=== PATIENT | female | born 1965 | race Caucasian/White ===

== ENCOUNTER → 2017-08-15 | Outpatient (CLI) | payer BC ==
[2017-08-15] MEDS: BARIUM SULFATE 60% 355 ML SUSP PO ×2 (08:41)
== END | disposition home or self-care (01) ==
LOC: RAD 07:55
DX: K51.80 Other ulcerative colitis without complications (principal); Z90.49 Acquired absence of other specified parts of digestive tract
CPT/HCPCS: 74250

== ENCOUNTER → 2017-09-02 | Day surgery (SDC) | payer BC ==
[~2017-09-02] MED LIST: PROPOFOL 20 ML IV
[2017-09-02 13:11] LABS: NEG OBC UR NEG; POS OBC UR POS; U PREG PATIENT NEGATIVE (NEG)
[2017-09-02 13:22] LABS: POC GLUCOSE 109 mg/dL (70-99)
[2017-09-02] MEDS: IV RINGERS,LACTATED 1000ML 1,000 ML IV ×2 (13:23)
== END | disposition home or self-care (01) ==
LOC: SURG 12:46
DX: K91.850 Pouchitis (principal); K63.89 Other specified diseases of intestine; E11.9 Type 2 diabetes mellitus without complications; F32.9 Major depressive disorder, single episode, unspecified; Z72.89 Other problems related to lifestyle; Z79.899 Other long term (current) drug therapy; Z86.69 Personal history of other diseases of the nervous system and sense organs; Z88.6 Allergy status to analgesic agent; Z88.2 Allergy status to sulfonamides; Z88.8 Allergy status to other drugs, medicaments and biological substances
CPT/HCPCS: 44376; 81025; 82962; J2704

== ENCOUNTER → 2018-11-21 | Outpatient (CLI) | payer BC ==
[2017-09-02 14:50] VITALS: BP 142/63
[~2018-11-21] MED LIST changes: +CONTRAST GIVEN. MC PRN; +ESCITALOPRAM OX10 MG PO; +IOHEXOL 300 MG/ML 100ML VIAL. IV ONE; +LORA10TA3 PO; +METF10007 PO; -PROPOFOL 20 ML IV; +TOPI25TA52 PO; +[UNRECOGNIZED DRUG - OTHER]
[2018-11-21 12:27] LABS: CREATININE 0.8 mg/dL (0.6-1.0); GFR 75.3
--- NOTE | 2018-11-21 17:03 | RAD ---
CT of the chest with contrast, 11/21/2018: HISTORY: Cough, fatigue, tobacco use Multidetector CT imaging was performed following an IV bolus injection of iodinated contrast material. Multiplanar reconstructions were produced. There is mild calcific plaquing of the thoracic aorta without evidence of aneurysm. Moderate scattered coronary artery calcifications are present. No mediastinal or hilar adenopathy is seen. There is a calcified granuloma in the lingula. No pulmonary mass or dense consolidation is seen. There is no evidence of pleural fluid. IMPRESSION: 1. Moderate coronary artery disease. 2. No acute chest abnormality is detected. PQRS Compliance Statement: One or more of the following individualized dose reduction techniques were utilized for this examination: 1. Automated exposure control 2. Adjustment of the mA and/or kV according to patient size 3. Use of iterative reconstruction technique Electronically signed by: Faraz Londono MD (11/21/2018 5:00 PM) [facility]
== END | disposition home or self-care (01) ==
LOC: CT 11:19
PROVIDERS: ATTEND Internal Medicine Hematology & Oncology
DX: I25.10 Atherosclerotic heart disease of native coronary artery without angina pectoris (principal); I70.0 Atherosclerosis of aorta; J98.4 Other disorders of lung; Z72.0 Tobacco use
CPT/HCPCS: 36415; 71260; 82565; Q9967

== ENCOUNTER 2019-12-24 11:43 | Observation (INO) | payer BC ==
[2019-12-24] VITALS (10 sets, daily range): BP systolic 107–171; BP diastolic 55–87
[~2019-12-24] VITALS: Ht 157.5 cm; Wt 103.4 kg
[~2019-12-24 11:43] MED LIST changes: -CONTRAST GIVEN. MC PRN; -IOHEXOL 300 MG/ML 100ML VIAL. IV ONE
[2019-12-24] MEDS ORDERED: IV NORMAL SALINE 1000ML BAG 1,000 ML IV ONE ×2 (12:00→16:15)
[2019-12-24 12:13] LABS: BASO # 0.1 x10^3/uL (0.0-0.2); BASO % 1 % (0-3); EOS # 0.2 x10^3/uL (0.0-0.7); EOS % 2 % (0-3); HEMATOCRIT 46.9 % (36.0-47.0); HEMOGLOBIN 16.4 g/dL (12.0-15.5); LYMPH # 1.7 x10^3/uL (1.0-4.8); LYMPH % 17 % (24-48); MEAN CORPUSCULAR HEMOGLOBIN 31 pg (25-35); MEAN CORPUSCULAR HGB CONC 35 g/dL (31-37); MEAN CORPUSCULAR VOLUME 90 fL (79-100); MONO # 1.1 x10^3/uL (0.0-1.1); MONO % 11 % (0-9); NEUT # 6.9 x10^3/uL (1.8-7.7); NEUT % 69 % (31-73); PLATELET COUNT 252 x10^3/uL (140-400); RED BLOOD COUNT 5.23 x10^6/uL (3.50-5.40); RED CELL DISTRIBUTION WIDTH 12.8 % (11.5-14.5)
[2019-12-24 12:20] LABS: PROTHROMBIN TIME PATIENT 13.4 SEC (11.7-14.0)
--- NOTE | 2019-12-24 12:23 | EKG ---
[facility] [address] [place] [address] Test Date: 2019-12-24 Test Time: 11:49:42 Pat Name: TIM HAYES Department: Room: Gender: F Clinic Supervisor: : 1965 Requested By: JESSICA GATICA Order Number: [id number] Reading MD: Rey Peck Measurements Intervals [place] Rate: 86 P: 48 CA: 146 QRS: -35 QRSD: 84 T: 31 QT: 338 QTc: 407 Interpretive Statements SINUS RHYTHM QRS(T) CONTOUR ABNORMALITY CONSIDER ANTEROSEPTAL MYOCARDIAL DAMAGE Electronically Signed On 12-25-2019 16:41:11 CDT by Rey Peck
[2019-12-24 12:24] LABS: CALCIUM 9.2 mg/dL (8.5-10.1); POTASSIUM 3.7 mmol/L (3.5-5.1)
[2019-12-24 12:26] LABS: D-DIMER 0.71 ug/mlFEU (0.00-0.50)
[2019-12-24 12:30] LABS: ALBUMIN 3.2 g/dL (3.4-5.0); MAGNESIUM 1.5 mg/dL (1.8-2.4); TOTAL BILIRUBIN 0.3 mg/dL (0.2-1.0); TOTAL PROTEIN 6.4 g/dL (6.4-8.2)
[2019-12-24] MEDS ORDERED: ASPIRIN 325 MG TABLET PO ONE (12:30)
[2019-12-24 12:38] LABS: CREATINE KINASE 55 U/L (26-192)
--- NOTE | 2019-12-24 12:38 | PHYS DOC ---
Past Medical History Past Medical History: Anxiety, Depression, Diabetes-Type II, Migraines, Pancreatitis, Other Additional Past Medical Histor: ulcerative colitis Past Surgical History: Tonsillectomy, Other Additional Past Surgical Histo: colectomy with internal ostomy pouch Smoking Status: Current Every Day Smoker Alcohol Use: Rarely Drug Use: None General Adult EDM: Chief Complaint: CHEST PAIN HPI: HPI: Patient is a 54 year old female presents with report of "severe headache", left chest pain, left jaw pain, and left arm "heaviness "which started approximately 45 minutes to an hour prior to arrival. Patient reports she was at work when symptoms occurred. Denies any trauma. Denies fever or chills. Denies cough. Denies nausea or diaphoresis. Patient does report cardiac risk factors of family history of CAD in her father, smoking, and diabetes. Patient denies leg swelling or calf tenderness. Denies pleuritic pain. Denies fever or chills. Patient does report history of prior abnormal stress test with report of blockage greater than 90% but at that time no stent was placed. Review of Systems: Review of Systems: Constitutional: Denies fever or chills; reports generalized malaise Eyes: Denies redness or eye pain HENT: Denies nasal congestion or sore throat Respiratory: Denies cough; reports shortness of breath Cardiovascular: Denies palpitations; reports chest pain GI: Denies abdominal pain, nausea, or vomiting : Denies dysuria or hematuria Musculoskeletal: Denies back pain; reports left arm pain Integument: Denies rash or skin lesions Neurologic: Reports headache; denies focal weakness or sensory changes Complete systems were reviewed and found to be within normal limits, except as documented in this note. Heart Score: HEART Score for Chest Pain: HEART Score for Chest Pain Response (Comments) Value History Moderately Suspicious 1 ECG Normal 0 Age >45 - < 65 1 Risk Factors >3 Risk Factors or Hx CAD 2 Troponin < Normal Limit 0 Total 4 Risk Factors: Risk Factors: DM, Current or recent (<one month) smoker, HTN, HLP, family history of CAD, obesity. Risk Scores: Score 0 - 3: 2.5% MACE over next 6 weeks - Discharge Home Score 4 - 6: 20.3% MACE over next 6 weeks - Admit for Clinical Observation Score 7 - 10: 72.7% MACE over next 6 weeks - Early Invasive Strategies Current Medications: Current Medications Medications (Trade) Dose Ordered Sig/Rowdy Start Time Stop Time Status Last Admin Dose Admin Aspirin (Berry Aspirin) 325 mg 1X ONCE 12/24/19 12:30 12/24/19 12:31 DC 12/24/19 12:18 325 MG Sodium Chloride 1,000 ml @ 1,000 mls/hr 1X ONCE 12/24/19 12:00 12/24/19 12:59 12/24/19 12:18 1,000 MLS/HR Allergies: Allergies: Allergies Coded Allergies Type Severity Reaction Last Updated Verified Sulfa (Sulfonamide Antibiotics) Allergy Unknown 08/07/17 Yes sumatriptan Allergy Unknown 08/07/17 Yes morphine Adverse Reaction Mild Anxiety 08/07/17 Yes Physical Exam: PE: Constitutional: Well developed, obese, uncomfortable HENT: Normocephalic, atraumatic Eyes: PERRL, EOMI, conjunctiva normal, no discharge Neck: Normal range of motion, no tenderness, supple, no meningeal signs Cardiovascular: Heart rate normal, regular rhythm Lungs & Thorax: Bilateral breath sounds clear to auscultation, no wheezing Abdomen: Soft, no tenderness Skin: Warm, dry, no erythema, no rash Extremities: No tenderness, ROM intact, no edema, no calf tenderness Neurologic: Alert and oriented X 3, normal motor function, normal sensory function, no focal deficits note, cerebellar function intact Psychologic: Affect anxious, judgment normal Current Patient Data: Labs: Laboratory Tests Test 12/24/19 12:02 White Blood Count 10.0 x10^3/uL (4.0-11.0) Red Blood Count 5.23 x10^6/uL (3.50-5.40) Hemoglobin 16.4 g/dL (12.0-15.5) H Hematocrit 46.9 % (36.0-47.0) Mean Corpuscular Volume 90 fL (79-100) Mean Corpuscular Hemoglobin 31 pg (25-35) Mean Corpuscular Hemoglobin Concent 35 g/dL (31-37) Red Cell Distribution Width 12.8 % (11.5-14.5) Platelet Count 252 x10^3/uL (140-400) Neutrophils (%) (Auto) 69 % (31-73) Lymphocytes (%) (Auto) 17 % (24-48) L Monocytes (%) (Auto) 11 % (0-9) H Eosinophils (%) (Auto) 2 % (0-3) Basophils (%) (Auto) 1 % (0-3) Neutrophils # (Auto) 6.9 x10^3/uL (1.8-7.7) Lymphocytes # (Auto) 1.7 x10^3/uL (1.0-4.8) Monocytes # (Auto) 1.1 x10^3/uL (0.0-1.1) Eosinophils # (Auto) 0.2 x10^3/uL (0.0-0.7) Basophils # (Auto) 0.1 x10^3/uL (0.0-0.2) Prothrombin Time 13.4 SEC (11.7-14.0) Prothrombin Time INR 1.1 (0.8-1.1) Activated Partial Thromboplast Time 30 SEC (24-38) D-Dimer (Tiarra) 0.71 ug/mlFEU (0.00-0.50) H Sodium Level 133 mmol/L (136-145) L Potassium Level 3.7 mmol/L (3.5-5.1) Chloride Level 101 mmol/L (98-107) Carbon Dioxide Level 23 mmol/L (21-32) Anion Gap 9 (6-14) Blood Urea Nitrogen 12 mg/dL (7-20) Creatinine 1.0 mg/dL (0.6-1.0) Estimated GFR (Cockcroft-Gault) 58.0 BUN/Creatinine Ratio 12 (6-20) Glucose Level 237 mg/dL (70-99) H Calcium Level 9.2 mg/dL (8.5-10.1) Magnesium Level 1.5 mg/dL (1.8-2.4) L Total Bilirubin 0.3 mg/dL (0.2-1.0) Aspartate Amino Transferase (AST) 34 U/L (15-37) Alanine Aminotransferase (ALT) 96 U/L (14-59) H Alkaline Phosphatase 116 U/L (46-116) Total Protein 6.4 g/dL (6.4-8.2) Albumin 3.2 g/dL (3.4-5.0) L Albumin/Globulin Ratio 1.0 (1.0-1.7) Lipase 109 U/L (73-393) Laboratory Tests 12/24/19 12:02 Laboratory Tests 12/24/19 12:02 Vital Signs: Vital Signs Date Time Temp Pulse Resp B/P (MAP) Pulse Ox O2 Delivery O2 Flow Rate FiO2 12/24/19 11:45 98.1 83 17 200/91 (127) 98 Room Air 98.1 EKG: EKG: @1149 NSR at 86bpm, NO ST elevation, QRS 84ms, QT/QTc 338/407ms Radiology/Procedures: Radiology/Procedures: [] Course & Med Decision Making: Course & Med Decision Making Pertinent Labs reviewed. (See chart for details) Patient with significant cardiac risk factors presents with report of chest discomfort with associated left jaw pain, left arm heaviness, and headache. EKG stable. Labs obtained and posted to chart. Initial troponin within normal limits. D-dimer elevated. HEART score 4. CTA chest ordered and pending. Discussed case with Gary DEDICATED DRIVER with Dr. Chang (cardiology) who evaluated patient and decided to take patient directly to civil laboratory technician for diagnostic cath. CT therefore was held. Patient requiring admission for further evaluation and treatment. Discussed with Dr. Love (hospitalist) who is in agreement with admission. Discussed findings and plan with patient and family, who acknowledge understanding and agreement. Dr. Chang (cardiology) called after cath with report of significant CAD which is more likely cause of chest discomfort. Decision therefore to hold CTA chest. Dr. Chang to notify Dr. Love regarding. Dragon Disclaimer: Blanca Disclaimer: This electronic medical record was generated, in whole or in part, using a voice recognition dictation system. Departure Departure Impression: Primary Impression: Chest pain Qualified Codes: R07.9 - Chest pain, unspecified Additional Impressions: Elevated d-dimer Hypomagnesemia Headache Qualified Codes: R51 - Headache Disposition: ADMITTED INPATIENT Admitting Physician: LISA Enamorado) Condition: STABLE Referrals: IDRIS HERNANDEZ MD (PCP) Justicifation of Admission Dx: Justifications for Admission: Justification of Admission Dx: Yes Comments: Chest pain r/o ACS JESSICA GATICA DO Dec 24, 2019 12:38
[2019-12-24] MEDS ORDERED: fentaNYL PF VIAL 100 MCG/2 ML VIAL IV ONE ×2 (12:45→14:00)
[2019-12-24] MEDS ORDERED: MAGNESIUM SULFATE 2GM 50 ML IV ONE ×2 (12:45→13:00)
[2019-12-24] MEDS ORDERED: LIDOCAINE 1% PF 2 ML VIAL. ONE (12:53)
[2019-12-24] MEDS ORDERED: IOHEXOL 300 MG/ML 100ML VIAL. ONE (12:54)
--- NOTE | 2019-12-24 12:55 | PDOC2 ---
PIPO GHOTRA PILOT BOAT CAPTAIN 12/24/19 1255: CARDIAC CONSULT DATE OF CONSULT Date of Consult DATE: 12/24/19 TIME: 12:52 REASON FOR CONSULT Reason for Consult: Chest pain REFERRING PHYSICIAN Referring Physician: Constantin SOURCE Source: Chart review, Patient HISTORY OF PRESENT ILLNESS HISTORY OF PRESENT ILLNESS This is a pleasant 54 yo female admitted for complains of chest pain. Reports that she was resting late this morning when she started having midchest pressure. Also associated with throbbing MERCADO, jaw discomfort and left arm discomfort. No focal neuro symptoms. Positive for some SOA and nausea. In the last sweveral weeks she has been feeling fatigue. Trying to clean her house and she could not do consecutive chores as she feels week and lack stamina. No exertional chest pressure per se in the last few weeks but positive for frequent indigestion. She has known CAD with LHC done about 10 yrs ago but no inte rvention was done. She has DM to which she has not taken her metformin for about a yr. She was not told of HTN but her BP was high when she came in. No hx of anemia, PUD or GERD. She has gained about 10 pounds in the last 3 months and no form of routine exercise. She smokes tobacco and has ROSALES which she tried a CPAP for about 6 months 10 yrs ago and quit completely. She has family hx of CAD. No ASA, she does not take any routine medications. No recent falls or injury. No hx of VTE or recent long distance travel. Denies any coughing, ,fever or chills. She also has some anxiety but also has stopped taking lexapro. She does take some medication for insomnia unclear name. PAST MEDICAL HISTORY Cardiovascular: CAD Pulmonary: Other (ROSALES) CENTRAL NERVOUS SYSTEM: Migraine GI: Inflam bowel disease (ulcerative colitis) Heme/Onc: No pertinent hx Hepatobiliary: No pertinent hx Psych: No pertinent hx Musculoskeletal: Osteoarthritis Rheumatologic: No pertinent hx Infectious disease: No pertinent hx ENT: No pertinent hx Renal/: No pertinent hx Endocrine: Diabetes (2) PAST SURGICAL HISTORY Past Surgical History: Colon Resection, Other (Casarez continent intestinal reservoir (BCIR)) FAMILY HISTORY Family History: Coronary Artery Disease (father) SOCIAL HISTORY Smoke: 1 pack per day ( >35 yrs) ALCOHOL: rare Drugs: None Lives: with Family CURRENT MEDICATIONS CURRENT MEDICATIONS Current Medications Medications (Trade) Dose Ordered Sig/Rowdy Route PRN Reason Start Time Stop Time Status Last Admin Dose Admin Aspirin (Berry Aspirin) 325 mg 1X ONCE PO 12/24/19 12:30 12/24/19 12:31 DC 12/24/19 12:18 Sodium Chloride 1,000 ml @ 1,000 mls/hr 1X ONCE IV 12/24/19 12:00 12/24/19 12:59 12/24/19 12:18 ALLERGIES ALLERGIES: Coded Allergies: Sulfa (Sulfonamide Antibiotics) (Verified Allergy, Unknown, 08/07/17) sumatriptan (Verified Allergy, Unknown, 08/07/17) morphine (Verified Adverse Reaction, Mild, Anxiety, 08/07/17) pt reports morphine "keeps me up all night" ROS Review of System 14 point ROS evaluated with pertinent positives noted per HPI PHYSICAL EXAM General: Alert, Oriented X3, Cooperative, No acute distress HEENT: Atraumatic, Mucous membr. moist/pink Lungs: Clear to auscultation, Normal air movement Heart: Regular rate (SR), Normal S1, Normal S2 Abdomen: Soft, No tenderness, Other (obese; ileostomy site right qudrant(BCIR)) Extremities: No cyanosis, Other (trace edema) Skin: No breakdown, No significant lesion Neuro: Normal speech, Sensation intact Psych/Mental Status: Mental status NL, Mood NL MUSCULOSKELETAL: Osteoarthritic changes both hands VITALS/I&O VITALS/I&O: Vital Signs Date Time Temp Pulse Resp B/P (MAP) Pulse Ox O2 Delivery O2 Flow Rate FiO2 12/24/19 11:45 98.1 83 17 200/91 (127) 98 Room Air 98.1 LABS Lab: Laboratory Tests Test 12/24/19 12:02 White Blood Count 10.0 x10^3/uL (4.0-11.0) Red Blood Count 5.23 x10^6/uL (3.50-5.40) Hemoglobin 16.4 g/dL (12.0-15.5) H Hematocrit 46.9 % (36.0-47.0) Mean Corpuscular Volume 90 fL (79-100) Mean Corpuscular Hemoglobin 31 pg (25-35) Mean Corpuscular Hemoglobin Concent 35 g/dL (31-37) Red Cell Distribution Width 12.8 % (11.5-14.5) Platelet Count 252 x10^3/uL (140-400) Neutrophils (%) (Auto) 69 % (31-73) Lymphocytes (%) (Auto) 17 % (24-48) L Monocytes (%) (Auto) 11 % (0-9) H Eosinophils (%) (Auto) 2 % (0-3) Basophils (%) (Auto) 1 % (0-3) Neutrophils # (Auto) 6.9 x10^3/uL (1.8-7.7) Lymphocytes # (Auto) 1.7 x10^3/uL (1.0-4.8) Monocytes # (Auto) 1.1 x10^3/uL (0.0-1.1) Eosinophils # (Auto) 0.2 x10^3/uL (0.0-0.7) Basophils # (Auto) 0.1 x10^3/uL (0.0-0.2) Prothrombin Time 13.4 SEC (11.7-14.0) Prothrombin Time INR 1.1 (0.8-1.1) Activated Partial Thromboplast Time 30 SEC (24-38) D-Dimer (Tiarra) 0.71 ug/mlFEU (0.00-0.50) H Sodium Level 133 mmol/L (136-145) L Potassium Level 3.7 mmol/L (3.5-5.1) Chloride Level 101 mmol/L (98-107) Carbon Dioxide Level 23 mmol/L (21-32) Anion Gap 9 (6-14) Blood Urea Nitrogen 12 mg/dL (7-20) Creatinine 1.0 mg/dL (0.6-1.0) Estimated GFR (Cockcroft-Gault) 58.0 BUN/Creatinine Ratio 12 (6-20) Glucose Level 237 mg/dL (70-99) H Calcium Level 9.2 mg/dL (8.5-10.1) Magnesium Level 1.5 mg/dL (1.8-2.4) L Total Bilirubin 0.3 mg/dL (0.2-1.0) Aspartate Amino Transferase (AST) 34 U/L (15-37) Alanine Aminotransferase (ALT) 96 U/L (14-59) H Alkaline Phosphatase 116 U/L (46-116) Creatine Kinase 55 U/L (26-192) Creatine Kinase MB (Mass) 0.8 ng/mL (0.0-3.6) Creatine Kinase MB Relative Index % (0-4) Troponin I Quantitative < 0.017 ng/mL (0.000-0.055) BX-Lhu-S-Type Natriuretic Peptide 66 pg/mL (0-124) Total Protein 6.4 g/dL (6.4-8.2) Albumin 3.2 g/dL (3.4-5.0) L Albumin/Globulin Ratio 1.0 (1.0-1.7) Lipase 109 U/L (73-393) Laboratory Tests 12/24/19 12:02 Laboratory Tests 12/24/19 12:02 ASSESSMENT/PLAN ASSESSMENT/PLAN 1. Chest pain: UA features with high risk factors 2. CAD: known coronary calcifications 3. Uncontrolled ROSALES: quit CPAP 10 yrs ago 4. Tobaccoism: 1ppd 5. Obesity: gained 10# in the last 3 months and sedentary 6. IBD/ulcerative colitis: S/P colon resection BCIR 7. Uncontrolled DM2: no meds. Defer to PCP 8. Family hx of CAD 9. HTN urgency 10. Noncompliance Recommendations 1. LHC today, risks and benefits discussed and agreeable to proceed 2. Discussed lifestyle modifications. Smoking cessation. Dietitian consult 3. A1C, TSH, lipids, TTE 4. ASA. Labetolol x1. Replace Mg 5. Secondary prevention measures pending LHC/labs result QUINTIN MILLIGAN MD 12/24/19 1342: CARDIAC CONSULT ASSESSMENT/PLAN ASSESSMENT/PLAN Pt. seen and examined. Agree with above HEALTH CARE MARKETING SPECIALIST note. 54 y.o woman with ongoing intermittent chest pain - Multiple significant risk factors. Need to rule out occult CAD. Will consider P.E and other issues after LHC completed. Discussed with family and pt/family agree to proceed. PIPO GHOTRA APRN Dec 24, 2019 12:55 QUINTIN MILLIGAN MD Dec 24, 2019 13:42
[2019-12-24] MEDS ORDERED: IOHEXOL 350 MG/ML 100 ML VIAL. IV ONE (13:00)
[2019-12-24] MEDS ORDERED: CONTRAST GIVEN. MC PRN ×2 (13:00→14:15)
[2019-12-24] MEDS ORDERED: LABETALOL 20 MG/4 ML DISP.SYRIN. IVP ONE (13:15)
[2019-12-24] MEDS ORDERED: ONDANSETRON PF 4 MG/2 ML VIAL. IV PRN (13:15)
[2019-12-24] MEDS ORDERED: fentaNYL PF VIAL 100 MCG/2 ML VIAL IV PRN (13:15)
[2019-12-24] MEDS ORDERED: HEPARIN for IV BOLUS 10,000 UNIT/10 ML VIAL. ONE (13:17)
[2019-12-24] MEDS ORDERED: VERAPAMIL 5 MG/2 ML VIAL. ONE (13:17)
[2019-12-24] MEDS ORDERED: MIDAZOLAM HCL/PF 2 MG/2 ML VIAL. ONE (13:17)
[2019-12-24] MEDS ORDERED: NITROGLYCERIN 200 MCG/2 ML SYRINGE FOR CATH/VASC LAB. ONE (13:18)
[2019-12-24] MEDS ORDERED: diphenhydrAMINE 50 MG/ML VIAL ONE (13:39)
[2019-12-24] MEDS ORDERED: VERAPAMIL 5 MG/2 ML VIAL. IART ONE (14:00)
[2019-12-24] MEDS ORDERED: LIDOCAINE 1% PF 2 ML VIAL. INJ ONE (14:00)
[2019-12-24] MEDS ORDERED: diphenhydrAMINE 50 MG/ML VIAL IVP ONE (14:00)
[2019-12-24] MEDS ORDERED: NITROGLYCERIN 200 MCG/2 ML SYRINGE FOR CATH/VASC LAB. IART ONE (14:00)
[2019-12-24] MEDS ORDERED: HEPARIN for IV BOLUS 10,000 UNIT/10 ML VIAL. IART ONE (14:00)
[2019-12-24] MEDS ORDERED: MIDAZOLAM HCL/PF 2 MG/2 ML VIAL. IV ONE (14:00)
[2019-12-24] MEDS ORDERED: IOHEXOL 300 MG/ML 100ML VIAL. IART ONE (14:00)
[2019-12-24] MEDS ORDERED: HEPARIN for IV BOLUS 10,000 UNIT/10 ML VIAL. IV ONE (14:15)
--- NOTE | 2019-12-24 14:15 | HP ---
ADMIT DATE: 12/24/2019 CHIEF COMPLAINT: Chest pain. HISTORY OF PRESENT ILLNESS: The patient is a pleasant 54-year-old female who has diabetes, hypertension and family history of coronary artery disease. She presents with chest pain, rated 6/10, it has been relieved with some nitro. I discussed the case with ER physician. She also has slight elevation of her D-dimer. We are going to admit this patient and consult Cardiology. PAST MEDICAL HISTORY: Depression, anxiety, diabetes, hypertension, pancreatitis, migraines, ulcerative colitis, tonsillectomy, colectomy with ostomy pouch, tobacco abuse every day. ALLERGIES: SULFA, MORPHINE AND SUMATRIPTAN. FAMILY HISTORY: Coronary artery disease. SOCIAL HISTORY: She smokes. No drink or drugs. MEDICATIONS: Reviewed, please refer to the MRAD. REVIEW OF SYSTEMS: GENERAL: No history of weight change, weakness or fevers. SKIN: No bruising, hair changes or rashes. EYES: No blurred, double or loss of vision. NOSE AND THROAT: No history of nosebleeds, hoarseness or sore throat. HEART: She complains of chest pain. LUNGS: Denies cough, hemoptysis, wheezing or shortness of breath. GASTROINTESTINAL: Denies changes in appetite, nausea, vomiting, diarrhea or constipation. GENITOURINARY: No history of frequency, urgency, hesitancy or nocturia. NEUROLOGIC: Denies history of numbness, tingling, tremor or weakness. PSYCHIATRIC: No history of panic, anxiety or depression. ENDOCRINE: No history of heat or cold intolerance, polyuria or polydipsia. EXTREMITIES: Denies muscle weakness, joint pain, pain on walking or stiffness. PHYSICAL EXAMINATION: VITAL SIGNS: Temperature 98.1, pulse 80, respirations 18, blood pressure 165/79, O2 sat 96% on room air. GENERAL: She is alert, cooperative, lying on the laboratory machinist table. HEENT: Normal cephalic atraumatic, external auditory canals are patent. EYES: Extraocular muscles are intact, pupils are equally round and reactive to light and accommodation. MUSCULOSKELETAL: Well developed, well nourished, good range of motion. ENDOCRINE: No thyromegaly was palpated. LYMPHATICS: No cervical chain or axillary nodes were noted. HEMATOPOIETIC: No bruising. NECK: Supple, no JVD, no thyromegaly was noted. LUNGS: Clear to auscultation in all lung rome without rhonchi or wheezing. HEART: RRR, S1, S2 present. Peripheral pulses intact, no obvious murmurs were noted. ABDOMEN: Soft, nontender. Positive bowel sounds no organomegaly, normal bowel sounds. EXTREMITIES: Without any cyanosis, clubbing, or edema. Pedal pulses intact, Homans sign is negative. NEUROLOGIC: Normal speech, normal tone. A & O x3, moves all extremities, no obvious focal deficits. PSYCHIATRIC: Normal affect, normal mood. Stable. SKIN: No ulcerations or rashes, good skin turgor, no jaundice. VASCULAR: Good capillary refill, neurovascular bundle appears to be intact. LABORATORY DATA: Troponin is 0. Hematology is normal. Electrolytes are normal except for sodium of 133 and glucose of 137. BNP 66. ASSESSMENT AND PLAN: Chest pain, rule out coronary artery disease. The patient has been admitted. We are consulting Cardiology. She has been taken to the laboratory machinist. We are going to await our cardiac catheterization report. We appreciate cardiology's rapid intervention. For now, continue serial enzymes, serial EKGs, cardiac monitoring, home meds, deep venous thrombosis prophylaxis. Full code. TILA SQUIRES DO DR: PARKER/danny JOB#: [id number] / [id number]
[2019-12-24] MEDS ORDERED: IBUP-1027 PO (14:56)
[2019-12-24] MEDS ORDERED: DIPH25CA58 PO (14:56)
[2019-12-24] MEDS ORDERED: ACET325T9 PO (14:56)
[2019-12-24] MEDS ORDERED: DEXTROSE 50% 25 GM / 50ML DISP.SYRIN. IV PRN (16:15)
[2019-12-24] MEDS ORDERED: IBUPROFEN 400 MG TABLET. PO PRN (16:15)
[2019-12-24] MEDS: INSULIN LISPRO 300 UNITS/3 ML VIAL. SQ SCH (17:23)
[2019-12-24] MEDS ORDERED: diphenhydrAMINE HCL 25 MG CAPSULE PO SCH (21:00)
[2019-12-24] MEDS: ACETAMINOPHEN 325 MG TABLET. PO PRN (21:15)
[2019-12-24] MEDS: fentaNYL PF VIAL 100 MCG/2 ML VIAL IV PRN (21:16)
[2019-12-25 00:08] LABS: HEMOGLOBIN A1C 10.4 % (4.8-5.6)
[2019-12-25 03:00] VITALS: BP 128/55
[2019-12-25] MEDS: ACETAMINOPHEN 325 MG TABLET. PO PRN (05:10)
[2019-12-25] MEDS: fentaNYL PF VIAL 100 MCG/2 ML VIAL IV PRN (05:11)
[2019-12-25 05:54] LABS: CHOLESTEROL 258 mg/dL (0-200); HDLC 20 mg/dL (40-60); TRIGLYCERIDES 807 mg/dL (0-150); VLDLC 161 mg/dL (0-40)
[2019-12-25 05:55] LABS: CHOLESTEROL/HDL RATIO 12.9
[2019-12-25 07:00] VITALS: BP 137/62
[2019-12-25] MEDS ORDERED: IOHEXOL 350 MG/ML 100 ML VIAL. IV ONE (07:45)
--- NOTE | 2019-12-25 07:54 | RAD ---
CT HEAD WO CONTRAST Date: 12/25/2019 12:00 AM Clinical Indication: headache, dizziness Comparison: None. Technique: 5 mm axial tomographic images were obtained of the head without contrast. These were viewed on brain and bone windows. One or more of the following dose reduction techniques were utilized: Automated exposure control (AEC), Adjustment of mA and/or kV according to patient size, Use of iterative reconstruction technique such as ASiR, CT scan done according to ALARA and image gently/image wisely Findings: The brain parenchyma is normal in attenuation. No intra- or extra-axial mass or fluid collection. No acute hemorrhage. The ventricles are normal in size, shape, and morphology. The herzog-white matter junction is normal. The subarachnoid cisterns are patent. The visualized paranasal sinuses are normal. The visualized portions of the orbits and globes are normal. The mastoid air cells are clear. The aligner barrel and receiver topogram shows no lytic lesion or fracture. Impression: No acute intracranial process. Electronically signed by: Ken Cardona MD (12/25/2019 7:52 AM) [id number]
[2019-12-25] MEDS ORDERED: CONTRAST GIVEN. MC PRN (08:15)
--- NOTE | 2019-12-25 08:24 | RAD ---
CT ANGIOGRAPHY CHEST INDICATION: Reason: chest pain, elevated d-dimer / Spl. Instructions: OMNI 350 90 MLS REDUCE DOSE PER PROTOCAL / History: . Comparison: 11/21/2018. TECHNIQUE: Following the uneventful administration of intravenous contrast, 90 cc Omnipaque 350, axial CT sections were obtained through the lungs and upper abdomen. Multiplanar reconstructions and MIP images were obtained. PQRS compliance statement: One or more of the following individualized dose reduction techniques were utilized for this examination: 1. Automated exposure control 2. Adjustment of the mA and/or kV according to patient size 3. Use of iterative reconstruction technique FINDINGS: Pulmonary arteries: No evidence of pulmonary thromboembolic disease. Lungs and Airways: Right upper lobe solid pulmonary nodule measuring 5 mm, not seen on the prior exam (series 3 image 42). Calcified pulmonary granulomas. No abnormality of the central airways. Pleura: The pleural spaces are normal. Heart and Mediastinum: The visualized thyroid is normal in size and attenuation. No axillary or supraclavicular lymphadenopathy. No mediastinal, hilar or retrocrural lymphadenopathy. Normal cardiac size. No pericardial effusion. Coronary artery atherosclerotic disease. The great vessels of the thorax are normal. Abdomen: Limited images through the upper abdomen show no abnormality of the visualized organs. Bones and Soft Tissues: The visualized bones and chest wall soft tissues are within normal limits. IMPRESSION: 1. No evidence of pulmonary thromboembolic disease. 2. Coronary artery atherosclerotic disease. 3. Right upper lobe 5 mm nodule, not seen on the prior exam. Consider 6-12 month follow-up unenhanced chest CT to assess stability. Electronically signed by: Ken Cardona MD (12/25/2019 8:21 AM) [id number]
[2019-12-25] MEDS: INSULIN LISPRO 300 UNITS/3 ML VIAL. SQ SCH ×2 (08:44→12:31)
--- NOTE | 2019-12-25 10:56 | PDOC ---
PROGRESS NOTES Chief Complaint Chief Complaint A/P: Chest pain - unstable angina, significant risk factors CAD - known coronary calcifications Uncontrolled ROSALES - quit CPAP 10 yrs ago Tobaccoism - counseled on cessation Obesity - gained 10# in the last 3 months and sedentary IBD/ulcerative colitis: S/P colon resection BCIR Uncontrolled DM2 - needs triple therapy with A1c 10.4 Hypomagnesemia - replaced HTN urgency - resolved History of Present Illness History of Present Illness Ms Mueller is a 54 yo F w/ PMHx ROSALES on CPAP, migraine, Ulcerative colitis, DM2 who p/w chest pain. She has known CAD with LHC done about 10 yrs ago but no intervention was done. She has DM to which she has not taken her metformin for about a yr due to loss of insurance, but now is insured. She has gained about 10 pounds in the last 3 months and no form of routine exercise. She smokes tobacco and has ROSALES which she tried a CPAP for about 6 months 10 yrs ago and quit completely. She has family hx of CAD. No ASA, she does not take any routine medications. No recent falls or injury. No hx of VTE or recent long distance travel. Denies any coughing, ,fever or chills. She also has some anxiety but also has stopped taking lexapro. 12/23: CORONARY ANGIOGRAPHY: LM is a large caliber vessel with normal angiographic appearance. LAD is a large caliber vessel with a proximal to mid 60% stenosis. Ramus is a moderate caliber vessel with proximal 50% stenosis. LCx is a moderate caliber dominant vessel with mid 40-50% stenosis, distal diffuse 40% stenosis. OM1 is a small caliber vessel with normal angiographic appearance. RCA is a non-dominant vessel with a proximal to mid 90% stenosis. Conclusion 1. Acute on chronic diastolic HF 2. Moderate 3 vessel coronary disease Recommendations Aggressive medical therapy. Given lack of troponin elevation, plan for medical therapy for stable CAD and if refractory to medical therapy with b-pj, nitrates, then consider PCI of the LAD. CTPA negative She is feeling improved. A1c>10, triglycerides > 800. Chest pain resolved. She wishes to go home. Vitals Vitals Vital Signs Date Time Temp Pulse Resp B/P (MAP) Pulse Ox O2 Delivery O2 Flow Rate FiO2 12/25/19 07:53 Room Air 12/25/19 07:00 97.8 62 20 137/62 (87) 94 97.8 12/25/19 05:41 2.0 Physical Exam General: Alert, Oriented X3, Cooperative, No acute distress Heart: Regular rate (SR), Normal S1, Normal S2 Abdomen: Soft, No tenderness, Other (obese; ileostomy site right qudrant(BCIR)) Extremities: No cyanosis, Other (trace edema) Skin: No breakdown, No significant lesion Labs LABS Laboratory Tests Test 12/24/19 12:02 12/24/19 17:02 12/24/19 20:31 12/25/19 05:04 White Blood Count 10.0 x10^3/uL (4.0-11.0) Red Blood Count 5.23 x10^6/uL (3.50-5.40) Hemoglobin 16.4 g/dL (12.0-15.5) Hematocrit 46.9 % (36.0-47.0) Mean Corpuscular Volume 90 fL (79-100) Mean Corpuscular Hemoglobin 31 pg (25-35) Mean Corpuscular Hemoglobin Concent 35 g/dL (31-37) Red Cell Distribution Width 12.8 % (11.5-14.5) Platelet Count 252 x10^3/uL (140-400) Neutrophils (%) (Auto) 69 % (31-73) Lymphocytes (%) (Auto) 17 % (24-48) Monocytes (%) (Auto) 11 % (0-9) Eosinophils (%) (Auto) 2 % (0-3) Basophils (%) (Auto) 1 % (0-3) Neutrophils # (Auto) 6.9 x10^3/uL (1.8-7.7) Lymphocytes # (Auto) 1.7 x10^3/uL (1.0-4.8) Monocytes # (Auto) 1.1 x10^3/uL (0.0-1.1) Eosinophils # (Auto) 0.2 x10^3/uL (0.0-0.7) Basophils # (Auto) 0.1 x10^3/uL (0.0-0.2) Prothrombin Time 13.4 SEC (11.7-14.0) Prothromb Time International Ratio 1.1 (0.8-1.1) Activated Partial Thromboplast Time 30 SEC (24-38) D-Dimer (Tiarra) 0.71 ug/mlFEU (0.00-0.50) Sodium Level 133 mmol/L (136-145) Potassium Level 3.7 mmol/L (3.5-5.1) Chloride Level 101 mmol/L (98-107) Carbon Dioxide Level 23 mmol/L (21-32) Anion Gap 9 (6-14) Blood Urea Nitrogen 12 mg/dL (7-20) Creatinine 1.0 mg/dL (0.6-1.0) Estimated GFR (Cockcroft-Gault) 58.0 BUN/Creatinine Ratio 12 (6-20) Glucose Level 237 mg/dL (70-99) Hemoglobin A1c 10.4 % (4.8-5.6) Calcium Level 9.2 mg/dL (8.5-10.1) Magnesium Level 1.5 mg/dL (1.8-2.4) Total Bilirubin 0.3 mg/dL (0.2-1.0) Aspartate Amino Transf (AST/SGOT) 34 U/L (15-37) Alanine Aminotransferase (ALT/SGPT) 96 U/L (14-59) Alkaline Phosphatase 116 U/L (46-116) Creatine Kinase 55 U/L (26-192) Creatine Kinase MB (Mass) 0.8 ng/mL (0.0-3.6) Creatine Kinase MB Relative Index % (0-4) Troponin I Quantitative < 0.017 ng/mL (0.000-0.055) OY-Lls-F-Type Natriuretic Peptide 66 pg/mL (0-124) Total Protein 6.4 g/dL (6.4-8.2) Albumin 3.2 g/dL (3.4-5.0) Albumin/Globulin Ratio 1.0 (1.0-1.7) Lipase 109 U/L (73-393) Thyroid Stimulating Hormone (TSH) 1.283 uIU/mL (0.358-3.74) Glucose (Fingerstick) 155 mg/dL (70-99) 292 mg/dL (70-99) Triglycerides Level 807 mg/dL (0-150) Cholesterol Level 258 mg/dL (0-200) LDL Cholesterol, Calculated mg/dL (0-100) VLDL Cholesterol, Calculated 161 mg/dL (0-40) Non-HDL Cholesterol Calculated 238 mg/dL (0-129) HDL Cholesterol 20 mg/dL (40-60) Cholesterol/HDL Ratio 12.9 Test 12/25/19 08:09 Glucose (Fingerstick) 230 mg/dL (70-99) Assessment and Plan Assessmemt and Plan Problems Medical Problems: (1) Chest pain Status: Acute (2) Elevated d-dimer Status: Acute (3) Headache Status: Acute (4) Hypomagnesemia Status: Acute Comment Review of Relevant I have reviewed the following items mae (where applicable) has been applied. Labs Laboratory Tests Test 12/24/19 12:02 12/24/19 17:02 12/24/19 20:31 12/25/19 05:04 White Blood Count 10.0 x10^3/uL (4.0-11.0) Red Blood Count 5.23 x10^6/uL (3.50-5.40) Hemoglobin 16.4 g/dL (12.0-15.5) Hematocrit 46.9 % (36.0-47.0) Mean Corpuscular Volume 90 fL (79-100) Mean Corpuscular Hemoglobin 31 pg (25-35) Mean Corpuscular Hemoglobin Concent 35 g/dL (31-37) Red Cell Distribution Width 12.8 % (11.5-14.5) Platelet Count 252 x10^3/uL (140-400) Neutrophils (%) (Auto) 69 % (31-73) Lymphocytes (%) (Auto) 17 % (24-48) Monocytes (%) (Auto) 11 % (0-9) Eosinophils (%) (Auto) 2 % (0-3) Basophils (%) (Auto) 1 % (0-3) Neutrophils # (Auto) 6.9 x10^3/uL (1.8-7.7) Lymphocytes # (Auto) 1.7 x10^3/uL (1.0-4.8) Monocytes # (Auto) 1.1 x10^3/uL (0.0-1.1) Eosinophils # (Auto) 0.2 x10^3/uL (0.0-0.7) Basophils # (Auto) 0.1 x10^3/uL (0.0-0.2) Prothrombin Time 13.4 SEC (11.7-14.0) Prothromb Time International Ratio 1.1 (0.8-1.1) Activated Partial Thromboplast Time 30 SEC (24-38) D-Dimer (Tiarra) 0.71 ug/mlFEU (0.00-0.50) Sodium Level 133 mmol/L (136-145) Potassium Level 3.7 mmol/L (3.5-5.1) Chloride Level 101 mmol/L (98-107) Carbon Dioxide Level 23 mmol/L (21-32) Anion Gap 9 (6-14) Blood Urea Nitrogen 12 mg/dL (7-20) Creatinine 1.0 mg/dL (0.6-1.0) Estimated GFR (Cockcroft-Gault) 58.0 BUN/Creatinine Ratio 12 (6-20) Glucose Level 237 mg/dL (70-99) Hemoglobin A1c 10.4 % (4.8-5.6) Calcium Level 9.2 mg/dL (8.5-10.1) Magnesium Level 1.5 mg/dL (1.8-2.4) Total Bilirubin 0.3 mg/dL (0.2-1.0) Aspartate Amino Transf (AST/SGOT) 34 U/L (15-37) Alanine Aminotransferase (ALT/SGPT) 96 U/L (14-59) Alkaline Phosphatase 116 U/L (46-116) Creatine Kinase 55 U/L (26-192) Creatine Kinase MB (Mass) 0.8 ng/mL (0.0-3.6) Creatine Kinase MB Relative Index % (0-4) Troponin I Quantitative < 0.017 ng/mL (0.000-0.055) OZ-Wzk-M-Type Natriuretic Peptide 66 pg/mL (0-124) Total Protein 6.4 g/dL (6.4-8.2) Albumin 3.2 g/dL (3.4-5.0) Albumin/Globulin Ratio 1.0 (1.0-1.7) Lipase 109 U/L (73-393) Thyroid Stimulating Hormone (TSH) 1.283 uIU/mL (0.358-3.74) Glucose (Fingerstick) 155 mg/dL (70-99) 292 mg/dL (70-99) Triglycerides Level 807 mg/dL (0-150) Cholesterol Level 258 mg/dL (0-200) LDL Cholesterol, Calculated mg/dL (0-100) VLDL Cholesterol, Calculated 161 mg/dL (0-40) Non-HDL Cholesterol Calculated 238 mg/dL (0-129) HDL Cholesterol 20 mg/dL (40-60) Cholesterol/HDL Ratio 12.9 Test 12/25/19 08:09 Glucose (Fingerstick) 230 mg/dL (70-99) Laboratory Tests Test 12/24/19 12:02 12/24/19 17:02 12/24/19 20:31 12/25/19 05:04 White Blood Count 10.0 x10^3/uL (4.0-11.0) Red Blood Count 5.23 x10^6/uL (3.50-5.40) Hemoglobin 16.4 g/dL (12.0-15.5) Hematocrit 46.9 % (36.0-47.0) Mean Corpuscular Volume 90 fL (79-100) Mean Corpuscular Hemoglobin 31 pg (25-35) Mean Corpuscular Hemoglobin Concent 35 g/dL (31-37) Red Cell Distribution Width 12.8 % (11.5-14.5) Platelet Count 252 x10^3/uL (140-400) Neutrophils (%) (Auto) 69 % (31-73) Lymphocytes (%) (Auto) 17 % (24-48) Monocytes (%) (Auto) 11 % (0-9) Eosinophils (%) (Auto) 2 % (0-3) Basophils (%) (Auto) 1 % (0-3) Neutrophils # (Auto) 6.9 x10^3/uL (1.8-7.7) Lymphocytes # (Auto) 1.7 x10^3/uL (1.0-4.8) Monocytes # (Auto) 1.1 x10^3/uL (0.0-1.1) Eosinophils # (Auto) 0.2 x10^3/uL (0.0-0.7) Basophils # (Auto) 0.1 x10^3/uL (0.0-0.2) Prothrombin Time 13.4 SEC (11.7-14.0) Prothromb Time International Ratio 1.1 (0.8-1.1) Activated Partial Thromboplast Time 30 SEC (24-38) D-Dimer (Tiarra) 0.71 ug/mlFEU (0.00-0.50) Sodium Level 133 mmol/L (136-145) Potassium Level 3.7 mmol/L (3.5-5.1) Chloride Level 101 mmol/L (98-107) Carbon Dioxide Level 23 mmol/L (21-32) Anion Gap 9 (6-14) Blood Urea Nitrogen 12 mg/dL (7-20) Creatinine 1.0 mg/dL (0.6-1.0) Estimated GFR (Cockcroft-Gault) 58.0 BUN/Creatinine Ratio 12 (6-20) Glucose Level 237 mg/dL (70-99) Hemoglobin A1c 10.4 % (4.8-5.6) Calcium Level 9.2 mg/dL (8.5-10.1) Magnesium Level 1.5 mg/dL (1.8-2.4) Total Bilirubin 0.3 mg/dL (0.2-1.0) Aspartate Amino Transf (AST/SGOT) 34 U/L (15-37) Alanine Aminotransferase (ALT/SGPT) 96 U/L (14-59) Alkaline Phosphatase 116 U/L (46-116) Creatine Kinase 55 U/L (26-192) Creatine Kinase MB (Mass) 0.8 ng/mL (0.0-3.6) Creatine Kinase MB Relative Index % (0-4) Troponin I Quantitative < 0.017 ng/mL (0.000-0.055) FC-Loj-P-Type Natriuretic Peptide 66 pg/mL (0-124) Total Protein 6.4 g/dL (6.4-8.2) Albumin 3.2 g/dL (3.4-5.0) Albumin/Globulin Ratio 1.0 (1.0-1.7) Lipase 109 U/L (73-393) Thyroid Stimulating Hormone (TSH) 1.283 uIU/mL (0.358-3.74) Glucose (Fingerstick) 155 mg/dL (70-99) 292 mg/dL (70-99) Triglycerides Level 807 mg/dL (0-150) Cholesterol Level 258 mg/dL (0-200) LDL Cholesterol, Calculated mg/dL (0-100) VLDL Cholesterol, Calculated 161 mg/dL (0-40) Non-HDL Cholesterol Calculated 238 mg/dL (0-129) HDL Cholesterol 20 mg/dL (40-60) Cholesterol/HDL Ratio 12.9 Test 12/25/19 08:09 Glucose (Fingerstick) 230 mg/dL (70-99) Medications Current Medications Aspirin (Berry Aspirin) 325 mg 1X ONCE PO Last administered on 12/24/19at 12:18; Start 12/24/19 at 12:30; Stop 12/24/19 at 12:31; Status DC Sodium Chloride 1,000 ml @ 1,000 mls/hr 1X ONCE IV Last administered on 12/24/19at 12:18; Start 12/24/19 at 12:00; Stop 12/24/19 at 12:59; Status DC Magnesium Sulfate 50 ml @ 25 mls/hr 1X ONCE IV Last administered on 12/24/19at 17:15; Start 12/24/19 at 12:45; Stop 12/24/19 at 14:44; Status DC Fentanyl Citrate (Fentanyl 2ml Vial) 50 mcg 1X ONCE IV ; Start 12/24/19 at 12:45; Stop 12/24/19 at 12:46; Status DC Iohexol (Omnipaque 350 Mg/ml) 90 ml 1X ONCE IV Last administered on 12/24/19at 07:30; Start 12/24/19 at 13:00; Stop 12/24/19 at 13:01; Status DC Labetalol HCl (Normodyne Iv Push) 20 mg 1X ONCE IVP ; Start 12/24/19 at 13:15; Stop 12/24/19 at 15:35; Status DC Info (CONTRAST GIVEN -- Rx MONITORING) 1 each PRN DAILY PRN MC SEE COMMENTS; Start 12/24/19 at 13:00; Stop 12/24/19 at 16:18; Status DC Lidocaine HCl (Xylocaine-Mpf 1% 2ml Vial) 2 ml STK-MED ONCE .ROUTE ; Start 12/24/19 at 12:53; Stop 12/24/19 at 12:54; Status DC Heparin Sodium/ Sodium Chloride 1,000 ml @ As Directed STK-MED ONCE .ROUTE ; Start 12/24/19 at 12:54; Stop 12/24/19 at 12:54; Status DC Iohexol (Omnipaque 300 Mg/ml) 100 ml STK-MED ONCE .ROUTE ; Start 12/24/19 at 12:54; Stop 12/24/19 at 12:55; Status DC Magnesium Sulfate 50 ml @ 25 mls/hr 1X ONCE IV ; Start 12/24/19 at 13:00; Stop 12/24/19 at 14:59; Status Cancel Ondansetron HCl (Zofran) 4 mg PRN Q8HRS PRN IV NAUSEA/VOMITING; Start 12/24/19 at 13:15; Stop 12/25/19 at 13:14 Fentanyl Citrate (Fentanyl 2ml Vial) 50 mcg Q2HR PRN IV PAIN; Start 12/24/19 at 13:15; Stop 12/24/19 at 13:23; Status DC Midazolam HCl (Versed) 2 mg STK-MED ONCE .ROUTE ; Start 12/24/19 at 13:17; Stop 12/24/19 at 13:18; Status DC Heparin Sodium (Porcine) (Heparin Sodium) 10,000 unit STK-MED ONCE .ROUTE ; Start 12/24/19 at 13:17; Stop 12/24/19 at 13:18; Status DC Verapamil HCl (Verapamil) 5 mg STK-MED ONCE .ROUTE ; Start 12/24/19 at 13:17; Stop 12/24/19 at 13:18; Status DC Nitroglycerin (Nitroglycerin) 200 mcg STK-MED ONCE .ROUTE ; Start 12/24/19 at 13:18; Stop 12/24/19 at 13:18; Status DC Fentanyl Citrate (Fentanyl 2ml Vial) 50 mcg PRN Q2HR PRN IV PAIN Last administered on 12/25/19at 05:11; Start 12/24/19 at 13:30 Diphenhydramine HCl (Benadryl) 50 mg STK-MED ONCE .ROUTE ; Start 12/24/19 at 13:39; Stop 12/24/19 at 13:40; Status DC Nitroglycerin (Nitroglycerin) 200 mcg 1X ONCE IART Last administered on 12/13 08/03at 14:12; Start 12/24/19 at 14:00; Stop 12/24/19 at 14:04; Status DC Verapamil HCl (Verapamil) 2.5 mg 1X ONCE IART Last administered on 12/24/19at 14:13; Start 12/24/19 at 14:00; Stop 12/24/19 at 14:04; Status DC Heparin Sodium (Porcine) (Heparin Sodium) 2,500 unit 1X ONCE IART Last administered on 12/24/19at 14:15; Start 12/24/19 at 14:00; Stop 12/24/19 at 14:04; Status DC Heparin Sodium/ Sodium Chloride (HEPARIN for ARTERIAL LINE FLUSH) 1,000 unit 1X ONCE IART Last administered on 12/24/19at 14:12; Start 12/24/19 at 14:00; Stop 12/24/19 at 14:04; Status DC Midazolam HCl (Versed) 2 mg 1X ONCE IV Last administered on 12/24/19at 14:14; Start 12/24/19 at 14:00; Stop 12/24/19 at 14:04; Status DC Fentanyl Citrate (Fentanyl 2ml Vial) 100 mcg 1X ONCE IV Last administered on 12/24/19at 14:13; Start 12/24/19 at 14:00; Stop 12/24/19 at 14:04; Status DC Iohexol (Omnipaque 300 Mg/ml) 100 ml 1X ONCE IART Last administered on 12/24/19at 14:12; Start 12/24/19 at 14:00; Stop 12/24/19 at 14:04; Status DC Lidocaine HCl (Xylocaine-Mpf 1% 2ml Vial) 2 ml 1X ONCE INJ Last administered on 12/24/19at 14:15; Start 12/24/19 at 14:00; Stop 12/24/19 at 14:04; Status DC Diphenhydramine HCl (Benadryl) 25 mg 1X ONCE IVP Last administered on 12/24/19at 14:15; Start 12/24/19 at 14:00; Stop 12/24/19 at 14:04; Status DC Info (CONTRAST GIVEN -- Rx MONITORING) 1 each PRN DAILY PRN MC SEE COMMENTS; Start 12/24/19 at 14:15; Stop 12/26/19 at 14:14 Heparin Sodium (Porcine) (Heparin Sodium) 4,000 unit 1X ONCE IV Last administered on 12/24/19at 14:16; Start 12/24/19 at 14:15; Stop 12/24/19 at 14:16; Status DC Insulin Human Lispro (HumaLOG) 0-7 UNITS TIDWMEALS SQ Last administered on 12/25/19at 08:44; Start 12/24/19 at 17:00 Dextrose (Dextrose 50%-Water Syringe) 12.5 gm PRN Q15MIN PRN IV SEE COMMENTS; Start 12/24/19 at 16:15 Sodium Chloride 1,000 ml @ 75 mls/hr 1X ONCE IV Last administered on 12/24/19at 17:15; Start 12/24/19 at 16:15; Stop 12/25/19 at 05:35; Status DC Acetaminophen (Tylenol) 650 mg PRN Q6HRS PRN PO MILD PAIN 1-3 Last administered on 12/25/19at 05:10; Start 12/24/19 at 16:15 Diphenhydramine HCl (Benadryl) 50 mg QHS PO Last administered on 12/24/19at 21:15; Start 12/24/19 at 21:00 Ibuprofen (Motrin) 400 mg PRN Q6HRS PRN PO INFLAMMATION Last administered on 12/25/19at 08:37; Start 12/24/19 at 16:15 Iohexol (Omnipaque 350 Mg/ml) 90 ml 1X ONCE IV ; Start 12/25/19 at 07:45; Stop 12/25/19 at 08:01; Status DC Info (CONTRAST GIVEN -- Rx MONITORING) 1 each PRN DAILY PRN MC SEE COMMENTS; Start 12/25/19 at 08:15; Stop 12/27/19 at 08:14 Active Scripts Active Reported Benadryl (Diphenhydramine Hcl) 25 Mg Capsule 2 Cap PO QHS 30 Days Tylenol (Acetaminophen) 325 Mg Tablet 650 Mg PO PRN Q6HRS PRN Ibuprofen 400 Mg Tablet 400 Mg PO PRN Q6HRS PRN Vitals/I & O Vital Sign - Last 24 Hours 12/24/19 12/24/19 12/24/19 12/24/19 11:45 11:45 12:00 12:30 Temp 98.1 98.1 Pulse 84 83 78 79 Resp 17 B/P (MAP) 200/91 (127) 200/91 (127) 173/79 (110) 165/78 (107) Pulse Ox 96 98 96 97 O2 Delivery Room Air Room Air Room Air Room Air 12/24/19 12/24/19 12/24/19 12/24/19 13:00 14:13 14:13 14:15 Pulse 78 71 71 Resp 16 B/P (MAP) 165/79 (107) Pulse Ox 96 97 O2 Delivery Room Air Nasal Cannula O2 Flow Rate 2.0 12/24/19 12/24/19 12/24/19 12/24/19 14:24 14:30 14:45 15:00 Temp 97.6 97.6 Pulse 71 69 72 70 Resp 14 20 16 16 B/P (MAP) 108/59 (75) Pulse Ox 97 93 96 96 O2 Delivery Nasal Cannula Room Air Room Air Room Air O2 Flow Rate 2.0 12/24/19 12/24/19 12/24/19 12/24/19 15:15 15:45 16:15 17:15 Pulse 68 70 76 80 Resp 16 18 18 18 Pulse Ox 97 96 97 95 O2 Delivery Room Air Room Air Room Air Room Air 12/24/19 12/24/19 12/24/19 12/24/19 17:52 19:12 20:00 21:16 Temp 98.1 98.1 Pulse 80 Resp 18 18 B/P (MAP) 107/64 (78) Pulse Ox 96 93 O2 Delivery Room Air Room Air Room Air Room Air 12/24/19 12/24/19 12/25/19 12/25/19 21:46 22:57 03:00 05:11 Temp 97.9 97.8 97.9 97.8 Pulse 74 72 Resp 18 20 20 18 B/P (MAP) 118/55 (76) 128/55 (79) Pulse Ox 93 97 96 96 O2 Delivery Room Air Room Air Room Air Room Air O2 Flow Rate 2.0 12/25/19 12/25/19 12/25/19 05:41 07:00 07:53 Temp 97.8 97.8 Pulse 62 Resp 18 20 B/P (MAP) 137/62 (87) Pulse Ox 96 94 O2 Delivery Room Air Room Air Room Air O2 Flow Rate 2.0 Intake and Output 12/24/19 12/24/19 12/25/19 15:00 23:00 07:00 Intake Total 250 ml Output Total 1 ml Balance 250 ml -1 ml ANNA SEGURA MD Dec 25, 2019 10:56
[2019-12-25 11:00] VITALS: BP 129/56
[2019-12-25] MEDS ORDERED: TOPIRAMATE 25 MG TABLET. PO SCH (11:00)
--- NOTE | 2019-12-25 13:20 | CARD ---
MR#: [id number] Date of Study: 12/24/2019 Ordering Physician: QUINTIN CHANG, Referring Physician: QUINTIN CHANG, Tech: Paris Merrill APPROVED REPORT Technologist: Paris Merrill Nurse: Jazz Rock R.N. Procedure(s) performed: fl time: 3.8 mins dose: 53 gycm2 contrast: 64 ml moderate sedation: 35 MINS LHC, coronary angiography HISTORY The patient is a 54 year-old female with a history of : tobacco history() , hypertension, dyslipidemi a. INDICATION The indication(s) include : unstable angina . CSHA Clinical Frailty Scale CS Clinical Frailty Scale: Managing Well Heart Failure Heart Failure: Yes If Yes, Newly Diagnosed: No If Yes, HF Type: Diastolic If Yes, NYHA Class: Class II PROCEDURE NARRATIVE INFORMED CONSENT: After explaining the risks and benefits of the procedure and alternatives, informed consent was obtained. The patient was brought electively to the cardiac catheterization lab. A timeout was performed confi rming the patient's name, date of , procedure, and site of procedure. All necessary personnel w ere wearing the appropriate protective equipment and radiation monitor devices. (See nursing notes for medications administered). ACCESS: The right wrist was sterilely prepped and draped in the usual fashion. The right wrist was infiltrat ed with 1 mL of 2% lidocaine for subcutaneous anesthesia. A 6 Tajik Terumo glide sheath was inserte d into the right radial artery without difficulty. CORONARY ANGIOGRAPHY: Right and left coronary angiography was performed using a 6Fr TIG 4.0 catheter. Left ventricular en d diastolic pressure was obtained with a pigtail catheter and pullback was performed after left ventr iculography. All catheter exchanges and advancements were performed over a guidewire. CLOSURE: At case completion the right radial sheath was removed and a Terumo radial band was applied with 13 m l of air. COMPLICATIONS: The patient tolerated the procedure well and there were no immediate complications. FINDINGS: HEMODYNAMICS: LVEDP 22 mm Hg No gradient on LV to aortic pullback. AO: 140/80 LEFT VENTRICULOGRAM: Deferred CORONARY ANGIOGRAPHY: LM is a large caliber vessel with normal angiographic appearance. LAD is a large caliber vessel with a proximal to mid 60% stenosis. Ramus is a moderate caliber vessel with proximal 50% stenosis. LCx is a moderate caliber dominant vessel with mid 40-50% stenosis, distal diffuse 40% stenosis. OM1 is a small caliber vessel with normal angiographic appearance. RCA is a non-dominant vessel with a proximal to mid 90% stenosis. Conclusion 1. Acute on chronic diastolic HF 2. Moderate 3 vessel coronary disease Recommendations Aggressive medical therapy. Given lack of troponin elevation, plan for medical therapy for stable CAD and if refractory to medical therapy with b-pj, nitrates, then consider PCI of the LAD. Signed by : Quintin Chang, Electronically Approved : 12/25/2019 13:20:16
--- NOTE | 2019-12-25 14:55 | NUR ---
SS following for discharge planning. SS reviewed pt chart and discussed with pt RN. Pt is from home and is currently on room air. Possible discharge to home today. SS will continue to follow for discharge planning.
[2019-12-25 15:00] VITALS: BP 143/67
[2019-12-25] MEDS ORDERED: TOPI25TA52 PO (15:26)
[2019-12-25] MEDS ORDERED: EMPA25TA PO (15:26)
[2019-12-25] MEDS ORDERED: OMEG1CAP2 PO (15:26)
[2019-12-25] MEDS ORDERED: SITA50TA PO (15:26)
[2019-12-25] MEDS ORDERED: METF500T PO (15:26)
[2019-12-25] MEDS ORDERED: METO25TA4 PO (15:31)
[2019-12-25] MEDS ORDERED: NITR0.4T22 SL (15:31)
--- NOTE | 2019-12-25 15:43 | PDOC3 ---
Discharge Summary Visit Information Date of Admission: Dec 24, 2019 Date of Discharge: Dec 25, 2019 Admitting Diagnosis: Chest pain Final Diagnosis Problems Medical Problems: (1) Chest pain Status: Acute (2) Elevated d-dimer Status: Acute (3) Headache Status: Acute (4) Hypomagnesemia Status: Acute Brief Hospital Course Allergies Allergies Coded Allergies Type Severity Reaction Last Updated Verified Sulfa (Sulfonamide Antibiotics) Allergy Unknown 08/07/17 Yes sumatriptan Allergy Unknown 08/07/17 Yes morphine Adverse Reaction Mild Anxiety 08/07/17 Yes Vital Signs Vital Signs Date Time Temp Pulse Resp B/P (MAP) Pulse Ox O2 Delivery O2 Flow Rate FiO2 12/25/19 11:00 98.1 75 20 129/56 (80) 95 Room Air 98.1 12/25/19 05:41 2.0 Lab Results Laboratory Tests Test 12/24/19 12:02 12/24/19 17:02 12/24/19 20:31 12/25/19 05:04 White Blood Count 10.0 x10^3/uL (4.0-11.0) Red Blood Count 5.23 x10^6/uL (3.50-5.40) Hemoglobin 16.4 g/dL (12.0-15.5) Hematocrit 46.9 % (36.0-47.0) Mean Corpuscular Volume 90 fL (79-100) Mean Corpuscular Hemoglobin 31 pg (25-35) Mean Corpuscular Hemoglobin Concent 35 g/dL (31-37) Red Cell Distribution Width 12.8 % (11.5-14.5) Platelet Count 252 x10^3/uL (140-400) Neutrophils (%) (Auto) 69 % (31-73) Lymphocytes (%) (Auto) 17 % (24-48) Monocytes (%) (Auto) 11 % (0-9) Eosinophils (%) (Auto) 2 % (0-3) Basophils (%) (Auto) 1 % (0-3) Neutrophils # (Auto) 6.9 x10^3/uL (1.8-7.7) Lymphocytes # (Auto) 1.7 x10^3/uL (1.0-4.8) Monocytes # (Auto) 1.1 x10^3/uL (0.0-1.1) Eosinophils # (Auto) 0.2 x10^3/uL (0.0-0.7) Basophils # (Auto) 0.1 x10^3/uL (0.0-0.2) Prothrombin Time 13.4 SEC (11.7-14.0) Prothromb Time International Ratio 1.1 (0.8-1.1) Activated Partial Thromboplast Time 30 SEC (24-38) D-Dimer (Tiarra) 0.71 ug/mlFEU (0.00-0.50) Sodium Level 133 mmol/L (136-145) Potassium Level 3.7 mmol/L (3.5-5.1) Chloride Level 101 mmol/L (98-107) Carbon Dioxide Level 23 mmol/L (21-32) Anion Gap 9 (6-14) Blood Urea Nitrogen 12 mg/dL (7-20) Creatinine 1.0 mg/dL (0.6-1.0) Estimated GFR (Cockcroft-Gault) 58.0 BUN/Creatinine Ratio 12 (6-20) Glucose Level 237 mg/dL (70-99) Hemoglobin A1c 10.4 % (4.8-5.6) Calcium Level 9.2 mg/dL (8.5-10.1) Magnesium Level 1.5 mg/dL (1.8-2.4) Total Bilirubin 0.3 mg/dL (0.2-1.0) Aspartate Amino Transf (AST/SGOT) 34 U/L (15-37) Alanine Aminotransferase (ALT/SGPT) 96 U/L (14-59) Alkaline Phosphatase 116 U/L (46-116) Creatine Kinase 55 U/L (26-192) Creatine Kinase MB (Mass) 0.8 ng/mL (0.0-3.6) Creatine Kinase MB Relative Index % (0-4) Troponin I Quantitative < 0.017 ng/mL (0.000-0.055) AD-Tml-S-Type Natriuretic Peptide 66 pg/mL (0-124) Total Protein 6.4 g/dL (6.4-8.2) Albumin 3.2 g/dL (3.4-5.0) Albumin/Globulin Ratio 1.0 (1.0-1.7) Lipase 109 U/L (73-393) Thyroid Stimulating Hormone (TSH) 1.283 uIU/mL (0.358-3.74) Glucose (Fingerstick) 155 mg/dL (70-99) 292 mg/dL (70-99) Triglycerides Level 807 mg/dL (0-150) Cholesterol Level 258 mg/dL (0-200) LDL Cholesterol, Calculated mg/dL (0-100) VLDL Cholesterol, Calculated 161 mg/dL (0-40) Non-HDL Cholesterol Calculated 238 mg/dL (0-129) HDL Cholesterol 20 mg/dL (40-60) Cholesterol/HDL Ratio 12.9 Test 12/25/19 08:09 12/25/19 11:28 Glucose (Fingerstick) 230 mg/dL (70-99) 274 mg/dL (70-99) Laboratory Tests Test 12/24/19 17:02 12/24/19 20:31 12/25/19 05:04 12/25/19 08:09 Glucose (Fingerstick) 155 mg/dL (70-99) 292 mg/dL (70-99) 230 mg/dL (70-99) Triglycerides Level 807 mg/dL (0-150) Cholesterol Level 258 mg/dL (0-200) LDL Cholesterol, Calculated mg/dL (0-100) VLDL Cholesterol, Calculated 161 mg/dL (0-40) Non-HDL Cholesterol Calculated 238 mg/dL (0-129) HDL Cholesterol 20 mg/dL (40-60) Cholesterol/HDL Ratio 12.9 Test 12/25/19 11:28 Glucose (Fingerstick) 274 mg/dL (70-99) Brief Hospital Course Ms Mueller is a 54 yo F w/ PMHx ROSALES on CPAP, migraine, Ulcerative colitis, DM2 who p/w chest pain. She has known CAD with LHC done about 10 yrs ago but no intervention was done. She has DM to which she has not taken her metformin for about a yr due to loss of insurance, but now is insured. She has gained about 10 pounds in the last 3 months and no form of routine exercise. She smokes tobacco and has ROSALES which she tried a CPAP for about 6 months 10 yrs ago and quit completely. She has family hx of CAD. No ASA, she does not take any routine medications. No recent falls or injury. No hx of VTE or recent long distance travel. Denies any coughing, ,fever or chills. She also has some anxiety but also has stopped taking lexapro. 12/23: CORONARY ANGIOGRAPHY: LM is a large caliber vessel with normal angiographic appearance. LAD is a large caliber vessel with a proximal to mid 60% stenosis. Ramus is a moderate caliber vessel with proximal 50% stenosis. LCx is a moderate caliber dominant vessel with mid 40-50% stenosis, distal diffuse 40% stenosis. OM1 is a small caliber vessel with normal angiographic appearance. RCA is a non-dominant vessel with a proximal to mid 90% stenosis. Conclusion 1. Acute on chronic diastolic HF 2. Moderate 3 vessel coronary disease Recommendations Aggressive medical therapy. Given lack of troponin elevation, plan for medical therapy for stable CAD and if refractory to medical therapy with b-pj, nitrates, then consider PCI of the LAD. CTPA negative She is feeling improved. A1c>10, triglycerides > 800. Chest pain resolved. She wishes to go home. Problem list: Chest pain - unstable angina, significant risk factors CAD - known coronary calcifications Uncontrolled ROSALES - quit CPAP 10 yrs ago Tobaccoism - counseled on cessation Obesity - gained 10# in the last 3 months and sedentary IBD/ulcerative colitis: S/P colon resection [facility] Uncontrolled DM2 - needs triple therapy with A1c 10.4 Hypomagnesemia - replaced HTN urgency - resolved Greater than 30 minutes spent on d/c home Discharge Information Condition at Discharge: Improved Follow Up: Weeks (1) Disposition/Orders: D/C to Home Scheduled Diphenhydramine Hcl (Benadryl) 25 Mg Capsule, 2 CAP PO QHS for sleep aid for 30 Days, #60 Ref 0 (Reported) Entered as Reported by: AMNA ANDRE on 12/24/19 1456 Last Taken: Unknown Dose on 12/23/19 Last Action: Continued on 12/24/19 1613 by AMNA ANDRE Empagliflozin (Jardiance) 25 Mg Tablet, 25 MG PO DAILY for DM2 for 30 Days, #30 Ref 2 Prescribed by: ANNA SEGURA MD on 12/25/19 1526 Metformin Hcl (Glucophage) 500 Mg Tablet, 500 MG PO BIDWMEALS for DM2 for 30 Days, #60 Ref 2 Prescribed by: ANNA SEGURA MD on 12/25/19 1526 Metoprolol Tartrate (Metoprolol Tartrate) 25 Mg Tablet, 0.5 TAB PO BID for CAD f or 30 Days, #15 Ref 2 Prescribed by: ANNA SEGURA MD on 12/25/19 1531 [place]-3 Acid Ethyl Esters (Lovaza) 1 Gm Capsule, 2 CAP PO BID for Hypertriglyceridemia for 30 Days, #120 Ref 11 Prescribed by: ANNA SEGURA MD on 12/25/19 1526 Sitagliptin Phosphate (Januvia) 50 Mg Tablet, 1 TAB PO DAILY for DM2 for 30 Days, #30 Ref 2 Prescribed by: ANNA SEGURA MD on 12/25/19 1526 Topiramate (Topamax) 25 Mg Tablet, 25 MG PO BID for Migraines for 30 Days, #60 Ref 2 Prescribed by: ANNA SEGURA MD on 12/25/19 1526 Scheduled PRN Acetaminophen (Tylenol) 325 Mg Tablet, 650 MG PO PRN Q6HRS PRN for MILD PAIN 1- 3, (Reported) Entered as Reported by: AMNA ANDRE on 12/24/191455 Last Taken: Unknown Dose on 12/14/19 Last Action: Continued on 12/24/191612 by AMNA ANDRE Ibuprofen (Ibuprofen) 400 Mg Tablet, 400 MG PO PRN Q6HRS PRN for INFLAMMATION, (Reported) Entered as Reported by: AMNA ANDRE on 12/24/191455 Last Taken: Unknown Dose on 12/14/19 Last Action: Continued on 12/24/191612 by AMNA ANDRE Nitroglycerin (NITROGLYCERIN SubLingual) 0.4 Mg Tab.subl, 0.4 MG SL PRN Q5MIN PRN for CHEST PAIN for 30 Days, #9 Ref 2 Prescribed by: ANNA SEGURA MD on 12/25/19 1531 Discontinued Medications Escitalopram Oxalate (Escitalopram Oxalate) 10 Mg Tablet, 1 TAB PO HS, #30 Ref 3 (Reported) Entered as Reported by: ISAAC MONTANA on 08/08/17 0716 Last Action: Discontinued on 12/24/191455 by AMNA ANDRE Loratadine (Loratadine) 10 Mg Tablet, 1 TAB PO DAILY, #30 Ref 5 (Reported) Entered as Reported by: CLAUDETTE HICKMAN on 09/02/17 1314 Last Action: Discontinued on 12/24/191455 by AMNA ANDRE Metformin Hcl (Metformin Hcl) 1,000 Mg Tablet, 1,000 MG PO BIDWMEALS, (Reported) Entered as Reported by: ISAAC MONTANA on 08/08/17 0716 Last Action: Discontinued on 12/24/191455 by AMNA ANDRE [caarb pj] , (Reported) Entered as Reported by: CLAUDETTE HICKMAN on 09/02/17 1314 Last Action: Discontinued on 12/24/191455 by AMNA ANDRE Justicifation of Admission Dx: Justifications for Admission: Justification of Admission Dx: Yes ANNA SEGURA MD Dec 25, 2019 15:43
--- NOTE | 2019-12-25 19:27 | NUR ---
Discharge Note: TIM HAYES Discharge instructions and discharge home medications reviewed with Patient and a copy given. All questions have been answered and understanding verbalized. The following instructions and handouts were given: CP, S/P Left heart cath discharge teaching, and elevated triglycerides. Discontinued iv lines and catheter intact. Patient discharged to home with self-care via private vehicle.
--- NOTE | 2019-12-25 23:25 | PDOC ---
CARDIOLOGY PROGRESS NOTE SUBJECTIVE: No new events. Denies any new chest pain Discussed about DM2 and weight loss issues. No syncope. No palpitations. Has been ambulating and wants to go home at bedside OBJECTIVE: Vital Signs/I&O: Vital Signs Date Time Temp Pulse Resp B/P (MAP) Pulse Ox O2 Delivery O2 Flow Rate FiO2 12/25/19 15:00 98.0 92 20 143/67 (92) 93 Room Air 98.0 12/25/19 05:41 2.0 I & O 12/24/19 12/24/19 12/25/19 15:00 23:00 07:00 Intake Total 250 ml Output Total 1 ml Balance 250 ml -1 ml Objective: GEN.: No apparent distress. Alert and oriented. HEENT: Head is normocephalic, atraumatic NECK: Supple. LUNGS: Clear to auscultation. HEART: RRR, S1, S2 present. Peripheral pulses intact ABDOMEN: Soft, nontender. Positive bowel sounds. EXTREMITIES: Without any cyanosis. NEUROLOGIC: Normal speech, normal tone PSYCHIATRIC: Normal affect, normal mood. SKIN: No ulcerations CURRENT MEDICATIONS: Current Medications Medications (Trade) Dose Ordered Sig/Rowdy Route PRN Reason Start Time Stop Time Status Last Admin Dose Admin Topiramate (Topamax) 25 mg BID PO 12/25/19 11:00 12/25/19 18:38 DC 12/25/19 12:28 DIAGNOSTIC TESTING: Labs: Laboratory Tests Test 12/25/19 05:04 12/25/19 08:09 12/25/19 11:28 Cholesterol Level 258 mg/dL (0-200) H LDL Cholesterol, Calculated mg/dL (0-100) VLDL Cholesterol, Calculated 161 mg/dL (0-40) H Non-HDL Cholesterol Calculated 238 mg/dL (0-129) H Cholesterol/HDL Ratio 12.9 Glucose (Fingerstick) 230 mg/dL (70-99) H 274 mg/dL (70-99) H ASSESSMENT: 1. Angina - moderate 3V CAD 2. Diastolic HF 3. HTN 4. DM2 5. Metabolic syndrome PLAN: 1. Home on statin, asa, b-pj 2. Continue aggressive risk factor modification 3. Discussed tobacco cessation with family extensively Ok to DC. Thanks Justicifation of Admission Dx: Justifications for Admission: Justification of Admission Dx: Yes QUINTIN MILLIGAN MD Dec 25, 2019 23:24
[2019-12-27] MEDS ORDERED: metFORMIN 500 MG TABLET PO SCH (17:00)
--- NOTE | 2019-12-29 13:29 | PDOC ---
Provider Note Provider Note 12/29/2019 1320 Notified pt for appointment and medications verification. ECASA 81 mg daily with additional lipitor 40 mg called in to [facility]. 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
== END 2019-12-25 18:38 | disposition home or self-care (01) ==
LOC: ER 11:43 → 2 NORTH 13:09
PROVIDERS: ADMIT Internal Medicine; ATTEND Internal Medicine
DX: R07.89 Other chest pain (principal); I11.0 Hypertensive heart disease with heart failure; I50.9 Heart failure, unspecified; I25.10 Atherosclerotic heart disease of native coronary artery without angina pectoris; E88.81 Metabolic syndrome and other insulin resistance; G43.909 Migraine, unspecified, not intractable, without status migrainosus; E11.9 Type 2 diabetes mellitus without complications; F41.9 Anxiety disorder, unspecified; G47.30 Sleep apnea, unspecified; F32.9 Major depressive disorder, single episode, unspecified; E83.42 Hypomagnesemia; K85.90 Acute pancreatitis without necrosis or infection, unspecified; F17.200 Nicotine dependence, unspecified, uncomplicated; Z90.49 Acquired absence of other specified parts of digestive tract
CPT/HCPCS: 36415; 70450; 71275; 80053; 80061; 82553; 82962; 83036; 83690; 83735; 83880; 84443; 84484; 85025; 85379; 85610; 85730; 93005; 93458; 96361; 96365; 96366; 96372; 96375; 96376; 99285; C1769; C1892; G0378; J1200; J1644; J1815; J2250; J3010; J3475; J3490; J7030; Q9967; 99152; 99153; G0379; Q0163

== ENCOUNTER 2020-01-29 15:14 | Inpatient (IN) | payer BC ==
[~2020-01-29] VITALS: Ht 156.2 cm; Wt 94.8 kg
[~2020-01-29 15:14] MED LIST changes: +ACET325T9 PO; +DIPH25CA58 PO; +EMPA25TA PO; +IBUP-1027 PO; +METF500T PO; +METO25TA4 PO; +NITR0.4T22 SL; +OMEG1CAP2 PO; +SITA50TA PO
--- NOTE | 2020-01-29 16:28 | RAD ---
PORTABLE CHEST 1V History: Reason: chest pain 21 / Spl. Instructions: / History: Comparison: CT chest December 25, 2019 Findings: No consolidation or pleural effusion. Normal heart size. No pneumothorax. Impression: 1. No acute cardiopulmonary process. Electronically signed by: Zack Castelan DO (01/29/2020 4:25 PM) [id number]
[2020-01-29] MEDS ORDERED: fentaNYL PF VIAL 100 MCG/2 ML VIAL IVP ONE (16:30)
[2020-01-29] MEDS ORDERED: PROCHLORPERAZINE 10 MG/2 ML VIAL. IV ONE (16:30)
[2020-01-29] MEDS ORDERED: diphenhydrAMINE 50 MG/ML VIAL IVP ONE (16:30)
[2020-01-29] MEDS ORDERED: methylPREDNISolone SOD SUCC PF 125 MG/2 ML VIAL. IV ONE (16:30)
--- NOTE | 2020-01-29 16:33 | PHYS DOC ---
Past Medical History Past Medical History: Anxiety, Depression, Diabetes-Type II, High Cholesterol, Migraines, Pancreatitis, Other Additional Past Medical Histor: ulcerative colitis Past Surgical History: Tonsillectomy, Other Additional Past Surgical Histo: colectomy with internal ostomy pouch Smoking Status: Current Every Day Smoker Additional Information: 07/16 ppd Alcohol Use: Rarely Drug Use: None General Adult EDM: Chief Complaint: HEADACHE HPI: HPI: Patient is a 55 year old female who presents with states today began having nausea after she ate some watermelon and vomited. She states then she began having chest pressure and pain in her lower back that was sharp, aching and also felt like she was being "stabbed with a hot poker". She states she then began having tingling in her left and right arm and in her bilateral legs. She states she began having chest pressure and was hard for her to catch her breath. She states that the pain that she feels in the lower back is radiating up into the top of her head. She states when she rolled over her side and has some pills that is helped the pain a little. She states that the chest pressure after taking 1 nitro did get better but she still has some chest pressure that she rates at 4 out of 10. She rates her back to head pain a 10 out of 10. Patient denies fever, cough, syncope, dizziness, vision changes, focal weakness, abdominal pain, nausea, diarrhea, constipation, dysuria. She has a history of ulcerative colitis, anxiety, smoker, chest pain with a 90% blockage of a small vessel, small bowel obstruction, diabetes, hypertension, high cholesterol, pancreatitis, migraine. She states this is the worst headache she is ever had. States that she does take aspirin daily. Review of Systems: Review of Systems: Constitutional: Denies fever or chills. [] Eyes: Denies change in visual acuity. [] HENT: Denies nasal congestion or sore throat. [] Respiratory: Denies cough. +shortness of breath. [] Cardiovascular: Mid chest pressure pain or denies edema. [] GI: Denies abdominal pain. + nausea, +vomiting, denies bloody stools or diarrhea. [] : Denies dysuria. [] Musculoskeletal: Low right to mid back pain being up to top of head. Or joint pain. [] Integument: Denies rash. [] Neurologic: Back and top of head headache, denies focal weakness. Numbness and tingling to bilateral arms and legs sensory changes. [] Endocrine: Denies polyuria or polydipsia. [] Lymphatic: Denies swollen glands. [] Psychiatric: Denies depression or anxiety. [] Heart Score: HEART Score for Chest Pain: HEART Score for Chest Pain Response (Comments) Value History Moderately Suspicious 1 ECG Nonspecific Repolarizatio 1 Age >45 - < 65 1 Risk Factors >3 Risk Factors or Hx CAD 2 Troponin < Normal Limit 0 Total 5 Risk Factors: Risk Factors: DM, Current or recent (<one month) smoker, HTN, HLP, family history of CAD, obesity. Risk Scores: Score 0 - 3: 2.5% MACE over next 6 weeks - Discharge Home Score 4 - 6: 20.3% MACE over next 6 weeks - Admit for Clinical Observation Score 7 - 10: 72.7% MACE over next 6 weeks - Early Invasive Strategies Allergies: Allergies: Allergies Coded Allergies Type Severity Reaction Last Updated Verified Sulfa (Sulfonamide Antibiotics) Allergy Intermediate hives 01/29/20 Yes sumatriptan Allergy Intermediate hives 01/29/20 Yes morphine Adverse Reaction Mild Anxiety 01/29/20 Yes Physical Exam: PE: Constitutional: Well developed, well nourished, no acute distress, non-toxic appearance. [] HENT: Normocephalic, atraumatic, bilateral external ears normal, oropharynx moist, no oral exudates, nose normal. [] Eyes: PERRLA, EOMI, conjunctiva normal, no discharge. [] Neck: Normal range of motion, no tenderness, supple, no stridor. [] Cardiovascular:Heart rate regular rhythm, no murmur [] Lungs & Thorax: Bilateral breath sounds clear to auscultation [] Abdomen: Bowel sounds normal, soft, no tenderness, no masses, no pulsatile masses. [] Skin: Warm, dry, no erythema, no rash. [] Back: No tenderness, no CVA tenderness. [] Extremities: No tenderness, no cyanosis, no clubbing, ROM intact, no edema. [] Neurologic: Alert and oriented X 3, normal motor function, normal sensory function, no focal deficits noted. [] Psychologic: Affect normal, judgement normal, mood normal. Normal physical exam [] Current Patient Data: Vital Signs: Vital Signs Date Time Temp Pulse Resp B/P (MAP) Pulse Ox O2 Delivery O2 Flow Rate FiO2 01/29/20 15:14 97.9 78 24 129/70 (89) 99 Room Air 97.9 EKG: EK and read by Dr Craig. Sinus rhythm and no STEMI. [] Radiology/Procedures: Radiology/Procedures: [] Impression: [place] [address] IMAGING REPORT Signed PATIENT: TIM HAYES: [id number] : 1965 LOCATION: ER AGE: 55 SEX: F EXAM STATUS: PRE ER ORD. PHYSICIAN: PHYLICIA ALVA APRN REASON: chest pain 21 PROCEDURE: PORTABLE CHEST 1V PORTABLE CHEST 1V History: Reason: chest pain 21 / Spl. Instructions: / History: Comparison: CT chest December 25, 2019 Findings: No consolidation or pleural effusion. Normal heart size. No pneumothorax. Impression: 1. No acute cardiopulmonary process. Electronically signed by: Zack Castelan DO (01/29/2020 4:25 PM) [id number] DICTATED and SIGNED BY: ZACK CASTELAN DO DATE: 01/29/[address] [address] IMAGING REPORT Signed PATIENT: TIM HAYES: [id number] : 1965 LOCATION: ER AGE: 55 SEX: F EXAM STATUS: REG ER ORD. PHYSICIAN: PHYLICIA ALVA APRN REASON: pain-STATES WORST MERCADO EVER PROCEDURE: CT HEAD WO CONTRAST INDICATION: Reason: pain-STATES WORST MERCADO EVER / Spl. Instructions: / History: COMPARISON: December 25, 2019 TECHNIQUE: Axial CT images obtained through the head without intravenous contrast. One or more of the following individualized dose reduction techniques were utilized for this examination: 1. Automated exposure control; 2. Adjustment of the mA and/or kV according to patient size; 3. Use of iterative reconstruction technique. FINDINGS: No intracranial hemorrhage. No midline shift. Basal cisterns patent. Ventricles and sulci are unremarkable. No acute osseous abnormality. Orbits and paranasal sinuses unremarkable. IMPRESSION: * No acute intracranial hemorrhage. * Mild scattered foci of low-density within the white matter. Nonspecific but can be seen with chronic small vessel ischemic disease or sequela of migraine. Electronically signed by: Cherelle Ordonez MD (01/29/2020 6:12 PM) [id number] DICTATED and SIGNED BY: CHERELLE ORDONEZ MD DATE: 01/29/201811 [facility] [address] [place] [address] IMAGING REPORT Signed PATIENT: TIM HAYES LACCOUNT: [id number] : 1965 LOCATION: ER AGE: 55 SEX: F EXAM STATUS: REG ER ORD. PHYSICIAN: PHYLICIA ALVA APRN REASON: pain-LBP N/V CP AFTER EATING WATERMELON H/O COLECTOMY PROCEDURE: CT LUMBAR SPINE WO CONTRAST INDICATION: Reason: pain-LBP N/V CP AFTER EATING WATERMELON H/O COLECTOMY / Spl. Instructions: / History: COMPARISON: July 2017 TECHNIQUE: Axial CT images obtained through the lumbar spine. One or more of the following individualized dose reduction techniques were utilized for this examination: 1. Automated exposure control; 2. Adjustment of the mA and/or kV according to patient size; 3. Use of iterative reconstruction technique. FINDINGS: No evidence of acute fracture or dislocation. Mild retrolisthesis of L1 on L2. Intrauterine device at the uterus. There is also some surgical clips in the partially visualized pelvis. Small amount of sclerosis at right iliac bone. Calcific atherosclerosis. Lobulated appearance of the partially visualized kidneys. Multilevel degenerative changes of the lumbar spine with some disc protrusions and osteophyte formation at the vertebral body endplates as well as facet hypertrophy. This includes a L3-4, L4-5 and L5-S1 with mild trefoil narrowing of the central canal at L3-4 and L4-5. There is some mild neural foraminal stenosis at multiple levels as well. IMPRESSION: * No acute fracture or dislocation. * Degenerative changes of the lumbar spine. * Lobulated appearance of the kidneys. Electronically signed by: Cherelle Ordonez MD (01/29/2020 6:19 PM) [id number] DICTATED and SIGNED BY: CHERELLE ORDONEZ MD DATE: 01/29/201818 Course & Med Decision Making: Course & Med Decision Making Pertinent Labs and Imaging studies reviewed. (See chart for details) Patient moves all extremities equally without any focal deficits. Speaks in full clear sentences. Skin pink warm and dry. Vital signs within normal limits. Alert and oriented. PERRLA. No tenderness to her back or spine with palpation. No stiffness in her neck and she has full range of motion of her neck. No nystagmus. Patient states that her chest pain and her numbness and tingling has resolved. She states that her breathing has gotten better. She states that she still has a headache at a 5 out of 10. I have spoken to Dr Walker for admission and I will consult Cardiology. [] Blanca Disclaimer: Blanca Disclaimer: This electronic medical record was generated, in whole or in part, using a voice recognition dictation system. 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
[2020-01-29 17:23] LABS: BASO # 0.1 x10^3/uL (0.0-0.2); BASO % 1 % (0-3); EOS # 0.1 x10^3/uL (0.0-0.7); EOS % 2 % (0-3); HEMATOCRIT 49.5 % (36.0-47.0); HEMOGLOBIN 17.7 g/dL (12.0-15.5); LYMPH # 2.3 x10^3/uL (1.0-4.8); LYMPH % 26 % (24-48); MEAN CORPUSCULAR HEMOGLOBIN 31 pg (25-35); MEAN CORPUSCULAR HGB CONC 36 g/dL (31-37); MEAN CORPUSCULAR VOLUME 87 fL (79-100); MONO % 11 % (0-9); NEUT # 5.5 x10^3/uL (1.8-7.7); NEUT % 60 % (31-73); PLATELET COUNT 272 x10^3/uL (140-400); RED BLOOD COUNT 5.69 x10^6/uL (3.50-5.40); RED CELL DISTRIBUTION WIDTH 12.5 % (11.5-14.5); WHITE BLOOD COUNT 9.1 x10^3/uL (4.0-11.0)
[2020-01-29 17:40] LABS: CALCIUM 10.4 mg/dL (8.5-10.1); CREATININE 1.5 mg/dL (0.6-1.0); GFR 36.2; POTASSIUM 3.2 mmol/L (3.5-5.1)
[2020-01-29 17:43] LABS: PROTHROMBIN TIME PATIENT 13.4 SEC (11.7-14.0)
[2020-01-29 17:44] LABS: ALBUMIN 3.9 g/dL (3.4-5.0); ALBUMIN/GLOBULIN RATIO 1.2 (1.0-1.7); TOTAL BILIRUBIN 0.6 mg/dL (0.2-1.0); TOTAL PROTEIN 7.2 g/dL (6.4-8.2)
[2020-01-29 17:50] LABS: BILIRUBIN,URINE SMALL (NEG); CLARITY,URINE CLEAR; COLOR,URINE YELLOW; NITRITE,URINE NEGATIVE (NEG); PH,URINE 5.5 (<5.0-8.0); PROTEIN,URINE 30 mg/dL (NEG-TRACE); UROBILINOGEN,URINE 0.2 mg/dL (0.2 mg/dL)
[2020-01-29 17:57] LABS: BARBITURATES NEG (NEG); BENZODIAZEPINES NEG (NEG); CANNABINOIDS NEG (NEG); COCAINE NEG (NEG); METHADONE NEG (NEG); OPIATES NEG (NEG); PHENCYCLIDINE NEG (NEG)
[2020-01-29 18:03] LABS: BACTERIA,URINE MODERATE /HPF (0-FEW); RBC,URINE 0 /HPF (0-2)
[2020-01-29 18:04] LABS: SQUAMOUS EPITHELIAL CELL,UR MANY /LPF
[2020-01-29 18:06] LABS: AMPHETAMINE/METHAMPHETAMINE NEG (NEG)
--- NOTE | 2020-01-29 18:15 | RAD ---
INDICATION: Reason: pain-STATES WORST MERCADO EVER / Spl. Instructions: / History: COMPARISON: December 25, 2019 TECHNIQUE: Axial CT images obtained through the head without intravenous contrast. One or more of the following individualized dose reduction techniques were utilized for this examination: 1. Automated exposure control; 2. Adjustment of the mA and/or kV according to patient size; 3. Use of iterative reconstruction technique. FINDINGS: No intracranial hemorrhage. No midline shift. Basal cisterns patent. Ventricles and sulci are unremarkable. No acute osseous abnormality. Orbits and paranasal sinuses unremarkable. IMPRESSION: * No acute intracranial hemorrhage. * Mild scattered foci of low-density within the white matter. Nonspecific but can be seen with chronic small vessel ischemic disease or sequela of migraine. Electronically signed by: Jayce Gross MD (01/29/2020 6:12 PM) [id number]
--- NOTE | 2020-01-29 18:22 | RAD ---
INDICATION: Reason: pain-LBP N/V CP AFTER EATING WATERMELON H/O COLECTOMY / Spl. Instructions: / History: COMPARISON: July 2017 TECHNIQUE: Axial CT images obtained through the lumbar spine. One or more of the following individualized dose reduction techniques were utilized for this examination: 1. Automated exposure control; 2. Adjustment of the mA and/or kV according to patient size; 3. Use of iterative reconstruction technique. FINDINGS: No evidence of acute fracture or dislocation. Mild retrolisthesis of L1 on L2. Intrauterine device at the uterus. There is also some surgical clips in the partially visualized pelvis. Small amount of sclerosis at right iliac bone. Calcific atherosclerosis. Lobulated appearance of the partially visualized kidneys. Multilevel degenerative changes of the lumbar spine with some disc protrusions and osteophyte formation at the vertebral body endplates as well as facet hypertrophy. This includes a L3-4, L4-5 and L5-S1 with mild trefoil narrowing of the central canal at L3-4 and L4-5. There is some mild neural foraminal stenosis at multiple levels as well. IMPRESSION: * No acute fracture or dislocation. * Degenerative changes of the lumbar spine. * Lobulated appearance of the kidneys. Electronically signed by: Jayce Gross MD (01/29/2020 6:19 PM) [id number]
[2020-01-29] MEDS ORDERED: ONDANSETRON PF 4 MG/2 ML VIAL. IV PRN (20:30)
[2020-01-29] MEDS: fentaNYL PF VIAL 100 MCG/2 ML VIAL IV PRN (22:36)
[2020-01-29 23:01] VITALS: BP 112/66
[2020-01-29] MEDS ORDERED: ESCITALOPRAM OX10 MG PO (23:05)
[2020-01-29] MEDS: diphenhydrAMINE HCL 25 MG CAPSULE PO SCH (23:33)
[2020-01-30] MEDS ORDERED: METO25TA4 PO (02:11)
[2020-01-30] MEDS ORDERED: METF10007 PO (02:14)
[2020-01-30] MEDS ORDERED: TOPI25TA52 PO (02:16)
[2020-01-30 04:15] VITALS: BP 132/74
[2020-01-30 07:00] VITALS: BP 115/56
--- NOTE | 2020-01-30 10:19 | PDOC1 ---
History and Physical Date of Admission Date of Admission DATE: 01/30/20 TIME: 10:19 Identification/Chief Complaint Chief Complaint seen in er , 55 year old female who presents with chest pain, 01/28 began having nausea after she ate some watermelon and vomited. //she began having chest pressure and pain in her lower back that was sharp, aching and also felt like she was being "stabbed with a hot poker". She states she then began having tingling in her left and right arm and in her bilateral legs. She states she began having chest pressure // SOA She states that the pain that she feels in the lower back is radiating up into the top of her head. CVONTINUED chest pressure after taking 1 nitro did get better but she still has some chest pressure that she rates at 4 out of 10. She rateed her back to head pain a 10 out of 10. Patient denies fever, cough, syncope, dizziness, vision changes, focal weakness, abdominal pain, nausea, diarrhea, constipation, dysuria. She has a history of ulcerative colitis, anxiety, smoker, chest pain with a 90% blockage of a small vessel, small bowel obstruction, diabetes, hypertension, high cholesterol, pancreatitis, migraine. She states this is the worst headache she is ever had. last PM, NOW HAS RESOLVED// States that she does take aspirin daily. Past Medical History Past Medical History Past Medical History Past Medical History Past Medical History: Anxiety, Depression, Diabetes-Type II, High Cholesterol, Migraines, Pancreatitis, Other Additional Past Medical Histor: ulcerative colitis Past Surgical History: Tonsillectomy, Other Additional Past Surgical Histo: colectomy with internal ostomy pouch Smoking Status: Current Every Day Smoker Additional Information: 07/16 ppd Alcohol Use: Rarely Drug Use: None FHX OBESITY Cardiovascular: CAD Pulmonary: Other CENTRAL NERVOUS SYSTEM: Migraine GI: Inflam bowel disease Heme/Onc: No pertinent hx Hepatobiliary: No pertinent hx Psych: No pertinent hx Musculoskeletal: Osteoarthritis Rheumatologic: No pertinent hx Infectious disease: No pertinent hx Renal/: No pertinent hx Endocrine: Diabetes Past Surgical History Past Surgical History: Colon Resection, Other Family History Family History: Coronary Artery Disease, Hypertension Social History Smoke: <1 pack per day ALCOHOL: rare Drugs: None Current Problem List Problem List Problems Medical Problems: (1) Chest pain Status: Acute Current Medications Current Medications Current Medications Prochlorperazine Edisylate (Compazine) 10 mg 1X ONCE IV Last administered on 01/29/20at 17:25; Start 01/29/20 at 16:30; Stop 01/29/20 at 16:31; Status DC Diphenhydramine HCl (Benadryl) 25 mg 1X ONCE IVP Last administered on 01/29/20at 17:25; Start 01/29/20 at 16:30; Stop 01/29/20 at 16:31; Status DC Methylprednisolone Sodium Succinate (SOLU-Medrol 125MG VIAL) 125 mg 1X ONCE IV Last administered on 01/29/20at 17:25; Start 01/29/20 at 16:30; Stop 01/29/20 at 16:31; Status DC Fentanyl Citrate (Fentanyl 2ml Vial) 50 mcg 1X ONCE IVP Last administered on 01/29/20at 17:26; Start 01/29/20 at 16:30; Stop 01/29/20 at 16:31; Status DC Ondansetron HCl (Zofran) 4 mg PRN Q8HRS PRN IV NAUSEA/VOMITING; Start 01/29/20 at 20:30; Stop 01/30/20 at 20:29 Fentanyl Citrate (Fentanyl 2ml Vial) 50 mcg PRN Q1HR PRN IV PAIN Last administered on 01/29/20at 22:36; Start 01/29/20 at 20:30; Stop 01/30/20 at 20:29 Diphenhydramine HCl (Benadryl) 50 mg QHS PO Last administered on 01/29/20at 23:33; Start 01/29/20 at 23:45 Active Scripts Active NITROGLYCERIN SubLingual (Nitroglycerin) 0.4 Mg Tab.subl 0.4 Mg SL PRN Q5MIN PRN 30 Days Lovaza ([employer]-3 Acid Ethyl Esters) 1 Gm Capsule 2 Cap PO BID 30 Days Reported Topamax (Topiramate) 25 Mg Tablet 1 Tab PO DAILY 30 Days Metformin Hcl 1,000 Mg Tablet 1,000 Mg PO BIDWMEALS Metoprolol Tartrate 25 Mg Tablet 1 Tab PO BID Escitalopram Oxalate 10 Mg Tablet 1 Tab PO DAILY Benadryl (Diphenhydramine Hcl) 25 Mg Capsule 2 Cap PO QHS 30 Days Tylenol (Acetaminophen) 325 Mg Tablet 650 Mg PO PRN Q6HRS PRN Ibuprofen 400 Mg Tablet 400 Mg PO PRN Q6HRS PRN Allergies Allergies: Coded Allergies: Sulfa (Sulfonamide Antibiotics) (Verified Allergy, Intermediate, hives, 01/29/20) sumatriptan (Verified Allergy, Intermediate, hives, 01/29/20) morphine (Verified Adverse Reaction, Mild, Anxiety, 01/29/20) pt reports morphine "keeps me up all night" ROS Review of System Constitutional: Denies fever or chills. [] Eyes: Denies change in visual acuity. [] HENT: Denies nasal congestion or sore throat. [] Respiratory: Denies cough. +shortness of breath. [] Cardiovascular: Mid chest pressure pain or denies edema. [] GI: Denies abdominal pain. + nausea, +vomiting, denies bloody stools or diarrhea. [] : Denies dysuria. [] Musculoskeletal: Low right to mid back pain being up to top of head. Or joint pain. [] Integument: Denies rash. [] Neurologic: Back and top of head headache, denies focal weakness. Numbness and tingling to bilateral arms and legs sensory changes. [] Endocrine: Denies polyuria or polydipsia. [] Lymphatic: Denies swollen glands. [] Psychiatric: Denies depression or anxiety. [] 14 PT ROS OTHERWISE NEG Physical Exam Physical Exam Constitutional: Well developed, well nourished, no acute distress, non-toxic appearance. [] HENT: Normocephalic, atraumatic, bilateral external ears normal, oropharynx moist, no oral exudates, nose normal. [] Eyes: PERRLA, EOMI, conjunctiva normal, no discharge. [] Neck: Normal range of motion, no tenderness, supple, no stridor. [] Cardiovascular:Heart rate regular rhythm, no murmur [] Lungs & Thorax: Bilateral breath sounds clear to auscultation [] Abdomen: Bowel sounds normal, soft, no tenderness, no masses, no pulsatile m asses. [] Skin: Warm, dry, no erythema, no rash. [] Back: No tenderness, no CVA tenderness. [] Extremities: No tenderness, no cyanosis, no clubbing, ROM intact, no edema. [] Neurologic: Alert and oriented X 3, normal motor function, normal sensory function, no focal deficits noted. [] Psychologic: Affect normal, judgment normal, mood normal. General: Alert, Oriented X3, Cooperative, No acute distress HEENT: EOMI, Mucous membr. moist/pink Lungs: Normal air movement Heart: RRR Breasts: Not examined Abdomen: Normal bowel sounds, Soft Rectal Exam: not examined PELVIC: Examination not indicated Extremities: No cyanosis Neuro: Normal speech, Cranial nerves 3-12 NL Psych/Mental Status: Mental status NL, Mood NL Vitals Vitals Vital Signs Date Time Temp Pulse Resp B/P (MAP) Pulse Ox O2 Delivery O2 Flow Rate FiO2 01/30/20 08:45 Room Air 01/30/20 07:00 97.8 69 20 115/56 (75) 96 97.8 Labs Labs Laboratory Tests Test 01/29/20 17:10 01/29/20 17:33 01/30/20 01:40 White Blood Count 9.1 x10^3/uL (4.0-11.0) Red Blood Count 5.69 x10^6/uL (3.50-5.40) Hemoglobin 17.7 g/dL (12.0-15.5) Hematocrit 49.5 % (36.0-47.0) Mean Corpuscular Volume 87 fL (79-100) Mean Corpuscular Hemoglobin 31 pg (25-35) Mean Corpuscular Hemoglobin Concent 36 g/dL (31-37) Red Cell Distribution Width 12.5 % (11.5-14.5) Platelet Count 272 x10^3/uL (140-400) Neutrophils (%) (Auto) 60 % (31-73) Lymphocytes (%) (Auto) 26 % (24-48) Monocytes (%) (Auto) 11 % (0-9) Eosinophils (%) (Auto) 2 % (0-3) Basophils (%) (Auto) 1 % (0-3) Neutrophils # (Auto) 5.5 x10^3/uL (1.8-7.7) Lymphocytes # (Auto) 2.3 x10^3/uL (1.0-4.8) Monocytes # (Auto) 1.0 x10^3/uL (0.0-1.1) Eosinophils # (Auto) 0.1 x10^3/uL (0.0-0.7) Basophils # (Auto) 0.1 x10^3/uL (0.0-0.2) Prothrombin Time 13.4 SEC (11.7-14.0) Prothromb Time International Ratio 1.1 (0.8-1.1) Sodium Level 134 mmol/L (136-145) Potassium Level 3.2 mmol/L (3.5-5.1) Chloride Level 98 mmol/L (98-107) Carbon Dioxide Level 23 mmol/L (21-32) Anion Gap 13 (6-14) Blood Urea Nitrogen 23 mg/dL (7-20) Creatinine 1.5 mg/dL (0.6-1.0) Estimated GFR (Cockcroft-Gault) 36.2 BUN/Creatinine Ratio 15 (6-20) Glucose Level 122 mg/dL (70-99) Calcium Level 10.4 mg/dL (8.5-10.1) Total Bilirubin 0.6 mg/dL (0.2-1.0) Aspartate Amino Transf (AST/SGOT) 32 U/L (15-37) Alanine Aminotransferase (ALT/SGPT) 64 U/L (14-59) Alkaline Phosphatase 96 U/L (46-116) Troponin I Quantitative < 0.017 ng/mL (0.000-0.055) < 0.017 ng/mL (0.000-0.055) ZG-Yby-Q-Type Natriuretic Peptide 66 pg/mL (0-124) Total Protein 7.2 g/dL (6.4-8.2) Albumin 3.9 g/dL (3.4-5.0) Albumin/Globulin Ratio 1.2 (1.0-1.7) Lipase 222 U/L (73-393) Urine Collection Type Unknown Urine Color Yellow Urine Clarity Clear Urine pH 5.5 (<5.0-8.0) Urine Specific Ivel 1.020 (1.000-1.030) Urine Protein 30 mg/dL (NEG-TRACE) Urine Glucose (UA) Negative mg/dL (NEG) Urine Ketones (Stick) 15 mg/dL (NEG) Urine Blood Negative (NEG) Urine Nitrite Negative (NEG) Urine Bilirubin Small (NEG) Urine Urobilinogen Dipstick 0.2 mg/dL (0.2 mg/dL) Urine Leukocyte Esterase Negative (NEG) Urine RBC 0 /HPF (0-2) Urine WBC 1-4 /HPF (0-4) Urine Squamous Epithelial Cells Many /LPF Urine Bacteria Moderate /HPF (0-FEW) Urine Mucus Slight /LPF Urine Opiates Screen Neg (NEG) Urine Methadone Screen Neg (NEG) Urine Barbiturates Neg (NEG) Urine Phencyclidine Screen Neg (NEG) Urine Amphetamine/Methamphetamine Neg (NEG) Urine Benzodiazepines Screen Neg (NEG) Urine Cocaine Screen Neg (NEG) Urine Cannabinoids Screen Neg (NEG) Urine Ethyl Alcohol Neg (NEG) Laboratory Tests Test 01/29/20 17:10 01/29/20 17:33 01/30/20 01:40 White Blood Count 9.1 x10^3/uL (4.0-11.0) Red Blood Count 5.69 x10^6/uL (3.50-5.40) Hemoglobin 17.7 g/dL (12.0-15.5) Hematocrit 49.5 % (36.0-47.0) Mean Corpuscular Volume 87 fL (79-100) Mean Corpuscular Hemoglobin 31 pg (25-35) Mean Corpuscular Hemoglobin Concent 36 g/dL (31-37) Red Cell Distribution Width 12.5 % (11.5-14.5) Platelet Count 272 x10^3/uL (140-400) Neutrophils (%) (Auto) 60 % (31-73) Lymphocytes (%) (Auto) 26 % (24-48) Monocytes (%) (Auto) 11 % (0-9) Eosinophils (%) (Auto) 2 % (0-3) Basophils (%) (Auto) 1 % (0-3) Neutrophils # (Auto) 5.5 x10^3/uL (1.8-7.7) Lymphocytes # (Auto) 2.3 x10^3/uL (1.0-4.8) Monocytes # (Auto) 1.0 x10^3/uL (0.0-1.1) Eosinophils # (Auto) 0.1 x10^3/uL (0.0-0.7) Basophils # (Auto) 0.1 x10^3/uL (0.0-0.2) Prothrombin Time 13.4 SEC (11.7-14.0) Prothromb Time International Ratio 1.1 (0.8-1.1) Sodium Level 134 mmol/L (136-145) Potassium Level 3.2 mmol/L (3.5-5.1) Chloride Level 98 mmol/L (98-107) Carbon Dioxide Level 23 mmol/L (21-32) Anion Gap 13 (6-14) Blood Urea Nitrogen 23 mg/dL (7-20) Creatinine 1.5 mg/dL (0.6-1.0) Estimated GFR (Cockcroft-Gault) 36.2 BUN/Creatinine Ratio 15 (6-20) Glucose Level 122 mg/dL (70-99) Calcium Level 10.4 mg/dL (8.5-10.1) Total Bilirubin 0.6 mg/dL (0.2-1.0) Aspartate Amino Transf (AST/SGOT) 32 U/L (15-37) Alanine Aminotransferase (ALT/SGPT) 64 U/L (14-59) Alkaline Phosphatase 96 U/L (46-116) Troponin I Quantitative < 0.017 ng/mL (0.000-0.055) < 0.017 ng/mL (0.000-0.055) AY-Phf-X-Type Natriuretic Peptide 66 pg/mL (0-124) Total Protein 7.2 g/dL (6.4-8.2) Albumin 3.9 g/dL (3.4-5.0) Albumin/Globulin Ratio 1.2 (1.0-1.7) Lipase 222 U/L (73-393) Urine Collection Type Unknown Urine Color Yellow Urine Clarity Clear Urine pH 5.5 (<5.0-8.0) Urine Specific Ivel 1.020 (1.000-1.030) Urine Protein 30 mg/dL (NEG-TRACE) Urine Glucose (UA) Negative mg/dL (NEG) Urine Ketones (Stick) 15 mg/dL (NEG) Urine Blood Negative (NEG) Urine Nitrite Negative (NEG) Urine Bilirubin Small (NEG) Urine Urobilinogen Dipstick 0.2 mg/dL (0.2 mg/dL) Urine Leukocyte Esterase Negative (NEG) Urine RBC 0 /HPF (0-2) Urine WBC 1-4 /HPF (0-4) Urine Squamous Epithelial Cells Many /LPF Urine Bacteria Moderate /HPF (0-FEW) Urine Mucus Slight /LPF Urine Opiates Screen Neg (NEG) Urine Methadone Screen Neg (NEG) Urine Barbiturates Neg (NEG) Urine Phencyclidine Screen Neg (NEG) Urine Amphetamine/Methamphetamine Neg (NEG) Urine Benzodiazepines Screen Neg (NEG) Urine Cocaine Screen Neg (NEG) Urine Cannabinoids Screen Neg (NEG) Urine Ethyl Alcohol Neg (NEG) Images Images 12/23: CORONARY ANGIOGRAPHY: LM is a large caliber vessel with normal angiographic appearance. LAD is a large caliber vessel with a proximal to mid 60% stenosis. Ramus is a moderate caliber vessel with proximal 50% stenosis. LCx is a moderate caliber dominant vessel with mid 40-50% stenosis, distal diffuse 40% stenosis. OM1 is a small caliber vessel with normal angiographic appearance. RCA is a non-dominant vessel with a proximal to mid 90% stenosis. Conclusion 1. Acute on chronic diastolic HF 2. Moderate 3 vessel coronary disease PORTABLE CHEST 1V History: Reason: chest pain 21 / Spl. Instructions: / History: Comparison: CT chest December 25, 2019 Findings: No consolidation or pleural effusion. Normal heart size. No pneumothorax. Impression: 1. No acute cardiopulmonary process. Electronically signed by: Zack Castelan DO (01/29/2020 4:25 PM) [id number] DICTATED and SIGNED BY: ZACK CASTELAN DO DATE: 01/29/20 1625 INDICATION: Reason: pain-LBP N/V CP AFTER EATING WATERMELON H/O COLECTOMY / Spl. Instructions: / History: COMPARISON: July 2017 TECHNIQUE: Axial CT images obtained through the lumbar spine. One or more of the following individualized dose reduction techniques were utilized for this examination: 1. Automated exposure control; 2. Adjustment of the mA and/or kV according to patient size; 3. Use of iterative reconstruction technique. FINDINGS: No evidence of acute fracture or dislocation. Mild retrolisthesis of L1 on L2. Intrauterine device at the uterus. There is also some surgical clips in the partially visualized pelvis. Small amount of sclerosis at right iliac bone. Calcific atherosclerosis. Lobulated appearance of the partially visualized kidneys. Multilevel degenerative changes of the lumbar spine with some disc protrusions and osteophyte formation at the vertebral body endplates as well as facet hypertrophy. This includes a L3-4, L4-5 and L5-S1 with mild trefoil narrowing of the central canal at L3-4 and L4-5. There is some mild neural foraminal stenosis at multiple levels as well. IMPRESSION: * No acute fracture or dislocation. * Degenerative changes of the lumbar spine. * Lobulated appearance of the kidneys. Electronically signed by: Cherelle Ordonez MD (01/29/2020 6:19 PM) [id number] DICTATED and SIGNED BY: CHERELLE ORDONEZ MD DATE: 01/29/201818 NDICATION: Reason: pain-STATES WOR[employer] [facility] [facility]ER / Spl. Instructions: / History: COMPARISON: December 25, 2019 TECHNIQUE: Axial CT images obtained through the head without intravenous contrast. One or more of the following individualized dose reduction techniques were utilized for this examination: 1. Automated exposure control; 2. Adjustment of the mA and/or kV according to patient size; 3. Use of iterative reconstruction technique. FINDINGS: No intracranial hemorrhage. No midline shift. Basal cisterns patent. Ventricles and sulci are unremarkable. No acute osseous abnormality. Orbits and paranasal sinuses unremarkable. IMPRESSION: * No acute intracranial hemorrhage. * Mild scattered foci of low-density within the white matter. Nonspecific but can be seen with chronic small vessel ischemic disease or sequela of migraine. Electronically signed by: Cherelle Ordonez MD (01/29/2020 6:12 PM) [id number] VTE Prophylaxis Ordered VTE Prophylaxis Devices: No VTE Pharmacological Prophylaxi: Yes Assessment/Plan Assessment/Plan IMPRESSION: Chest pain, unstable angina 12/23:=======CORONARY ANGIOGRAPHY: LM is a large caliber vessel with normal angiographic appearance. LAD is a large caliber vessel with a proximal to mid 60% stenosis. Ramus is a moderate caliber vessel with proximal 50% stenosis. LCx is a moderate caliber dominant vessel with mid 40-50% stenosis, distal diffuse 40% stenosis. OM1 is a small caliber vessel with normal angiographic appearance. RCA is a non-dominant vessel with a proximal to mid 90% stenosis. No acute intracranial hemorrhage. ON CT HEAD Mild scattered foci of low- density within the white matter. Nonspecific but can be seen with chronic small vessel ischemic disease or sequela of migraine. Lobulated appearance of the kidneys. FRANCINE DIABETES POLYCYTHEMIA possible SLEEP APNEA MORBID OBESITY TOBACCO ABUSE DISORDER Uncontrolled ROSALES: quit CPAP 10 yrs ago Obesity: gained 10# in the last 3 months and sedentary IBD/ulcerative colitis: S/P colon resection [facility] Uncontrolled DM2: Family hx of CAD HTN urgency Noncompliance hypokalemia, on replacement headache resolved 01/29 plan ADMIT consult cardiology consult nephrology serial troponin i HOLD METFORMIN DUE TO FRANCINE Consult hematology HS OXIMETRY, NOCTURNAL STUDY with report Need for smoking cessation provided cont home meds DVT PROPHYLAXIS TSH ABENA-2 mutation 78 min pt exam, chart review, > 50% of time spent with exam, chart review, pt care coordination Justicifation of Admission Dx: Justifications for Admission: Justification of Admission Dx: Yes NESTOR PAK MD Jan 30, 2020 10:19
[2020-01-30] MEDS ORDERED: POTASSIUM CHLORIDE 20 MEQ TABLET.ER. PO ONE (10:30)
[2020-01-30] MEDS ORDERED: IBUPROFEN 400 MG TABLET. PO PRN (10:30)
[2020-01-30] MEDS ORDERED: NITROGLYCERIN SUBLINGUAL 0.4 MG BOTTLE OF 25. SL PRN (10:30)
[2020-01-30] MEDS ORDERED: ACETAMINOPHEN 325 MG TABLET. PO PRN ×2 (10:30→10:45)
[2020-01-30 10:45] LABS: BASO % 0 % (0-3); EOS % 0 % (0-3); HEMATOCRIT 49.9 % (36.0-47.0); HEMOGLOBIN 17.6 g/dL (12.0-15.5); LYMPH # 0.5 x10^3/uL (1.0-4.8); LYMPH % 7 % (24-48); MEAN CORPUSCULAR HEMOGLOBIN 32 pg (25-35); MEAN CORPUSCULAR HGB CONC 35 g/dL (31-37); MEAN CORPUSCULAR VOLUME 90 fL (79-100); MONO # 0.1 x10^3/uL (0.0-1.1); MONO % 1 % (0-9); NEUT # 6.8 x10^3/uL (1.8-7.7); NEUT % 91 % (31-73); PLATELET COUNT 253 x10^3/uL (140-400); RED BLOOD COUNT 5.56 x10^6/uL (3.50-5.40); RED CELL DISTRIBUTION WIDTH 12.8 % (11.5-14.5); WHITE BLOOD COUNT 7.5 x10^3/uL (4.0-11.0)
[2020-01-30] MEDS ORDERED: guaiFENesin ORAL 200 MG/10 ML LIQUID. PO PRN (10:45)
[2020-01-30] MEDS ORDERED: cloNIDine HCL 0.1 MG TABLET PO PRN (10:45)
[2020-01-30] MEDS ORDERED: 0.9 % SODIUM CHLORIDE 10 ML DISP.SYRIN. IV PRN (10:45)
[2020-01-30] MEDS ORDERED: ONDANSETRON PF 4 MG/2 ML VIAL. IV PRN (10:45)
[2020-01-30] MEDS ORDERED: MAG HYDROX/ALUMINUM HYD/SIMETH 30 ML ORAL.SUSP PO PRN (10:45)
[2020-01-30] MEDS ORDERED: DOCUSATE SODIUM 100 MG CAPSULE. PO PRN (10:45)
[2020-01-30 11:00] VITALS: BP 111/57
[2020-01-30] MEDS: TOPIRAMATE 25 MG TABLET. PO SCH ×2 (11:00→12:09)
[2020-01-30] MEDS ORDERED: CITALOPRAM 20 MG TABLET. PO SCH (11:00)
[2020-01-30] MEDS ORDERED: DEXTROSE 50% 25 GM / 50ML DISP.SYRIN. IV PRN (11:00)
[2020-01-30 11:13] LABS: ALBUMIN 3.8 g/dL (3.4-5.0); CALCIUM 10.2 mg/dL (8.5-10.1); CREATININE 1.5 mg/dL (0.6-1.0); GFR 36.2; PHOSPHORUS 2.2 mg/dL (2.6-4.7); POTASSIUM 3.7 mmol/L (3.5-5.1)
--- NOTE | 2020-01-30 11:54 | PDOC2 ---
CONSULT Date of Consult Date of Consult DATE: 01/30/20 TIME: 11:50 Reason for Consult Reason for Consult: Chest pain Referring Physician Referring Physician: Dr. Amezcua Identification/Chief Complaint Chief Complaint Headache Source Source: Chart review, Patient History of Present Illness Reason for Visit: The patient is a 55-year-old female who was admitted through the emergency room last night for severe headache and some chest discomfort. She has a history on a cardiac catheterization last month of moderate three-vessel coronary artery disease. Work-up included a head CT scan that showed no acute intracranial hemorrhage. Chest x-ray showed no acute processes. Troponin has been normal x2. This morning the patient is feeling much better. Her chest pain has resolved. Her headache has improved. Past Medical History Cardiovascular: CAD, HTN Pulmonary: Other CENTRAL NERVOUS SYSTEM: Migraine GI: Inflam bowel disease Heme/Onc: No pertinent hx Hepatobiliary: No pertinent hx Psych: No pertinent hx Musculoskeletal: Osteoarthritis Rheumatologic: No pertinent hx Infectious disease: No pertinent hx Renal/: No pertinent hx Endocrine: Diabetes Past Surgical History Past Surgical History: Colon Resection, Other (Heart catheterization as above) Family History Family History: Coronary Artery Disease, Hypertension Social History <1 pack per day ALCOHOL: rare Drugs: None Lives: with Family Current Problem List Problem List Problems Medical Problems: (1) Chest pain Status: Acute Current Medications Current Medications Current Medications Prochlorperazine Edisylate (Compazine) 10 mg 1X ONCE IV Last administered on 01/29/20at 17:25; Start 01/29/20 at 16:30; Stop 01/29/20 at 16:31; Status DC Diphenhydramine HCl (Benadryl) 25 mg 1X ONCE IVP Last administered on 01/29/20at 17:25; Start 01/29/20 at 16:30; Stop 01/29/20 at 16:31; Status DC Methylprednisolone Sodium Succinate (SOLU-Medrol 125MG VIAL) 125 mg 1X ONCE IV Last administered on 01/29/20at 17:25; Start 01/29/20 at 16:30; Stop 01/29/20 at 16:31; Status DC Fentanyl Citrate (Fentanyl 2ml Vial) 50 mcg 1X ONCE IVP Last administered on 01/29/20at 17:26; Start 01/29/20 at 16:30; Stop 01/29/20 at 16:31; Status DC Ondansetron HCl (Zofran) 4 mg PRN Q8HRS PRN IV NAUSEA/VOMITING; Start 01/29/20 at 20:30; Stop 01/30/20 at 20:29 Fentanyl Citrate (Fentanyl 2ml Vial) 50 mcg PRN Q1HR PRN IV PAIN Last administered on 01/29/20at 22:36; Start 01/29/20 at 20:30; Stop 01/30/20 at 20:29 Diphenhydramine HCl (Benadryl) 50 mg QHS PO Last administered on 01/29/20at 23:33; Start 01/29/20 at 23:45 Potassium Chloride (Klor-Con) 40 meq 1X ONCE PO ; Start 01/30/20 at 10:30; Stop 01/30/20 at 10:31; Status DC Potassium Chloride (Klor-Con) 20 meq DAILYWBKFT PO ; Start 01/31/20 at 08:00 Acetaminophen (Tylenol) 650 mg PRN Q6HRS PRN PO MILD PAIN 1-3; Start 01/30/20 at 10:30; Stop 01/30/20 at 10:54; Status DC Ibuprofen (Motrin) 400 mg PRN Q6HRS PRN PO INFLAMMATION; Start 01/30/20 at 10:30 Metoprolol Tartrate (Lopressor) 25 mg BID PO ; Start 01/30/20 at 11:00 Nitroglycerin (Nitrostat) 0.4 mg PRN Q5MIN PRN SL CHEST PAIN; Start 01/30/20 at 10:30 Topiramate (Topamax) 25 mg DAILY PO ; Start 01/30/20 at 11:00 Citalopram Hydrobromide (CeleXA) 20 mg DAILY PO ; Start 01/30/20 at 11:00 Fish Oil (Fish Oil) 4,000 mg DAILY PO ; Start 01/30/20 at 11:00 Sodium Chloride (Normal Saline Flush) 3 ml QSHIFT PRN IV AFTER MEDS AND BLOOD DRAWS; Start 01/30/20 at 10:45 Ondansetron HCl (Zofran) 4 mg PRN Q4HRS PRN IV NAUSEA/VOMITING; Start 01/30/20 at 10:45 Acetaminophen (Tylenol) 650 mg PRN Q4HRS PRN PO TEMP OVER 100.4F OR MILD PAIN; Start 01/30/20 at 10:45 Al Hydroxide/Mg Hydroxide (Mylanta Plus Xs) 30 ml PRN DAILY PRN PO HEARTBURN / GAS; Start 01/30/20 at 10:45 Clonidine HCl (Catapres) 0.1 mg PRN Q6HRS PRN PO SBP>160 OR DBP>90; Start 01/30/20 at 10:45 Docusate Sodium (Colace) 100 mg PRN BID PRN PO HARD STOOLS; Start 01/30/20 at 10:45 Albuterol/ Ipratropium (Duoneb) 3 ml Q4HRS NEB ; Start 01/30/20 at 12:00 Guaifenesin (Robitussin) 200 mg PRN Q4HRS PRN PO COUGH; Start 01/30/20 at 10:45 Enoxaparin Sodium (Lovenox 40mg Syringe) 40 mg Q24H SQ ; Start 01/30/20 at 11:00 Insulin Human Lispro (HumaLOG) 0-5 UNITS TIDWMEALS SQ ; Start 01/30/20 at 12:00 Dextrose (Dextrose 50%-Water Syringe) 12.5 gm PRN Q15MIN PRN IV SEE COMMENTS; Start 01/30/20 at 11:00 Active Scripts Active NITROGLYCERIN SubLingual (Nitroglycerin) 0.4 Mg Tab.subl 0.4 Mg SL PRN Q5MIN PRN 30 Days Lovaza (Jackson-3 Acid Ethyl Esters) 1 Gm Capsule 2 Cap PO BID 30 Days Reported Topamax (Topiramate) 25 Mg Tablet 1 Tab PO DAILY 30 Days Metformin Hcl 1,000 Mg Tablet 1,000 Mg PO BIDWMEALS Metoprolol Tartrate 25 Mg Tablet 1 Tab PO BID Escitalopram Oxalate 10 Mg Tablet 1 Tab PO DAILY Benadryl (Diphenhydramine Hcl) 25 Mg Capsule 2 Cap PO QHS 30 Days Tylenol (Acetaminophen) 325 Mg Tablet 650 Mg PO PRN Q6HRS PRN Ibuprofen 400 Mg Tablet 400 Mg PO PRN Q6HRS PRN Allergies Allergies: Coded Allergies: Sulfa (Sulfonamide Antibiotics) (Verified Allergy, Intermediate, hives, 01/29/20) sumatriptan (Verified Allergy, Intermediate, hives, 01/29/20) morphine (Verified Adverse Reaction, Mild, Anxiety, 01/29/20) pt reports morphine "keeps me up all night" ROS General: YES: Fatigue HEENT: YES: Heacaches Cardiovascular: yes Chest Pain Physical Exam General: mild distress HEENT: Atraumatic Lungs: Clear to auscultation Heart: Regular rate Abdomen: Normal bowel sounds Vitals VITALS Vital Signs Date Time Temp Pulse Resp B/P (MAP) Pulse Ox O2 Delivery O2 Flow Rate FiO2 01/30/20 08:45 Room Air 01/30/20 07:00 97.8 69 20 115/56 (75) 96 97.8 Labs Labs Laboratory Tests Test 01/29/20 17:10 01/29/20 17:33 01/30/20 01:40 White Blood Count 9.1 x10^3/uL (4.0-11.0) 7.5 x10^3/uL (4.0-11.0) Red Blood Count 5.69 x10^6/uL (3.50-5.40) 5.56 x10^6/uL (3.50-5.40) Hemoglobin 17.7 g/dL (12.0-15.5) 17.6 g/dL (12.0-15.5) Hematocrit 49.5 % (36.0-47.0) 49.9 % (36.0-47.0) Mean Corpuscular Volume 87 fL (79-100) 90 fL (79-100) Mean Corpuscular Hemoglobin 31 pg (25-35) 32 pg (25-35) Mean Corpuscular Hemoglobin Concent 36 g/dL (31-37) 35 g/dL (31-37) Red Cell Distribution Width 12.5 % (11.5-14.5) 12.8 % (11.5-14.5) Platelet Count 272 x10^3/uL (140-400) 253 x10^3/uL (140-400) Neutrophils (%) (Auto) 60 % (31-73) 91 % (31-73) Lymphocytes (%) (Auto) 26 % (24-48) 7 % (24-48) Monocytes (%) (Auto) 11 % (0-9) 1 % (0-9) Eosinophils (%) (Auto) 2 % (0-3) 0 % (0-3) Basophils (%) (Auto) 1 % (0-3) 0 % (0-3) Neutrophils # (Auto) 5.5 x10^3/uL (1.8-7.7) 6.8 x10^3/uL (1.8-7.7) Lymphocytes # (Auto) 2.3 x10^3/uL (1.0-4.8) 0.5 x10^3/uL (1.0-4.8) Monocytes # (Auto) 1.0 x10^3/uL (0.0-1.1) 0.1 x10^3/uL (0.0-1.1) Eosinophils # (Auto) 0.1 x10^3/uL (0.0-0.7) 0.0 x10^3/uL (0.0-0.7) Basophils # (Auto) 0.1 x10^3/uL (0.0-0.2) 0.0 x10^3/uL (0.0-0.2) Prothrombin Time 13.4 SEC (11.7-14.0) Prothromb Time International Ratio 1.1 (0.8-1.1) Sodium Level 134 mmol/L (136-145) 132 mmol/L (136-145) Potassium Level 3.2 mmol/L (3.5-5.1) 3.7 mmol/L (3.5-5.1) Chloride Level 98 mmol/L (98-107) 98 mmol/L (98-107) Carbon Dioxide Level 23 mmol/L (21-32) 23 mmol/L (21-32) Anion Gap 13 (6-14) 11 (6-14) Blood Urea Nitrogen 23 mg/dL (7-20) 26 mg/dL (7-20) Creatinine 1.5 mg/dL (0.6-1.0) 1.5 mg/dL (0.6-1.0) Estimated GFR (Cockcroft-Gault) 36.2 36.2 BUN/Creatinine Ratio 15 (6-20) Glucose Level 122 mg/dL (70-99) 333 mg/dL (70-99) Calcium Level 10.4 mg/dL (8.5-10.1) 10.2 mg/dL (8.5-10.1) Total Bilirubin 0.6 mg/dL (0.2-1.0) Aspartate Amino Transf (AST/SGOT) 32 U/L (15-37) Alanine Aminotransferase (ALT/SGPT) 64 U/L (14-59) Alkaline Phosphatase 96 U/L (46-116) Troponin I Quantitative < 0.017 ng/mL (0.000-0.055) < 0.017 ng/mL (0.000-0.055) KR-[id number]-[id number]-Type Natriuretic Peptide 66 pg/mL (0-124) Total Protein 7.2 g/dL (6.4-8.2) Albumin 3.9 g/dL (3.4-5.0) 3.8 g/dL (3.4-5.0) Albumin/Globulin Ratio 1.2 (1.0-1.7) Lipase 222 U/L (73-393) Urine Collection Type Unknown Urine Color Yellow Urine Clarity Clear Urine pH 5.5 (<5.0-8.0) Urine Specific [place] 1.020 (1.000-1.030) Urine Protein 30 mg/dL (NEG-TRACE) Urine Glucose (UA) Negative mg/dL (NEG) Urine Ketones (Stick) 15 mg/dL (NEG) Urine Blood Negative (NEG) Urine Nitrite Negative (NEG) Urine Bilirubin Small (NEG) Urine Urobilinogen Dipstick 0.2 mg/dL (0.2 mg/dL) Urine Leukocyte Esterase Negative (NEG) Urine RBC 0 /HPF (0-2) Urine WBC 1-4 /HPF (0-4) Urine Squamous Epithelial Cells Many /LPF Urine Bacteria Moderate /HPF (0-FEW) Urine Mucus Slight /LPF Urine Opiates Screen Neg (NEG) Urine Methadone Screen Neg (NEG) Urine Barbiturates Neg (NEG) Urine Phencyclidine Screen Neg (NEG) Urine Amphetamine/Methamphetamine Neg (NEG) Urine Benzodiazepines Screen Neg (NEG) Urine Cocaine Screen Neg (NEG) Urine Cannabinoids Screen Neg (NEG) Urine Ethyl Alcohol Neg (NEG) Phosphorus Level 2.2 mg/dL (2.6-4.7) Thyroid Stimulating Hormone (TSH) 0.524 uIU/mL (0.358-3.74) Laboratory Tests Test 01/29/20 17:10 01/29/20 17:33 01/30/20 01:40 White Blood Count 9.1 x10^3/uL (4.0-11.0) 7.5 x10^3/uL (4.0-11.0) Red Blood Count 5.69 x10^6/uL (3.50-5.40) 5.56 x10^6/uL (3.50-5.40) Hemoglobin 17.7 g/dL (12.0-15.5) 17.6 g/dL (12.0-15.5) Hematocrit 49.5 % (36.0-47.0) 49.9 % (36.0-47.0) Mean Corpuscular Volume 87 fL (79-100) 90 fL (79-100) Mean Corpuscular Hemoglobin 31 pg (25-35) 32 pg (25-35) Mean Corpuscular Hemoglobin Concent 36 g/dL (31-37) 35 g/dL (31-37) Red Cell Distribution Width 12.5 % (11.5-14.5) 12.8 % (11.5-14.5) Platelet Count 272 x10^3/uL (140-400) 253 x10^3/uL (140-400) Neutrophils (%) (Auto) 60 % (31-73) 91 % (31-73) Lymphocytes (%) (Auto) 26 % (24-48) 7 % (24-48) Monocytes (%) (Auto) 11 % (0-9) 1 % (0-9) Eosinophils (%) (Auto) 2 % (0-3) 0 % (0-3) Basophils (%) (Auto) 1 % (0-3) 0 % (0-3) Neutrophils # (Auto) 5.5 x10^3/uL (1.8-7.7) 6.8 x10^3/uL (1.8-7.7) Lymphocytes # (Auto) 2.3 x10^3/uL (1.0-4.8) 0.5 x10^3/uL (1.0-4.8) Monocytes # (Auto) 1.0 x10^3/uL (0.0-1.1) 0.1 x10^3/uL (0.0-1.1) Eosinophils # (Auto) 0.1 x10^3/uL (0.0-0.7) 0.0 x10^3/uL (0.0-0.7) Basophils # (Auto) 0.1 x10^3/uL (0.0-0.2) 0.0 x10^3/uL (0.0-0.2) Prothrombin Time 13.4 SEC (11.7-14.0) Prothromb Time International Ratio 1.1 (0.8-1.1) Sodium Level 134 mmol/L (136-145) 132 mmol/L (136-145) Potassium Level 3.2 mmol/L (3.5-5.1) 3.7 mmol/L (3.5-5.1) Chloride Level 98 mmol/L (98-107) 98 mmol/L (98-107) Carbon Dioxide Level 23 mmol/L (21-32) 23 mmol/L (21-32) Anion Gap 13 (6-14) 11 (6-14) Blood Urea Nitrogen 23 mg/dL (7-20) 26 mg/dL (7-20) Creatinine 1.5 mg/dL (0.6-1.0) 1.5 mg/dL (0.6-1.0) Estimated GFR (Cockcroft-Gault) 36.2 36.2 BUN/Creatinine Ratio 15 (6-20) Glucose Level 122 mg/dL (70-99) 333 mg/dL (70-99) Calcium Level 10.4 mg/dL (8.5-10.1) 10.2 mg/dL (8.5-10.1) Total Bilirubin 0.6 mg/dL (0.2-1.0) Aspartate Amino Transf (AST/SGOT) 32 U/L (15-37) Alanine Aminotransferase (ALT/SGPT) 64 U/L (14-59) Alkaline Phosphatase 96 U/L (46-116) Troponin I Quantitative < 0.017 ng/mL (0.000-0.055) < 0.017 ng/mL (0.000-0.055) EM-Bux-D-Type Natriuretic Peptide 66 pg/mL (0-124) Total Protein 7.2 g/dL (6.4-8.2) Albumin 3.9 g/dL (3.4-5.0) 3.8 g/dL (3.4-5.0) Albumin/Globulin Ratio 1.2 (1.0-1.7) Lipase 222 U/L (73-393) Urine Collection Type Unknown Urine Color Yellow Urine Clarity Clear Urine pH 5.5 (<5.0-8.0) Urine Specific [place] 1.020 (1.000-1.030) Urine Protein 30 mg/dL (NEG-TRACE) Urine Glucose (UA) Negative mg/dL (NEG) Urine Ketones (Stick) 15 mg/dL (NEG) Urine Blood Negative (NEG) Urine Nitrite Negative (NEG) Urine Bilirubin Small (NEG) Urine Urobilinogen Dipstick 0.2 mg/dL (0.2 mg/dL) Urine Leukocyte Esterase Negative (NEG) Urine RBC 0 /HPF (0-2) Urine WBC 1-4 /HPF (0-4) Urine Squamous Epithelial Cells Many /LPF Urine Bacteria Moderate /HPF (0-FEW) Urine Mucus Slight /LPF Urine Opiates Screen Neg (NEG) Urine Methadone Screen Neg (NEG) Urine Barbiturates Neg (NEG) Urine Phencyclidine Screen Neg (NEG) Urine Amphetamine/Methamphetamine Neg (NEG) Urine Benzodiazepines Screen Neg (NEG) Urine Cocaine Screen Neg (NEG) Urine Cannabinoids Screen Neg (NEG) Urine Ethyl Alcohol Neg (NEG) Phosphorus Level 2.2 mg/dL (2.6-4.7) Thyroid Stimulating Hormone (TSH) 0.524 uIU/mL (0.358-3.74) Images Images Chest x-ray. No acute changes. CT scan of the head with no acute intracranial hemorrhage Assessment/Plan Assessment/Plan 1. Chest pain. Patient's pain has resolved. Troponin is negative x2. She has no acute EKG changes. Cardiac catheterization on 12/24/2019 showed moderate three-vessel coronary disease. We will continue medical treatment from a cardiac viewpoint. 2. Severe headache. Improved. CT head scan showed no acute changes. We will continue as above. 3. Elevated creatinine at 1.5. Evaluation is in progress. 4. Hypertension. Controlled. Thank you for allowing us to participate in the care of your patient. KEEGAN MUNIZ MD Jan 30, 2020 11:54
[2020-01-30] MEDS: IPRATRPIUM/ALBUTEROL 0.5/2.5MG 3 ML NEBU. NEB SCH ×3 (12:00→21:07)
[2020-01-30] MEDS: METOPROLOL TART IMMED RELEASE 25 MG TABLET. PO SCH ×2 (12:10→20:46)
[2020-01-30] MEDS: OMEGA-3 FATTY ACIDS/FISH OIL 1,000 MG CAPSULE. PO SCH (12:10)
[2020-01-30] MEDS: ENOXAPARIN 40 MG/0.4 ML SYRINGE. SQ SCH (12:12)
[2020-01-30] MEDS: INSULIN LISPRO 300 UNITS/3 ML VIAL. SQ SCH ×2 (13:30→18:12)
[2020-01-30 14:09] LABS: % BANDS 7 % (0-9); % LYMPHS 8 % (24-48); % MONOS 3 % (0-10); % SEGS 82 % (35-66); PLT ESTIMATE ADEQUATE (ADEQUATE)
[2020-01-30 15:00] VITALS: BP 122/63
[2020-01-30] MEDS: fentaNYL PF VIAL 100 MCG/2 ML VIAL IV PRN ×2 (16:02→19:33)
--- NOTE | 2020-01-30 16:25 | CONS ---
DATE OF CONSULTATION: REQUESTING PHYSICIAN: Dr. Amezcua. REASON FOR CONSULTATION: Renal failure. HISTORY OF PRESENT ILLNESS: A 55-year-old female who presents to the hospital with chest pain. She was admitted apparently in 12/2019 with similar findings. The patient has by her report onset of diabetes mellitus that approximately 26 years prior to this evaluation with initial presentation as "gestational diabetes mellitus." She also has history of hypertension, but has been more recently over the last 2 years by her report. She denies diabetic retinopathy. She has had no nausea, vomiting or diarrhea. No use of NSAIDs. No history of malignancies. No family history of renal disease. PAST MEDICAL HISTORY: Diabetes mellitus, hypertension, pancreatitis, anxiety, depression, ulcerative colitis, colectomy with ostomy, tonsillectomy. ALLERGIES: SULFA, MORPHINE, SUMATRIPTAN. MEDICATIONS: Reviewed per medication list. FAMILY HISTORY: Noncontributory for renal disease. SOCIAL HISTORY: The patient resides independently 1/2 pack per day smoking, rarely alcohol use. REVIEW OF SYSTEMS: No headache, sinus problem, nasal drainage, epistaxis, change in vision or hearing. No difficulty swallowing. No fever, chills, cough, sputum production or hemoptysis. No further chest pain. No shortness of breath, dyspnea on exertion, orthopnea. No abdominal pain. No nausea, vomiting, diarrhea. No seizures or malignancies. PHYSICAL EXAMINATION: GENERAL APPEARANCE: The patient is awake, conversant, appropriate. HEENT: Clear. NECK: No increased JVD. No thyromegaly, mass or adenopathy. LUNGS: Clear. CARDIAC: Without S3 or rub. ABDOMEN: Soft, nontender, no bruits. Obese. EXTREMITIES: Without edema. NEUROLOGIC: Nonfocal, nonlocalized. PSYCHIATRIC: Good attention to detail, appropriate affect. LABORATORY DATA: Urine specific gravity 1.020 with 30 mg percent protein. Hemoglobin 17.6, hematocrit 49.9. Sodium 132, potassium 3.7, chloride 98, CO2 of 23, BUN 26, creatinine 1.5, GFR is 36. IMPRESSION: 1. Chronic kidney disease stage 3, likely secondary to diabetic chronic kidney disease as well as potential contribution of hypertension. 2. Diabetes mellitus with minimal proteinuria. She states was a period of time, she had very poor control due to inability to obtain her diabetic medications due to lack of insurance. 3. Chest pain per Cardiology. RECOMMENDATIONS: 1. 24-hour urine total protein. 2. Renal ultrasound. 3. Maintain fluid balance. 4. Cardiology. JESSICA GE MD DR: VIN/danny JOB#: [id number] / [id number]
--- NOTE | 2020-01-30 16:26 | RAD ---
Examination: RENAL COMPLETE BILATERAL History: Reason: CKD / Spl. Instructions: / History: Comparison/Correlation: None Findings: Renal ultrasound exam was performed. Right kidney measures 12.7 cm x 4.1 centimeter x 5.1 centimeter. Left kidney measures 13 cm x 5.6 cm x 5.1 cm. No hydronephrosis or nephrolithiasis. Renal cortical echotexture is within normal limits. Mild renal cortical thinning may be present. Renal contours are unremarkable. Urinary bladder is mostly decompressed. Fatty infiltration of the liver is present. Impression: No hydronephrosis. Electronically signed by: Randall Cuello MD (01/30/2020 4:23 PM) [id number]
--- NOTE | 2020-01-30 17:30 | NUR ---
patients blood glucose 202
[2020-01-30 18:53] VITALS: BP 136/80
[2020-01-30] MEDS: diphenhydrAMINE HCL 25 MG CAPSULE PO SCH (20:45)
[2020-01-30] MEDS: CITALOPRAM 20 MG TABLET. PO SCH (20:46)
[2020-01-30] MEDS ORDERED: TOPIRAMATE 25 MG TABLET. PO SCH (21:00)
[2020-01-30 22:51] VITALS: BP 123/58
[2020-01-30] MEDS: fentaNYL PF VIAL 100 MCG/2 ML VIAL IVP PRN (23:59)
[2020-01-31] MEDS: IPRATRPIUM/ALBUTEROL 0.5/2.5MG 3 ML NEBU. NEB SCH ×6 (01:35→20:33)
[2020-01-31 02:49] VITALS: BP 129/67
[2020-01-31] MEDS: fentaNYL PF VIAL 100 MCG/2 ML VIAL IVP PRN ×4 (03:37→22:32)
[2020-01-31 07:00] VITALS: BP_SYST 65
[2020-01-31 07:36] LABS: BASO # 0.1 x10^3/uL (0.0-0.2); BASO % 1 % (0-3); EOS # 0.1 x10^3/uL (0.0-0.7); EOS % 2 % (0-3); HEMATOCRIT 48.8 % (36.0-47.0); LYMPH # 2.1 x10^3/uL (1.0-4.8); LYMPH % 25 % (24-48); MEAN CORPUSCULAR HEMOGLOBIN 31 pg (25-35); MEAN CORPUSCULAR HGB CONC 35 g/dL (31-37); MEAN CORPUSCULAR VOLUME 89 fL (79-100); MONO # 0.7 x10^3/uL (0.0-1.1); MONO % 9 % (0-9); NEUT # 5.1 x10^3/uL (1.8-7.7); NEUT % 63 % (31-73); PLATELET COUNT 278 x10^3/uL (140-400); RED BLOOD COUNT 5.45 x10^6/uL (3.50-5.40); RED CELL DISTRIBUTION WIDTH 12.8 % (11.5-14.5); WHITE BLOOD COUNT 8.2 x10^3/uL (4.0-11.0)
[2020-01-31 08:17] LABS: ALBUMIN 3.6 g/dL (3.4-5.0); ALBUMIN/GLOBULIN RATIO 1.2 (1.0-1.7); CALCIUM 9.3 mg/dL (8.5-10.1); CREATININE 1.1 mg/dL (0.6-1.0); GFR 51.8; POTASSIUM 3.1 mmol/L (3.5-5.1); TOTAL BILIRUBIN 0.4 mg/dL (0.2-1.0); TOTAL PROTEIN 6.7 g/dL (6.4-8.2)
[2020-01-31] MEDS: OMEGA-3 FATTY ACIDS/FISH OIL 1,000 MG CAPSULE. PO SCH (08:39)
[2020-01-31] MEDS: METOPROLOL TART IMMED RELEASE 25 MG TABLET. PO SCH ×2 (08:39→20:55)
[2020-01-31] MEDS: POTASSIUM CHLORIDE 20 MEQ TABLET.ER. PO SCH (08:40)
[2020-01-31] MEDS: INSULIN LISPRO 300 UNITS/3 ML VIAL. SQ SCH ×3 (08:49→17:41)
[2020-01-31] MEDS ORDERED: METHOCARBAMOL 500 MG TABLET PO ONE (09:15)
[2020-01-31] MEDS: LIDOCAINE (700MG/PATCH) PATCH. TD SCH (09:50)
--- NOTE | 2020-01-31 10:16 | PDOC ---
PROGRESS NOTES History of Present Illness History of Present Illness VTE Prophylaxis Ordered VTE Prophylaxis Devices: No VTE Pharmacological Prophylaxi: Yes Assessment/Plan Assessment/Plan IMPRESSION: Chest pain, unstable angina 12/23:=======CORONARY ANGIOGRAPHY: LM is a large caliber vessel with normal angiographic appearance. LAD is a large caliber vessel with a proximal to mid 60% stenosis. Ramus is a moderate caliber vessel with proximal 50% stenosis. LCx is a moderate caliber dominant vessel with mid 40-50% stenosis, distal diffuse 40% stenosis. OM1 is a small caliber vessel with normal angiographic appearance. RCA is a non-dominant vessel with a proximal to mid 90% stenosis. No acute intracranial hemorrhage. ON CT HEAD Mild scattered foci of low- density within the white matter. Nonspecific but can be seen with chronic small vessel ischemic disease or sequela of migraine. Lobulated appearance of the kidneys. FRANCINE DIABETES POLYCYTHEMIA possible SLEEP APNEA MORBID OBESITY TOBACCO ABUSE DISORDER Uncontrolled ROSALES: quit CPAP 10 yrs ago Obesity: gained 10# in the last 3 months and sedentary IBD/ulcerative colitis: S/P colon resection [facility] Uncontrolled DM2: Family hx of CAD HTN urgency Noncompliance hypokalemia, on replacement headache resolved 01/29, now worse this AM 01/30c/w intractable migrane plan ADMIT consult cardiology consult nephrology serial troponin i HOLD METFORMIN DUE TO FRANCINE Consult hematology HS OXIMETRY, NOCTURNAL STUDY with report Need for smoking cessation provided cont home meds DVT PROPHYLAXIS TSH ABENA-2 mutation PENDING CONSULT NEUROLOGY, ADD ELAVIL 25 MG PO Q HS 38 min pt exam, chart review, > 50% of time spent with exam, chart review, pt care coordination Justicifation of Admission Dx: Justifications for Admission: Justification of Admission Dx: Yes NESTOR PAK MD Jan 30, 2020 10:19 Addendum: NESTOR PAK MD on 01/30/20 @ 16:42 Examination: RENAL COMPLETE BILATERAL History: Reason: CKD / Spl. Instructions: / History: Comparison/Correlation: None Findings: Renal ultrasound exam was performed. Right kidney measures 12.7 cm x 4.1 centimeter x 5.1 centimeter. Left kidney measures 13 cm x 5.6 cm x 5.1 cm. No hydronephrosis or nephrolithiasis. Renal cortical echotexture is within normal limits. Mild renal cortical thinning may be present. Renal contours are unremarkable. Urinary bladder is mostly decompressed. Fatty infiltration of the liver is present. Impression: No hydronephrosis. Electronically signed by: Randall Valenzuela MD (01/30/2020 4:23 PM) [id number] DICTATED and SIGNED BY: RANDALL VALENZUELA MD DATE: 01/30/20 1623 Vitals Vitals Vital Signs Date Time Temp Pulse Resp B/P (MAP) Pulse Ox O2 Delivery O2 Flow Rate FiO2 01/31/20 08:39 66 129/67 01/31/20 07:50 Room Air 01/31/20 07:35 96 01/31/20 07:00 97.7 18 97.7 Physical Exam General: Alert, Oriented X3, Cooperative, mild distress, moderate distress Heart: Regular rate, Normal S1, Normal S2, No murmurs Lungs: Clear Abdomen: Normal bowel sounds, No tenderness Extremities: No clubbing, No cyanosis, No edema Labs LABS Laboratory Tests Test 01/31/20 06:00 01/31/20 07:58 White Blood Count 8.2 x10^3/uL (4.0-11.0) Red Blood Count 5.45 x10^6/uL (3.50-5.40) Hemoglobin 17.0 g/dL (12.0-15.5) Hematocrit 48.8 % (36.0-47.0) Mean Corpuscular Volume 89 fL (79-100) Mean Corpuscular Hemoglobin 31 pg (25-35) Mean Corpuscular Hemoglobin Concent 35 g/dL (31-37) Red Cell Distribution Width 12.8 % (11.5-14.5) Platelet Count 278 x10^3/uL (140-400) Neutrophils (%) (Auto) 63 % (31-73) Lymphocytes (%) (Auto) 25 % (24-48) Monocytes (%) (Auto) 9 % (0-9) Eosinophils (%) (Auto) 2 % (0-3) Basophils (%) (Auto) 1 % (0-3) Neutrophils # (Auto) 5.1 x10^3/uL (1.8-7.7) Lymphocytes # (Auto) 2.1 x10^3/uL (1.0-4.8) Monocytes # (Auto) 0.7 x10^3/uL (0.0-1.1) Eosinophils # (Auto) 0.1 x10^3/uL (0.0-0.7) Basophils # (Auto) 0.1 x10^3/uL (0.0-0.2) Sodium Level 136 mmol/L (136-145) Potassium Level 3.1 mmol/L (3.5-5.1) Chloride Level 101 mmol/L (98-107) Carbon Dioxide Level 24 mmol/L (21-32) Anion Gap 11 (6-14) Blood Urea Nitrogen 21 mg/dL (7-20) Creatinine 1.1 mg/dL (0.6-1.0) Estimated GFR (Cockcroft-Gault) 51.8 BUN/Creatinine Ratio 19 (6-20) Glucose Level 221 mg/dL (70-99) Calcium Level 9.3 mg/dL (8.5-10.1) Total Bilirubin 0.4 mg/dL (0.2-1.0) Aspartate Amino Transf (AST/SGOT) 25 U/L (15-37) Alanine Aminotransferase (ALT/SGPT) 57 U/L (14-59) Alkaline Phosphatase 84 U/L (46-116) Total Protein 6.7 g/dL (6.4-8.2) Albumin 3.6 g/dL (3.4-5.0) Albumin/Globulin Ratio 1.2 (1.0-1.7) Glucose (Fingerstick) 200 mg/dL (70-99) Assessment and Plan Assessmemt and Plan Problems Medical Problems: (1) Chest pain Status: Acute Comment Review of Relevant I have reviewed the following items mae (where applicable) has been applied. Labs Laboratory Tests Test 01/29/20 17:10 01/29/20 17:33 01/30/20 01:40 01/31/20 06:00 White Blood Count 9.1 x10^3/uL (4.0-11.0) 7.5 x10^3/uL (4.0-11.0) 8.2 x10^3/uL (4.0-11.0) Red Blood Count 5.69 x10^6/uL (3.50-5.40) 5.56 x10^6/uL (3.50-5.40) 5.45 x10^6/uL (3.50-5.40) Hemoglobin 17.7 g/dL (12.0-15.5) 17.6 g/dL (12.0-15.5) 17.0 g/dL (12.0-15.5) Hematocrit 49.5 % (36.0-47.0) 49.9 % (36.0-47.0) 48.8 % (36.0-47.0) Mean Corpuscular Volume 87 fL (79-100) 90 fL (79-100) 89 fL (79-100) Mean Corpuscular Hemoglobin 31 pg (25-35) 32 pg (25-35) 31 pg (25-35) Mean Corpuscular Hemoglobin Concent 36 g/dL (31-37) 35 g/dL (31-37) 35 g/dL (31-37) Red Cell Distribution Width 12.5 % (11.5-14.5) 12.8 % (11.5-14.5) 12.8 % (11.5-14.5) Platelet Count 272 x10^3/uL (140-400) 253 x10^3/uL (140-400) 278 x10^3/uL (140-400) Neutrophils (%) (Auto) 60 % (31-73) 91 % (31-73) 63 % (31-73) Lymphocytes (%) (Auto) 26 % (24-48) 7 % (24-48) 25 % (24-48) Monocytes (%) (Auto) 11 % (0-9) 1 % (0-9) 9 % (0-9) Eosinophils (%) (Auto) 2 % (0-3) 0 % (0-3) 2 % (0-3) Basophils (%) (Auto) 1 % (0-3) 0 % (0-3) 1 % (0-3) Neutrophils # (Auto) 5.5 x10^3/uL (1.8-7.7) 6.8 x10^3/uL (1.8-7.7) 5.1 x10^3/uL (1.8-7.7) Lymphocytes # (Auto) 2.3 x10^3/uL (1.0-4.8) 0.5 x10^3/uL (1.0-4.8) 2.1 x10^3/uL (1.0-4.8) Monocytes # (Auto) 1.0 x10^3/uL (0.0-1.1) 0.1 x10^3/uL (0.0-1.1) 0.7 x10^3/uL (0.0-1.1) Eosinophils # (Auto) 0.1 x10^3/uL (0.0-0.7) 0.0 x10^3/uL (0.0-0.7) 0.1 x10^3/uL (0.0-0.7) Basophils # (Auto) 0.1 x10^3/uL (0.0-0.2) 0.0 x10^3/uL (0.0-0.2) 0.1 x10^3/uL (0.0-0.2) Prothrombin Time 13.4 SEC (11.7-14.0) Prothromb Time International Ratio 1.1 (0.8-1.1) Sodium Level 134 mmol/L (136-145) 132 mmol/L (136-145) 136 mmol/L (136-145) Potassium Level 3.2 mmol/L (3.5-5.1) 3.7 mmol/L (3.5-5.1) 3.1 mmol/L (3.5-5.1) Chloride Level 98 mmol/L (98-107) 98 mmol/L (98-107) 101 mmol/L (98-107) Carbon Dioxide Level 23 mmol/L (21-32) 23 mmol/L (21-32) 24 mmol/L (21-32) Anion Gap 13 (6-14) 11 (6-14) 11 (6-14) Blood Urea Nitrogen 23 mg/dL (7-20) 26 mg/dL (7-20) 21 mg/dL (7-20) Creatinine 1.5 mg/dL (0.6-1.0) 1.5 mg/dL (0.6-1.0) 1.1 mg/dL (0.6-1.0) Estimated GFR (Cockcroft-Gault) 36.2 36.2 51.8 BUN/Creatinine Ratio 15 (6-20) 19 (6-20) Glucose Level 122 mg/dL (70-99) 333 mg/dL (70-99) 221 mg/dL (70-99) Calcium Level 10.4 mg/dL (8.5-10.1) 10.2 mg/dL (8.5-10.1) 9.3 mg/dL (8.5-10.1) Total Bilirubin 0.6 mg/dL (0.2-1.0) 0.4 mg/dL (0.2-1.0) Aspartate Amino Transf (AST/SGOT) 32 U/L (15-37) 25 U/L (15-37) Alanine Aminotransferase (ALT/SGPT) 64 U/L (14-59) 57 U/L (14-59) Alkaline Phosphatase 96 U/L (46-116) 84 U/L (46-116) Troponin I Quantitative < 0.017 ng/mL (0.000-0.055) < 0.017 ng/mL (0.000-0.055) [id number]-[id number]-Type Natriuretic Peptide 66 pg/mL (0-124) Total Protein 7.2 g/dL (6.4-8.2) 6.7 g/dL (6.4-8.2) Albumin 3.9 g/dL (3.4-5.0) 3.8 g/dL (3.4-5.0) 3.6 g/dL (3.4-5.0) Albumin/Globulin Ratio 1.2 (1.0-1.7) 1.2 (1.0-1.7) Lipase 222 U/L (73-393) Urine Collection Type Unknown Urine Color Yellow Urine Clarity Clear Urine pH 5.5 (<5.0-8.0) Urine Specific [place] 1.020 (1.000-1.030) Urine Protein 30 mg/dL (NEG-TRACE) Urine Glucose (UA) Negative mg/dL (NEG) Urine Ketones (Stick) 15 mg/dL (NEG) Urine Blood Negative (NEG) Urine Nitrite Negative (NEG) Urine Bilirubin Small (NEG) Urine Urobilinogen Dipstick 0.2 mg/dL (0.2 mg/dL) Urine Leukocyte Esterase Negative (NEG) Urine RBC 0 /HPF (0-2) Urine WBC 1-4 /HPF (0-4) Urine Squamous Epithelial Cells Many /LPF Urine Bacteria Moderate /HPF (0-FEW) Urine Mucus Slight /LPF Urine Opiates Screen Neg (NEG) Urine Methadone Screen Neg (NEG) Urine Barbiturates Neg (NEG) Urine Phencyclidine Screen Neg (NEG) Urine Amphetamine/Methamphetamine Neg (NEG) Urine Benzodiazepines Screen Neg (NEG) Urine Cocaine Screen Neg (NEG) Urine Cannabinoids Screen Neg (NEG) Urine Ethyl Alcohol Neg (NEG) Segmented Neutrophils % 82 % (35-66) Band Neutrophils % 7 % (0-9) Lymphocytes % 8 % (24-48) Monocytes % 3 % (0-10) Platelet Estimate Adequate (ADEQUATE) Phosphorus Level 2.2 mg/dL (2.6-4.7) Thyroid Stimulating Hormone (TSH) 0.524 uIU/mL (0.358-3.74) Test 01/31/20 07:58 Glucose (Fingerstick) 200 mg/dL (70-99) Laboratory Tests Test 01/31/20 06:00 01/31/20 07:58 White Blood Count 8.2 x10^3/uL (4.0-11.0) Red Blood Count 5.45 x10^6/uL (3.50-5.40) Hemoglobin 17.0 g/dL (12.0-15.5) Hematocrit 48.8 % (36.0-47.0) Mean Corpuscular Volume 89 fL (79-100) Mean Corpuscular Hemoglobin 31 pg (25-35) Mean Corpuscular Hemoglobin Concent 35 g/dL (31-37) Red Cell Distribution Width 12.8 % (11.5-14.5) Platelet Count 278 x10^3/uL (140-400) Neutrophils (%) (Auto) 63 % (31-73) Lymphocytes (%) (Auto) 25 % (24-48) Monocytes (%) (Auto) 9 % (0-9) Eosinophils (%) (Auto) 2 % (0-3) Basophils (%) (Auto) 1 % (0-3) Neutrophils # (Auto) 5.1 x10^3/uL (1.8-7.7) Lymphocytes # (Auto) 2.1 x10^3/uL (1.0-4.8) Monocytes # (Auto) 0.7 x10^3/uL (0.0-1.1) Eosinophils # (Auto) 0.1 x10^3/uL (0.0-0.7) Basophils # (Auto) 0.1 x10^3/uL (0.0-0.2) Sodium Level 136 mmol/L (136-145) Potassium Level 3.1 mmol/L (3.5-5.1) Chloride Level 101 mmol/L (98-107) Carbon Dioxide Level 24 mmol/L (21-32) Anion Gap 11 (6-14) Blood Urea Nitrogen 21 mg/dL (7-20) Creatinine 1.1 mg/dL (0.6-1.0) Estimated GFR (Cockcroft-Gault) 51.8 BUN/Creatinine Ratio 19 (6-20) Glucose Level 221 mg/dL (70-99) Calcium Level 9.3 mg/dL (8.5-10.1) Total Bilirubin 0.4 mg/dL (0.2-1.0) Aspartate Amino Transf (AST/SGOT) 25 U/L (15-37) Alanine Aminotransferase (ALT/SGPT) 57 U/L (14-59) Alkaline Phosphatase 84 U/L (46-116) Total Protein 6.7 g/dL (6.4-8.2) Albumin 3.6 g/dL (3.4-5.0) Albumin/Globulin Ratio 1.2 (1.0-1.7) Glucose (Fingerstick) 200 mg/dL (70-99) Microbiology 01/29/20 Urine Culture - Final, Complete Medications Current Medications Prochlorperazine Edisylate (Compazine) 10 mg 1X ONCE IV Last administered on 01/29/20at 17:25; Start 01/29/20 at 16:30; Stop 01/29/20 at 16:31; Status DC Diphenhydramine HCl (Benadryl) 25 mg 1X ONCE IVP Last administered on 01/29/20at 17:25; Start 01/29/20 at 16:30; Stop 01/29/20 at 16:31; Status DC Methylprednisolone Sodium Succinate (SOLU-Medrol 125MG VIAL) 125 mg 1X ONCE IV Last administered on 01/29/20at 17:25; Start 01/29/20 at 16:30; Stop 01/29/20 at 16:31; Status DC Fentanyl Citrate (Fentanyl 2ml Vial) 50 mcg 1X ONCE IVP Last administered on 01/29/20at 17:26; Start 01/29/20 at 16:30; Stop 01/29/20 at 16:31; Status DC Ondansetron HCl (Zofran) 4 mg PRN Q8HRS PRN IV NAUSEA/VOMITING; Start 01/29/20 at 20:30; Stop 01/30/20 at 20:29; Status DC Fentanyl Citrate (Fentanyl 2ml Vial) 50 mcg PRN Q1HR PRN IV PAIN Last administered on 01/30/20at 19:33; Start 01/29/20 at 20:30; Stop 01/30/20 at 20:29; Status DC Diphenhydramine HCl (Benadryl) 50 mg QHS PO Last administered on 01/30/20at 20:45; Start 01/29/20 at 23:45 Potassium Chloride (Klor-Con) 40 meq 1X ONCE PO Last administered on 01/30/20at 12:10; Start 01/30/20 at 10:30; Stop 01/30/20 at 10:31; Status DC Potassium Chloride (Klor-Con) 20 meq DAILYWBKFT PO Last administered on 01/31/20at 08:40; Start 01/31/20 at 08:00 Acetaminophen (Tylenol) 650 mg PRN Q6HRS PRN PO MILD PAIN 1-3; Start 01/30/20 at 10:30; Stop 01/30/20 at 10:54; Status DC Ibuprofen (Motrin) 400 mg PRN Q6HRS PRN PO INFLAMMATION; Start 01/30/20 at 10:30 Metoprolol Tartrate (Lopressor) 25 mg BID PO Last administered on 01/31/20at 08:39; Start 01/30/20 at 11:00 Nitroglycerin (Nitrostat) 0.4 mg PRN Q5MIN PRN SL CHEST PAIN; Start 01/30/20 at 10:30 Topiramate (Topamax) 25 mg DAILY PO ; Start 01/30/20 at 11:00; Stop 01/30/20 at 12:19; Status DC Citalopram Hydrobromide (CeleXA) 20 mg DAILY PO Last administered on 01/30/20 12:10; Start 01/30/20 at 11:00; Stop 01/30/20 at 12:19; Status DC Fish Oil (Fish Oil) 4,000 mg DAILY PO Last administered on 01/31/20at 08:39; Start 01/30/20 at 11:00 Sodium Chloride (Normal Saline Flush) 3 ml QSHIFT PRN IV AFTER MEDS AND BLOOD DRAWS; Start 01/30/20 at 10:45 Ondansetron HCl (Zofran) 4 mg PRN Q4HRS PRN IV NAUSEA/VOMITING Last administered on 01/30/20 21:09; Start 01/30/20 at 10:45 Acetaminophen (Tylenol) 650 mg PRN Q4HRS PRN PO TEMP OVER 100.4F OR MILD PAIN Last administered on 01/30/20 21:09; Start 01/30/20 at 10:45 Al Hydroxide/Mg Hydroxide (Mylanta Plus Xs) 30 ml PRN DAILY PRN PO HEARTBURN / GAS; Start 01/30/20 at 10:45 Clonidine HCl (Catapres) 0.1 mg PRN Q6HRS PRN PO SBP>160 OR DBP>90; Start 01/30/20 at 10:45 Docusate Sodium (Colace) 100 mg PRN BID PRN PO HARD STOOLS Last administered on 01/31/20at 08:40; Start 01/30/20 at 10:45 Albuterol/ Ipratropium (Duoneb) 3 ml Q4HRS NEB Last administered on 01/30/20at 21:07; Start 01/30/20 at 12:00 Guaifenesin (Robitussin) 200 mg PRN Q4HRS PRN PO COUGH; Start 01/30/20 at 10:45 Enoxaparin Sodium (Lovenox 40mg Syringe) 40 mg Q24H SQ Last administered on 01/30/20at 12:12; Start 01/30/20 at 11:00 Insulin Human Lispro (HumaLOG) 0-5 UNITS TIDWMEALS SQ Last administered on 01/31/20at 08:49; Start 01/30/20 at 12:00 Dextrose (Dextrose 50%-Water Syringe) 12.5 gm PRN Q15MIN PRN IV SEE COMMENTS; Start 01/30/20 at 11:00 Citalopram Hydrobromide (CeleXA) 20 mg HS PO Last administered on 01/30/20at 20:46; Start 01/30/20 at 21:00 Topiramate (Topamax) 25 mg HS PO Last administered on 01/30/20at 20:04; Start 01/30/20 at 21:00 Fentanyl Citrate (Fentanyl 2ml Vial) 50 mcg PRN Q2HR PRN IVP SEVERE PAIN 7-10 Last administered on 01/31/20at 07:06; Start 01/31/20 at 00:00 Methocarbamol (Robaxin) 500 mg 1X ONCE PO Last administered on 01/31/20at 09:50; Start 01/31/20 at 09:15; Stop 01/31/20 at 09:30; Status DC Lidocaine (Lidoderm) 1 patch DAILY TD Last administered on 01/31/20at 09:50; Start 01/31/20 at 10:00 Miscellaneous (Lidoderm Patch Removal) 1 ea QHS MC ; Start 01/31/20 at 21:00 Active Scripts Active NITROGLYCERIN SubLingual (Nitroglycerin) 0.4 Mg Tab.subl 0.4 Mg SL PRN Q5MIN PRN 30 Days Lovaza ([place]-3 Acid Ethyl Esters) 1 Gm Capsule 2 Cap PO BID 30 Days Reported Topamax (Topiramate) 25 Mg Tablet 1 Tab PO DAILY 30 Days Metformin Hcl 1,000 Mg Tablet 1,000 Mg PO BIDWMEALS Metoprolol Tartrate 25 Mg Tablet 0.5 Tab PO BID Escitalopram Oxalate 10 Mg Tablet 1 Tab PO DAILY Benadryl (Diphenhydramine Hcl) 25 Mg Capsule 2 Cap PO QHS 30 Days Tylenol (Acetaminophen) 325 Mg Tablet 650 Mg PO PRN Q6HRS PRN Ibuprofen 400 Mg Tablet 400 Mg PO PRN Q6HRS PRN Vitals/I & O Vital Sign - Last 24 Hours 01/30/20 01/30/20 01/30/20 01/30/20 11:00 12:10 15:00 15:05 Temp 98.1 98.0 98.1 98.0 Pulse 73 69 85 Resp 20 20 B/P (MAP) 111/57 (75) 115/56 122/63 (82) Pulse Ox 92 96 95 O2 Delivery Room Air Room Air Room Air 01/30/20 01/30/20 01/30/20 01/30/20 16:02 16:30 18:53 19:33 Temp 97.8 97.8 Pulse 82 Resp 16 16 B/P (MAP) 136/80 (98) Pulse Ox 95 95 97 O2 Delivery Room Air Room Air Room Air Room Air 01/30/20 01/30/20 01/30/20 01/30/20 19:39 20:09 20:46 21:10 Pulse 74 Resp 16 B/P (MAP) 136/80 O2 Delivery Room Air Room Air Room Air 01/30/20 01/30/20 01/31/20 01/31/20 22:51 23:59 00:35 02:49 Temp 97.5 97.6 97.5 97.6 Pulse 64 66 Resp 16 16 16 B/P (MAP) 123/58 (79) 129/67 (87) Pulse Ox 97 97 97 94 O2 Delivery Room Air Room Air Room Air Room Air 01/31/20 01/31/20 01/31/20 01/31/20 03:37 04:10 07:00 07:06 Temp 97.7 97.7 Pulse 59 Resp 16 16 18 B/P (MAP) 65/ Pulse Ox 95 96 94 96 O2 Delivery Room Air Room Air Room Air 01/31/20 01/31/20 01/31/20 07:35 07:50 08:39 Pulse 66 B/P (MAP) 129/67 Pulse Ox 96 O2 Delivery Room Air Room Air Intake and Output 01/30/20 01/30/20 01/31/20 15:00 23:00 07:00 Intake Total 600 ml 360 ml Output Total 1050 ml 300 ml Balance 600 ml -690 ml -300 ml Justicifation of Admission Dx: Justifications for Admission: Justification of Admission Dx: Yes NESTOR PAK MD Jan 31, 2020 10:16
[2020-01-31] MEDS: ENOXAPARIN 40 MG/0.4 ML SYRINGE. SQ SCH (11:00)
--- NOTE | 2020-01-31 11:30 | PDOC ---
FOLLOW UP Brief Hem-Onc Note: Reviewed chart including the patient's presenting history, pertinent lab studies and radiology. She is a 55 year old female with multiple comorbidities including tobacco use, obesity, ROSALES, DM2 who has been admitted for evaluation of chest pain. Hematology has been consulted for polycythemia. Labs reviewed: Elevated Hct, normal WBC count and platelets Assessment/Plan: Polycythemia: Possibly secondary to ROSALES and tobacco use but would evaluate further with JAK2 [id number] mutation testing. Currently in process. Would continue follow-up in Heme clinic after discharge. Full consult to follow. Lorenzo Sierra MD Hematology-Medical Oncology ERNESTINE SIERRA MD Jan 31, 2020 11:30
--- NOTE | 2020-01-31 11:38 | PDOC ---
PROGRESS NOTES Subjective Subjective Patient seen and examined Objective Objective Vital Signs Date Time Temp Pulse Resp B/P (MAP) Pulse Ox O2 Delivery O2 Flow Rate FiO2 01/31/20 11:10 96 Room Air 01/31/20 08:39 66 129/67 01/31/20 07:00 97.7 18 97.7 Intake and Output 01/31/20 07:00 Intake Total 960 ml Output Total 1350 ml Balance -390 ml Intake Oral 960 ml Output Urine Total 1350 ml # Voids 1 Physical Exam Abdomen: Normal bowel sounds Heart: Regular rate General: mild distress Lungs: Clear to auscultation Assessment Assessment Primary service.Problems Medical Problems: (1) Chest pain Status: Acute 1. Chest pain. Patient's pain has resolved. Troponin is negative x2. She has no acute EKG changes. Cardiac catheterization on 12/24/2019 showed moderate thr ee-vessel coronary disease. We will continue medical treatment from a cardiac viewpoint. 2. Severe headache. Patient's headache had resolved yesterday but has now returned. CT head scan showed no acute changes. Work-up in progress. 3. Elevated creatinine at 1.5. Continuing present treatment. 4. Hypertension. Controlled. Comment Review of Relevant I have reviewed the following items mae (where applicable) has been applied. Labs Laboratory Tests Test 01/29/20 17:10 01/29/20 17:33 01/30/20 01:40 01/31/20 06:00 White Blood Count 9.1 x10^3/uL (4.0-11.0) 7.5 x10^3/uL (4.0-11.0) 8.2 x10^3/uL (4.0-11.0) Red Blood Count 5.69 x10^6/uL (3.50-5.40) 5.56 x10^6/uL (3.50-5.40) 5.45 x10^6/uL (3.50-5.40) Hemoglobin 17.7 g/dL (12.0-15.5) 17.6 g/dL (12.0-15.5) 17.0 g/dL (12.0-15.5) Hematocrit 49.5 % (36.0-47.0) 49.9 % (36.0-47.0) 48.8 % (36.0-47.0) Mean Corpuscular Volume 87 fL (79-100) 90 fL (79-100) 89 fL (79-100) Mean Corpuscular Hemoglobin 31 pg (25-35) 32 pg (25-35) 31 pg (25-35) Mean Corpuscular Hemoglobin Concent 36 g/dL (31-37) 35 g/dL (31-37) 35 g/dL (31-37) Red Cell Distribution Width 12.5 % (11.5-14.5) 12.8 % (11.5-14.5) 12.8 % (11.5-14.5) Platelet Count 272 x10^3/uL (140-400) 253 x10^3/uL (140-400) 278 x10^3/uL (140-400) Neutrophils (%) (Auto) 60 % (31-73) 91 % (31-73) 63 % (31-73) Lymphocytes (%) (Auto) 26 % (24-48) 7 % (24-48) 25 % (24-48) Monocytes (%) (Auto) 11 % (0-9) 1 % (0-9) 9 % (0-9) Eosinophils (%) (Auto) 2 % (0-3) 0 % (0-3) 2 % (0-3) Basophils (%) (Auto) 1 % (0-3) 0 % (0-3) 1 % (0-3) Neutrophils # (Auto) 5.5 x10^3/uL (1.8-7.7) 6.8 x10^3/uL (1.8-7.7) 5.1 x10^3/uL (1.8-7.7) Lymphocytes # (Auto) 2.3 x10^3/uL (1.0-4.8) 0.5 x10^3/uL (1.0-4.8) 2.1 x10^3/uL (1.0-4.8) Monocytes # (Auto) 1.0 x10^3/uL (0.0-1.1) 0.1 x10^3/uL (0.0-1.1) 0.7 x10^3/uL (0.0-1.1) Eosinophils # (Auto) 0.1 x10^3/uL (0.0-0.7) 0.0 x10^3/uL (0.0-0.7) 0.1 x10^3/uL (0.0-0.7) Basophils # (Auto) 0.1 x10^3/uL (0.0-0.2) 0.0 x10^3/uL (0.0-0.2) 0.1 x10^3/uL (0.0-0.2) Prothrombin Time 13.4 SEC (11.7-14.0) Prothromb Time International Ratio 1.1 (0.8-1.1) Sodium Level 134 mmol/L (136-145) 132 mmol/L (136-145) 136 mmol/L (136-145) Potassium Level 3.2 mmol/L (3.5-5.1) 3.7 mmol/L (3.5-5.1) 3.1 mmol/L (3.5-5.1) Chloride Level 98 mmol/L (98-107) 98 mmol/L (98-107) 101 mmol/L (98-107) Carbon Dioxide Level 23 mmol/L (21-32) 23 mmol/L (21-32) 24 mmol/L (21-32) Anion Gap 13 (6-14) 11 (6-14) 11 (6-14) Blood Urea Nitrogen 23 mg/dL (7-20) 26 mg/dL (7-20) 21 mg/dL (7-20) Creatinine 1.5 mg/dL (0.6-1.0) 1.5 mg/dL (0.6-1.0) 1.1 mg/dL (0.6-1.0) Estimated GFR (Cockcroft-Gault) 36.2 36.2 51.8 BUN/Creatinine Ratio 15 (6-20) 19 (6-20) Glucose Level 122 mg/dL (70-99) 333 mg/dL (70-99) 221 mg/dL (70-99) Calcium Level 10.4 mg/dL (8.5-10.1) 10.2 mg/dL (8.5-10.1) 9.3 mg/dL (8.5-10.1) Total Bilirubin 0.6 mg/dL (0.2-1.0) 0.4 mg/dL (0.2-1.0) Aspartate Amino Transf (AST/SGOT) 32 U/L (15-37) 25 U/L (15-37) Alanine Aminotransferase (ALT/SGPT) 64 U/L (14-59) 57 U/L (14-59) Alkaline Phosphatase 96 U/L (46-116) 84 U/L (46-116) Troponin I Quantitative < 0.017 ng/mL (0.000-0.055) < 0.017 ng/mL (0.000-0.055) VX-Lrm-H-Type Natriuretic Peptide 66 pg/mL (0-124) Total Protein 7.2 g/dL (6.4-8.2) 6.7 g/dL (6.4-8.2) Albumin 3.9 g/dL (3.4-5.0) 3.8 g/dL (3.4-5.0) 3.6 g/dL (3.4-5.0) Albumin/Globulin Ratio 1.2 (1.0-1.7) 1.2 (1.0-1.7) Lipase 222 U/L (73-393) Urine Collection Type Unknown Urine Color Yellow Urine Clarity Clear Urine pH 5.5 (<5.0-8.0) Urine Specific [place] 1.020 (1.000-1.030) Urine Protein 30 mg/dL (NEG-TRACE) Urine Glucose (UA) Negative mg/dL (NEG) Urine Ketones (Stick) 15 mg/dL (NEG) Urine Blood Negative (NEG) Urine Nitrite Negative (NEG) Urine Bilirubin Small (NEG) Urine Urobilinogen Dipstick 0.2 mg/dL (0.2 mg/dL) Urine Leukocyte Esterase Negative (NEG) Urine RBC 0 /HPF (0-2) Urine WBC 1-4 /HPF (0-4) Urine Squamous Epithelial Cells Many /LPF Urine Bacteria Moderate /HPF (0-FEW) Urine Mucus Slight /LPF Urine Opiates Screen Neg (NEG) Urine Methadone Screen Neg (NEG) Urine Barbiturates Neg (NEG) Urine Phencyclidine Screen Neg (NEG) Urine Amphetamine/Methamphetamine Neg (NEG) Urine Benzodiazepines Screen Neg (NEG) Urine Cocaine Screen Neg (NEG) Urine Cannabinoids Screen Neg (NEG) Urine Ethyl Alcohol Neg (NEG) Segmented Neutrophils % 82 % (35-66) Band Neutrophils % 7 % (0-9) Lymphocytes % 8 % (24-48) Monocytes % 3 % (0-10) Platelet Estimate Adequate (ADEQUATE) Phosphorus Level 2.2 mg/dL (2.6-4.7) Thyroid Stimulating Hormone (TSH) 0.524 uIU/mL (0.358-3.74) Test 01/31/20 07:58 Glucose (Fingerstick) 200 mg/dL (70-99) Laboratory Tests Test 01/31/20 06:00 01/31/20 07:58 White Blood Count 8.2 x10^3/uL (4.0-11.0) Red Blood Count 5.45 x10^6/uL (3.50-5.40) Hemoglobin 17.0 g/dL (12.0-15.5) Hematocrit 48.8 % (36.0-47.0) Mean Corpuscular Volume 89 fL (79-100) Mean Corpuscular Hemoglobin 31 pg (25-35) Mean Corpuscular Hemoglobin Concent 35 g/dL (31-37) Red Cell Distribution Width 12.8 % (11.5-14.5) Platelet Count 278 x10^3/uL (140-400) Neutrophils (%) (Auto) 63 % (31-73) Lymphocytes (%) (Auto) 25 % (24-48) Monocytes (%) (Auto) 9 % (0-9) Eosinophils (%) (Auto) 2 % (0-3) Basophils (%) (Auto) 1 % (0-3) Neutrophils # (Auto) 5.1 x10^3/uL (1.8-7.7) Lymphocytes # (Auto) 2.1 x10^3/uL (1.0-4.8) Monocytes # (Auto) 0.7 x10^3/uL (0.0-1.1) Eosinophils # (Auto) 0.1 x10^3/uL (0.0-0.7) Basophils # (Auto) 0.1 x10^3/uL (0.0-0.2) Sodium Level 136 mmol/L (136-145) Potassium Level 3.1 mmol/L (3.5-5.1) Chloride Level 101 mmol/L (98-107) Carbon Dioxide Level 24 mmol/L (21-32) Anion Gap 11 (6-14) Blood Urea Nitrogen 21 mg/dL (7-20) Creatinine 1.1 mg/dL (0.6-1.0) Estimated GFR (Cockcroft-Gault) 51.8 BUN/Creatinine Ratio 19 (6-20) Glucose Level 221 mg/dL (70-99) Calcium Level 9.3 mg/dL (8.5-10.1) Total Bilirubin 0.4 mg/dL (0.2-1.0) Aspartate Amino Transf (AST/SGOT) 25 U/L (15-37) Alanine Aminotransferase (ALT/SGPT) 57 U/L (14-59) Alkaline Phosphatase 84 U/L (46-116) Total Protein 6.7 g/dL (6.4-8.2) Albumin 3.6 g/dL (3.4-5.0) Albumin/Globulin Ratio 1.2 (1.0-1.7) Glucose (Fingerstick) 200 mg/dL (70-99) Microbiology 01/29/20 Urine Culture - Final, Complete Medications Current Medications Prochlorperazine Edisylate (Compazine) 10 mg 1X ONCE IV Last administered on 01/29/20at 17:25; Start 01/29/20 at 16:30; Stop 01/29/20 at 16:31; Status DC Diphenhydramine HCl (Benadryl) 25 mg 1X ONCE IVP Last administered on 01/29/20at 17:25; Start 01/29/20 at 16:30; Stop 01/29/20 at 16:31; Status DC Methylprednisolone Sodium Succinate (SOLU-Medrol 125MG VIAL) 125 mg 1X ONCE IV Last administered on 01/29/20at 17:25; Start 01/29/20 at 16:30; Stop 01/29/20 at 16:31; Status DC Fentanyl Citrate (Fentanyl 2ml Vial) 50 mcg 1X ONCE IVP Last administered on 01/29/20at 17:26; Start 01/29/20 at 16:30; Stop 01/29/20 at 16:31; Status DC Ondansetron HCl (Zofran) 4 mg PRN Q8HRS PRN IV NAUSEA/VOMITING; Start 01/29/20 at 20:30; Stop 01/30/20 at 20:29; Status DC Fentanyl Citrate (Fentanyl 2ml Vial) 50 mcg PRN Q1HR PRN IV PAIN Last administered on 01/30/20at 19:33; Start 01/29/20 at 20:30; Stop 01/30/20 at 20:29; Status DC Diphenhydramine HCl (Benadryl) 50 mg QHS PO Last administered on 01/30/20at 20:45; Start 01/29/20 at 23:45 Potassium Chloride (Klor-Con) 40 meq 1X ONCE PO Last administered on 01/30/20at 12:10; Start 01/30/20 at 10:30; Stop 01/30/20 at 10:31; Status DC Potassium Chloride (Klor-Con) 20 meq DAILYWBKFT PO Last administered on 01/31/20at 08:40; Start 01/31/20 at 08:00 Acetaminophen (Tylenol) 650 mg PRN Q6HRS PRN PO MILD PAIN 1-3; Start 01/30/20 at 10:30; Stop 01/30/20 at 10:54; Status DC Ibuprofen (Motrin) 400 mg PRN Q6HRS PRN PO INFLAMMATION; Start 01/30/20 at 10:30 Metoprolol Tartrate (Lopressor) 25 mg BID PO Last administered on 01/31/20at 08:39; Start 01/30/20 at 11:00 Nitroglycerin (Nitrostat) 0.4 mg PRN Q5MIN PRN SL CHEST PAIN; Start 01/30/20 at 10:30 Topiramate (Topamax) 25 mg DAILY PO ; Start 01/30/20 at 11:00; Stop 01/30/20 at 12:19; Status DC Citalopram Hydrobromide (CeleXA) 20 mg DAILY PO Last administered on 01/30/20at 12:10; Start 01/30/20 at 11:00; Stop 01/30/20 at 12:19; Status DC Fish Oil (Fish Oil) 4,000 mg DAILY PO Last administered on 01/31/20at 08:39; Start 01/30/20 at 11:00 Sodium Chloride (Normal Saline Flush) 3 ml QSHIFT PRN IV AFTER MEDS AND BLOOD DRAWS; Start 01/30/20 at 10:45 Ondansetron HCl (Zofran) 4 mg PRN Q4HRS PRN IV NAUSEA/VOMITING Last administered on 01/30/20 21:09; Start 01/30/20 at 10:45 Acetaminophen (Tylenol) 650 mg PRN Q4HRS PRN PO TEMP OVER 100.4F OR MILD PAIN Last administered on 01/30/20 21:09; Start 01/30/20 at 10:45 Al Hydroxide/Mg Hydroxide (Mylanta Plus Xs) 30 ml PRN DAILY PRN PO HEARTBURN / GAS; Start 01/30/20 at 10:45 Clonidine HCl (Catapres) 0.1 mg PRN Q6HRS PRN PO SBP>160 OR DBP>90; Start 01/30/20 at 10:45 Docusate Sodium (Colace) 100 mg PRN BID PRN PO HARD STOOLS Last administered on 01/31/20at 08:40; Start 01/30/20 at 10:45 Albuterol/ Ipratropium (Duoneb) 3 ml Q4HRS NEB Last administered on 01/30/20 21:07; Start 01/30/20 at 12:00 Guaifenesin (Robitussin) 200 mg PRN Q4HRS PRN PO COUGH; Start 01/30/20 at 10:45 Enoxaparin Sodium (Lovenox 40mg Syringe) 40 mg Q24H SQ Last administered on 01/31/20 11:00; Start 01/30/20 at 11:00 Insulin Human Lispro (HumaLOG) 0-5 UNITS TIDWMEALS SQ Last administered on 01/31/20at 08:49; Start 01/30/20 at 12:00 Dextrose (Dextrose 50%-Water Syringe) 12.5 gm PRN Q15MIN PRN IV SEE COMMENTS; Start 01/30/20 at 11:00 Citalopram Hydrobromide (CeleXA) 20 mg HS PO Last administered on 01/30/20 20:46; Start 01/30/20 at 21:00 Topiramate (Topamax) 25 mg HS PO Last administered on 01/30/20 20:04; Start 01/30/20 at 21:00 Fentanyl Citrate (Fentanyl 2ml Vial) 50 mcg PRN Q2HR PRN IVP SEVERE PAIN 7-10 Last administered on 01/31/20at 11:10; Start 01/31/20 at 00:00 Methocarbamol (Robaxin) 500 mg 1X ONCE PO Last administered on 01/31/20at 09:50; Start 01/31/20 at 09:15; Stop 01/31/20 at 09:30; Status DC Lidocaine (Lidoderm) 1 patch DAILY TD Last administered on 01/31/20at 09:50; Start 01/31/20 at 10:00 Miscellaneous (Lidoderm Patch Removal) 1 ea QHS ; Start 01/31/20 at 21:00 Active Scripts Active NITROGLYCERIN SubLingual (Nitroglycerin) 0.4 Mg Tab.subl 0.4 Mg SL PRN Q5MIN PRN 30 Days Lovaza ([place]-3 Acid Ethyl Esters) 1 Gm Capsule 2 Cap PO BID 30 Days Reported Topamax (Topiramate) 25 Mg Tablet 1 Tab PO DAILY 30 Days Metformin Hcl 1,000 Mg Tablet 1,000 Mg PO BIDWMEALS Metoprolol Tartrate 25 Mg Tablet 0.5 Tab PO BID Escitalopram Oxalate 10 Mg Tablet 1 Tab PO DAILY Benadryl (Diphenhydramine Hcl) 25 Mg Capsule 2 Cap PO QHS 30 Days Tylenol (Acetaminophen) 325 Mg Tablet 650 Mg PO PRN Q6HRS PRN Ibuprofen 400 Mg Tablet 400 Mg PO PRN Q6HRS PRN Vitals/I & O Vital Sign - Last 24 Hours 01/30/20 01/30/20 01/30/20 01/30/20 12:10 15:00 15:05 16:02 Temp 98.0 98.0 Pulse 69 85 Resp 20 B/P (MAP) 115/56 122/63 (82) Pulse Ox 96 95 95 O2 Delivery Room Air Room Air Room Air 01/30/20 01/30/20 01/30/20 01/30/20 16:30 18:53 19:33 19:39 Temp 97.8 97.8 Pulse 82 Resp 16 16 B/P (MAP) 136/80 (98) Pulse Ox 95 97 O2 Delivery Room Air Room Air Room Air Room Air 01/30/20 01/30/20 01/30/20 01/30/20 20:09 20:46 21:10 22:51 Temp 97.5 97.5 Pulse 74 64 Resp 16 B/P (MAP) 136/80 123/58 (79) Pulse Ox 97 O2 Delivery Room Air Room Air Room Air 01/30/20 01/31/20 01/31/20 01/31/20 23:59 00:35 02:49 03:37 Temp 97.6 97.6 Pulse 66 Resp 16 16 16 16 B/P (MAP) 129/67 (87) Pulse Ox 97 97 94 95 O2 Delivery Room Air Room Air Room Air Room Air 01/31/20 01/31/20 01/31/20 01/31/20 04:10 07:00 07:06 07:35 Temp 97.7 97.7 Pulse 59 Resp 16 18 B/P (MAP) 65/ Pulse Ox 96 94 96 96 O2 Delivery Room Air Room Air Room Air 01/31/20 01/31/20 01/31/20 07:50 08:39 11:10 Pulse 66 B/P (MAP) 129/67 Pulse Ox 96 O2 Delivery Room Air Room Air Intake and Output 01/30/20 01/30/20 01/31/20 15:00 23:00 07:00 Intake Total 600 ml 360 ml Output Total 1050 ml 300 ml Balance 600 ml -690 ml -300 ml Justicifation of Admission Dx: Justifications for Admission: Justification of Admission Dx: Yes KEEGAN MUNIZ MD Jan 31, 2020 11:38
--- NOTE | 2020-01-31 12:00 | NUR ---
[facility] BS- [id number]
--- NOTE | 2020-01-31 12:23 | NUR ---
held sliding scale insulin due to patient taking home dose of trulicity. will continue to monitor patient and blood glucose.
[2020-01-31] MEDS ORDERED: IV 1/2 NORMAL SALINE 1,000 ML IV ONE (12:45)
[2020-01-31] MEDS ORDERED: POTASSIUM CHLORIDE 20 MEQ TABLET.ER. PO ONE (13:00)
[2020-01-31] MEDS ORDERED: PROCHLORPERAZINE 10 MG/2 ML VIAL. IV ONE (14:30)
[2020-01-31 15:00] VITALS: BP 140/56
[2020-01-31] MEDS ORDERED: diphenhydrAMINE 50 MG/ML VIAL IVP ONE (15:45)
[2020-01-31] MEDS: TOPIRAMATE 25 MG TABLET. PO SCH ×2 (15:59→20:55)
[2020-01-31] MEDS: tiZANidine 4 MG TABLET. PO PRN (15:59)
--- NOTE | 2020-01-31 18:53 | PDOC2 ---
CONSULT Date of Consult Date of Consult DATE: 01/31/20 TIME: 18:50 Reason for Consult Reason for Consult: Headache Identification/Chief Complaint Chief Complaint Headache History of Present Illness Reason for Visit: his patient is 55-year-old woman with past medical history of migraine headaches, anxiety depression diabetes presented with complaint of chest pressur e, the patient also reports she is having some worsening of her headaches are headaches are mainly on 1 side of the head radiating to top and back of the head. Patient has history of migraine headaches patient is having worsening of her migraine headaches are associated with nausea, photophobia. Patient denied any difficulty speaking tingling numbness on the face. Patient denied any complaint of dizziness shortness of breath, focal extremity weakness. Past Medical History Cardiovascular: CAD, HTN Pulmonary: Other CENTRAL NERVOUS SYSTEM: Migraine GI: Inflam bowel disease Heme/Onc: No pertinent hx Hepatobiliary: No pertinent hx Psych: No pertinent hx Musculoskeletal: Osteoarthritis Rheumatologic: No pertinent hx Infectious disease: No pertinent hx Renal/: No pertinent hx Endocrine: Diabetes Past Surgical History Past Surgical History: Colon Resection, Other (Heart catheterization as above) Family History Family History: Coronary Artery Disease, Hypertension Social History <1 pack per day ALCOHOL: rare Drugs: None Lives: with Family Current Problem List Problem List Problems Medical Problems: (1) Chest pain Status: Acute Current Medications Current Medications Current Medications Prochlorperazine Edisylate (Compazine) 10 mg 1X ONCE IV Last administered on 01/29/20at 17:25; Start 01/29/20 at 16:30; Stop 01/29/20 at 16:31; Status DC Diphenhydramine HCl (Benadryl) 25 mg 1X ONCE IVP Last administered on 01/29/20at 17:25; Start 01/29/20 at 16:30; Stop 01/29/20 at 16:31; Status DC Methylprednisolone Sodium Succinate (SOLU-Medrol 125MG VIAL) 125 mg 1X ONCE IV Last administered on 01/29/20at 17:25; Start 01/29/20 at 16:30; Stop 01/29/20 at 16:31; Status DC Fentanyl Citrate (Fentanyl 2ml Vial) 50 mcg 1X ONCE IVP Last administered on 01/29/20at 17:26; Start 01/29/20 at 16:30; Stop 01/29/20 at 16:31; Status DC Ondansetron HCl (Zofran) 4 mg PRN Q8HRS PRN IV NAUSEA/VOMITING; Start 01/29/20 at 20:30; Stop 01/30/20 at 20:29; Status DC Fentanyl Citrate (Fentanyl 2ml Vial) 50 mcg PRN Q1HR PRN IV PAIN Last administered on 01/30/20at 19:33; Start 01/29/20 at 20:30; Stop 01/30/20 at 20:29; Status DC Diphenhydramine HCl (Benadryl) 50 mg QHS PO Last administered on 01/30/20at 20:45; Start 01/29/20 at 23:45 Potassium Chloride (Klor-Con) 40 meq 1X ONCE PO Last administered on 01/30/20at 12:10; Start 01/30/20 at 10:30; Stop 01/30/20 at 10:31; Status DC Potassium Chloride (Klor-Con) 20 meq DAILYWBKFT PO Last administered on 01/31/20at 08:40; Start 01/31/20 at 08:00 Acetaminophen (Tylenol) 650 mg PRN Q6HRS PRN PO MILD PAIN 1-3; Start 01/30/20 at 10:30; Stop 01/30/20 at 10:54; Status DC Ibuprofen (Motrin) 400 mg PRN Q6HRS PRN PO INFLAMMATION; Start 01/30/20 at 10:30 Metoprolol Tartrate (Lopressor) 25 mg BID PO Last administered on 01/31/20at 08:39; Start 01/30/20 at 11:00 Nitroglycerin (Nitrostat) 0.4 mg PRN Q5MIN PRN SL CHEST PAIN; Start 01/30/20 at 10:30 Topiramate (Topamax) 25 mg DAILY PO ; Start 01/30/20 at 11:00; Stop 01/30/20 at 12:19; Status DC Citalopram Hydrobromide (CeleXA) 20 mg DAILY PO Last administered on 01/30/20at 12:10; Start 01/30/20 at 11:00; Stop 01/30/20 at 12:19; Status DC Fish Oil (Fish Oil) 4,000 mg DAILY PO Last administered on 01/31/20at 08:39; Start 01/30/20 at 11:00 Sodium Chloride (Normal Saline Flush) 3 ml QSHIFT PRN IV AFTER MEDS AND BLOOD DRAWS; Start 01/30/20 at 10:45 Ondansetron HCl (Zofran) 4 mg PRN Q4HRS PRN IV NAUSEA/VOMITING Last administered on 01/30/20at 21:09; Start 01/30/20 at 10:45 Acetaminophen (Tylenol) 650 mg PRN Q4HRS PRN PO TEMP OVER 100.4F OR MILD PAIN Last administered on 01/30/20at 21:09; Start 01/30/20 at 10:45 Al Hydroxide/Mg Hydroxide (Mylanta Plus Xs) 30 ml PRN DAILY PRN PO HEARTBURN / GAS; Start 01/30/20 at 10:45 Clonidine HCl (Catapres) 0.1 mg PRN Q6HRS PRN PO SBP>160 OR DBP>90; Start 01/30/20 at 10:45 Docusate Sodium (Colace) 100 mg PRN BID PRN PO HARD STOOLS Last administered on 01/31/20at 08:40; Start 01/30/20 at 10:45 Albuterol/ Ipratropium (Duoneb) 3 ml Q4HRS NEB Last administered on 01/31/20at 15:44; Start 01/30/20 at 12:00 Guaifenesin (Robitussin) 200 mg PRN Q4HRS PRN PO COUGH; Start 01/30/20 at 10:45 Enoxaparin Sodium (Lovenox 40mg Syringe) 40 mg Q24H SQ Last administered on 01/31/20at 11:00; Start 01/30/20 at 11:00 Insulin Human Lispro (HumaLOG) 0-5 UNITS TIDWMEALS SQ Last administered on 01/31/20at 17:41; Start 01/30/20 at 12:00 Dextrose (Dextrose 50%-Water Syringe) 12.5 gm PRN Q15MIN PRN IV SEE COMMENTS; Start 01/30/20 at 11:00 Citalopram Hydrobromide (CeleXA) 20 mg HS PO Last administered on 01/30/20at 20:46; Start 01/30/20 at 21:00 Topiramate (Topamax) 25 mg HS PO Last administered on 01/30/20at 20:04; Start 01/30/20 at 21:00; Stop 01/31/20 at 15:41; Status DC Fentanyl Citrate (Fentanyl 2ml Vial) 50 mcg PRN Q2HR PRN IVP SEVERE PAIN 7-10 Last administered on 01/31/20at 11:10; Start 01/31/20 at 00:00 Methocarbamol (Robaxin) 500 mg 1X ONCE PO Last administered on 01/31/20at 09:50; Start 01/31/20 at 09:15; Stop 01/31/20 at 09:30; Status DC Lidocaine (Lidoderm) 1 patch DAILY TD Last administered on 01/31/20at 09:50; Start 01/31/20 at 10:00 Miscellaneous (Lidoderm Patch Removal) 1 ea QHS MC ; Start 01/31/20 at 21:00 Amitriptyline HCl (Elavil) 25 mg QHS PO ; Start 01/31/20 at 21:00 Potassium Chloride (Klor-Con) 40 meq 1X ONCE PO Last administered on 01/31/20at 13:47; Start 01/31/20 at 13:00; Stop 01/31/20 at 13:01; Status DC Potassium Chloride (Klor-Con) 20 meq DAILYWBKFT PO ; Start 02/01/20 at 08:00 Sodium Chloride 1,000 ml @ 100 mls/hr 1X ONCE IV Last administered on 01/31/20at 13:48; Start 01/31/20 at 12:45; Stop 01/31/20 at 22:44 Prochlorperazine Edisylate (Compazine) 10 mg ONCE ONCE IV Last administered on 01/31/20at 14:45; Start 01/31/20 at 14:30; Stop 01/31/20 at 14:31; Status DC Topiramate (Topamax) 25 mg BID PO Last administered on 01/31/20at 15:59; Start 01/31/20 at 15:45 Tizanidine HCl (Zanaflex) 4 mg PRN Q8HRS PRN PO MUSCLE SPASMS Last administered on 01/31/20at 15:59; Start 01/31/20 at 15:45 Diphenhydramine HCl (Benadryl) 25 mg 1X ONCE IVP Last administered on 01/31/20at 15:59; Start 01/31/20 at 15:45; Stop 01/31/20 at 15:54; Status DC Active Scripts Active NITROGLYCERIN SubLingual (Nitroglycerin) 0.4 Mg Tab.subl 0.4 Mg SL PRN Q5MIN PRN 30 Days Lovaza (Lewisberry-3 Acid Ethyl Esters) 1 Gm Capsule 2 Cap PO BID 30 Days Reported Topamax (Topiramate) 25 Mg Tablet 1 Tab PO DAILY 30 Days Metformin Hcl 1,000 Mg Tablet 1,000 Mg PO BIDWMEALS Metoprolol Tartrate 25 Mg Tablet 0.5 Tab PO BID Escitalopram Oxalate 10 Mg Tablet 1 Tab PO DAILY Benadryl (Diphenhydramine Hcl) 25 Mg Capsule 2 Cap PO QHS 30 Days Tylenol (Acetaminophen) 325 Mg Tablet 650 Mg PO PRN Q6HRS PRN Ibuprofen 400 Mg Tablet 400 Mg PO PRN Q6HRS PRN Allergies Allergies: Coded Allergies: Sulfa (Sulfonamide Antibiotics) (Verified Allergy, Intermediate, hives, 01/29/20) sumatriptan (Verified Allergy, Intermediate, hives, 01/29/20) morphine (Verified Adverse Reaction, Mild, Anxiety, 01/29/20) pt reports morphine "keeps me up all night" Physical Exam Physical Exam General no acute distress. HEENT: Normocephalic and atraumatic. NECK: Supple without bruit Respiratory: Clear to auscultation bilaterally Heart: Regular rate and rhythm, S1S2 normal NEUROLOGIC: Mental status alert oriented no meningeal signs No papilledema Cranial nerve equally reactive pupils, No facial asymmetry. Palate elevates and tongue protrudes in midline. Reflexes are 1-2 with flexor plantar responses. Coordination normal Strength able to move exts to stimuli Sensory exam intact to LT, PP Gait in bed. A 10-point review of systems was obtained. Other than the history of present illness the remainder of the review of systems is negative. T Vitals VITALS Vital Signs Date Time Temp Pulse Resp B/P (MAP) Pulse Ox O2 Delivery O2 Flow Rate FiO2 01/31/20 15:45 95 Room Air 01/31/20 15:00 98.3 71 18 140/56 (84) 98.3 Labs Labs Laboratory Tests Test 01/30/20 01:40 01/31/20 06:00 01/31/20 07:58 White Blood Count 7.5 x10^3/uL (4.0-11.0) 8.2 x10^3/uL (4.0-11.0) Red Blood Count 5.56 x10^6/uL (3.50-5.40) 5.45 x10^6/uL (3.50-5.40) Hemoglobin 17.6 g/dL (12.0-15.5) 17.0 g/dL (12.0-15.5) Hematocrit 49.9 % (36.0-47.0) 48.8 % (36.0-47.0) Mean Corpuscular Volume 90 fL (79-100) 89 fL (79-100) Mean Corpuscular Hemoglobin 32 pg (25-35) 31 pg (25-35) Mean Corpuscular Hemoglobin Concent 35 g/dL (31-37) 35 g/dL (31-37) Red Cell Distribution Width 12.8 % (11.5-14.5) 12.8 % (11.5-14.5) Platelet Count 253 x10^3/uL (140-400) 278 x10^3/uL (140-400) Neutrophils (%) (Auto) 91 % (31-73) 63 % (31-73) Lymphocytes (%) (Auto) 7 % (24-48) 25 % (24-48) Monocytes (%) (Auto) 1 % (0-9) 9 % (0-9) Eosinophils (%) (Auto) 0 % (0-3) 2 % (0-3) Basophils (%) (Auto) 0 % (0-3) 1 % (0-3) Neutrophils # (Auto) 6.8 x10^3/uL (1.8-7.7) 5.1 x10^3/uL (1.8-7.7) Lymphocytes # (Auto) 0.5 x10^3/uL (1.0-4.8) 2.1 x10^3/uL (1.0-4.8) Monocytes # (Auto) 0.1 x10^3/uL (0.0-1.1) 0.7 x10^3/uL (0.0-1.1) Eosinophils # (Auto) 0.0 x10^3/uL (0.0-0.7) 0.1 x10^3/uL (0.0-0.7) Basophils # (Auto) 0.0 x10^3/uL (0.0-0.2) 0.1 x10^3/uL (0.0-0.2) Segmented Neutrophils % 82 % (35-66) Band Neutrophils % 7 % (0-9) Lymphocytes % 8 % (24-48) Monocytes % 3 % (0-10) Platelet Estimate Adequate (ADEQUATE) Sodium Level 132 mmol/L (136-145) 136 mmol/L (136-145) Potassium Level 3.7 mmol/L (3.5-5.1) 3.1 mmol/L (3.5-5.1) Chloride Level 98 mmol/L (98-107) 101 mmol/L (98-107) Carbon Dioxide Level 23 mmol/L (21-32) 24 mmol/L (21-32) Anion Gap 11 (6-14) 11 (6-14) Blood Urea Nitrogen 26 mg/dL (7-20) 21 mg/dL (7-20) Creatinine 1.5 mg/dL (0.6-1.0) 1.1 mg/dL (0.6-1.0) Estimated GFR (Cockcroft-Gault) 36.2 51.8 Glucose Level 333 mg/dL (70-99) 221 mg/dL (70-99) Calcium Level 10.2 mg/dL (8.5-10.1) 9.3 mg/dL (8.5-10.1) Phosphorus Level 2.2 mg/dL (2.6-4.7) Troponin I Quantitative < 0.017 ng/mL (0.000-0.055) Albumin 3.8 g/dL (3.4-5.0) 3.6 g/dL (3.4-5.0) Thyroid Stimulating Hormone (TSH) 0.524 uIU/mL (0.358-3.74) BUN/Creatinine Ratio 19 (6-20) Total Bilirubin 0.4 mg/dL (0.2-1.0) Aspartate Amino Transf (AST/SGOT) 25 U/L (15-37) Alanine Aminotransferase (ALT/SGPT) 57 U/L (14-59) Alkaline Phosphatase 84 U/L (46-116) Total Protein 6.7 g/dL (6.4-8.2) Albumin/Globulin Ratio 1.2 (1.0-1.7) Glucose (Fingerstick) 200 mg/dL (70-99) Laboratory Tests Test 01/31/20 06:00 01/31/20 07:58 White Blood Count 8.2 x10^3/uL (4.0-11.0) Red Blood Count 5.45 x10^6/uL (3.50-5.40) Hemoglobin 17.0 g/dL (12.0-15.5) Hematocrit 48.8 % (36.0-47.0) Mean Corpuscular Volume 89 fL (79-100) Mean Corpuscular Hemoglobin 31 pg (25-35) Mean Corpuscular Hemoglobin Concent 35 g/dL (31-37) Red Cell Distribution Width 12.8 % (11.5-14.5) Platelet Count 278 x10^3/uL (140-400) Neutrophils (%) (Auto) 63 % (31-73) Lymphocytes (%) (Auto) 25 % (24-48) Monocytes (%) (Auto) 9 % (0-9) Eosinophils (%) (Auto) 2 % (0-3) Basophils (%) (Auto) 1 % (0-3) Neutrophils # (Auto) 5.1 x10^3/uL (1.8-7.7) Lymphocytes # (Auto) 2.1 x10^3/uL (1.0-4.8) Monocytes # (Auto) 0.7 x10^3/uL (0.0-1.1) Eosinophils # (Auto) 0.1 x10^3/uL (0.0-0.7) Basophils # (Auto) 0.1 x10^3/uL (0.0-0.2) Sodium Level 136 mmol/L (136-145) Potassium Level 3.1 mmol/L (3.5-5.1) Chloride Level 101 mmol/L (98-107) Carbon Dioxide Level 24 mmol/L (21-32) Anion Gap 11 (6-14) Blood Urea Nitrogen 21 mg/dL (7-20) Creatinine 1.1 mg/dL (0.6-1.0) Estimated GFR (Cockcroft-Gault) 51.8 BUN/Creatinine Ratio 19 (6-20) Glucose Level 221 mg/dL (70-99) Calcium Level 9.3 mg/dL (8.5-10.1) Total Bilirubin 0.4 mg/dL (0.2-1.0) Aspartate Amino Transf (AST/SGOT) 25 U/L (15-37) Alanine Aminotransferase (ALT/SGPT) 57 U/L (14-59) Alkaline Phosphatase 84 U/L (46-116) Total Protein 6.7 g/dL (6.4-8.2) Albumin 3.6 g/dL (3.4-5.0) Albumin/Globulin Ratio 1.2 (1.0-1.7) Glucose (Fingerstick) 200 mg/dL (70-99) Assessment/Plan Assessment/Plan his patient is 55-year-old woman with past medical history of migraine headaches, anxiety depression diabetes presented with complaint of chest pressure, the patient also reports she is having some worsening of her headaches are headaches are mainly on 1 side of the head radiating to top and back of the head. Patient has history of migraine headaches patient is having worsening of her migraine headaches are associated with nausea, photophobia. Patient denied any difficulty speaking tingling numbness on the face. Patient denied any c omplaint of dizziness shortness of breath, focal extremity weakness.Will titrate medications for migraine headaches. Titrate Topamax dosing A CT scan done brain did not show any evidence of acute intracranial etiology no evidence of acute hemorrhage mass. Changes noted for nonspecific chronic small vessel ischemic disease, migraine ARNULFO HEALY MD Jan 31, 2020 18:53
[2020-01-31 19:27] VITALS: BP 95/43
[2020-01-31] MEDS: AMITRIPTYLINE HCL 25 MG TABLET. PO SCH (20:53)
[2020-01-31] MEDS: diphenhydrAMINE HCL 25 MG CAPSULE PO SCH (20:53)
[2020-01-31] MEDS: CITALOPRAM 20 MG TABLET. PO SCH (20:55)
[2020-01-31] MEDS: PATCH REMOVAL. MC SCH (20:56)
[2020-01-31 22:44] VITALS: BP 96/51
[2020-02-01] VITALS (8 sets, daily range): BP systolic 94–137; BP diastolic 52–67
[2020-02-01] MEDS: IPRATRPIUM/ALBUTEROL 0.5/2.5MG 3 ML NEBU. NEB SCH ×5 (04:00→20:00)
[2020-02-01 06:51] LABS: BASO # 0.1 x10^3/uL (0.0-0.2); BASO % 1 % (0-3); EOS # 0.2 x10^3/uL (0.0-0.7); EOS % 3 % (0-3); HEMATOCRIT 46.2 % (36.0-47.0); LYMPH % 29 % (24-48); MEAN CORPUSCULAR HEMOGLOBIN 31 pg (25-35); MEAN CORPUSCULAR HGB CONC 35 g/dL (31-37); MEAN CORPUSCULAR VOLUME 90 fL (79-100); MONO # 0.9 x10^3/uL (0.0-1.1); MONO % 13 % (0-9); NEUT # 3.8 x10^3/uL (1.8-7.7); NEUT % 55 % (31-73); PLATELET COUNT 264 x10^3/uL (140-400); RED BLOOD COUNT 5.17 x10^6/uL (3.50-5.40); RED CELL DISTRIBUTION WIDTH 12.6 % (11.5-14.5)
[2020-02-01 07:01] LABS: ALBUMIN 3.2 g/dL (3.4-5.0); ALBUMIN/GLOBULIN RATIO 1.1 (1.0-1.7); CALCIUM 8.9 mg/dL (8.5-10.1); GFR 57.8; POTASSIUM 3.5 mmol/L (3.5-5.1); TOTAL BILIRUBIN 0.3 mg/dL (0.2-1.0)
--- NOTE | 2020-02-01 07:51 | PDOC ---
PROGRESS NOTES History of Present Illness History of Present Illness VTE Prophylaxis Ordered VTE Prophylaxis Devices: No VTE Pharmacological Prophylaxi: Yes Assessment/Plan Assessment/Plan IMPRESSION: Chest pain, unstable angina 12/23:=======CORONARY ANGIOGRAPHY: LM is a large caliber vessel with normal angiographic appearance. LAD is a large caliber vessel with a proximal to mid 60% stenosis. Ramus is a moderate caliber vessel with proximal 50% stenosis. LCx is a moderate caliber dominant vessel with mid 40-50% stenosis, distal diffuse 40% stenosis. OM1 is a small caliber vessel with normal angiographic appearance. RCA is a non-dominant vessel with a proximal to mid 90% stenosis. No acute intracranial hemorrhage. ON CT HEAD Mild scattered foci of low- density within the white matter. Nonspecific but can be seen with chronic small vessel ischemic disease or sequela of migraine. Lobulated appearance of the kidneys. FRANCINE DIABETES POLYCYTHEMIA possible SLEEP APNEA MORBID OBESITY TOBACCO ABUSE DISORDER Uncontrolled ROSALES: quit CPAP 10 yrs ago Obesity: gained 10# in the last 3 months and sedentary IBD/ulcerative colitis: S/P colon resection [facility] Uncontrolled DM2: Family hx of CAD HTN urgency Noncompliance hypokalemia, on replacement headache resolved 01/29, now worse this AM 01/30c/w intractable migrane plan ADMIT consult cardiology consult nephrology serial troponin i HOLD METFORMIN DUE TO FRANCINE Consult hematology HS OXIMETRY, NOCTURNAL STUDY with report Need for smoking cessation provided cont home meds DVT PROPHYLAXIS TSH ABENA-2 mutation PENDING CONSULT NEUROLOGY, ADD ELAVIL 25 MG PO Q HS 38 min pt exam, chart review, > 50% of time spent with exam, chart review, pt care coordination Justicifation of Admission Dx: Justifications for Admission: Justification of Admission Dx: Yes NESTOR PAK MD Jan 30, 2020 10:19 Addendum: NESTOR PAK MD on 01/30/20 @ 16:42 Examination: RENAL COMPLETE BILATERAL History: Reason: CKD / Spl. Instructions: / History: Comparison/Correlation: None Findings: Renal ultrasound exam was performed. Right kidney measures 12.7 cm x 4.1 centimeter x 5.1 centimeter. Left kidney measures 13 cm x 5.6 cm x 5.1 cm. No hydronephrosis or nephrolithiasis. Renal cortical echotexture is within normal limits. Mild renal cortical thinning may be present. Renal contours are unremarkable. Urinary bladder is mostly decompressed. Fatty infiltration of the liver is present. Impression: No hydronephrosis. Electronically signed by: Randall Valenzuela MD (01/30/2020 4:23 PM) [id number] DICTATED and SIGNED BY: RANDALL VALENZUELA MD DATE: 01/30/20 1623 Vitals Vitals Vital Signs Date Time Temp Pulse Resp B/P (MAP) Pulse Ox O2 Delivery O2 Flow Rate FiO2 02/01/20 07:00 98.0 65 18 127/61 (83) 95 Room Air 98.0 Physical Exam General: Alert, Oriented X3, Cooperative, mild distress, moderate distress Heart: Regular rate, Normal S1, Normal S2, No murmurs Lungs: Clear Abdomen: Normal bowel sounds, No tenderness Extremities: No clubbing, No cyanosis, No edema Labs LABS Laboratory Tests Test 01/31/20 07:58 02/01/20 05:00 Glucose (Fingerstick) 200 mg/dL (70-99) White Blood Count 7.0 x10^3/uL (4.0-11.0) Red Blood Count 5.17 x10^6/uL (3.50-5.40) Hemoglobin 16.0 g/dL (12.0-15.5) Hematocrit 46.2 % (36.0-47.0) Mean Corpuscular Volume 90 fL (79-100) Mean Corpuscular Hemoglobin 31 pg (25-35) Mean Corpuscular Hemoglobin Concent 35 g/dL (31-37) Red Cell Distribution Width 12.6 % (11.5-14.5) Platelet Count 264 x10^3/uL (140-400) Neutrophils (%) (Auto) 55 % (31-73) Lymphocytes (%) (Auto) 29 % (24-48) Monocytes (%) (Auto) 13 % (0-9) Eosinophils (%) (Auto) 3 % (0-3) Basophils (%) (Auto) 1 % (0-3) Neutrophils # (Auto) 3.8 x10^3/uL (1.8-7.7) Lymphocytes # (Auto) 2.0 x10^3/uL (1.0-4.8) Monocytes # (Auto) 0.9 x10^3/uL (0.0-1.1) Eosinophils # (Auto) 0.2 x10^3/uL (0.0-0.7) Basophils # (Auto) 0.1 x10^3/uL (0.0-0.2) Sodium Level 142 mmol/L (136-145) Potassium Level 3.5 mmol/L (3.5-5.1) Chloride Level 108 mmol/L (98-107) Carbon Dioxide Level 25 mmol/L (21-32) Anion Gap 9 (6-14) Blood Urea Nitrogen 16 mg/dL (7-20) Creatinine 1.0 mg/dL (0.6-1.0) Estimated GFR (Cockcroft-Gault) 57.8 BUN/Creatinine Ratio 16 (6-20) Glucose Level 162 mg/dL (70-99) Calcium Level 8.9 mg/dL (8.5-10.1) Total Bilirubin 0.3 mg/dL (0.2-1.0) Aspartate Amino Transf (AST/SGOT) 23 U/L (15-37) Alanine Aminotransferase (ALT/SGPT) 58 U/L (14-59) Alkaline Phosphatase 80 U/L (46-116) Total Protein 6.0 g/dL (6.4-8.2) Albumin 3.2 g/dL (3.4-5.0) Albumin/Globulin Ratio 1.1 (1.0-1.7) Assessment and Plan Assessmemt and Plan Problems Medical Problems: (1) Chest pain Status: Acute Comment Review of Relevant I have reviewed the following items mae (where applicable) has been applied. Labs Laboratory Tests Test 01/31/20 06:00 01/31/20 07:58 02/01/20 05:00 White Blood Count 8.2 x10^3/uL (4.0-11.0) 7.0 x10^3/uL (4.0-11.0) Red Blood Count 5.45 x10^6/uL (3.50-5.40) 5.17 x10^6/uL (3.50-5.40) Hemoglobin 17.0 g/dL (12.0-15.5) 16.0 g/dL (12.0-15.5) Hematocrit 48.8 % (36.0-47.0) 46.2 % (36.0-47.0) Mean Corpuscular Volume 89 fL (79-100) 90 fL (79-100) Mean Corpuscular Hemoglobin 31 pg (25-35) 31 pg (25-35) Mean Corpuscular Hemoglobin Concent 35 g/dL (31-37) 35 g/dL (31-37) Red Cell Distribution Width 12.8 % (11.5-14.5) 12.6 % (11.5-14.5) Platelet Count 278 x10^3/uL (140-400) 264 x10^3/uL (140-400) Neutrophils (%) (Auto) 63 % (31-73) 55 % (31-73) Lymphocytes (%) (Auto) 25 % (24-48) 29 % (24-48) Monocytes (%) (Auto) 9 % (0-9) 13 % (0-9) Eosinophils (%) (Auto) 2 % (0-3) 3 % (0-3) Basophils (%) (Auto) 1 % (0-3) 1 % (0-3) Neutrophils # (Auto) 5.1 x10^3/uL (1.8-7.7) 3.8 x10^3/uL (1.8-7.7) Lymphocytes # (Auto) 2.1 x10^3/uL (1.0-4.8) 2.0 x10^3/uL (1.0-4.8) Monocytes # (Auto) 0.7 x10^3/uL (0.0-1.1) 0.9 x10^3/uL (0.0-1.1) Eosinophils # (Auto) 0.1 x10^3/uL (0.0-0.7) 0.2 x10^3/uL (0.0-0.7) Basophils # (Auto) 0.1 x10^3/uL (0.0-0.2) 0.1 x10^3/uL (0.0-0.2) Sodium Level 136 mmol/L (136-145) 142 mmol/L (136-145) Potassium Level 3.1 mmol/L (3.5-5.1) 3.5 mmol/L (3.5-5.1) Chloride Level 101 mmol/L (98-107) 108 mmol/L (98-107) Carbon Dioxide Level 24 mmol/L (21-32) 25 mmol/L (21-32) Anion Gap 11 (6-14) 9 (6-14) Blood Urea Nitrogen 21 mg/dL (7-20) 16 mg/dL (7-20) Creatinine 1.1 mg/dL (0.6-1.0) 1.0 mg/dL (0.6-1.0) Estimated GFR (Cockcroft-Gault) 51.8 57.8 BUN/Creatinine Ratio 19 (6-20) 16 (6-20) Glucose Level 221 mg/dL (70-99) 162 mg/dL (70-99) Calcium Level 9.3 mg/dL (8.5-10.1) 8.9 mg/dL (8.5-10.1) Total Bilirubin 0.4 mg/dL (0.2-1.0) 0.3 mg/dL (0.2-1.0) Aspartate Amino Transf (AST/SGOT) 25 U/L (15-37) 23 U/L (15-37) Alanine Aminotransferase (ALT/SGPT) 57 U/L (14-59) 58 U/L (14-59) Alkaline Phosphatase 84 U/L (46-116) 80 U/L (46-116) Total Protein 6.7 g/dL (6.4-8.2) 6.0 g/dL (6.4-8.2) Albumin 3.6 g/dL (3.4-5.0) 3.2 g/dL (3.4-5.0) Albumin/Globulin Ratio 1.2 (1.0-1.7) 1.1 (1.0-1.7) Glucose (Fingerstick) 200 mg/dL (70-99) Laboratory Tests Test 01/31/20 07:58 02/01/20 05:00 Glucose (Fingerstick) 200 mg/dL (70-99) White Blood Count 7.0 x10^3/uL (4.0-11.0) Red Blood Count 5.17 x10^6/uL (3.50-5.40) Hemoglobin 16.0 g/dL (12.0-15.5) Hematocrit 46.2 % (36.0-47.0) Mean Corpuscular Volume 90 fL (79-100) Mean Corpuscular Hemoglobin 31 pg (25-35) Mean Corpuscular Hemoglobin Concent 35 g/dL (31-37) Red Cell Distribution Width 12.6 % (11.5-14.5) Platelet Count 264 x10^3/uL (140-400) Neutrophils (%) (Auto) 55 % (31-73) Lymphocytes (%) (Auto) 29 % (24-48) Monocytes (%) (Auto) 13 % (0-9) Eosinophils (%) (Auto) 3 % (0-3) Basophils (%) (Auto) 1 % (0-3) Neutrophils # (Auto) 3.8 x10^3/uL (1.8-7.7) Lymphocytes # (Auto) 2.0 x10^3/uL (1.0-4.8) Monocytes # (Auto) 0.9 x10^3/uL (0.0-1.1) Eosinophils # (Auto) 0.2 x10^3/uL (0.0-0.7) Basophils # (Auto) 0.1 x10^3/uL (0.0-0.2) Sodium Level 142 mmol/L (136-145) Potassium Level 3.5 mmol/L (3.5-5.1) Chloride Level 108 mmol/L (98-107) Carbon Dioxide Level 25 mmol/L (21-32) Anion Gap 9 (6-14) Blood Urea Nitrogen 16 mg/dL (7-20) Creatinine 1.0 mg/dL (0.6-1.0) Estimated GFR (Cockcroft-Gault) 57.8 BUN/Creatinine Ratio 16 (6-20) Glucose Level 162 mg/dL (70-99) Calcium Level 8.9 mg/dL (8.5-10.1) Total Bilirubin 0.3 mg/dL (0.2-1.0) Aspartate Amino Transf (AST/SGOT) 23 U/L (15-37) Alanine Aminotransferase (ALT/SGPT) 58 U/L (14-59) Alkaline Phosphatase 80 U/L (46-116) Total Protein 6.0 g/dL (6.4-8.2) Albumin 3.2 g/dL (3.4-5.0) Albumin/Globulin Ratio 1.1 (1.0-1.7) Microbiology 01/29/20 Urine Culture - Final, Complete Medications Current Medications Prochlorperazine Edisylate (Compazine) 10 mg 1X ONCE IV Last administered on 01/29/20at 17:25; Start 01/29/20 at 16:30; Stop 01/29/20 at 16:31; Status DC Diphenhydramine HCl (Benadryl) 25 mg 1X ONCE IVP Last administered on 01/29/20at 17:25; Start 01/29/20 at 16:30; Stop 01/29/20 at 16:31; Status DC Methylprednisolone Sodium Succinate (SOLU-Medrol 125MG VIAL) 125 mg 1X ONCE IV Last administered on 01/29/20at 17:25; Start 01/29/20 at 16:30; Stop 01/29/20 at 16:31; Status DC Fentanyl Citrate (Fentanyl 2ml Vial) 50 mcg 1X ONCE IVP Last administered on 01/29/20at 17:26; Start 01/29/20 at 16:30; Stop 01/29/20 at 16:31; Status DC Ondansetron HCl (Zofran) 4 mg PRN Q8HRS PRN IV NAUSEA/VOMITING; Start 01/29/20 at 20:30; Stop 01/30/20 at 20:29; Status DC Fentanyl Citrate (Fentanyl 2ml Vial) 50 mcg PRN Q1HR PRN IV PAIN Last administered on 01/30/20at 19:33; Start 01/29/20 at 20:30; Stop 01/30/20 at 20:29; Status DC Diphenhydramine HCl (Benadryl) 50 mg QHS PO Last administered on 01/31/20at 20:53; Start 01/29/20 at 23:45 Potassium Chloride (Klor-Con) 40 meq 1X ONCE PO Last administered on 01/30/20at 12:10; Start 01/30/20 at 10:30; Stop 01/30/20 at 10:31; Status DC Potassium Chloride (Klor-Con) 20 meq DAILYWBKFT PO Last administered on 01/31/20at 08:40; Start 01/31/20 at 08:00 Acetaminophen (Tylenol) 650 mg PRN Q6HRS PRN PO MILD PAIN 1-3; Start 01/30/20 at 10:30; Stop 01/30/20 at 10:54; Status DC Ibuprofen (Motrin) 400 mg PRN Q6HRS PRN PO INFLAMMATION; Start 01/30/20 at 10:30 Metoprolol Tartrate (Lopressor) 25 mg BID PO Last administered on 01/31/20at 20:55; Start 01/30/20 at 11:00 Nitroglycerin (Nitrostat) 0.4 mg PRN Q5MIN PRN SL CHEST PAIN; Start 01/30/20 at 10:30 Topiramate (Topamax) 25 mg DAILY PO ; Start 01/30/20 at 11:00; Stop 01/30/20 at 12:19; Status DC Citalopram Hydrobromide (CeleXA) 20 mg DAILY PO Last administered on 01/30/20at 12:10; Start 01/30/20 at 11:00; Stop 01/30/20 at 12:19; Status DC Fish Oil (Fish Oil) 4,000 mg DAILY PO Last administered on 01/31/20at 08:39; Start 01/30/20 at 11:00 Sodium Chloride (Normal Saline Flush) 3 ml QSHIFT PRN IV AFTER MEDS AND BLOOD DRAWS; Start 01/30/20 at 10:45 Ondansetron HCl (Zofran) 4 mg PRN Q4HRS PRN IV NAUSEA/VOMITING Last administered on 01/30/20at 21:09; Start 01/30/20 at 10:45 Acetaminophen (Tylenol) 650 mg PRN Q4HRS PRN PO TEMP OVER 100.4F OR MILD PAIN Last administered on 01/30/20at 21:09; Start 01/30/20 at 10:45 Al Hydroxide/Mg Hydroxide (Mylanta Plus Xs) 30 ml PRN DAILY PRN PO HEARTBURN / GAS; Start 01/30/20 at 10:45 Clonidine HCl (Catapres) 0.1 mg PRN Q6HRS PRN PO SBP>160 OR DBP>90; Start 01/30/20 at 10:45 Docusate Sodium (Colace) 100 mg PRN BID PRN PO HARD STOOLS Last administered on 01/31/20at 08:40; Start 01/30/20 at 10:45 Albuterol/ Ipratropium (Duoneb) 3 ml Q4HRS NEB Last administered on 01/31/20at 20:33; Start 01/30/20 at 12:00 Guaifenesin (Robitussin) 200 mg PRN Q4HRS PRN PO COUGH; Start 01/30/20 at 10:45 Enoxaparin Sodium (Lovenox 40mg Syringe) 40 mg Q24H SQ Last administered on 01/31/20at 11:00; Start 01/30/20 at 11:00 Insulin Human Lispro (HumaLOG) 0-5 UNITS TIDWMEALS SQ Last administered on 01/31/20at 17:41; Start 01/30/20 at 12:00 Dextrose (Dextrose 50%-Water Syringe) 12.5 gm PRN Q15MIN PRN IV SEE COMMENTS; Start 01/30/20 at 11:00 Citalopram Hydrobromide (CeleXA) 20 mg HS PO Last administered on 01/31/20at 20:55; Start 01/30/20 at 21:00 Topiramate (Topamax) 25 mg HS PO Last administered on 01/30/20at 20:04; Start 01/30/20 at 21:00; Stop 01/31/20 at 15:41; Status DC Fentanyl Citrate (Fentanyl 2ml Vial) 50 mcg PRN Q2HR PRN IVP SEVERE PAIN 7-10 Last administered on 01/31/20at 22:32; Start 01/31/20 at 00:00 Methocarbamol (Robaxin) 500 mg 1X ONCE PO Last administered on 01/31/20at 09:50; Start 01/31/20 at 09:15; Stop 01/31/20 at 09:30; Status DC Lidocaine (Lidoderm) 1 patch DAILY TD Last administered on 01/31/20at 09:50; Start 01/31/20 at 10:00 Miscellaneous (Lidoderm Patch Removal) 1 ea QHS MC Last administered on 01/31/20at 20:56; Start 01/31/20 at 21:00 Amitriptyline HCl (Elavil) 25 mg QHS PO Last administered on 01/31/20at 20:53; Start 01/31/20 at 21:00 Potassium Chloride (Klor-Con) 40 meq 1X ONCE PO Last administered on 01/31/20at 13:47; Start 01/31/20 at 13:00; Stop 01/31/20 at 13:01; Status DC Potassium Chloride (Klor-Con) 20 meq DAILYWBKFT PO ; Start 02/01/20 at 08:00 Sodium Chloride 1,000 ml @ 100 mls/hr 1X ONCE IV Last administered on 01/31/20at 13:48; Start 01/31/20 at 12:45; Stop 01/31/20 at 22:44; Status DC Prochlorperazine Edisylate (Compazine) 10 mg ONCE ONCE IV Last administered on 01/31/20at 14:45; Start 01/31/20 at 14:30; Stop 01/31/20 at 14:31; Status DC Topiramate (Topamax) 25 mg BID PO Last administered on 01/31/20at 20:55; Start 01/31/20 at 15:45 Tizanidine HCl (Zanaflex) 4 mg PRN Q8HRS PRN PO MUSCLE SPASMS Last administered on 01/31/20at 15:59; Start 01/31/20 at 15:45 Diphenhydramine HCl (Benadryl) 25 mg 1X ONCE IVP Last administered on 01/31/20at 15:59; Start 01/31/20 at 15:45; Stop 01/31/20 at 15:54; Status DC Active Scripts Active NITROGLYCERIN SubLingual (Nitroglycerin) 0.4 Mg Tab.subl 0.4 Mg SL PRN Q5MIN PRN 30 Days Lovaza ([place]-3 Acid Ethyl Esters) 1 Gm Capsule 2 Cap PO BID 30 Days Reported Topamax (Topiramate) 25 Mg Tablet 1 Tab PO DAILY 30 Days Metformin Hcl 1,000 Mg Tablet 1,000 Mg PO BIDWMEALS Metoprolol Tartrate 25 Mg Tablet 0.5 Tab PO BID Escitalopram Oxalate 10 Mg Tablet 1 Tab PO DAILY Benadryl (Diphenhydramine Hcl) 25 Mg Capsule 2 Cap PO QHS 30 Days Tylenol (Acetaminophen) 325 Mg Tablet 650 Mg PO PRN Q6HRS PRN Ibuprofen 400 Mg Tablet 400 Mg PO PRN Q6HRS PRN Vitals/I & O Vital Sign - Last 24 Hours 01/31/20 01/31/20 01/31/20 01/31/20 08:39 11:00 11:10 11:40 Temp 98.0 98.0 Pulse 66 B/P (MAP) 129/67 Pulse Ox 96 95 O2 Delivery Room Air Room Air 01/31/20 01/31/20 01/31/20 01/31/20 11:43 15:00 15:45 19:27 Temp 98.3 98.0 98.3 98.0 Pulse 71 70 Resp 18 18 B/P (MAP) 140/56 (84) 95/43 (60) Pulse Ox 95 94 95 93 O2 Delivery Room Air Room Air Room Air 01/31/20 01/31/20 01/31/20 01/31/20 19:48 20:36 20:55 22:32 Pulse 70 Resp 20 B/P (MAP) 105/73 Pulse Ox 92 O2 Delivery Room Air Room Air 01/31/20 01/31/20 02/01/20 02/01/20 22:44 23:02 03:00 07:00 Temp 97.7 98.5 98.0 97.7 98.5 98.0 Pulse 75 66 65 Resp 20 18 18 18 B/P (MAP) 96/51 (66) 111/65 (80) 127/61 (83) Pulse Ox 95 95 93 95 O2 Delivery Room Air Room Air Room Air Room Air Intake and Output 01/31/20 01/31/20 02/01/20 15:00 23:00 07:00 Intake Total 840 ml 500 ml Output Total 600 ml 750 ml 600 ml Balance 240 ml -250 ml -600 ml Justicifation of Admission Dx: Justifications for Admission: Justification of Admission Dx: Yes NESTOR PAK MD Feb 01, 2020 07:51
[2020-02-01] MEDS: INSULIN LISPRO 300 UNITS/3 ML VIAL. SQ SCH ×3 (08:00→18:03)
[2020-02-01] MEDS: tiZANidine 4 MG TABLET. PO PRN (08:16)
[2020-02-01] MEDS: TOPIRAMATE 25 MG TABLET. PO SCH ×2 (08:16→20:43)
[2020-02-01] MEDS: POTASSIUM CHLORIDE 20 MEQ TABLET.ER. PO SCH ×2 (08:16→10:53)
[2020-02-01] MEDS: OMEGA-3 FATTY ACIDS/FISH OIL 1,000 MG CAPSULE. PO SCH (08:16)
[2020-02-01] MEDS: LIDOCAINE (700MG/PATCH) PATCH. TD SCH (08:34)
[2020-02-01] MEDS: METOPROLOL TART IMMED RELEASE 25 MG TABLET. PO SCH ×2 (08:34→20:43)
[2020-02-01] MEDS: fentaNYL PF VIAL 100 MCG/2 ML VIAL IVP PRN ×5 (09:30→23:07)
[2020-02-01] MEDS: ENOXAPARIN 40 MG/0.4 ML SYRINGE. SQ SCH (10:53)
--- NOTE | 2020-02-01 11:48 | PDOC ---
PROGRESS NOTES Assessment Problems Medical Problems: (1) Chest pain Status: Acute Migraine headaches Paresthesias Chest pain, cardiac workup negative Plan Home on increased dose of topiramate, also she is on citalopram and amitriptyline, both good migraine preventatives. Follow-up with me in 4-6 weeks. Subjective Feels better, headache 5/10 Objective Vital Signs Date Time Temp Pulse Resp B/P (MAP) Pulse Ox O2 Delivery O2 Flow Rate FiO2 02/01/20 10:36 97.8 69 18 103/52 (69) 95 Room Air 97.8 Intake and Output 02/01/20 07:00 Intake Total 1340 ml Output Total 1950 ml Balance -610 ml Intake Oral 1340 ml Output Urine Total 1950 ml # Voids 1 # Bowel Movements 1 PHYSICAL EXAM Alert. Oriented to time, place and person. PERRL. EOMI. CN: no focal findings. Muscle tone: normal. Muscle strength: 5/5 DTR: 2+ Plantar reflex: flexor Gait: normal. Sensory exam: no abnormal findings. No cerebellar signs elicited. Review of Relevant I have reviewed the following items mae (where applicable) has been applied. Labs Laboratory Tests Test 01/31/20 06:00 01/31/20 07:58 02/01/20 05:00 White Blood Count 8.2 x10^3/uL (4.0-11.0) 7.0 x10^3/uL (4.0-11.0) Red Blood Count 5.45 x10^6/uL (3.50-5.40) 5.17 x10^6/uL (3.50-5.40) Hemoglobin 17.0 g/dL (12.0-15.5) 16.0 g/dL (12.0-15.5) Hematocrit 48.8 % (36.0-47.0) 46.2 % (36.0-47.0) Mean Corpuscular Volume 89 fL (79-100) 90 fL (79-100) Mean Corpuscular Hemoglobin 31 pg (25-35) 31 pg (25-35) Mean Corpuscular Hemoglobin Concent 35 g/dL (31-37) 35 g/dL (31-37) Red Cell Distribution Width 12.8 % (11.5-14.5) 12.6 % (11.5-14.5) Platelet Count 278 x10^3/uL (140-400) 264 x10^3/uL (140-400) Neutrophils (%) (Auto) 63 % (31-73) 55 % (31-73) Lymphocytes (%) (Auto) 25 % (24-48) 29 % (24-48) Monocytes (%) (Auto) 9 % (0-9) 13 % (0-9) Eosinophils (%) (Auto) 2 % (0-3) 3 % (0-3) Basophils (%) (Auto) 1 % (0-3) 1 % (0-3) Neutrophils # (Auto) 5.1 x10^3/uL (1.8-7.7) 3.8 x10^3/uL (1.8-7.7) Lymphocytes # (Auto) 2.1 x10^3/uL (1.0-4.8) 2.0 x10^3/uL (1.0-4.8) Monocytes # (Auto) 0.7 x10^3/uL (0.0-1.1) 0.9 x10^3/uL (0.0-1.1) Eosinophils # (Auto) 0.1 x10^3/uL (0.0-0.7) 0.2 x10^3/uL (0.0-0.7) Basophils # (Auto) 0.1 x10^3/uL (0.0-0.2) 0.1 x10^3/uL (0.0-0.2) Sodium Level 136 mmol/L (136-145) 142 mmol/L (136-145) Potassium Level 3.1 mmol/L (3.5-5.1) 3.5 mmol/L (3.5-5.1) Chloride Level 101 mmol/L (98-107) 108 mmol/L (98-107) Carbon Dioxide Level 24 mmol/L (21-32) 25 mmol/L (21-32) Anion Gap 11 (6-14) 9 (6-14) Blood Urea Nitrogen 21 mg/dL (7-20) 16 mg/dL (7-20) Creatinine 1.1 mg/dL (0.6-1.0) 1.0 mg/dL (0.6-1.0) Estimated GFR (Cockcroft-Gault) 51.8 57.8 BUN/Creatinine Ratio 19 (6-20) 16 (6-20) Glucose Level 221 mg/dL (70-99) 162 mg/dL (70-99) Calcium Level 9.3 mg/dL (8.5-10.1) 8.9 mg/dL (8.5-10.1) Total Bilirubin 0.4 mg/dL (0.2-1.0) 0.3 mg/dL (0.2-1.0) Aspartate Amino Transf (AST/SGOT) 25 U/L (15-37) 23 U/L (15-37) Alanine Aminotransferase (ALT/SGPT) 57 U/L (14-59) 58 U/L (14-59) Alkaline Phosphatase 84 U/L (46-116) 80 U/L (46-116) Total Protein 6.7 g/dL (6.4-8.2) 6.0 g/dL (6.4-8.2) Albumin 3.6 g/dL (3.4-5.0) 3.2 g/dL (3.4-5.0) Albumin/Globulin Ratio 1.2 (1.0-1.7) 1.1 (1.0-1.7) Glucose (Fingerstick) 200 mg/dL (70-99) Laboratory Tests Test 02/01/20 05:00 White Blood Count 7.0 x10^3/uL (4.0-11.0) Red Blood Count 5.17 x10^6/uL (3.50-5.40) Hemoglobin 16.0 g/dL (12.0-15.5) Hematocrit 46.2 % (36.0-47.0) Mean Corpuscular Volume 90 fL (79-100) Mean Corpuscular Hemoglobin 31 pg (25-35) Mean Corpuscular Hemoglobin Concent 35 g/dL (31-37) Red Cell Distribution Width 12.6 % (11.5-14.5) Platelet Count 264 x10^3/uL (140-400) Neutrophils (%) (Auto) 55 % (31-73) Lymphocytes (%) (Auto) 29 % (24-48) Monocytes (%) (Auto) 13 % (0-9) Eosinophils (%) (Auto) 3 % (0-3) Basophils (%) (Auto) 1 % (0-3) Neutrophils # (Auto) 3.8 x10^3/uL (1.8-7.7) Lymphocytes # (Auto) 2.0 x10^3/uL (1.0-4.8) Monocytes # (Auto) 0.9 x10^3/uL (0.0-1.1) Eosinophils # (Auto) 0.2 x10^3/uL (0.0-0.7) Basophils # (Auto) 0.1 x10^3/uL (0.0-0.2) Sodium Level 142 mmol/L (136-145) Potassium Level 3.5 mmol/L (3.5-5.1) Chloride Level 108 mmol/L (98-107) Carbon Dioxide Level 25 mmol/L (21-32) Anion Gap 9 (6-14) Blood Urea Nitrogen 16 mg/dL (7-20) Creatinine 1.0 mg/dL (0.6-1.0) Estimated GFR (Cockcroft-Gault) 57.8 BUN/Creatinine Ratio 16 (6-20) Glucose Level 162 mg/dL (70-99) Calcium Level 8.9 mg/dL (8.5-10.1) Total Bilirubin 0.3 mg/dL (0.2-1.0) Aspartate Amino Transf (AST/SGOT) 23 U/L (15-37) Alanine Aminotransferase (ALT/SGPT) 58 U/L (14-59) Alkaline Phosphatase 80 U/L (46-116) Total Protein 6.0 g/dL (6.4-8.2) Albumin 3.2 g/dL (3.4-5.0) Albumin/Globulin Ratio 1.1 (1.0-1.7) Microbiology 01/29/20 Urine Culture - Final, Complete Medications Current Medications Prochlorperazine Edisylate (Compazine) 10 mg 1X ONCE IV Last administered on 01/29/20at 17:25; Start 01/29/20 at 16:30; Stop 01/29/20 at 16:31; Status DC Diphenhydramine HCl (Benadryl) 25 mg 1X ONCE IVP Last administered on 01/29/20at 17:25; Start 01/29/20 at 16:30; Stop 01/29/20 at 16:31; Status DC Methylprednisolone Sodium Succinate (SOLU-Medrol 125MG VIAL) 125 mg 1X ONCE IV Last administered on 01/29/20at 17:25; Start 01/29/20 at 16:30; Stop 01/29/20 at 16:31; Status DC Fentanyl Citrate (Fentanyl 2ml Vial) 50 mcg 1X ONCE IVP Last administered on 01/29/20at 17:26; Start 01/29/20 at 16:30; Stop 01/29/20 at 16:31; Status DC Ondansetron HCl (Zofran) 4 mg PRN Q8HRS PRN IV NAUSEA/VOMITING; Start 01/29/20 at 20:30; Stop 01/30/20 at 20:29; Status DC Fentanyl Citrate (Fentanyl 2ml Vial) 50 mcg PRN Q1HR PRN IV PAIN Last administered on 01/30/20at 19:33; Start 01/29/20 at 20:30; Stop 01/30/20 at 20:29; Status DC Diphenhydramine HCl (Benadryl) 50 mg QHS PO Last administered on 01/31/20at 20:53; Start 01/29/20 at 23:45 Potassium Chloride (Klor-Con) 40 meq 1X ONCE PO Last administered on 01/30/20at 12:10; Start 01/30/20 at 10:30; Stop 01/30/20 at 10:31; Status DC Potassium Chloride (Klor-Con) 20 meq DAILYWBKFT PO Last administered on 02/01/20at 08:16; Start 01/31/20 at 08:00 Acetaminophen (Tylenol) 650 mg PRN Q6HRS PRN PO MILD PAIN 1-3; Start 01/30/20 at 10:30; Stop 01/30/20 at 10:54; Status DC Ibuprofen (Motrin) 400 mg PRN Q6HRS PRN PO INFLAMMATION; Start 01/30/20 at 10:30 Metoprolol Tartrate (Lopressor) 25 mg BID PO Last administered on 01/31/20at 20:55; Start 01/30/20 at 11:00; Stop 02/01/20 at 08:16; Status DC Nitroglycerin (Nitrostat) 0.4 mg PRN Q5MIN PRN SL CHEST PAIN; Start 01/30/20 at 10:30 Topiramate (Topamax) 25 mg DAILY PO ; Start 01/30/20 at 11:00; Stop 01/30/20 at 12:19; Status DC Citalopram Hydrobromide (CeleXA) 20 mg DAILY PO Last administered on 01/30/20at 12:10; Start 01/30/20 at 11:00; Stop 01/30/20 at 12:19; Status DC Fish Oil (Fish Oil) 4,000 mg DAILY PO Last administered on 02/01/20at 08:16; Start 01/30/20 at 11:00 Sodium Chloride (Normal Saline Flush) 3 ml QSHIFT PRN IV AFTER MEDS AND BLOOD DRAWS; Start 01/30/20 at 10:45 Ondansetron HCl (Zofran) 4 mg PRN Q4HRS PRN IV NAUSEA/VOMITING Last administered on 01/30/20at 21:09; Start 01/30/20 at 10:45 Acetaminophen (Tylenol) 650 mg PRN Q4HRS PRN PO TEMP OVER 100.4F OR MILD PAIN Last administered on 01/30/20at 21:09; Start 01/30/20 at 10:45 Al Hydroxide/Mg Hydroxide (Mylanta Plus Xs) 30 ml PRN DAILY PRN PO HEARTBURN / GAS; Start 01/30/20 at 10:45 Clonidine HCl (Catapres) 0.1 mg PRN Q6HRS PRN PO SBP>160 OR DBP>90; Start 01/30/20 at 10:45 Docusate Sodium (Colace) 100 mg PRN BID PRN PO HARD STOOLS Last administered on 01/31/20at 08:40; Start 01/30/20 at 10:45 Albuterol/ Ipratropium (Duoneb) 3 ml Q4HRS NEB Last administered on 02/01/20at 07:55; Start 01/30/20 at 12:00 Guaifenesin (Robitussin) 200 mg PRN Q4HRS PRN PO COUGH; Start 01/30/20 at 10:45 Enoxaparin Sodium (Lovenox 40mg Syringe) 40 mg Q24H SQ Last administered on 02/01/20at 10:53; Start 01/30/20 at 11:00 Insulin Human Lispro (HumaLOG) 0-5 UNITS TIDWMEALS SQ Last administered on 01/31/20at 17:41; Start 01/30/20 at 12:00 Dextrose (Dextrose 50%-Water Syringe) 12.5 gm PRN Q15MIN PRN IV SEE COMMENTS; Start 01/30/20 at 11:00 Citalopram Hydrobromide (CeleXA) 20 mg HS PO Last administered on 01/31/20at 20:55; Start 01/30/20 at 21:00 Topiramate (Topamax) 25 mg HS PO Last administered on 01/30/20at 20:04; Start at 21:00; Stop 01/31/20 at 15:41; Status DC Fentanyl Citrate (Fentanyl 2ml Vial) 50 mcg PRN Q2HR PRN IVP SEVERE PAIN 7-10 Last administered on 02/01/20 09:30; Start 01/31/20 at 00:00 Methocarbamol (Robaxin) 500 mg 1X ONCE PO Last administered on 01/31/20 09:50; Start 01/31/20 at 09:15; Stop 01/31/20 at 09:30; Status DC Lidocaine (Lidoderm) 1 patch DAILY TD Last administered on 01/31/20 09:50; Start 01/31/20 at 10:00 Miscellaneous (Lidoderm Patch Removal) 1 ea QHS MC Last administered on 01/12 04/03at 20:56; Start 01/31/20 at 21:00 Amitriptyline HCl (Elavil) 25 mg QHS PO Last administered on 01/31/20at 20:53; Start 01/31/20 at 21:00 Potassium Chloride (Klor-Con) 40 meq 1X ONCE PO Last administered on 01/31/20at 13:47; Start 01/31/20 at 13:00; Stop 01/31/20 at 13:01; Status DC Potassium Chloride (Klor-Con) 20 meq DAILYWBKFT PO Last administered on 02/01/20at 10:53; Start 02/01/20 at 08:00 Sodium Chloride 1,000 ml @ 100 mls/hr 1X ONCE IV Last administered on 01/31/20at 13:48; Start 01/31/20 at 12:45; Stop 01/31/20 at 22:44; Status DC Prochlorperazine Edisylate (Compazine) 10 mg ONCE ONCE IV Last administered on 01/31/20at 14:45; Start 01/31/20 at 14:30; Stop 01/31/20 at 14:31; Status DC Topiramate (Topamax) 25 mg BID PO Last administered on 02/01/20at 08:16; Start 01/31/20 at 15:45 Tizanidine HCl (Zanaflex) 4 mg PRN Q8HRS PRN PO MUSCLE SPASMS Last administered on 02/01/20at 08:16; Start 01/31/20 at 15:45 Diphenhydramine HCl (Benadryl) 25 mg 1X ONCE IVP Last administered on 01/31/20at 15:59; Start 01/31/20 at 15:45; Stop 01/31/20 at 15:54; Status DC Metoprolol Tartrate (Lopressor) 12.5 mg BID PO Last administered on 02/01/20at 08:34; Start 02/01/20 at 08:15 Active Scripts Active NITROGLYCERIN SubLingual (Nitroglycerin) 0.4 Mg Tab.subl 0.4 Mg SL PRN Q5MIN PRN 30 Days Lovaza (Luverne-3 Acid Ethyl Esters) 1 Gm Capsule 2 Cap PO BID 30 Days Reported Topamax (Topiramate) 25 Mg Tablet 1 Tab PO DAILY 30 Days Metformin Hcl 1,000 Mg Tablet 1,000 Mg PO BIDWMEALS Metoprolol Tartrate 25 Mg Tablet 0.5 Tab PO BID Escitalopram Oxalate 10 Mg Tablet 1 Tab PO DAILY Benadryl (Diphenhydramine Hcl) 25 Mg Capsule 2 Cap PO QHS 30 Days Tylenol (Acetaminophen) 325 Mg Tablet 650 Mg PO PRN Q6HRS PRN Ibuprofen 400 Mg Tablet 400 Mg PO PRN Q6HRS PRN Vitals/I & O Vital Sign - Last 24 Hours 01/31/20 01/31/20 01/31/20 01/31/20 15:00 15:45 19:27 19:48 Temp 98.3 98.0 98.3 98.0 Pulse 71 70 Resp 18 18 B/P (MAP) 140/56 (84) 95/43 (60) Pulse Ox 94 95 93 O2 Delivery Room Air Room Air Room Air 701/31/20 01/31/20 01/31/20 20:36 20:55 22:32 22:44 Temp 97.7 97.7 Pulse 70 75 Resp 20 20 B/P (MAP) 105/73 96/51 (66) Pulse Ox 92 95 O2 Delivery Room Air Room Air 01/31/20 02/01/20 02/01/20 02/01/20 23:02 03:00 07:00 07:55 Temp 98.5 98.0 98.5 98.0 Pulse 66 65 Resp 18 18 18 B/P (MAP) 111/65 (80) 127/61 (83) Pulse Ox 95 93 95 94 O2 Delivery Room Air Room Air Room Air Room Air 02/01/20 02/01/20 02/01/20 02/01/20 08:00 08:34 09:30 10:00 Pulse 65 B/P (MAP) 127/61 Pulse Ox 94 95 O2 Delivery Room Air Room Air Room Air 02/01/20 10:36 Temp 97.8 97.8 Pulse 69 Resp 18 B/P (MAP) 103/52 (69) Pulse Ox 95 O2 Delivery Room Air Intake and Output 01/31/20 01/31/20 02/01/20 15:00 23:00 07:00 Intake Total 840 ml 500 ml Output Total 600 ml 750 ml 600 ml Balance 240 ml -250 ml -600 ml Justicifation of Admission Dx: Justifications for Admission: Justification of Admission Dx: Yes NADINE YARBROUGH MD Feb 01, 2020 11:48
--- NOTE | 2020-02-01 11:53 | PDOC2 ---
CONSULT Date of Consult Date of Consult DATE: 02/01/20 TIME: 11:46 Reason for Consult Reason for Consult: Polycythemia Referring Physician Referring Physician: Dr. Amezcua Identification/Chief Complaint Chief Complaint Chest pain Problems: (1) Polycythemia Source Source: Chart review, Patient History of Present Illness Reason for Visit: Kiley Mueller is a 55-year-old female with multiple medical problems including hypertension, diabetes, obesity, obstructive sleep apnea and tobacco use who has been admitted to the hospital for further evaluation of chest pain. She reports that the chest pain started the evening of January 28. It started as a chest pressure that progressed to a sharp pain with associated shortness of breath. She has been admitted for exclusion of acute coronary syndromes. We have been consulted due to her history of polycythemia. Patient reports that she has been told once or twice over the last 2 years that she has had an elevated hemoglobin. She does not recall having been informed of this before prior to that. She denies a family history or personal history of blood disorders. She does smoke half pack per day. She denies intermittent dizziness or erythromelalgia type symptoms or syncopal episodes. She has no prior history of venous thromboembolism or other thrombosis. Past Medical History Cardiovascular: CAD, HTN Pulmonary: Other CENTRAL NERVOUS SYSTEM: Migraine GI: Inflam bowel disease Heme/Onc: No pertinent hx Hepatobiliary: No pertinent hx Psych: No pertinent hx Musculoskeletal: Osteoarthritis Rheumatologic: No pertinent hx Infectious disease: No pertinent hx Renal/: No pertinent hx Endocrine: Diabetes Past Surgical History Past Surgical History: Colon Resection, Other (Heart catheterization as above) Family History Family History: Coronary Artery Disease, Hypertension Social History <1 pack per day ALCOHOL: rare Drugs: None Lives: with Family Current Problem List Problem List Problems Medical Problems: (1) Chest pain Status: Acute Current Medications Current Medications Current Medications Prochlorperazine Edisylate (Compazine) 10 mg 1X ONCE IV Last administered on 01/29/20at 17:25; Start 01/29/20 at 16:30; Stop 01/29/20 at 16:31; Status DC Diphenhydramine HCl (Benadryl) 25 mg 1X ONCE IVP Last administered on 01/29/20at 17:25; Start 01/29/20 at 16:30; Stop 01/29/20 at 16:31; Status DC Methylprednisolone Sodium Succinate (SOLU-Medrol 125MG VIAL) 125 mg 1X ONCE IV Last administered on 01/29/20at 17:25; Start 01/29/20 at 16:30; Stop 01/29/20 at 16:31; Status DC Fentanyl Citrate (Fentanyl 2ml Vial) 50 mcg 1X ONCE IVP Last administered on 01/29/20at 17:26; Start 01/29/20 at 16:30; Stop 01/29/20 at 16:31; Status DC Ondansetron HCl (Zofran) 4 mg PRN Q8HRS PRN IV NAUSEA/VOMITING; Start 01/29/20 at 20:30; Stop 01/30/20 at 20:29; Status DC Fentanyl Citrate (Fentanyl 2ml Vial) 50 mcg PRN Q1HR PRN IV PAIN Last administered on 01/30/20at 19:33; Start 01/29/20 at 20:30; Stop 01/30/20 at 20:29; Status DC Diphenhydramine HCl (Benadryl) 50 mg QHS PO Last administered on 01/31/20at 20:53; Start 01/29/20 at 23:45 Potassium Chloride (Klor-Con) 40 meq 1X ONCE PO Last administered on 01/30/20at 12:10; Start 01/30/20 at 10:30; Stop 01/30/20 at 10:31; Status DC Potassium Chloride (Klor-Con) 20 meq DAILYWBKFT PO Last administered on 02/01/20at 08:16; Start 01/31/20 at 08:00 Acetaminophen (Tylenol) 650 mg PRN Q6HRS PRN PO MILD PAIN 1-3; Start 01/30/20 at 10:30; Stop 01/30/20 at 10:54; Status DC Ibuprofen (Motrin) 400 mg PRN Q6HRS PRN PO INFLAMMATION; Start 01/30/20 at 10:30 Metoprolol Tartrate (Lopressor) 25 mg BID PO Last administered on 01/31/20at 20:55; Start 01/30/20 at 11:00; Stop 02/01/20 at 08:16; Status DC Nitroglycerin (Nitrostat) 0.4 mg PRN Q5MIN PRN SL CHEST PAIN; Start 01/30/20 at 10:30 Topiramate (Topamax) 25 mg DAILY PO ; Start 01/30/20 at 11:00; Stop 01/30/20 at 12:19; Status DC Citalopram Hydrobromide (CeleXA) 20 mg DAILY PO Last administered on 01/30/20at 12:10; Start 01/30/20 at 11:00; Stop 01/30/20 at 12:19; Status DC Fish Oil (Fish Oil) 4,000 mg DAILY PO Last administered on 02/01/20at 08:16; Start 01/30/20 at 11:00 Sodium Chloride (Normal Saline Flush) 3 ml QSHIFT PRN IV AFTER MEDS AND BLOOD DRAWS; Start 01/30/20 at 10:45 Ondansetron HCl (Zofran) 4 mg PRN Q4HRS PRN IV NAUSEA/VOMITING Last administered on 01/30/20at 21:09; Start 01/30/20 at 10:45 Acetaminophen (Tylenol) 650 mg PRN Q4HRS PRN PO TEMP OVER 100.4F OR MILD PAIN Last administered on 01/30/20at 21:09; Start 01/30/20 at 10:45 Al Hydroxide/Mg Hydroxide (Mylanta Plus Xs) 30 ml PRN DAILY PRN PO HEARTBURN / GAS; Start 01/30/20 at 10:45 Clonidine HCl (Catapres) 0.1 mg PRN Q6HRS PRN PO SBP>160 OR DBP>90; Start 01/30/20 at 10:45 Docusate Sodium (Colace) 100 mg PRN BID PRN PO HARD STOOLS Last administered on 01/31/20at 08:40; Start 01/30/20 at 10:45 Albuterol/ Ipratropium (Duoneb) 3 ml Q4HRS NEB Last administered on 02/01/20at 07:55; Start 01/30/20 at 12:00 Guaifenesin (Robitussin) 200 mg PRN Q4HRS PRN PO COUGH; Start 01/30/20 at 10:45 Enoxaparin Sodium (Lovenox 40mg Syringe) 40 mg Q24H SQ Last administered on 02/01/20at 10:53; Start 01/30/20 at 11:00 Insulin Human Lispro (HumaLOG) 0-5 UNITS TIDWMEALS SQ Last administered on 01/31/20at 17:41; Start 01/30/20 at 12:00 Dextrose (Dextrose 50%-Water Syringe) 12.5 gm PRN Q15MIN PRN IV SEE COMMENTS; Start 01/30/20 at 11:00 Citalopram Hydrobromide (CeleXA) 20 mg HS PO Last administered on 01/31/20at 20:55; Start 01/30/20 at 21:00 Topiramate (Topamax) 25 mg HS PO Last administered on 01/30/20at 20:04; Start 01/30/20 at 21:00; Stop 01/31/20 at 15:41; Status DC Fentanyl Citrate (Fentanyl 2ml Vial) 50 mcg PRN Q2HR PRN IVP SEVERE PAIN 7-10 Last administered on 02/01/20 09:30; Start 01/31/20 at 00:00 Methocarbamol (Robaxin) 500 mg 1X ONCE PO Last administered on 01/31/20 09:50; Start 01/31/20 at 09:15; Stop 01/31/20 at 09:30; Status DC Lidocaine (Lidoderm) 1 patch DAILY TD Last administered on 01/31/20 09:50; Start 01/31/20 at 10:00 Miscellaneous (Lidoderm Patch Removal) 1 ea QHS MC Last administered on 01/31/20 20:56; Start 01/31/20 at 21:00 Amitriptyline HCl (Elavil) 25 mg QHS PO Last administered on 01/31/20at 20:53; Start 01/31/20 at 21:00 Potassium Chloride (Klor-Con) 40 meq 1X ONCE PO Last administered on 01/31/20at 13:47; Start 01/31/20 at 13:00; Stop 01/31/20 at 13:01; Status DC Potassium Chloride (Klor-Con) 20 meq DAILYWBKFT PO Last administered on 02/01/20at 10:53; Start 02/01/20 at 08:00 Sodium Chloride 1,000 ml @ 100 mls/hr 1X ONCE IV Last administered on 01/31/20at 13:48; Start 01/31/20 at 12:45; Stop 01/31/20 at 22:44; Status DC Prochlorperazine Edisylate (Compazine) 10 mg ONCE ONCE IV Last administered on 01/31/20at 14:45; Start 01/31/20 at 14:30; Stop 01/31/20 at 14:31; Status DC Topiramate (Topamax) 25 mg BID PO Last administered on 02/01/20at 08:16; Start 01/31/20 at 15:45 Tizanidine HCl (Zanaflex) 4 mg PRN Q8HRS PRN PO MUSCLE SPASMS Last administered on 02/01/20at 08:16; Start 01/31/20 at 15:45 Diphenhydramine HCl (Benadryl) 25 mg 1X ONCE IVP Last administered on 01/31/20at 15:59; Start 01/31/20 at 15:45; Stop 01/31/20 at 15:54; Status DC Metoprolol Tartrate (Lopressor) 12.5 mg BID PO Last administered on 02/01/20at 08:34; Start 02/01/20 at 08:15 Active Scripts Active NITROGLYCERIN SubLingual (Nitroglycerin) 0.4 Mg Tab.subl 0.4 Mg SL PRN Q5MIN PRN 30 Days Lovaza (Cresco-3 Acid Ethyl Esters) 1 Gm Capsule 2 Cap PO BID 30 Days Reported Topamax (Topiramate) 25 Mg Tablet 1 Tab PO DAILY 30 Days Metformin Hcl 1,000 Mg Tablet 1,000 Mg PO BIDWMEALS Metoprolol Tartrate 25 Mg Tablet 0.5 Tab PO BID Escitalopram Oxalate 10 Mg Tablet 1 Tab PO DAILY Benadryl (Diphenhydramine Hcl) 25 Mg Capsule 2 Cap PO QHS 30 Days Tylenol (Acetaminophen) 325 Mg Tablet 650 Mg PO PRN Q6HRS PRN Ibuprofen 400 Mg Tablet 400 Mg PO PRN Q6HRS PRN Allergies Allergies: Coded Allergies: Sulfa (Sulfonamide Antibiotics) (Verified Allergy, Intermediate, hives, 01/29/20) sumatriptan (Verified Allergy, Intermediate, hives, 01/29/20) morphine (Verified Adverse Reaction, Mild, Anxiety, 01/29/20) pt reports morphine "keeps me up all night" ROS General: No: Chills, Night Sweats PSYCHOLOGICAL ROS: No: Anxiety Eyes: No Blurry vision, No Decreased vision HEENT: No: Heacaches ALLERGY AND IMMUNOLOGY: No: Hives Hematological and Lymphatic: No: Bleeding Problems, Blood Clots, Brusing, Night Sweats, Swollen Lymph Nodes ENDOCRINE: No: Hot Flashes Breast: No New/Changing Breast Lumps Respiratory: No: Cough, Shortness of breath Cardiovascular: No Palpitations, No Edema Gastrointestinal: No Nausea, No Vomiting, No Abdominal Pain Genitourinary: No Dysuria, No Flank Pain Musculoskeletal: No Gait Disturbance, No Joint Swelling Neurological: No Behavorial Changes, No Bowel/Bladder ControlChng Skin: No Dry Skin Physical Exam General: Alert, Oriented X3 HEENT: Atraumatic, PERRLA Lungs: Clear to auscultation Heart: Regular rate, No murmurs Abdomen: Normal bowel sounds, Soft, No tenderness, No hepatosplenomegaly Extremities: No clubbing, No cyanosis Skin: No rashes, No breakdown Neuro: Normal speech, Normal tone Psych/Mental Status: Mental status NL MUSCULOSKELETAL: No joint tenderness, No swelling Vitals VITALS Vital Signs Date Time Temp Pulse Resp B/P (MAP) Pulse Ox O2 Delivery O2 Flow Rate FiO2 02/01/20 10:36 97.8 69 18 103/52 (69) 95 Room Air 97.8 Labs Labs Laboratory Tests Test 01/31/20 06:00 01/31/20 07:58 02/01/20 05:00 White Blood Count 8.2 x10^3/uL (4.0-11.0) 7.0 x10^3/uL (4.0-11.0) Red Blood Count 5.45 x10^6/uL (3.50-5.40) 5.17 x10^6/uL (3.50-5.40) Hemoglobin 17.0 g/dL (12.0-15.5) 16.0 g/dL (12.0-15.5) Hematocrit 48.8 % (36.0-47.0) 46.2 % (36.0-47.0) Mean Corpuscular Volume 89 fL (79-100) 90 fL (79-100) Mean Corpuscular Hemoglobin 31 pg (25-35) 31 pg (25-35) Mean Corpuscular Hemoglobin Concent 35 g/dL (31-37) 35 g/dL (31-37) Red Cell Distribution Width 12.8 % (11.5-14.5) 12.6 % (11.5-14.5) Platelet Count 278 x10^3/uL (140-400) 264 x10^3/uL (140-400) Neutrophils (%) (Auto) 63 % (31-73) 55 % (31-73) Lymphocytes (%) (Auto) 25 % (24-48) 29 % (24-48) Monocytes (%) (Auto) 9 % (0-9) 13 % (0-9) Eosinophils (%) (Auto) 2 % (0-3) 3 % (0-3) Basophils (%) (Auto) 1 % (0-3) 1 % (0-3) Neutrophils # (Auto) 5.1 x10^3/uL (1.8-7.7) 3.8 x10^3/uL (1.8-7.7) Lymphocytes # (Auto) 2.1 x10^3/uL (1.0-4.8) 2.0 x10^3/uL (1.0-4.8) Monocytes # (Auto) 0.7 x10^3/uL (0.0-1.1) 0.9 x10^3/uL (0.0-1.1) Eosinophils # (Auto) 0.1 x10^3/uL (0.0-0.7) 0.2 x10^3/uL (0.0-0.7) Basophils # (Auto) 0.1 x10^3/uL (0.0-0.2) 0.1 x10^3/uL (0.0-0.2) Sodium Level 136 mmol/L (136-145) 142 mmol/L (136-145) Potassium Level 3.1 mmol/L (3.5-5.1) 3.5 mmol/L (3.5-5.1) Chloride Level 101 mmol/L (98-107) 108 mmol/L (98-107) Carbon Dioxide Level 24 mmol/L (21-32) 25 mmol/L (21-32) Anion Gap 11 (6-14) 9 (6-14) Blood Urea Nitrogen 21 mg/dL (7-20) 16 mg/dL (7-20) Creatinine 1.1 mg/dL (0.6-1.0) 1.0 mg/dL (0.6-1.0) Estimated GFR (Cockcroft-Gault) 51.8 57.8 BUN/Creatinine Ratio 19 (6-20) 16 (6-20) Glucose Level 221 mg/dL (70-99) 162 mg/dL (70-99) Calcium Level 9.3 mg/dL (8.5-10.1) 8.9 mg/dL (8.5-10.1) Total Bilirubin 0.4 mg/dL (0.2-1.0) 0.3 mg/dL (0.2-1.0) Aspartate Amino Transf (AST/SGOT) 25 U/L (15-37) 23 U/L (15-37) Alanine Aminotransferase (ALT/SGPT) 57 U/L (14-59) 58 U/L (14-59) Alkaline Phosphatase 84 U/L (46-116) 80 U/L (46-116) Total Protein 6.7 g/dL (6.4-8.2) 6.0 g/dL (6.4-8.2) Albumin 3.6 g/dL (3.4-5.0) 3.2 g/dL (3.4-5.0) Albumin/Globulin Ratio 1.2 (1.0-1.7) 1.1 (1.0-1.7) Glucose (Fingerstick) 200 mg/dL (70-99) Laboratory Tests Test 02/01/20 05:00 White Blood Count 7.0 x10^3/uL (4.0-11.0) Red Blood Count 5.17 x10^6/uL (3.50-5.40) Hemoglobin 16.0 g/dL (12.0-15.5) Hematocrit 46.2 % (36.0-47.0) Mean Corpuscular Volume 90 fL (79-100) Mean Corpuscular Hemoglobin 31 pg (25-35) Mean Corpuscular Hemoglobin Concent 35 g/dL (31-37) Red Cell Distribution Width 12.6 % (11.5-14.5) Platelet Count 264 x10^3/uL (140-400) Neutrophils (%) (Auto) 55 % (31-73) Lymphocytes (%) (Auto) 29 % (24-48) Monocytes (%) (Auto) 13 % (0-9) Eosinophils (%) (Auto) 3 % (0-3) Basophils (%) (Auto) 1 % (0-3) Neutrophils # (Auto) 3.8 x10^3/uL (1.8-7.7) Lymphocytes # (Auto) 2.0 x10^3/uL (1.0-4.8) Monocytes # (Auto) 0.9 x10^3/uL (0.0-1.1) Eosinophils # (Auto) 0.2 x10^3/uL (0.0-0.7) Basophils # (Auto) 0.1 x10^3/uL (0.0-0.2) Sodium Level 142 mmol/L (136-145) Potassium Level 3.5 mmol/L (3.5-5.1) Chloride Level 108 mmol/L (98-107) Carbon Dioxide Level 25 mmol/L (21-32) Anion Gap 9 (6-14) Blood Urea Nitrogen 16 mg/dL (7-20) Creatinine 1.0 mg/dL (0.6-1.0) Estimated GFR (Cockcroft-Gault) 57.8 BUN/Creatinine Ratio 16 (6-20) Glucose Level 162 mg/dL (70-99) Calcium Level 8.9 mg/dL (8.5-10.1) Total Bilirubin 0.3 mg/dL (0.2-1.0) Aspartate Amino Transf (AST/SGOT) 23 U/L (15-37) Alanine Aminotransferase (ALT/SGPT) 58 U/L (14-59) Alkaline Phosphatase 80 U/L (46-116) Total Protein 6.0 g/dL (6.4-8.2) Albumin 3.2 g/dL (3.4-5.0) Albumin/Globulin Ratio 1.1 (1.0-1.7) Assessment/Plan Assessment/Plan Assessment: Polycythemia, likely reactive versus secondary to myeloproliferative disorder Chest pain Hypertension Diabetes Obesity Tobacco use Obstructive sleep apnea Recommendations: - I suspect that the patient's polycythemia may most likely be reactive given history of obstructive sleep apnea tobacco use. However, given her risk factors for thrombosis and stroke, would benefit from screening for polycythemia vera. - Agree with testing for Geronimo 2 V6 17F mutation to evaluate for polycythemia vera. She will be seen in follow-up in the clinic to review the results of this testing and determined further plan for care. - Continue with supportive care per hospitalist service Thank you for the consult Lorenzo Sierra MD Medical Oncology/Hematology Ph: [phone] ERNESTINE SIERRA MD Feb 01, 2020 11:53
--- NOTE | 2020-02-01 13:00 | NUR ---
SS following for discharge planning. SS reviewed pt chart and discussed with pt RN. Pt is from home and is currently on room air. SS will continue to follow for discharge planning.
[2020-02-01] MEDS ORDERED: NITROGLYCERIN 200 MCG/2 ML SYRINGE FOR CATH/VASC LAB. ONE (14:15)
[2020-02-01] MEDS ORDERED: VERAPAMIL 5 MG/2 ML VIAL. ONE (14:15)
[2020-02-01] MEDS ORDERED: MIDAZOLAM HCL/PF 5 MG/5 ML VIAL. ONE (14:15)
[2020-02-01] MEDS ORDERED: HEPARIN for IV BOLUS 10,000 UNIT/10 ML VIAL. ONE (14:15)
[2020-02-01] MEDS ORDERED: fentaNYL PF VIAL 100 MCG/2 ML VIAL ONE (14:15)
[2020-02-01] MEDS ORDERED: IOHEXOL 300 MG/ML 100ML VIAL. ONE (14:16)
[2020-02-01] MEDS ORDERED: HEPARIN for ARTERIAL LINE 1,500 ML ONE (14:16)
[2020-02-01] MEDS ORDERED: LIDOCAINE 1% PF 2 ML VIAL. ONE (14:16)
[2020-02-01] MEDS ORDERED: IOHEXOL 300 MG/ML 100ML VIAL. IART ONE (14:45)
[2020-02-01] MEDS ORDERED: HEPARIN for IV BOLUS 10,000 UNIT/10 ML VIAL. IART ONE (14:45)
[2020-02-01] MEDS ORDERED: fentaNYL PF VIAL 100 MCG/2 ML VIAL IV ONE (14:45)
[2020-02-01] MEDS ORDERED: NITROGLYCERIN 200 MCG/2 ML SYRINGE FOR CATH/VASC LAB. IART ONE (14:45)
[2020-02-01] MEDS ORDERED: VERAPAMIL 5 MG/2 ML VIAL. IART ONE (14:45)
[2020-02-01] MEDS ORDERED: LIDOCAINE 1% PF 2 ML VIAL. INJ ONE (14:45)
[2020-02-01] MEDS ORDERED: MIDAZOLAM HCL/PF 5 MG/5 ML VIAL. IV ONE (14:45)
[2020-02-01] MEDS ORDERED: CONTRAST GIVEN. MC PRN (14:45)
--- NOTE | 2020-02-01 14:58 | PDOC ---
Renal-Progress Notes Subjective Notes Notes NONE History of Present Illness Hx of present illness NO CHANGE Vitals Vitals Vital Signs Date Time Temp Pulse Resp B/P (MAP) Pulse Ox O2 Delivery O2 Flow Rate FiO2 02/01/20 14:42 97.5 68 18 137/56 (83) 97 Room Air 97.5 Weight Weight [ ] I.O. Intake and Output Intake and Output 02/01/20 07:00 Intake Total 1340 ml Output Total 1950 ml Balance -610 ml Intake Oral 1340 ml Output Urine Total 1950 ml # Voids 1 # Bowel Movements 1 Labs Labs Laboratory Tests Test 02/01/20 05:00 White Blood Count 7.0 x10^3/uL (4.0-11.0) Red Blood Count 5.17 x10^6/uL (3.50-5.40) Hemoglobin 16.0 g/dL (12.0-15.5) Hematocrit 46.2 % (36.0-47.0) Mean Corpuscular Volume 90 fL (79-100) Mean Corpuscular Hemoglobin 31 pg (25-35) Mean Corpuscular Hemoglobin Concent 35 g/dL (31-37) Red Cell Distribution Width 12.6 % (11.5-14.5) Platelet Count 264 x10^3/uL (140-400) Neutrophils (%) (Auto) 55 % (31-73) Lymphocytes (%) (Auto) 29 % (24-48) Monocytes (%) (Auto) 13 % (0-9) Eosinophils (%) (Auto) 3 % (0-3) Basophils (%) (Auto) 1 % (0-3) Neutrophils # (Auto) 3.8 x10^3/uL (1.8-7.7) Lymphocytes # (Auto) 2.0 x10^3/uL (1.0-4.8) Monocytes # (Auto) 0.9 x10^3/uL (0.0-1.1) Eosinophils # (Auto) 0.2 x10^3/uL (0.0-0.7) Basophils # (Auto) 0.1 x10^3/uL (0.0-0.2) Sodium Level 142 mmol/L (136-145) Potassium Level 3.5 mmol/L (3.5-5.1) Chloride Level 108 mmol/L (98-107) Carbon Dioxide Level 25 mmol/L (21-32) Anion Gap 9 (6-14) Blood Urea Nitrogen 16 mg/dL (7-20) Creatinine 1.0 mg/dL (0.6-1.0) Estimated GFR (Cockcroft-Gault) 57.8 BUN/Creatinine Ratio 16 (6-20) Glucose Level 162 mg/dL (70-99) Calcium Level 8.9 mg/dL (8.5-10.1) Total Bilirubin 0.3 mg/dL (0.2-1.0) Aspartate Amino Transf (AST/SGOT) 23 U/L (15-37) Alanine Aminotransferase (ALT/SGPT) 58 U/L (14-59) Alkaline Phosphatase 80 U/L (46-116) Total Protein 6.0 g/dL (6.4-8.2) Albumin 3.2 g/dL (3.4-5.0) Albumin/Globulin Ratio 1.1 (1.0-1.7) Micro Micro Microbiology 01/29/20 Urine Culture - Final, Complete Review of Systems Constitutional: yes: no symptom reported Ears/Nose/Throat: Yes: no symptom reported Eyes: Yes: no symptom reported Pulmonary: Yes no symptom reported Cardiovascular: Yes no symptom reported Gastrointestional: Yes: no symptom reported Genitourinary: Yes: no symptom reported Musculoskeletal: Yes: no symptom reported Skin: Yes no symptom reported Psychiatric/Neurological: Yes: no symptom reported Endocrine: Yes: no symptom reported Physical Exam General Appearance: no apparent distress Skin: warm Respiratory: bilateral CTA Heart: S1S2 Neurology: alert Musculoskeletal: Osteoarthritis Assessment Assessment IMP FRANCINE-RESOLVING CHEST PAIN POLYCYTYHEMIA PLAN CATH TODAY RESUME HYDRATION ONCE SHE RETURNS WILL FOLLOW ESTELLA DOMINGUEZ MD Feb 01, 2020 14:58
[2020-02-01] MEDS ORDERED: NITROGLYCERIN 200 MCG/2 ML SYRINGE FOR CATH/VASC LAB. ICAR ONE (15:15)
[2020-02-01] MEDS ORDERED: HEPARIN for IV BOLUS 10,000 UNIT/10 ML VIAL. IV ONE (15:15)
[2020-02-01] MEDS: IV NORMAL SALINE 1000ML BAG 1,000 ML IV SCH (15:42)
--- NOTE | 2020-02-01 16:05 | PDOC ---
Provider Note Provider Note Patient with known history of moderate 3V CAD managed medically. Given recurrent chest pain, despite appropriate medical therapy, will plan for PCI of the LAD. R/b/a with discussed with patient and she is agreeable to proceed. Keep NPO. Justicifation of Admission Dx: Justifications for Admission: Justification of Admission Dx: Yes JAG WHITE APRN Feb 01, 2020 16:05
[2020-02-01] MEDS: AMITRIPTYLINE HCL 25 MG TABLET. PO SCH (20:43)
[2020-02-01] MEDS: CITALOPRAM 20 MG TABLET. PO SCH (20:43)
[2020-02-01] MEDS: diphenhydrAMINE HCL 25 MG CAPSULE PO SCH (20:43)
[2020-02-01] MEDS: PATCH REMOVAL. MC SCH (21:00)
[2020-02-01 22:08] LABS: UR PROTEIN 6.2 mg/dL (Not Estab.)
[2020-02-02 03:20] VITALS: BP 91/50
[2020-02-02] MEDS: fentaNYL PF VIAL 100 MCG/2 ML VIAL IVP PRN ×2 (04:19→08:38)
[2020-02-02] MEDS: IV NORMAL SALINE 1000ML BAG 1,000 ML IV SCH ×2 (04:20→07:33)
--- NOTE | 2020-02-02 05:09 | EKG ---
[facility] [address] [place] [address] Test Date: 2020-01-29 Test Time: 15:25:19 Pat Name: TIM HAYES Department: Room: Gender: F Chocolatier: : 1965 Requested By: PHYLICIA ALVA Order Number: [id number] Reading MD: Measurements Intervals [place] Rate: 78 P: 54 [place]: 144 QRS: -29 QRSD: 84 T: 27 QT: 390 QTc: 448 Interpretive Statements SINUS RHYTHM LEFTWARD AXIS R-S TRANSITION ZONE IN V LEADS DISPLACED TO THE LEFT QRS(T) CONTOUR ABNORMALITY CONSIDER ANTEROSEPTAL MYOCARDIAL DAMAGE POSSIBLY ABNORMAL ECG RI6.01 No previous ECG available for comparison
[2020-02-02 05:33] LABS: CALCIUM 8.5 mg/dL (8.5-10.1); CREATININE 0.9 mg/dL (0.6-1.0); GFR 65.2; POTASSIUM 4.3 mmol/L (3.5-5.1)
[2020-02-02 07:00] VITALS: BP 104/65
[2020-02-02] MEDS: IPRATRPIUM/ALBUTEROL 0.5/2.5MG 3 ML NEBU. NEB SCH (07:43)
[2020-02-02] MEDS: POTASSIUM CHLORIDE 20 MEQ TABLET.ER. PO SCH ×2 (08:00→08:39)
[2020-02-02] MEDS: INSULIN LISPRO 300 UNITS/3 ML VIAL. SQ SCH ×2 (08:00→12:00)
[2020-02-02] MEDS: OMEGA-3 FATTY ACIDS/FISH OIL 1,000 MG CAPSULE. PO SCH (08:39)
[2020-02-02] MEDS: TOPIRAMATE 25 MG TABLET. PO SCH (08:39)
[2020-02-02] MEDS: LIDOCAINE (700MG/PATCH) PATCH. TD SCH (08:39)
[2020-02-02] MEDS: METOPROLOL TART IMMED RELEASE 25 MG TABLET. PO SCH (08:43)
[2020-02-02 11:00] VITALS: BP 110/60
--- NOTE | 2020-02-02 11:29 | PDOC ---
Renal-Progress Notes Subjective Notes Notes NO COMPLAINTS History of Present Illness Hx of present illness STABLE Vitals Vitals Vital Signs Date Time Temp Pulse Resp B/P (MAP) Pulse Ox O2 Delivery O2 Flow Rate FiO2 02/02/20 08:43 87 104/65 02/02/20 07:43 96 Room Air 02/02/20 07:00 97.5 16 97.5 02/01/20 15:32 2.0 Weight Weight [ ] I.O. Intake and Output Intake and Output 02/02/20 07:00 Intake Total 1330 ml Output Total 400 ml Balance 930 ml Intake Oral 1330 ml Output Urine Total 400 ml Labs Labs Laboratory Tests Test 02/01/20 17:49 02/02/20 04:12 Glucose (Fingerstick) 250 mg/dL (70-99) Sodium Level 140 mmol/L (136-145) Potassium Level 4.3 mmol/L (3.5-5.1) Chloride Level 108 mmol/L (98-107) Carbon Dioxide Level 23 mmol/L (21-32) Anion Gap 9 (6-14) Blood Urea Nitrogen 12 mg/dL (7-20) Creatinine 0.9 mg/dL (0.6-1.0) Estimated GFR (Cockcroft-Gault) 65.2 Glucose Level 150 mg/dL (70-99) Calcium Level 8.5 mg/dL (8.5-10.1) Micro Micro Microbiology 01/29/20 Urine Culture - Final, Complete Review of Systems Constitutional: yes: no symptom reported Ears/Nose/Throat: Yes: no symptom reported Eyes: Yes: no symptom reported Pulmonary: Yes no symptom reported Cardiovascular: Yes no symptom reported Gastrointestional: Yes: no symptom reported Genitourinary: Yes: no symptom reported Musculoskeletal: Yes: no symptom reported Skin: Yes no symptom reported Psychiatric/Neurological: Yes: no symptom reported Endocrine: Yes: no symptom reported Physical Exam General Appearance: no apparent distress Skin: warm Respiratory: bilateral CTA Heart: S1S2 Neurology: alert Musculoskeletal: Osteoarthritis Assessment Assessment IMP FRANCINE-RESOLVED CHEST PAIN-S/P PCI POLYCYTYHEMIA PLAN WILL SIGN OFF STOP IVF ESTELLA DOMINGUEZ MD Feb 02, 2020 11:29
[2020-02-02] MEDS: ENOXAPARIN 40 MG/0.4 ML SYRINGE. SQ SCH (11:30)
--- NOTE | 2020-02-02 11:39 | PDOC ---
PROGRESS NOTES Assessment Problems Medical Problems: (1) Chest pain Status: Acute Migraine headaches Paresthesias Chest pain, cardiac workup negative Plan Home on increased dose of topiramate, also she is on citalopram and amitriptyline, both good migraine preventatives.After 1-2 weeks, increase topiramate to 25 mg two twice a day Follow-up with me in 4-6 weeks. Subjective Headache 5/10 Objective Vital Signs Date Time Temp Pulse Resp B/P (MAP) Pulse Ox O2 Delivery O2 Flow Rate FiO2 02/02/20 08:43 87 104/65 02/02/20 07:43 96 Room Air 02/02/20 07:00 97.5 16 97.5 02/01/20 15:32 2.0 Intake and Output 02/02/20 07:00 Intake Total 1330 ml Output Total 400 ml Balance 930 ml Intake Oral 1330 ml Output Urine Total 400 ml PHYSICAL EXAM Alert. Oriented to time, place and person. PERRL. EOMI. CN: no focal findings. Muscle tone: normal. Muscle strength: 5/5 DTR: 2+ Plantar reflex: flexor Gait: normal. Sensory exam: no abnormal findings. No cerebellar signs elicited. Review of Relevant I have reviewed the following items mae (where applicable) has been applied. Labs Laboratory Tests Test 01/31/20 16:30 02/01/20 05:00 02/01/20 17:49 02/02/20 04:12 Urine Protein 6.2 mg/dL (Not Estab.) Urine Protein 24 Hr Calculated 132 mg/24 hr (30-150) White Blood Count 7.0 x10^3/uL (4.0-11.0) Red Blood Count 5.17 x10^6/uL (3.50-5.40) Hemoglobin 16.0 g/dL (12.0-15.5) Hematocrit 46.2 % (36.0-47.0) Mean Corpuscular Volume 90 fL (79-100) Mean Corpuscular Hemoglobin 31 pg (25-35) Mean Corpuscular Hemoglobin Concent 35 g/dL (31-37) Red Cell Distribution Width 12.6 % (11.5-14.5) Platelet Count 264 x10^3/uL (140-400) Neutrophils (%) (Auto) 55 % (31-73) Lymphocytes (%) (Auto) 29 % (24-48) Monocytes (%) (Auto) 13 % (0-9) Eosinophils (%) (Auto) 3 % (0-3) Basophils (%) (Auto) 1 % (0-3) Neutrophils # (Auto) 3.8 x10^3/uL (1.8-7.7) Lymphocytes # (Auto) 2.0 x10^3/uL (1.0-4.8) Monocytes # (Auto) 0.9 x10^3/uL (0.0-1.1) Eosinophils # (Auto) 0.2 x10^3/uL (0.0-0.7) Basophils # (Auto) 0.1 x10^3/uL (0.0-0.2) Sodium Level 142 mmol/L (136-145) 140 mmol/L (136-145) Potassium Level 3.5 mmol/L (3.5-5.1) 4.3 mmol/L (3.5-5.1) Chloride Level 108 mmol/L (98-107) 108 mmol/L (98-107) Carbon Dioxide Level 25 mmol/L (21-32) 23 mmol/L (21-32) Anion Gap 9 (6-14) 9 (6-14) Blood Urea Nitrogen 16 mg/dL (7-20) 12 mg/dL (7-20) Creatinine 1.0 mg/dL (0.6-1.0) 0.9 mg/dL (0.6-1.0) Estimated GFR (Cockcroft-Gault) 57.8 65.2 BUN/Creatinine Ratio 16 (6-20) Glucose Level 162 mg/dL (70-99) 150 mg/dL (70-99) Calcium Level 8.9 mg/dL (8.5-10.1) 8.5 mg/dL (8.5-10.1) Total Bilirubin 0.3 mg/dL (0.2-1.0) Aspartate Amino Transf (AST/SGOT) 23 U/L (15-37) Alanine Aminotransferase (ALT/SGPT) 58 U/L (14-59) Alkaline Phosphatase 80 U/L (46-116) Total Protein 6.0 g/dL (6.4-8.2) Albumin 3.2 g/dL (3.4-5.0) Albumin/Globulin Ratio 1.1 (1.0-1.7) Glucose (Fingerstick) 250 mg/dL (70-99) Laboratory Tests Test 02/01/20 17:49 02/02/20 04:12 Glucose (Fingerstick) 250 mg/dL (70-99) Sodium Level 140 mmol/L (136-145) Potassium Level 4.3 mmol/L (3.5-5.1) Chloride Level 108 mmol/L (98-107) Carbon Dioxide Level 23 mmol/L (21-32) Anion Gap 9 (6-14) Blood Urea Nitrogen 12 mg/dL (7-20) Creatinine 0.9 mg/dL (0.6-1.0) Estimated GFR (Cockcroft-Gault) 65.2 Glucose Level 150 mg/dL (70-99) Calcium Level 8.5 mg/dL (8.5-10.1) Microbiology 01/29/20 Urine Culture - Final, Complete Medications Current Medications Prochlorperazine Edisylate (Compazine) 10 mg 1X ONCE IV Last administered on 01/29/20at 17:25; Start 01/29/20 at 16:30; Stop 01/29/20 at 16:31; Status DC Diphenhydramine HCl (Benadryl) 25 mg 1X ONCE IVP Last administered on 01/29/20at 17:25; Start 01/29/20 at 16:30; Stop 01/29/20 at 16:31; Status DC Methylprednisolone Sodium Succinate (SOLU-Medrol 125MG VIAL) 125 mg 1X ONCE IV Last administered on 01/29/20at 17:25; Start 01/29/20 at 16:30; Stop 01/29/20 at 16:31; Status DC Fentanyl Citrate (Fentanyl 2ml Vial) 50 mcg 1X ONCE IVP Last administered on 01/29/20at 17:26; Start 01/29/20 at 16:30; Stop 01/29/20 at 16:31; Status DC Ondansetron HCl (Zofran) 4 mg PRN Q8HRS PRN IV NAUSEA/VOMITING; Start 01/29/20 at 20:30; Stop 01/30/20 at 20:29; Status DC Fentanyl Citrate (Fentanyl 2ml Vial) 50 mcg PRN Q1HR PRN IV PAIN Last administered on 01/30/20at 19:33; Start 01/29/20 at 20:30; Stop 01/30/20 at 20:29; Status DC Diphenhydramine HCl (Benadryl) 50 mg QHS PO Last administered on 02/01/20at 20:43; Start 01/29/20 at 23:45 Potassium Chloride (Klor-Con) 40 meq 1X ONCE PO Last administered on 01/30/20at 12:10; Start 01/30/20 at 10:30; Stop 01/30/20 at 10:31; Status DC Potassium Chloride (Klor-Con) 20 meq DAILYWBKFT PO Last administered on 02/02/20at 08:39; Start 01/31/20 at 08:00 Acetaminophen (Tylenol) 650 mg PRN Q6HRS PRN PO MILD PAIN 1-3; Start 01/30/20 at 10:30; Stop 01/30/20 at 10:54; Status DC Ibuprofen (Motrin) 400 mg PRN Q6HRS PRN PO INFLAMMATION Last administered on 02/02/20at 02:46; Start 01/30/20 at 10:30 Metoprolol Tartrate (Lopressor) 25 mg BID PO Last administered on 01/31/20at 20:55; Start 01/30/20 at 11:00; Stop 02/01/20 at 08:16; Status DC Nitroglycerin (Nitrostat) 0.4 mg PRN Q5MIN PRN SL CHEST PAIN; Start 01/30/20 at 10:30 Topiramate (Topamax) 25 mg DAILY PO ; Start 01/30/20 at 11:00; Stop 01/30/20 at 12:19; Status DC Citalopram Hydrobromide (CeleXA) 20 mg DAILY PO Last administered on 01/30/20at 12:10; Start 01/30/20 at 11:00; Stop 01/30/20 at 12:19; Status DC Fish Oil (Fish Oil) 4,000 mg DAILY PO Last administered on 02/02/20at 08:39; Start 01/30/20 at 11:00 Sodium Chloride (Normal Saline Flush) 3 ml QSHIFT PRN IV AFTER MEDS AND BLOOD DRAWS; Start 01/30/20 at 10:45 Ondansetron HCl (Zofran) 4 mg PRN Q4HRS PRN IV NAUSEA/VOMITING Last administered on 01/30/20 21:09; Start 01/30/20 at 10:45 Acetaminophen (Tylenol) 650 mg PRN Q4HRS PRN PO TEMP OVER 100.4F OR MILD PAIN Last administered on 01/30/20at 21:09; Start 01/30/20 at 10:45 Al Hydroxide/Mg Hydroxide (Mylanta Plus Xs) 30 ml PRN DAILY PRN PO HEARTBURN / GAS; Start 01/30/20 at 10:45 Clonidine HCl (Catapres) 0.1 mg PRN Q6HRS PRN PO SBP>160 OR DBP>90; Start 01/30/20 at 10:45 Docusate Sodium (Colace) 100 mg PRN BID PRN PO HARD STOOLS Last administered on 01/31/20at 08:40; Start 01/30/20 at 10:45 Albuterol/ Ipratropium (Duoneb) 3 ml Q4HRS NEB Last administered on 02/01/20at 07:55; Start 01/30/20 at 12:00; Stop 02/01/20 at 11:51; Status DC Guaifenesin (Robitussin) 200 mg PRN Q4HRS PRN PO COUGH; Start 01/30/20 at 10:45 Enoxaparin Sodium (Lovenox 40mg Syringe) 40 mg Q24H SQ Last administered on 02/02/20at 11:30; Start 01/30/20 at 11:00 Insulin Human Lispro (HumaLOG) 0-5 UNITS TIDWMEALS SQ Last administered on 02/01/20at 18:03; Start 01/30/20 at 12:00 Dextrose (Dextrose 50%-Water Syringe) 12.5 gm PRN Q15MIN PRN IV SEE COMMENTS; Start 01/30/20 at 11:00 Citalopram Hydrobromide (CeleXA) 20 mg HS PO Last administered on 02/01/20at 2 0:43; Start 01/30/20 at 21:00 Topiramate (Topamax) 25 mg HS PO Last administered on 01/30/20at 20:04; Start 01/30/20 at 21:00; Stop 01/31/20 at 15:41; Status DC Fentanyl Citrate (Fentanyl 2ml Vial) 50 mcg PRN Q2HR PRN IVP SEVERE PAIN 7-10 Last administered on 02/02/20 08:38; Start 01/31/20 at 00:00 Methocarbamol (Robaxin) 500 mg 1X ONCE PO Last administered on 01/31/20at 09:50; Start 01/31/20 at 09:15; Stop 01/31/20 at 09:30; Status DC Lidocaine (Lidoderm) 1 patch DAILY TD Last administered on 02/02/20at 08:39; Start 01/31/20 at 10:00 Miscellaneous (Lidoderm Patch Removal) 1 ea QHS MC Last administered on 02/01/20at 21:00; Start 01/31/20 at 21:00 Amitriptyline HCl (Elavil) 25 mg QHS PO Last administered on 02/01/20at 20:43; Start 01/31/20 at 21:00 Potassium Chloride (Klor-Con) 40 meq 1X ONCE PO Last administered on 01/31/20at 13:47; Start 01/31/20 at 13:00; Stop 01/31/20 at 13:01; Status DC Potassium Chloride (Klor-Con) 20 meq DAILYWBKFT PO Last administered on 02/01/20at 10:53; Start 02/01/20 at 08:00 Sodium Chloride 1,000 ml @ 100 mls/hr 1X ONCE IV Last administered on 01/31/20at 13:48; Start 01/31/20 at 12:45; Stop 01/31/20 at 22:44; Status DC Prochlorperazine Edisylate (Compazine) 10 mg ONCE ONCE IV Last administered on 01/31/20at 14:45; Start 01/31/20 at 14:30; Stop 01/31/20 at 14:31; Status DC Topiramate (Topamax) 25 mg BID PO Last administered on 02/02/20at 08:39; Start 01/31/20 at 15:45 Tizanidine HCl (Zanaflex) 4 mg PRN Q8HRS PRN PO MUSCLE SPASMS Last administered on 02/01/20at 08:16; Start 01/31/20 at 15:45 Diphenhydramine HCl (Benadryl) 25 mg 1X ONCE IVP Last administered on 01/31/20at 15:59; Start 01/31/20 at 15:45; Stop 01/31/20 at 15:54; Status DC Metoprolol Tartrate (Lopressor) 12.5 mg BID PO Last administered on 02/02/20at 08:43; Start 02/01/20 at 08:15 Albuterol/ Ipratropium (Duoneb) 3 ml RTBID NEB Last administered on 02/02/20at 07:43; Start 02/01/20 at 20:00 Midazolam HCl (Versed) 5 mg STK-MED ONCE .ROUTE ; Start 02/01/20 at 14:15; Stop 02/01/20 at 14:15; Status DC Fentanyl Citrate (Fentanyl 2ml Vial) 100 mcg STK-MED ONCE .ROUTE ; Start 02/01/20 at 14:15; Stop 02/01/20 at 14:15; Status DC Verapamil HCl (Verapamil) 5 mg STK-MED ONCE .ROUTE ; Start 02/01/20 at 14:15; Stop 02/01/20 at 14:15; Status DC Heparin Sodium (Porcine) (Heparin Sodium) 10,000 unit STK-MED ONCE .ROUTE ; Start 02/01/20 at 14:15; Stop 02/01/20 at 14:15; Status DC Nitroglycerin (Nitroglycerin) 200 mcg STK-MED ONCE .ROUTE ; Start 02/01/20 at 14:15; Stop 02/01/20 at 14:15; Status DC Lidocaine HCl (Xylocaine-Mpf 1% 2ml Vial) 2 ml STK-MED ONCE .ROUTE ; Start 02/01/20 at 14:16; Stop 02/01/20 at 14:16; Status DC Iohexol (Omnipaque 300 Mg/ml) 100 ml STK-MED ONCE .ROUTE ; Start 02/01/20 at 14:16; Stop 02/01/20 at 14:16; Status DC Heparin Sodium/ Sodium Chloride 1,500 ml @ As Directed STK-MED ONCE .ROUTE ; Start 02/01/20 at 14:16; Stop 02/01/20 at 14:16; Status DC Nitroglycerin (Nitroglycerin) 200 mcg 1X ONCE IART Last administered on 02/01/20at 15:27; Start 02/01/20 at 14:45; Stop 02/01/20 at 14:46; Status DC Verapamil HCl (Verapamil) 2.5 mg 1X ONCE IART Last administered on 02/01/20at 14:45; Start 02/01/20 at 14:45; Stop 02/01/20 at 14:46; Status DC Heparin Sodium (Porcine) (Heparin Sodium) 2,500 unit 1X ONCE IART Last administered on 02/01/20at 15:31; Start 02/01/20 at 14:45; Stop 02/01/20 at 14:46; Status DC Heparin Sodium/ Sodium Chloride (HEPARIN for ARTERIAL LINE FLUSH) 1,000 unit 1X ONCE IART Last administered on 02/01/20at 15:27; Start 02/01/20 at 14:45; Stop 02/01/20 at 14:46; Status DC Heparin Sodium/ Sodium Chloride (HEPARIN for ARTERIAL LINE FLUSH) 1,000 unit 1X ONCE IART Last administered on 02/01/20at 15:27; Start 02/01/20 at 14:45; Stop 02/01/20 at 14:46; Status DC Midazolam HCl (Versed) 5 mg 1X ONCE IV Last administered on 02/01/20at 15:30; Start 02/01/20 at 14:45; Stop 02/01/20 at 14:46; Status DC Fentanyl Citrate (Fentanyl 2ml Vial) 100 mcg 1X ONCE IV Last administered on 02/01/20 15:29; Start 02/01/20 at 14:45; Stop 02/01/20 at 14:46; Status DC Iohexol (Omnipaque 300 Mg/ml) 100 ml 1X ONCE IART Last administered on 02/01/20at 15:26; Start 02/01/20 at 14:45; Stop 02/01/20 at 14:46; Status DC Lidocaine HCl (Xylocaine-Mpf 1% 2ml Vial) 2 ml 1X ONCE INJ Last administered on 02/01/20 15:30; Start 02/01/20 at 14:45; Stop 02/01/20 at 14:46; Status DC Info (CONTRAST GIVEN -- Rx MONITORING) 1 each PRN DAILY PRN MC SEE COMMENTS; Start 02/01/20 at 14:45; Stop 02/03/20 at 14:44 Sodium Chloride 1,000 ml @ 75 mls/hr [id number] IV Last administered on 02/02/20at 07:33; Start 02/01/20 at 15:00; Stop 02/02/20 at 10:35; Status DC Heparin Sodium (Porcine) (Heparin Sodium) 4,000 unit 1X ONCE IV Last administered on 02/01/20at 15:31; Start 02/01/20 at 15:15; Stop 02/01/20 at 15:16; Status DC Nitroglycerin (Nitroglycerin) 200 mcg 1X ONCE ICAR Last administered on 02/01/20at 15:15; Start 02/01/20 at 15:15; Stop 02/01/20 at 15:17; Status DC Active Scripts Active NITROGLYCERIN SubLingual (Nitroglycerin) 0.4 Mg Tab.subl 0.4 Mg SL PRN Q5MIN PRN 30 Days Lovaza ([place]-3 Acid Ethyl Esters) 1 Gm Capsule 2 Cap PO BID 30 Days Reported Topamax (Topiramate) 25 Mg Tablet 1 Tab PO DAILY 30 Days Metformin Hcl 1,000 Mg Tablet 1,000 Mg PO BIDWMEALS Metoprolol Tartrate 25 Mg Tablet 0.5 Tab PO BID Escitalopram Oxalate 10 Mg Tablet 1 Tab PO DAILY Benadryl (Diphenhydramine Hcl) 25 Mg Capsule 2 Cap PO QHS 30 Days Tylenol (Acetaminophen) 325 Mg Tablet 650 Mg PO PRN Q6HRS PRN Ibuprofen 400 Mg Tablet 400 Mg PO PRN Q6HRS PRN Vitals/I & O Vital Sign - Last 24 Hours 02/01/20 02/01/20 02/01/20 02/01/20 11:42 12:12 14:42 14:45 Temp 97.5 97.5 Pulse 68 69 Resp 18 B/P (MAP) 137/56 (83) 127/70 Pulse Ox 95 95 97 O2 Delivery Room Air Room Air Room Air 02/01/20 02/01/20 02/01/20 02/01/20 15:29 15:32 15:45 19:35 Temp 97.9 97.9 Pulse 69 65 75 Resp 23 23 20 B/P (MAP) 110/58 (75) 94/55 (68) Pulse Ox 96 96 97 O2 Delivery Nasal Cannula Nasal Cannula Room Air O2 Flow Rate 2.0 2.0 02/01/20 02/01/20 02/01/20 02/01/20 20:00 20:43 20:43 23:15 Temp 97.7 97.7 Pulse 75 69 Resp 18 B/P (MAP) 94/55 100/55 (70) Pulse Ox 97 96 O2 Delivery Room Air Room Air Room Air 02/02/20 02/02/20 02/02/20 02/02/20 03:20 07:00 07:43 08:43 Temp 97.8 97.5 97.8 97.5 Pulse 68 64 87 Resp 18 16 B/P (MAP) 91/50 (64) 104/65 (78) 104/65 Pulse Ox 93 96 96 O2 Delivery Room Air Room Air Room Air Intake and Output 02/01/20 02/01/20 02/02/20 15:00 23:00 07:00 Intake Total 360 ml 450 ml 520 ml Output Total 400 ml Balance 360 ml 450 ml 120 ml Justicifation of Admission Dx: Justifications for Admission: Justification of Admission Dx: Yes NADINE YARBROUGH MD Feb 02, 2020 11:39
--- NOTE | 2020-02-02 13:59 | CARD ---
MR#: [id number] Date of Study: 02/01/2020 Ordering Physician: JAG WHITE, Referring Physician: JAG WHITE, Tech: Paris Merrill APPROVED REPORT Technologist: Paris Merrill Nurse: Ebony Leyva R.N. Procedure(s) performed: fl time: 6.5 mins dose: 69 gycm2 contrast: 102 ml moderate sedation: 46 minutes Coronary angiography, iFR of the LAD and iFR of the Ramus. HISTORY : The patient is a 55 year-old female with a history of . INDICATION The indication(s) include : unstable angina . CSHA Clinical Frailty Scale CS Clinical Frailty Scale: Managing Well Heart Failure Heart Failure: Yes If Yes, Newly Diagnosed: No If Yes, HF Type: Diastolic If Yes, NYHA Class: Class II PROCEDURE NARRATIVE After proper informed consent the patient was brought to the catheterization laboratory and the right wrist was prepped and draped in usual sterile fashion. Clinical information: 55-year-old woman presenting with unstable angina in the setting of prior known coronary artery disease. She presented to the [facility] for possible coronary intervention of the [facility]. Procedure details: The right wrist was prepped and draped in usual sterile fashion. A 6 Serbian sheath was placed in the right radial artery without any difficulty. Heparin and verapamil were used to decrease risk of spa sm. Next a 6 Serbian [facility] catheter was used to engage the coronary arteries. Findings: Left main is a large caliber long vessel with mild luminal irregularities LAD is a moderate caliber vessel with a proximal 50% stenosis and an apical 80% stenosis Ramus is a small caliber vessel with a proximal 80% stenosis Left circumflex is a large caliber dominant vessel with mild diffuse disease of up to 30% and calcifi cation. Left posterior descending artery is a small to moderate caliber vessel with mild diffuse luminal irre gularities. RCA is a small caliber diffusely diseased vessel which was unchanged from prior with approximately 90 % proximal stenosis. Interventional technique: FFR of the LAD and ramus Heparin was used for anticoagulation. Through a 6 Serbian EBU 3.0 guide catheter a 0.014 inch pressur e wire was advanced to the LAD. And IFR was measured at 0.93 after intracoronary nitroglycerin admin istration. The wire was then redirected towards the ramus and the FFR of this vessel was also unrema rkable likely significant eyeing very small amount of myocardium being supplied by this vessel. Give n the fact that the IFR values were unremarkable further intervention was deferred in favor of medica l therapy. At case completion the right radial sheath was removed and a radial band was applied without any diff iculty. Conclusion 1. Three-vessel coronary artery disease 2. Negative IFR of the LAD and ramus vessels. 3. No obvious critical stenosis needing intervention at this time Recommendations Aggressive Medical Therapy Signed by : Rohan Chang, Electronically Approved : 02/02/2020 13:59:13
[2020-02-02 15:00] VITALS: BP 105/55
--- NOTE | 2020-02-02 16:20 | NUR ---
Discharge Note: TIM HAYES [address] Discharge instructions and discharge home medications reviewed with Patient and a copy given. All questions have been answered and understanding verbalized. The following instructions and handouts were given: report chest pain, bleeding, and change in symptoms. No lifting over 10 lbs for 10 days. Discontinued lines and drains: peripheral iv discontinued on 02/01 Patient discharged to home with self car via wheelchair.
--- NOTE | 2020-02-02 16:42 | PDOC ---
JAG WHITE [employer] 02/02/20 1642: CARDIO Progress Notes Date and Time Date of Service 02/02/20 Time of Evaluation 1151 Subjective Subjective: No Chest Pain, No shortness of breath, No Palpitations, Other (c/o MERCADO) Vitals Vitals Vital Signs Date Time Temp Pulse Resp B/P (MAP) Pulse Ox O2 Delivery O2 Flow Rate FiO2 02/02/20 15:00 97.5 68 16 105/55 (72) 96 Room Air 97.5 02/01/20 15:32 2.0 Weight Weight [ ] Input and Output Intake and Output Intake and Output 02/02/20 07:00 Intake Total 1330 ml Output Total 400 ml Balance 930 ml Intake Oral 1330 ml Output Urine Total 400 ml Laboratory Labs Laboratory Tests Test 02/01/20 17:49 02/02/20 04:12 Glucose (Fingerstick) 250 mg/dL (70-99) Sodium Level 140 mmol/L (136-145) Potassium Level 4.3 mmol/L (3.5-5.1) Chloride Level 108 mmol/L (98-107) Carbon Dioxide Level 23 mmol/L (21-32) Anion Gap 9 (6-14) Blood Urea Nitrogen 12 mg/dL (7-20) Creatinine 0.9 mg/dL (0.6-1.0) Estimated GFR (Cockcroft-Gault) 65.2 Glucose Level 150 mg/dL (70-99) Calcium Level 8.5 mg/dL (8.5-10.1) Microbiology Micro Microbiology 01/29/20 Urine Culture - Final, Complete Review of Systems Constitutional: yes: no symptom reported Ears/Nose/Throat: Yes: no symptom reported Eyes: Yes: no symptom reported Pulmonary: Yes no symptom reported Cardiovascular: Yes no symptom reported Gastrointestional: Yes: no symptom reported Genitourinary: Yes: no symptom reported Musculoskeletal: Yes: no symptom reported Skin: Yes no symptom reported Psychiatric/Neurological: Yes: no symptom reported Endocrine: Yes: no symptom reported Physical Exam HEENT: Neck Supple W Full Motion Chest: Symmetric LUNGS: Clear to Auscultation Heart: RRR Extremities: No Edema Neurology: alert, oriented, follow commands Assessment Assessment 1. CAD; cath showed moderate 3VD. Negative IFR of the LAD and ramus vessels. No obvious critical stenosis needing intervention noted 2. FRANCINE; resolved 3. Diabetes, II 4. Hypertension; controlled 5. Tobaccoism 6. ROSALES Recommendations Resume ASA, statin therapy. Patient contacted upon discharge as theses were not listed on discharge med list. Verified patient has supply and will continue to take. Continue BB Risk stratification modification Supportive care. Okay to discharge from a CV standpoint. Follow up in our office with Dr. Chang as scheduled Justicifation of Admission Dx: Justifications for Admission: Justification of Admission Dx: Yes QUINTIN CHANG MD 02/03/20 1214: CARDIO Progress Notes Plan Plan late entry for 02/02/2020 Pt. seen and examined. Agree with above [facility] note. Discussed with family. JAG WHITE APRN Feb 02, 2020 16:42 QUINTIN CHANG MD Feb 03, 2020 12:14
--- NOTE | 2020-02-03 08:52 | DS ---
DATE OF DISCHARGE: 02/02/2020 ADMISSION DIAGNOSIS: Chest pain. DISCHARGE DIAGNOSIS: Atypical chest pain. HOSPITAL COURSE: The patient is a pleasant middle-aged female who presented with chest pain. She was admitted. We checked serial enzymes, serial EKGs. We consulted Cardiology. She was actually taken for cardiac catheterization, which was mostly clean. Her creatinine was a little high after the catheterization, so we watched her another day or so with fluids. Yesterday, her creatinine was normal at 0.9. Heart tones were normal. Lungs were clear. She was doing great. We discharged to home with close outpatient followup. DISPOSITION: Home. ACTIVITY: As tolerated. DIET: Low sodium. MEDICATIONS: Please see MRAD. TOTAL TIME: 32 minutes. TILA SQUIRES DO DR: PARKER/danny JOB#: [id number] / [id number]
--- NOTE | 2020-02-11 11:49 | RESP ---
DATE OF SERVICE: NOCTURNAL OXIMETRY IMPRESSION: Normal nocturnal oximetry study with no evidence of any significant nocturnal hypoxia. ARNULFO HERNANDEZ MD DR: CALLIE/danny JOB#: [id number] / [id number] joaquim Amezcua .
== END 2020-02-02 16:05 | disposition home or self-care (01) | DRG 286 ==
LOC: ER 15:14 → 2 SOUTH 20:21
PROVIDERS: ADMIT Internal Medicine; ATTEND Internal Medicine
PROC: 4A023N7 Measurement of Cardiac Sampling and Pressure, Left Heart, Percutaneous Approach (ICD-10-PCS; principal; 2020-02-01)
PROC: B2111ZZ Fluoroscopy of Multiple Coronary Arteries using Low Osmolar Contrast (ICD-10-PCS; 2020-02-01)
PROC: 4A033BC Measurement of Arterial Pressure, Coronary, Percutaneous Approach (ICD-10-PCS; 2020-02-01)
DX: I25.110 Atherosclerotic heart disease of native coronary artery with unstable angina pectoris (principal); N17.0 Acute kidney failure with tubular necrosis; C94.6 Myelodysplastic disease, not elsewhere classified; R07.89 Other chest pain; D75.1 Secondary polycythemia; E11.22 Type 2 diabetes mellitus with diabetic chronic kidney disease; E11.65 Type 2 diabetes mellitus with hyperglycemia; E66.01 Morbid (severe) obesity due to excess calories; E78.00 Pure hypercholesterolemia, unspecified; E87.6 Hypokalemia; F17.210 Nicotine dependence, cigarettes, uncomplicated; G43.909 Migraine, unspecified, not intractable, without status migrainosus; G47.33 Obstructive sleep apnea (adult) (pediatric); I12.9 Hypertensive chronic kidney disease with stage 1 through stage 4 chronic kidney disease, or unspecified chronic kidney disease; I16.0 Hypertensive urgency; K76.0 Fatty (change of) liver, not elsewhere classified; F41.8 Other specified anxiety disorders; M19.90 Unspecified osteoarthritis, unspecified site; M47.816 Spondylosis without myelopathy or radiculopathy, lumbar region; N18.9 Chronic kidney disease, unspecified; Z79.82 Long term (current) use of aspirin; Z82.49 Family history of ischemic heart disease and other diseases of the circulatory system; Z86.32 Personal history of gestational diabetes; Z90.49 Acquired absence of other specified parts of digestive tract; Z91.19 Patient's noncompliance with other medical treatment and regimen; Z98.61 Coronary angioplasty status; Z88.2 Allergy status to sulfonamides; Z88.8 Allergy status to other drugs, medicaments and biological substances
CPT/HCPCS: 36415; 70450; 71045; 72131; 76770; 80048; 80053; 80069; 80307; 81001; 81270; 82962; 83690; 83880; 84156; 84443; 84484; 85007; 85025; 85610; 87086; 93005; 93454; 93571; 94640; 94760; 94799; 96374; 96375; 99152; 99153; C1769; C1887; C1892; J0780; J1200; J1644; J1650; J1815; J2250; J2405; J2930; J3010; J3490; J7030; Q9967; 99285-25; G0378; Q0163

== ENCOUNTER 2020-02-08 14:54 | Inpatient (IN) | payer BC ==
[~2020-02-08] VITALS: Ht 154.9 cm; Wt 93.2 kg
[2020-02-08 15:20] LABS: BASO # 0.1 x10^3/uL (0.0-0.2); BASO % 1 % (0-3); EOS # 0.1 x10^3/uL (0.0-0.7); EOS % 1 % (0-3); HEMATOCRIT 51.2 % (36.0-47.0); HEMOGLOBIN 18.3 g/dL (12.0-15.5); LYMPH # 2.2 x10^3/uL (1.0-4.8); LYMPH % 23 % (24-48); MEAN CORPUSCULAR HEMOGLOBIN 32 pg (25-35); MEAN CORPUSCULAR HGB CONC 36 g/dL (31-37); MEAN CORPUSCULAR VOLUME 88 fL (79-100); MONO # 1.2 x10^3/uL (0.0-1.1); MONO % 13 % (0-9); NEUT # 6.2 x10^3/uL (1.8-7.7); NEUT % 62 % (31-73); PLATELET COUNT 300 x10^3/uL (140-400); RED CELL DISTRIBUTION WIDTH 12.5 % (11.5-14.5); WHITE BLOOD COUNT 9.9 x10^3/uL (4.0-11.0)
[2020-02-08 15:29] LABS: CALCIUM 11.4 mg/dL (8.5-10.1); CREATININE 1.1 mg/dL (0.6-1.0); GFR 51.8; POTASSIUM 4.1 mmol/L (3.5-5.1)
[2020-02-08] MEDS ORDERED: MORPHINE SULFATE 4 MG/ML VIAL. IV ONE (15:30)
[2020-02-08 15:31] LABS: PROTHROMBIN TIME PATIENT 12.4 SEC (11.7-14.0)
--- NOTE | 2020-02-08 15:33 | PHYS DOC ---
Past Medical History Past Medical History: Anxiety, CAD, Depression, Diabetes-Type II, High Cholesterol, Migraines, Pancreatitis Additional Past Medical Histor: ulcerative colitis Past Surgical History: Tonsillectomy, Other Additional Past Surgical Histo: colectomy with internal ostomy pouch Smoking Status: Current Every Day Smoker Alcohol Use: Rarely Drug Use: None General Adult EDM: Chief Complaint: CHEST PAIN HPI: HPI: Patient is a 55 year old female who was brought here by EMS from home due to chest pain. Patient said the chest pain started after she ate some food today. Patient denies any cough or fever, no trouble breathing. The pain is at the epigastric area and right upper quadrant area. EMS were called, they gave her nitroglycerin and aspirin on route. EKG on route was suspicious for STEMI so they activateD code STEMI. Patient was just admitted here about a week ago for chest pain, she had a negative cardiac catheterization done. Review of Systems: Review of Systems: Constitutional: Denies fever or chills. [] Eyes: Denies change in visual acuity. [] HENT: Denies nasal congestion or sore throat. [] Respiratory: Denies cough or shortness of breath. [] Cardiovascular: Positive chest pain] GI: Positive for right upper quad abdominal pain no nausea, vomiting, bloody stools or diarrhea. [] : Denies dysuria. [] Musculoskeletal: Denies back pain or joint pain. [] Integument: Denies rash. [] Neurologic: Denies headache, focal weakness or sensory changes. [] Endocrine: Denies polyuria or polydipsia. [] Lymphatic: Denies swollen glands. [] Psychiatric: Denies depression or anxiety. [] Heart Score: HEART Score for Chest Pain: HEART Score for Chest Pain Response (Comments) Value History Moderately Suspicious 1 ECG Nonspecific Repolarizatio 1 Age >45 - < 65 1 Risk Factors >3 Risk Factors or Hx CAD 2 Troponin < Normal Limit 0 Total 5 Risk Factors: Risk Factors: DM, Current or recent (<one month) smoker, HTN, HLP, family history of CAD, obesity. Risk Scores: Score 0 - 3: 2.5% MACE over next 6 weeks - Discharge Home Score 4 - 6: 20.3% MACE over next 6 weeks - Admit for Clinical Observation Score 7 - 10: 72.7% MACE over next 6 weeks - Early Invasive Strategies Current Medications: Current Medications Medications (Trade) Dose Ordered Sig/Rowdy Start Time Stop Time Status Last Admin Dose Admin Fentanyl Citrate (Fentanyl 2ml Vial) 75 mcg 1X ONCE 02/08/20 15:45 02/08/20 15:46 UNV Morphine Sulfate (Morphine Sulfate) 4 mg 1X ONCE 02/08/20 15:30 02/08/20 15:31 DC Sodium Chloride 1,000 ml @ 1,000 mls/hr 1X ONCE 02/08/20 15:45 02/08/20 16:44 UNV Allergies: Allergies: Allergies Coded Allergies Type Severity Reaction Last Updated Verified Sulfa (Sulfonamide Antibiotics) Allergy Intermediate hives 01/29/20 Yes sumatriptan Allergy Intermediate hives 01/29/20 Yes morphine Adverse Reaction Mild Anxiety 01/29/20 Yes Physical Exam: PE: Constitutional: Well developed, well nourished, no acute distress, non-toxic appearance. [] HENT: Normocephalic, atraumatic, bilateral external ears normal, oropharynx moist, no oral exudates, nose normal. [] Eyes: PERRLA, EOMI, conjunctiva normal, no discharge. [] Neck: Normal range of motion, no tenderness, supple, no stridor. [] Cardiovascular:Heart rate regular rhythm, no murmur [] Lungs & Thorax: Bilateral breath sounds clear to auscultation [] Abdomen: Bowel sounds normal, soft, There is tenderness to palpation in RUQ, no masses, no pulsatile masses. [] Skin: Warm, dry, no erythema, no rash. [] Back: No tenderness, no CVA tenderness. [] Extremities: No tenderness, no cyanosis, no clubbing, ROM intact, no edema. [] Neurologic: Alert and oriented X 3, normal motor function, normal sensory function, no focal deficits noted. [] Psychologic: Affect normal, judgement normal, mood normal. [] Current Patient Data: Labs: Laboratory Tests Test 02/08/20 15:05 White Blood Count 9.9 x10^3/uL (4.0-11.0) Red Blood Count 5.80 x10^6/uL (3.50-5.40) H Hemoglobin 18.3 g/dL (12.0-15.5) H Hematocrit 51.2 % (36.0-47.0) H Mean Corpuscular Volume 88 fL (79-100) Mean Corpuscular Hemoglobin 32 pg (25-35) Mean Corpuscular Hemoglobin Concent 36 g/dL (31-37) Red Cell Distribution Width 12.5 % (11.5-14.5) Platelet Count 300 x10^3/uL (140-400) Neutrophils (%) (Auto) 62 % (31-73) Lymphocytes (%) (Auto) 23 % (24-48) L Monocytes (%) (Auto) 13 % (0-9) H Eosinophils (%) (Auto) 1 % (0-3) Basophils (%) (Auto) 1 % (0-3) Neutrophils # (Auto) 6.2 x10^3/uL (1.8-7.7) Lymphocytes # (Auto) 2.2 x10^3/uL (1.0-4.8) Monocytes # (Auto) 1.2 x10^3/uL (0.0-1.1) H Eosinophils # (Auto) 0.1 x10^3/uL (0.0-0.7) Basophils # (Auto) 0.1 x10^3/uL (0.0-0.2) Sodium Level 137 mmol/L (136-145) Potassium Level 4.1 mmol/L (3.5-5.1) Chloride Level 100 mmol/L (98-107) Carbon Dioxide Level 21 mmol/L (21-32) Anion Gap 16 (6-14) H Blood Urea Nitrogen 14 mg/dL (7-20) Creatinine 1.1 mg/dL (0.6-1.0) H Estimated GFR (Cockcroft-Gault) 51.8 BUN/Creatinine Ratio 13 (6-20) Glucose Level 142 mg/dL (70-99) H Calcium Level 11.4 mg/dL (8.5-10.1) H Magnesium Level Pending Total Bilirubin Pending Aspartate Amino Transferase (AST) Pending Alanine Aminotransferase (ALT) Pending Alkaline Phosphatase Pending Total Protein Pending Albumin Pending Albumin/Globulin Ratio Pending Lipase Pending Laboratory Tests 02/08/20 15:05 Laboratory Tests 02/08/20 15:05 Vital Signs: Vital Signs Date Time Temp Pulse Resp B/P (MAP) Pulse Ox O2 Delivery O2 Flow Rate FiO2 02/08/20 14:55 99.1 97 24 169/91 (117) 99 Room Air 99.1 EKG: EKG: EKG showed heart rate of 98 bpm, sinus rhythm, no ST segment elevation, it was read at 1455 Radiology/Procedures: Radiology/Procedures: [][facility] [address] [place] [address] IMAGING REPORT Signed PATIENT: TIM HAYESOUNT: [id number] : 1965 LOCATION: ER AGE: 55 SEX: F EXAM STATUS: REG ER ORD. PHYSICIAN: NICHOLE BARKER DO REASON: ruq abdominal pain PROCEDURE: ABDOMEN LTD EXAM: Abdomen sonogram. HISTORY: Pain. TECHNIQUE: Sonographic imaging of the abdomen was performed. COMPARISON: None. FINDINGS: The liver is enlarged. There is hepatic steatosis. No focal hepatic lesion is seen. The gallbladder is unremarkable. The common bile duct is normal in caliber. The right kidney, pancreas and inferior vena cava are unremarkable. The aorta was not assessed. There is no free fluid. IMPRESSION: Hepatomegaly and hepatic steatosis. Electronically signed by: Nohemy Moseley MD (02/08/2020 4:56 PM) [id number] DICTATED and SIGNED BY: NOHEMY MOSELEY MD DATE: 02/08/20 1656 [facility] [address] [place], [place] [id number] IMAGING REPORT Signed PATIENT: TIM HAYES LACCOUNT: [id number] : 1965 LOCATION: ER AGE: 55 SEX: F EXAM STATUS: REG ER ORD. PHYSICIAN: NICHOLE BARKER DO REASON: chest pain, shortness of air PROCEDURE: CT ANGIOGRAPHY CHEST EXAM: CT chest with contrast - pulmonary embolus protocol CLINICAL HISTORY: chest pain, shortness of air COMPARISON: 12/25/2019 TECHNIQUE: CT of the chest following the administration of intravenous contrast during the pulmonary arterial phase. Axial, coronal and sagittal reformatted images were generated including MIP images. ---PQRS compliance statement - One or more of the following individualized dose reduction techniques were utilized for this study: 1. Automated exposure control 2. Adjustment of the mA and/or kV according to patient size 3. Use of iterative reconstruction technique--- FINDINGS: CHEST: Diagnostic quality: Adequate. Pulmonary emboli: None seen Right heart strain: None Pulmonary arteries: Normal in caliber. Heart is not large. No pericardial effusion. Coronary artery calcifications are seen. Aortic root calcifications are seen. No pleural effusion or pneumothorax. Compared to 12/25/2019 there are now groundglass opacities dependently and peripherally in the lower lobes. Right upper lobe 5 mm lung nodule is again seen. As recommended on prior CT, follow-up in 6-12 months is recommended. Visualized Upper abdomen: Hepatic hypoattenuation likely fatty liver. Bones: Osseous structures are grossly stable. No aggressive osseous lesion is seen. IMPRESSION: 1. No evidence for acute pulmonary embolus. 2. New groundglass opacities dependently and peripherally which may represent atelectasis or developing typical or atypical infectious/inflammatory process. 3. 5 mm right upper lobe lung nodule is again seen. Follow-up is in 6-12 months as per prior CT Electronically signed by: Navjot Alvarez MD (02/08/2020 7:02 PM) [facility] DICTATED and SIGNED BY: NAVJOT ALVAREZ MD DATE: 02/08/201901 Course & Med Decision Making: Course & Med Decision Making Pertinent Labs and Imaging studies reviewed. (See chart for details) Patient is a 55-year-old female who was brought here by EMS from home due to chest pain. EMS did an EKG on the field, suspect patient had STEMI, they called here and activate code STEMI. Upon arrival to ER, patient was given pain, she was just discharged from here last week for chest pain, had a negative cardiac catheterization done, no stent placement. EKG was reviewed by Dr. Chang who did not think that patient has STEMI, code STEMI was canceled. Dr. Chang recommended patient to be admitted to hospital for medical management. Discussed with Dr. العلي who agreed to admit the patient to his service. Dragon Disclaimer: Dragon Disclaimer: This electronic medical record was generated, in whole or in part, using a voice recognition dictation system. Departure Departure Impression: Primary Impression: Chest pain Disposition: ADMITTED INPATIENT Admitting Physician: Appl, Ken Condition: STABLE Referrals: CHERRY RENO MD (PCP) Justicifation of Admission Dx: Justifications for Admission: Justification of Admission Dx: N/A NICHOLE BARKER DO Feb 08, 2020 15:33
[2020-02-08 15:35] LABS: ALBUMIN 3.9 g/dL (3.4-5.0); ALBUMIN/GLOBULIN RATIO 1.2 (1.0-1.7); MAGNESIUM 1.5 mg/dL (1.8-2.4); TOTAL BILIRUBIN 0.5 mg/dL (0.2-1.0); TOTAL PROTEIN 7.1 g/dL (6.4-8.2)
[2020-02-08] MEDS ORDERED: fentaNYL PF VIAL 100 MCG/2 ML VIAL IVP ONE ×2 (15:45→17:15)
[2020-02-08] MEDS ORDERED: IV NORMAL SALINE 1000ML BAG 1,000 ML IV ONE (15:45)
--- NOTE | 2020-02-08 16:04 | RAD ---
Single AP view of the chest. Comparison: 01/29/2020. Indication: Chest pain Findings: The heart is not enlarged. There is no pneumothorax or effusion. No air space or interstitial disease. Impression: 1. No acute cardiopulmonary process. Electronically signed by: Jony Nava MD (02/08/2020 4:01 PM) [id number]
[2020-02-08] MEDS ORDERED: MAGNESIUM SULFATE 2GM 50 ML IV ONE (16:15)
--- NOTE | 2020-02-08 16:59 | RAD ---
EXAM: Abdomen sonogram. HISTORY: Pain. TECHNIQUE: Sonographic imaging of the abdomen was performed. COMPARISON: None. FINDINGS: The liver is enlarged. There is hepatic steatosis. No focal hepatic lesion is seen. The gallbladder is unremarkable. The common bile duct is normal in caliber. The right kidney, pancreas and inferior vena cava are unremarkable. The aorta was not assessed. There is no free fluid. IMPRESSION: Hepatomegaly and hepatic steatosis. Electronically signed by: Nohemy Child MD (02/08/2020 4:56 PM) [email or web address]
[2020-02-08 17:09] LABS: D-DIMER 2.15 ug/mlFEU (0.00-0.50)
[2020-02-08 17:26] LABS: BILIRUBIN,URINE NEGATIVE (NEG); CLARITY,URINE CLEAR; COLOR,URINE YELLOW; NITRITE,URINE NEGATIVE (NEG); PROTEIN,URINE NEGATIVE (NEG-TRACE); UROBILINOGEN,URINE 0.2 mg/dL (0.2 mg/dL)
[2020-02-08] MEDS ORDERED: CONTRAST GIVEN. MC PRN (18:00)
[2020-02-08] MEDS ORDERED: IOHEXOL 350 MG/ML 100 ML VIAL. IV ONE (18:00)
[2020-02-08 18:15] LABS: BACTERIA,URINE MODERATE /HPF (0-FEW); SQUAMOUS EPITHELIAL CELL,UR OCC /LPF
[2020-02-08] MEDS ORDERED: KETOROLAC 30 MG/ML VIAL. IV ONE (19:00)
--- NOTE | 2020-02-08 19:05 | RAD ---
EXAM: CT chest with contrast - pulmonary embolus protocol CLINICAL HISTORY: chest pain, shortness of air COMPARISON: 12/25/2019 TECHNIQUE: CT of the chest following the administration of intravenous contrast during the pulmonary arterial phase. Axial, coronal and sagittal reformatted images were generated including MIP images. ---PQRS compliance statement - One or more of the following individualized dose reduction techniques were utilized for this study: 1. Automated exposure control 2. Adjustment of the mA and/or kV according to patient size 3. Use of iterative reconstruction technique--- FINDINGS: CHEST: Diagnostic quality: Adequate. Pulmonary emboli: None seen Right heart strain: None Pulmonary arteries: Normal in caliber. Heart is not large. No pericardial effusion. Coronary artery calcifications are seen. Aortic root calcifications are seen. No pleural effusion or pneumothorax. Compared to 12/25/2019 there are now groundglass opacities dependently and peripherally in the lower lobes. Right upper lobe 5 mm lung nodule is again seen. As recommended on prior CT, follow-up in 6-12 months is recommended. Visualized Upper abdomen: Hepatic hypoattenuation likely fatty liver. Bones: Osseous structures are grossly stable. No aggressive osseous lesion is seen. IMPRESSION: 1. No evidence for acute pulmonary embolus. 2. New groundglass opacities dependently and peripherally which may represent atelectasis or developing typical or atypical infectious/inflammatory process. 3. 5 mm right upper lobe lung nodule is again seen. Follow-up is in 6-12 months as per prior CT Electronically signed by: Navjot Oliver MD (02/08/2020 7:02 PM) GINA
[2020-02-08] MEDS ORDERED: ONDANSETRON PF 4 MG/2 ML VIAL. IV PRN (19:15)
[2020-02-08] MEDS: fentaNYL PF VIAL 100 MCG/2 ML VIAL IV PRN ×2 (20:58→23:29)
[2020-02-08] MEDS ORDERED: TIOT18CA IH (22:52)
[2020-02-08] MEDS ORDERED: AMIT10TA PO (22:52)
[2020-02-08 23:01] VITALS: BP 170/82
[2020-02-09] MEDS ORDERED: IOHEXOL 350 MG/ML 100 ML VIAL. ONE (00:07)
[2020-02-09] MEDS: fentaNYL PF VIAL 100 MCG/2 ML VIAL IV PRN ×6 (00:41→17:34)
[2020-02-09] MEDS ORDERED: ASPI81TA59 PO (00:54)
[2020-02-09] MEDS ORDERED: HEPARIN 25,000UTS/250ML PREMIX 250 ML IV PRN (01:15)
[2020-02-09] MEDS ORDERED: HEPARIN for IV BOLUS 10,000 UNIT/10 ML VIAL. IV ONE ×2 (01:15→01:30)
[2020-02-09] MEDS ORDERED: HEPARIN for IV BOLUS 10,000 UNIT/10 ML VIAL. IV PRN (01:15)
[2020-02-09 03:00] VITALS: BP 95/58
[2020-02-09 07:00] VITALS: BP 93/55
--- NOTE | 2020-02-09 08:39 | EKG ---
[facility] [address] [place] [address] Test Date: 2020-02-08 Test Time: 14:55:44 Pat Name: TIM HAYES Department: Room: [facility] Gender: F Timber Deadener: : 1965 Requested By: NICHOLE BARKER Order Number: [id number] Reading MD: Rohan Chang MD Measurements Intervals [place] Rate: 98 P: 68 [place]: 136 QRS: -34 QRSD: 80 T: 98 QT: 344 QTc: 441 Interpretive Statements SINUS RHYTHM LEFT ATRIAL ABNORMALITY ABNORMAL LEFT AXIS DEVIATION CONSIDER PRIOR INFERIOR INFARCT Electronically Signed On 02-09-2020 9:56:55 CDT by Rohan Chang MD
--- NOTE | 2020-02-09 09:02 | EKG ---
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
--- NOTE | 2020-02-09 09:45 | NUR ---
SW following. Spoke with RN and reviewed chart. Pt is being followed by Dr. العلي. Spoke with pt who stated she resides at home with her spouse. Pt stated no concerns about returning home. Pt on room air. Pt COVID pending. Pt on IV Heparin and Fentanyl. SW to follow as needed but pt does not appear to need further SW intervention at this time.
[2020-02-09] MEDS ORDERED: ANTI-COAG MONITOR BY PHARMACY. MC PRN (10:30)
[2020-02-09 11:00] VITALS: BP 106/55
--- NOTE | 2020-02-09 11:25 | EKG ---
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
[2020-02-09] MEDS ORDERED: IV NORMAL SALINE 1000ML BAG 1,000 ML IV ONE (11:30)
--- NOTE | 2020-02-09 11:36 | PDOC2 ---
CARDIAC CONSULT DATE OF CONSULT Date of Consult DATE: 02/09/20 TIME: 11:26 REASON FOR CONSULT Reason for Consult: Chest pain REFERRING PHYSICIAN Referring Physician: Luis SOURCE Source: Chart review, Patient HISTORY OF PRESENT ILLNESS HISTORY OF PRESENT ILLNESS This is a pleasant 55 yo male admitted for complains of chest pain. Reported this occurred yesterday with significant pain radiating to neck with some SOA and feeling of indigestion and some MERCADO. She also was feeling some palpitations during that time and so far no significant arrhythmias in the heart monitor. Her BP is under control. SHe has had multiple hospitalization and recently had a repeat LHC which showed 3VD but no intervenable lesion as noted in report. She came in with troponin of 3 peaked but no significant EKG changes. She was then started on heparin and currently she is doing better. She does have NTG SL but forgot to utilize it. She still smokes tobacco but complies with her medications. Apparently she has not been on plavix. No recent falls or injury. PAST MEDICAL HISTORY Past Medical History Cardiovascular: CAD, HTN Pulmonary: Other CENTRAL NERVOUS SYSTEM: Migraine GI: Inflam bowel disease Heme/Onc: No pertinent hx Hepatobiliary: No pertinent hx Psych: No pertinent hx Musculoskeletal: Osteoarthritis Rheumatologic: No pertinent hx Infectious disease: No pertinent hx Renal/: No pertinent hx Endocrine: Diabetes PAST SURGICAL HISTORY Past Surgical History Colon Resection, [facility] FAMILY HISTORY Family History: Coronary Artery Disease SOCIAL HISTORY Smoke: <1 pack per day ALCOHOL: rare Drugs: None Lives: with Family CURRENT MEDICATIONS CURRENT MEDICATIONS Current Medications Medications (Trade) Dose Ordered Sig/Rowdy Route PRN Reason Start Time Stop Time Status Last Admin Dose Admin Fentanyl Citrate (Fentanyl 2ml Vial) 75 mcg 1X ONCE IVP 02/08/20 15:45 02/08/20 15:46 DC 02/08/20 15:40 Sodium Chloride 1,000 ml @ 1,000 mls/hr 1X ONCE IV 02/08/20 15:45 02/08/20 16:44 DC 02/08/20 15:39 Magnesium Sulfate 50 ml @ 25 mls/hr 1X ONCE IV 02/08/20 16:15 02/08/20 18:14 DC 02/08/20 17:16 Fentanyl Citrate (Fentanyl 2ml Vial) 100 mcg 1X ONCE IVP 02/08/20 17:15 02/08/20 17:16 DC 02/08/20 17:47 Iohexol (Omnipaque 350 Mg/ml) 100 ml 1X ONCE IV 02/08/20 18:00 02/08/20 18:01 DC 02/08/20 18:00 Ketorolac Tromethamine (Toradol 30mg Vial) 30 mg 1X ONCE IV 02/08/20 19:00 02/08/20 19:01 DC 02/08/20 19:10 Fentanyl Citrate (Fentanyl 2ml Vial) 50 mcg PRN Q1HR PRN IV PAIN 02/08/20 19:15 02/09/20 19:14 02/09/20 08:56 Heparin Sodium/ Dextrose 250 ml @ 0 mls/hr CONT PRN IV PER PROTOCOL 02/09/20 01:15 02/09/20 01:42 Heparin Sodium (Porcine) (Heparin Sodium) 4,000 unit 1X ONCE IV 02/09/20 01:30 02/09/20 01:31 DC 02/09/20 01:36 Info (Anti-Coagulation Monitoring By Pharmacy) 1 each PRN DAILY PRN MC SEE COMMENTS 02/09/20 10:30 02/09/20 10:20 ALLERGIES ALLERGIES: Coded Allergies: Sulfa (Sulfonamide Antibiotics) (Verified Allergy, Intermediate, hives, 01/29/20) sumatriptan (Verified Allergy, Intermediate, hives, 01/29/20) morphine (Verified Adverse Reaction, Mild, Anxiety, 01/29/20) pt reports morphine "keeps me up all night" ROS Review of System 14 point ROS evaluated with pertinent positives noted per HPI PHYSICAL EXAM PHYSICAL EXAM Discussed with RN General: Alert, Oriented X3, Cooperative, No acute distress HEENT: Atraumatic, Mucous membr. moist/pink Lungs: Clear to auscultation Heart: Regular rate (SR) Abdomen: No tenderness Extremities: No edema Skin: No breakdown Neuro: Normal speech, Sensation intact Psych/Mental Status: Other (anxious) MUSCULOSKELETAL: Osteoarthritic changes both hands VITALS/I&O VITALS/I&O: Vital Signs Date Time Temp Pulse Resp B/P (MAP) Pulse Ox O2 Delivery O2 Flow Rate FiO2 02/09/20 11:00 96.5 75 18 106/55 (72) Room Air 96.5 02/09/20 08:56 95 I & O 7/27/20 7/27/20 7/28/20 15:00 23:00 07:00 Intake Total 1050 ml 540 ml Output Total 100 ml Balance 1050 ml 440 ml LABS Lab: Laboratory Tests Test 02/08/20 15:05 02/08/20 17:15 02/09/20 00:15 02/09/20 05:50 White Blood Count 9.9 x10^3/uL (4.0-11.0) Red Blood Count 5.80 x10^6/uL (3.50-5.40) H Hemoglobin 18.3 g/dL (12.0-15.5) H Hematocrit 51.2 % (36.0-47.0) H Mean Corpuscular Volume 88 fL (79-100) Mean Corpuscular Hemoglobin 32 pg (25-35) Mean Corpuscular Hemoglobin Concent 36 g/dL (31-37) Red Cell Distribution Width 12.5 % (11.5-14.5) Platelet Count 300 x10^3/uL (140-400) Neutrophils (%) (Auto) 62 % (31-73) Lymphocytes (%) (Auto) 23 % (24-48) L Monocytes (%) (Auto) 13 % (0-9) H Eosinophils (%) (Auto) 1 % (0-3) Basophils (%) (Auto) 1 % (0-3) Neutrophils # (Auto) 6.2 x10^3/uL (1.8-7.7) Lymphocytes # (Auto) 2.2 x10^3/uL (1.0-4.8) Monocytes # (Auto) 1.2 x10^3/uL (0.0-1.1) H Eosinophils # (Auto) 0.1 x10^3/uL (0.0-0.7) Basophils # (Auto) 0.1 x10^3/uL (0.0-0.2) Prothrombin Time 12.4 SEC (11.7-14.0) Prothrombin Time INR 1.0 (0.8-1.1) Activated Partial Thromboplast Time 26 SEC (24-38) D-Dimer (Tiarra) 2.15 ug/mlFEU (0.00-0.50) H Sodium Level 137 mmol/L (136-145) Potassium Level 4.1 mmol/L (3.5-5.1) Chloride Level 100 mmol/L (98-107) Carbon Dioxide Level 21 mmol/L (21-32) Anion Gap 16 (6-14) H Blood Urea Nitrogen 14 mg/dL (7-20) Creatinine 1.1 mg/dL (0.6-1.0) H Estimated GFR (Cockcroft-Gault) 51.8 BUN/Creatinine Ratio 13 (6-20) Glucose Level 142 mg/dL (70-99) H Calcium Level 11.4 mg/dL (8.5-10.1) H Magnesium Level 1.5 mg/dL (1.8-2.4) L Total Bilirubin 0.5 mg/dL (0.2-1.0) Aspartate Amino Transferase (AST) 49 U/L (15-37) H Alanine Aminotransferase (ALT) 89 U/L (14-59) H Alkaline Phosphatase 101 U/L (46-116) Troponin I Quantitative < 0.017 ng/mL (0.000-0.055) 1.997 ng/mL (0.000-0.055) 3.111 ng/mL (0.000-0.055) LY-Gzg-G-Type Natriuretic Peptide 53 pg/mL (0-124) Total Protein 7.1 g/dL (6.4-8.2) Albumin 3.9 g/dL (3.4-5.0) Albumin/Globulin Ratio 1.2 (1.0-1.7) Lipase 106 U/L (73-393) Urine Collection Type Void Urine Color Yellow Urine Clarity Clear Urine pH 6.0 (<5.0-8.0) Urine Specific [place] <=1.005 (1.000-1.030) Urine Protein Negative mg/dL (NEG-TRACE) Urine Glucose (UA) Negative mg/dL (NEG) Urine Ketones (Stick) 15 mg/dL (NEG) Urine Blood Negative (NEG) Urine Nitrite Negative (NEG) Urine Bilirubin Negative (NEG) Urine Urobilinogen Dipstick 0.2 mg/dL (0.2 mg/dL) Urine Leukocyte Esterase Negative (NEG) Urine RBC 1-2 /HPF (0-2) Urine WBC 1-4 /HPF (0-4) Urine Squamous Epithelial Cells Occ /LPF Urine Bacteria Moderate /HPF (0-FEW) Test 02/09/20 08:14 02/09/20 09:15 Heparin Anti-Xa Act, Unfractionated 0.65 IU/mL (0.30-0.70) SARS-CoV-2 Antigen (Rapid) Negative (NEGATIVE) Laboratory Tests 02/08/20 15:05 Laboratory Tests 02/08/20 15:05 HEART CATH HEART CATH Conclusion 1. Three-vessel coronary artery disease 2. Negative IFR of the LAD and ramus vessels. 3. No obvious critical stenosis needing intervention at this time Recommendations Aggressive Medical Therapy DATE: 02/01/20 1535 LEFT VENTRICULOGRAM: Deferred CORONARY ANGIOGRAPHY: LM is a large caliber vessel with normal angiographic appearance. LAD is a large caliber vessel with a proximal to mid 60% stenosis. Ramus is a moderate caliber vessel with proximal 50% stenosis. LCx is a moderate caliber dominant vessel with mid 40-50% stenosis, distal diffuse 40% stenosis. OM1 is a small caliber vessel with normal angiographic appearance. RCA is a non-dominant vessel with a proximal to mid 90% stenosis. Conclusion 1. Acute on chronic diastolic HF 2. Moderate 3 vessel coronary disease Recommendations Aggressive medical therapy. Given lack of troponin elevation, plan for medical therapy for stable CAD and if refractory to medical therapy with b-pj, nitrates, then consider PCI of the LAD. DATE: 12/24/19 1423 ASSESSMENT/PLAN ASSESSMENT/PLAN 1. NSTEMI: trop 3.1 no significant EKG changes. multiple LHC with 3VD. with no intervenable lesion. Possible culprit is diffuse small vessel disease 2. CAD: recent LHC with 3VD 01/31 as noted above 3. HLP 4. HTN: controlled 5. DM2: takes metformin 6. Tobaccoism 7. Obesity 8. Known polycythemia 9. Hypercalcemia: per PCP Ca at 11.4 10. COPD Recommendations 1. Rapid Covid negative, TTE today. BMP. DC heparin. Continue ASA and will start on plavix. 2. Will start on long acting nitrates or low dose norvasc if BP would support and statin. Encouraged smoking cessation 3. Continue secondary prevention measures PIPO GHOTRA APRN Feb 09, 2020 11:36
[2020-02-09] MEDS ORDERED: NITROGLYCERIN SUBLINGUAL 0.4 MG BOTTLE OF 25. SL PRN (12:15)
[2020-02-09 12:45] LABS: CREATININE 0.9 mg/dL (0.6-1.0); GFR 65.2; MAGNESIUM 1.9 mg/dL (1.8-2.4); POTASSIUM 3.6 mmol/L (3.5-5.1)
[2020-02-09 12:50] LABS: CALCIUM 8.9 mg/dL (8.5-10.1)
[2020-02-09] MEDS: ACETAMINOPHEN 325 MG TABLET. PO PRN ×2 (13:36→20:44)
[2020-02-09] MEDS: ASPIRIN ENTERIC COATED 81 MG TABLET.DR. PO SCH (13:36)
[2020-02-09] MEDS: CLOPIDOGREL BISULFATE 75 MG TABLET PO SCH (13:37)
[2020-02-09] MEDS: METOPROLOL TART IMMED RELEASE 25 MG TABLET. PO SCH ×2 (13:38→20:45)
--- NOTE | 2020-02-09 14:15 | CARD ---
MR#: [id number] Date of Study: 02/09/2020 Ordering Physician: PIPO GHOTRA, Referring Physician: PIPO GHOTRA, Tech: Hoa Tom ALAN APPROVED REPORT EXAM: Two-dimensional and M-mode echocardiogram with Doppler and color Doppler. Other Information Quality : Good INDICATION Non STEMI 2D DIMENSIONS RVDd3.1 (2.9-3.5cm)Left Atrium(2D)3.2 (1.6-4.0cm) IVSd1.0 (0.7-1.1cm)Aortic Root(2D)2.5 (2.0-3.7cm) LVDd4.1 (3.9-5.9cm)LVOT Diameter2.0 (1.8-2.4cm) PWd1.1 (0.7-1.1cm)LVDs2.9 (2.5-4.0cm) FS (%) 29.0 %SV42.0 ml LVEF(%)56.2 (>50%) Aortic Valve AoV Peak Abdi.153.0cm/sAoV VTI29.7cm AO Peak GR.9.4mmHgLVOT VTI 19.85cm AO Mean GR.5mmHgAVA (VTI)2.00cm2 Mitral Valve MV E [place]jq35.3cm/sMV DECEL HIPZ283se MV A Dchejrgd54.1cm/sE/A Ratio1.4 TDI Lateral E' P. V7.66cm/sMedial E' P. V6.95cm/s E/Lateral E'11.1E/Medial E'12.3 Tricuspid Valve TR P. Idkaymke394cc/sRAP HKFWJCNS4kcZv TR Peak Gr.93wyIgPCKB13byWa Pulmonary Vein S1 Rxktlvyp84.5cm/sS2 Pumboonn77.80cm/s D2 Jmerivmh06.8cm/s LEFT VENTRICLE The left ventricle is normal size. There is normal left ventricular wall thickness. The left ventricu lar systolic function is normal and the ejection fraction is within normal range. The Ejection Fracti on is 55-60%. There is normal LV segmental wall motion. The left ventricular diastolic function and f illing is normal for age. RIGHT VENTRICLE The right ventricle is normal size. The right ventricular systolic function is normal. ATRIA The left atrium size is normal. The right atrium size is normal. The interatrial septum is intact wit h no evidence for an atrial septal defect or patent foramen ovale as noted on 2-D or Doppler imaging. AORTIC VALVE The aortic valve is normal in structure and function. Doppler and Color Flow revealed no significant aortic regurgitation. There is no significant aortic valvular stenosis. MITRAL VALVE The mitral valve is calcified but opens well. There is no evidence of mitral valve prolapse. There is no mitral valve stenosis. Doppler and Color Flow revealed no mitral valve regurgitation noted. TRICUSPID VALVE The tricuspid valve is normal in structure and function. Doppler and Color Flow revealed trace tricus pid regurgitation. The PA pressure was estimated at 25 mmHg. There is no tricuspid valve stenosis. PULMONIC VALVE The pulmonic valve is not well visualized. Doppler and Color Flow revealed trace pulmonic valvular re gurgitation. There is no pulmonic valvular stenosis. GREAT VESSELS The aortic root is normal in size. The ascending aorta is normal in size. The IVC is normal in size a nd collapses >50% with inspiration. PERICARDIAL EFFUSION There is no evidence of significant pericardial effusion. Critical Notification Critical Value: No <Conclusion> The left ventricular systolic function is normal and the ejection fraction is within normal range. Th e Ejection Fraction is 55-60%. There is normal LV segmental wall motion. Signed by : Rohan Chang, Electronically Approved : 02/09/2020 14:15:21
[2020-02-09 15:00] VITALS: BP 123/60
[2020-02-09] MEDS: metFORMIN 500 MG TABLET PO SCH (17:31)
[2020-02-09] MEDS: amLODIPine BESYLATE 5 MG TABLET PO SCH (17:34)
[2020-02-09 19:00] VITALS: BP 116/70
[2020-02-09] MEDS ORDERED: DOCUSATE SODIUM 100 MG CAPSULE. PO PRN (19:15)
[2020-02-09] MEDS: diphenhydrAMINE HCL 25 MG CAPSULE PO SCH (20:45)
[2020-02-09] MEDS: ATORVASTATIN CALCIUM 40 MG TABLET. PO SCH (20:45)
[2020-02-09] MEDS ORDERED: AMITRIPTYLINE HCL 10 MG TABLET. PO SCH (21:00)
--- NOTE | 2020-02-09 21:34 | HP ---
ADMIT DATE: Patient of Dr. Nasim Gross's. CHIEF COMPLAINT AND HISTORY OF PRESENT ILLNESS: This 55-year-old white female admitted through the Emergency Room with chest pain. She denied any coughs or fevers, trouble breathing with it. It was predominantly in the epigastric area. She received by EMS nitro and aspirin en route. The EKG, it was felt to be suspicious for a non-ST elevated myocardial infarction, so they activated code STEMI. She has been in the hospital approximately a week ago and had moderate 3-vessel coronary artery disease, but no culprit lesions but some small vessel disease found on heart catheterization. She was admitted with the above constellation. PAST MEDICAL HISTORY: Remarkable for type 2 diabetes, depression, coronary artery disease, anxiety, hyperlipidemia, history of pancreatitis, migraines and ulcerative colitis. PAST SURGICAL HISTORY: Remarkable for a colectomy with an internal ostomy pouch and tonsillectomy. SOCIAL HISTORY: She is an everyday smoker, rarely uses alcohol, does not use drugs. FAMILY HISTORY: Positive for atherosclerotic heart disease. MEDICATIONS: Brought with the patient, listed on the computer and have been addressed. ALLERGIES: SHE IS ALLERGIC TO SULFA, MORPHINE AND IMITREX. REVIEW OF SYSTEMS: As mentioned above. PHYSICAL EXAMINATION: GENERAL: She is a well-developed, well-nourished, pleasant white female, in no acute distress by the time of my examination. VITAL SIGNS: Stable. She is afebrile. HEAD, EYES, EARS, NOSE AND THROAT: Unremarkable. NECK: Supple, without adenopathy or thyromegaly. CHEST: Clear to auscultation and percussion. HEART: Regular rate and rhythm without S3, S4 or murmur. ABDOMEN: Soft, nontender, without hepatosplenomegaly or masses. EXTREMITIES: Without cyanosis, clubbing or edema. NEUROLOGIC: She is intact. LABORATORY DATA: Initial CBC is essentially unremarkable other than some hemoconcentration with a hemoglobin of 18.3. INR is within normal limits. She has been started on heparin by the Emergency Room. Troponin is elevated at 3.111 at the time of my evaluation. Creatinine is 1.1. There is mild elevation of liver function tests with AST of 49 and ALT of 89. BNP is 53. IMPRESSION: 1. Chest pain with a non-ST elevated myocardial infarction with EKG on admission to the hospital, not showing ST elevation. 2. Multiple other problems listed above. PLAN: The patient has been admitted. Serial troponins are ongoing. Cardiology has been consulted. Heparin drip will be continued and the patient will be monitored, managed and treated appropriately. HECTOR CORREIA MD DR: HERLINDA/danny JOB#: [id number] / [id number]
--- NOTE | 2020-02-09 23:30 | NUR ---
Patient is requesting something more than Tylenol for pain. Complains of midsternal CP. nothing makes it better or worse. 7-8 out of 10. Not as bad as when she initially came in. Order for Fentanyl from ED . RN paged Dr العلي.
[2020-02-09 23:44] VITALS: BP 102/56
[2020-02-10] MEDS: fentaNYL PF VIAL 100 MCG/2 ML VIAL IVP PRN ×2 (00:18→05:46)
[2020-02-10 03:05] VITALS: BP 129/60
[2020-02-10 05:47] LABS: ALBUMIN 2.8 g/dL (3.4-5.0); ALBUMIN/GLOBULIN RATIO 0.9 (1.0-1.7); CALCIUM 8.8 mg/dL (8.5-10.1); GFR 57.8; POTASSIUM 3.7 mmol/L (3.5-5.1); TOTAL BILIRUBIN 0.3 mg/dL (0.2-1.0); TOTAL PROTEIN 5.8 g/dL (6.4-8.2)
[2020-02-10 07:10] VITALS: BP 112/56
--- NOTE | 2020-02-10 08:14 | PDOC ---
SUBJECTIVE Subjective Headaches improving with amitriptyline, wants to try higher dose. Otherwise feeling well. OBJECTIVE Objective Denies chest pain, sob, other symptoms. Vital Signs Vital Signs Date Time Temp Pulse Resp B/P (MAP) Pulse Ox O2 Delivery O2 Flow Rate FiO2 02/10/20 06:16 18 91 Room Air 02/10/20 05:46 18 91 Room Air 02/10/20 03:05 96.7 69 16 129/60 (83) 91 Room Air 96.7 02/10/20 00:48 18 94 Room Air 02/10/20 00:18 20 94 Room Air 02/09/20 23:44 96.8 76 16 102/56 (71) 94 Room Air 96.8 02/09/20 20:45 70 116/70 02/09/20 20:00 Room Air 02/09/20 19:00 96.7 70 18 116/70 (85) 95 Room Air 96.7 02/09/20 18:04 18 95 Room Air 02/09/20 17:34 77 114/60 02/09/20 17:34 18 95 Room Air 02/09/20 15:00 97.8 87 18 123/60 (81) Room Air 97.8 02/09/20 14:12 18 95 Room Air 02/09/20 13:42 18 95 Room Air 02/09/20 13:38 82 111/63 02/09/20 11:00 96.5 75 18 106/55 (72) Room Air 96.5 02/09/20 09:26 18 95 Room Air 02/09/20 08:56 18 95 Room Air I & O Intake and Output 02/10/20 07:00 Intake Total 320 ml Output Total 420 ml Balance -100 ml Intake Oral 320 ml Output Urine Total 420 ml # Voids 1 PHYSICAL EXAM Physical Exam Alert, no acute distress RRR CTAB Abd soft Calm, cooperative ASSESSMENT/PLAN Assessment/Plan NSTEMI Hypertensions, mild hypotension this AM Uncontrolled type 2 diabetes CAD, 3 vessel disease on recent cath HLD Chronic, uncontrolled migraines w/o aura Ulcerative colitis Polycythemia ROSALES Nicotine dependence COPD, not in acute exacerbation Hypercalcemia, resolved, normal with correction for albumin Cards following Increase amitriptyline for migraine ppx Long acting nitrate? defer to Cards Per pt morphine allergy is due to "keeping her awake all night" about 30 yrs ago. Fentanyl not helpful, wants to try morphine instead COVID neg, move to CVC COMMENT Lab Laboratory Tests Test 02/09/20 08:14 02/09/20 09:15 02/09/20 11:50 02/09/20 17:40 Heparin Anti-Xa Act, Unfractionated 0.65 IU/mL (0.30-0.70) SARS-CoV-2 Antigen (Rapid) Negative (NEGATIVE) Sodium Level 140 mmol/L (136-145) Potassium Level 3.6 mmol/L (3.5-5.1) Chloride Level 106 mmol/L (98-107) Carbon Dioxide Level 23 mmol/L (21-32) Anion Gap 11 (6-14) Blood Urea Nitrogen 11 mg/dL (7-20) Creatinine 0.9 mg/dL (0.6-1.0) Estimated GFR (Cockcroft-Gault) 65.2 Glucose Level 135 mg/dL (70-99) Calcium Level 8.9 mg/dL (8.5-10.1) Magnesium Level 1.9 mg/dL (1.8-2.4) Troponin I Quantitative 3.399 ng/mL (0.000-0.055) 4.038 ng/mL (0.000-0.055) Test 02/10/20 04:09 Sodium Level 143 mmol/L (136-145) Potassium Level 3.7 mmol/L (3.5-5.1) Chloride Level 109 mmol/L (98-107) Carbon Dioxide Level 26 mmol/L (21-32) Anion Gap 8 (6-14) Blood Urea Nitrogen 7 mg/dL (7-20) Creatinine 1.0 mg/dL (0.6-1.0) Estimated GFR (Cockcroft-Gault) 57.8 BUN/Creatinine Ratio 7 (6-20) Glucose Level 113 mg/dL (70-99) Calcium Level 8.8 mg/dL (8.5-10.1) Total Bilirubin 0.3 mg/dL (0.2-1.0) Aspartate Amino Transf (AST/SGOT) 54 U/L (15-37) Alanine Aminotransferase (ALT/SGPT) 79 U/L (14-59) Alkaline Phosphatase 71 U/L (46-116) Total Protein 5.8 g/dL (6.4-8.2) Albumin 2.8 g/dL (3.4-5.0) Albumin/Globulin Ratio 0.9 (1.0-1.7) Justicifation of Admission Dx: Justifications for Admission: Justification of Admission Dx: N/A CHERRY RENO MD Feb 10, 2020 08:14
[2020-02-10] MEDS: CLOPIDOGREL BISULFATE 75 MG TABLET PO SCH (08:34)
[2020-02-10] MEDS: amLODIPine BESYLATE 5 MG TABLET PO SCH (08:34)
[2020-02-10] MEDS: OMEGA-3 FATTY ACIDS/FISH OIL 1,000 MG CAPSULE. PO SCH (08:34)
[2020-02-10] MEDS: ASPIRIN ENTERIC COATED 81 MG TABLET.DR. PO SCH (08:35)
[2020-02-10] MEDS: METOPROLOL TART IMMED RELEASE 25 MG TABLET. PO SCH ×2 (08:35→20:54)
[2020-02-10] MEDS: metFORMIN 500 MG TABLET PO SCH (08:35)
[2020-02-10] MEDS: CITALOPRAM 20 MG TABLET. PO SCH (08:37)
[2020-02-10] MEDS: MORPHINE SULFATE 2 MG/ML VIAL. IV PRN ×3 (10:11→22:15)
[2020-02-10 11:00] VITALS: BP 122/74
[2020-02-10] MEDS: ACETAMINOPHEN 325 MG TABLET. PO PRN (11:51)
--- NOTE | 2020-02-10 13:54 | PDOC ---
PIPO GHOTRA SHOWER DOORS AND PANELS FABRICATOR 02/10/20 1354: CARDIO Progress Notes Date and Time Date of Service 02/10/2020 Time of Evaluation 1130 Subjective Subjective: No shortness of breath, No Palpitations, Other (still has intermittent chest pain) Vitals Vitals Vital Signs Date Time Temp Pulse Resp B/P (MAP) Pulse Ox O2 Delivery O2 Flow Rate FiO2 02/10/20 11:00 97.7 72 17 122/74 (90) 97 Room Air 97.7 Weight Weight [ ] Input and Output Intake and Output Intake and Output 02/10/20 07:00 Intake Total 320 ml Output Total 420 ml Balance -100 ml Intake Oral 320 ml Output Urine Total 420 ml # Voids 1 Laboratory Labs Laboratory Tests Test 02/09/20 17:40 02/10/20 04:09 Troponin I Quantitative 4.038 ng/mL (0.000-0.055) Sodium Level 143 mmol/L (136-145) Potassium Level 3.7 mmol/L (3.5-5.1) Chloride Level 109 mmol/L (98-107) Carbon Dioxide Level 26 mmol/L (21-32) Anion Gap 8 (6-14) Blood Urea Nitrogen 7 mg/dL (7-20) Creatinine 1.0 mg/dL (0.6-1.0) Estimated GFR (Cockcroft-Gault) 57.8 BUN/Creatinine Ratio 7 (6-20) Glucose Level 113 mg/dL (70-99) Calcium Level 8.8 mg/dL (8.5-10.1) Total Bilirubin 0.3 mg/dL (0.2-1.0) Aspartate Amino Transf (AST/SGOT) 54 U/L (15-37) Alanine Aminotransferase (ALT/SGPT) 79 U/L (14-59) Alkaline Phosphatase 71 U/L (46-116) Total Protein 5.8 g/dL (6.4-8.2) Albumin 2.8 g/dL (3.4-5.0) Albumin/Globulin Ratio 0.9 (1.0-1.7) Microbiology Micro Microbiology 02/08/20 Urine Culture - Final, Complete Physical Exam HEENT: Neck Supple W Full Motion Chest: Symmetric LUNGS: Clear to Auscultation Heart: S1S2, RRR (SR no ectopies) Abdomen: Soft N/T Extremities: No Calf Tenderness Neurology: alert, oriented, follow commands Assessment Assessment 1. NSTEMI: peaked at 4, no significant EKG changes.Possible culprit is diffuse small vessel disease 2. CAD: recent LHC with 3VD 01/31 with no intervenable lesion. EF and WM nml 3. HLP 4. HTN: controlled 5. DM2: takes metformin 6. COPD with continued Tobaccoism 7. Obesity 8. Known polycythemia 9. Hypercalcemia: resolved per PCP Recommendations 1. Continue ASA and has been started on plavix 2. Encouraged smoking cessation 3. Continue secondary prevention measures 4. Was not able to start on long acting nitrates due to low BP yesterday. Tolerating start of low dose norvasc. She does have supply of NTG SL at home 5. Discussed with RN, will ambulate and will note tolerance Justicifation of Admission Dx: Justifications for Admission: Justification of Admission Dx: N/A QUINTIN MILLIGAN MD 02/10/20 1819: CARDIO Progress Notes Plan Plan Pt. seen and examined. Agree with above PAPER AND PULP MILL WORKER note. Case reviewed extensively. She has known small vessel disease. NSTEMI likely related to this Heart cath less than 2 weeks ago revealed stable LAD disease which was negative for ischemia. Will plan for aggressive antianginal therapy and continue supportive care. PIPO GHOTRA APRN Feb 10, 2020 13:54 QUINTIN MILLIGAN MD Feb 10, 2020 18:19
--- NOTE | 2020-02-10 14:15 | NUR ---
SS following for discharge planning. SS reviewed pt chart and discussed with Dayana KHOURY, and pt's RN. Pt is from home with spouse and is currently on room air. COVID19 negative. Discharge plan is to home when ready. SS will continue to follow for discharge planning.
[2020-02-10 15:00] VITALS: BP 121/64
[2020-02-10] MEDS ORDERED: ASA/APAP/CAFFEINE 250/250/65MG TABLET. PO PRN (15:15)
[2020-02-10] MEDS ORDERED: FAMOTIDINE 20 MG TABLET. PO PRN (15:15)
[2020-02-10] MEDS ORDERED: CALCIUM CARBONATE 500 MG TAB.CHEW PO PRN (15:15)
[2020-02-10 19:00] VITALS: BP 137/66
[2020-02-10] MEDS: diphenhydrAMINE HCL 25 MG CAPSULE PO SCH (20:51)
[2020-02-10] MEDS: ATORVASTATIN CALCIUM 40 MG TABLET. PO SCH (20:52)
[2020-02-10] MEDS: AMITRIPTYLINE HCL 10 MG TABLET. PO SCH (20:52)
[2020-02-10] MEDS: RANOLAZINE 500 MG TAB.ER.12H PO SCH (20:53)
[2020-02-10 23:00] VITALS: BP 108/88
[2020-02-11 03:00] VITALS: BP 109/68
[2020-02-11 04:44] LABS: BASO # 0.1 x10^3/uL (0.0-0.2); BASO % 1 % (0-3); EOS # 0.3 x10^3/uL (0.0-0.7); EOS % 5 % (0-3); HEMATOCRIT 42.6 % (36.0-47.0); HEMOGLOBIN 14.6 g/dL (12.0-15.5); LYMPH % 27 % (24-48); MEAN CORPUSCULAR HEMOGLOBIN 31 pg (25-35); MEAN CORPUSCULAR HGB CONC 34 g/dL (31-37); MEAN CORPUSCULAR VOLUME 91 fL (79-100); MONO # 0.9 x10^3/uL (0.0-1.1); MONO % 12 % (0-9); NEUT % 55 % (31-73); PLATELET COUNT 224 x10^3/uL (140-400); RED CELL DISTRIBUTION WIDTH 12.6 % (11.5-14.5); WHITE BLOOD COUNT 7.3 x10^3/uL (4.0-11.0)
[2020-02-11 05:09] LABS: ALBUMIN 2.9 g/dL (3.4-5.0); ALBUMIN/GLOBULIN RATIO 1.2 (1.0-1.7); CALCIUM 8.9 mg/dL (8.5-10.1); CREATININE 0.9 mg/dL (0.6-1.0); GFR 65.2; POTASSIUM 4.1 mmol/L (3.5-5.1); TOTAL BILIRUBIN 0.3 mg/dL (0.2-1.0); TOTAL PROTEIN 5.4 g/dL (6.4-8.2)
[2020-02-11 07:00] VITALS: BP 116/71
--- NOTE | 2020-02-11 08:25 | PDOC ---
SUBJECTIVE Subjective Doing ok today. Headache resolved. No chest "pain" but feels some mild chest "heaviness". Tolerating Ranexa so far, started last night. OBJECTIVE Objective Reviewed Vital Signs Vital Signs Date Time Temp Pulse Resp B/P (MAP) Pulse Ox O2 Delivery O2 Flow Rate FiO2 02/11/20 07:00 97.5 67 18 116/71 (86) 96 Room Air 97.5 02/11/20 03:00 98.7 68 19 109/68 (82) 98 Room Air 98.7 02/10/20 23:00 97.9 74 18 108/88 (95) 96 Room Air 97.9 02/10/20 22:45 18 97 Room Air 02/10/20 22:15 18 97 Room Air 02/10/20 20:54 71 137/66 02/10/20 20:53 71 137/66 02/10/20 20:00 Room Air 02/10/20 19:00 97.8 71 17 137/66 (89) 97 Room Air 97.8 02/10/20 18:43 Room Air 02/10/20 18:15 Room Air 02/10/20 15:00 97.9 80 20 121/64 (83) 97 Room Air 97.9 02/10/20 11:00 97.7 72 17 122/74 (90) 97 Room Air 97.7 02/10/20 10:49 Room Air 02/10/20 10:11 96 Room Air 02/10/20 08:35 74 112/56 02/10/20 08:34 74 112/56 I & O Intake and Output 02/11/20 07:00 Intake Total 1320 ml Output Total 300 ml Balance 1020 ml Intake Oral 1320 ml Output Urine Total 300 ml # Voids 4 PHYSICAL EXAM Physical Exam Alert, no acute distress RRR CTAB Abd soft Calm, cooperative ASSESSMENT/PLAN Assessment/Plan NSTEMI Hypertension Uncontrolled type 2 diabetes CAD, 3 vessel disease on recent cath HLD Chronic, uncontrolled migraines w/o aura Ulcerative colitis Polycythemia ROSALES Nicotine dependence, encouraged cessation COPD, not in acute exacerbation Hypercalcemia, resolved, normal with correction for albumin Cards following Increased amitriptyline for migraine ppx Long acting nitrate added last night Likely dc home tomorrow COMMENT Lab Laboratory Tests Test 02/11/20 04:00 White Blood Count 7.3 x10^3/uL (4.0-11.0) Red Blood Count 4.70 x10^6/uL (3.50-5.40) Hemoglobin 14.6 g/dL (12.0-15.5) Hematocrit 42.6 % (36.0-47.0) Mean Corpuscular Volume 91 fL (79-100) Mean Corpuscular Hemoglobin 31 pg (25-35) Mean Corpuscular Hemoglobin Concent 34 g/dL (31-37) Red Cell Distribution Width 12.6 % (11.5-14.5) Platelet Count 224 x10^3/uL (140-400) Neutrophils (%) (Auto) 55 % (31-73) Lymphocytes (%) (Auto) 27 % (24-48) Monocytes (%) (Auto) 12 % (0-9) Eosinophils (%) (Auto) 5 % (0-3) Basophils (%) (Auto) 1 % (0-3) Neutrophils # (Auto) 4.0 x10^3/uL (1.8-7.7) Lymphocytes # (Auto) 2.0 x10^3/uL (1.0-4.8) Monocytes # (Auto) 0.9 x10^3/uL (0.0-1.1) Eosinophils # (Auto) 0.3 x10^3/uL (0.0-0.7) Basophils # (Auto) 0.1 x10^3/uL (0.0-0.2) Sodium Level 143 mmol/L (136-145) Potassium Level 4.1 mmol/L (3.5-5.1) Chloride Level 108 mmol/L (98-107) Carbon Dioxide Level 26 mmol/L (21-32) Anion Gap 9 (6-14) Blood Urea Nitrogen 8 mg/dL (7-20) Creatinine 0.9 mg/dL (0.6-1.0) Estimated GFR (Cockcroft-Gault) 65.2 BUN/Creatinine Ratio 9 (6-20) Glucose Level 112 mg/dL (70-99) Calcium Level 8.9 mg/dL (8.5-10.1) Total Bilirubin 0.3 mg/dL (0.2-1.0) Aspartate Amino Transf (AST/SGOT) 32 U/L (15-37) Alanine Aminotransferase (ALT/SGPT) 61 U/L (14-59) Alkaline Phosphatase 74 U/L (46-116) Total Protein 5.4 g/dL (6.4-8.2) Albumin 2.9 g/dL (3.4-5.0) Albumin/Globulin Ratio 1.2 (1.0-1.7) Justicifation of Admission Dx: Justifications for Admission: Justification of Admission Dx: N/A CHERRY RENO MD Feb 11, 2020 08:24
[2020-02-11] MEDS: metFORMIN 500 MG TABLET PO SCH ×2 (08:26→18:14)
[2020-02-11] MEDS: OMEGA-3 FATTY ACIDS/FISH OIL 1,000 MG CAPSULE. PO SCH (08:26)
[2020-02-11] MEDS: RANOLAZINE 500 MG TAB.ER.12H PO SCH ×2 (08:28→20:37)
[2020-02-11] MEDS: ASPIRIN ENTERIC COATED 81 MG TABLET.DR. PO SCH (08:29)
[2020-02-11] MEDS: CITALOPRAM 20 MG TABLET. PO SCH (08:29)
[2020-02-11] MEDS: METOPROLOL TART IMMED RELEASE 25 MG TABLET. PO SCH ×2 (08:30→20:37)
[2020-02-11] MEDS: amLODIPine BESYLATE 5 MG TABLET PO SCH (08:30)
[2020-02-11] MEDS: CLOPIDOGREL BISULFATE 75 MG TABLET PO SCH (08:31)
--- NOTE | 2020-02-11 09:13 | PDOC ---
PIPO GHOTRA PLANT MECHANIC 02/11/20 0913: CARDIO Progress Notes Date and Time Date of Service 02/11/2020 Time of Evaluation 1000 Subjective Subjective: No shortness of breath, No Palpitations, Other (still has intermittent chest pain but much improved) Vitals Vitals Vital Signs Date Time Temp Pulse Resp B/P (MAP) Pulse Ox O2 Delivery O2 Flow Rate FiO2 02/11/20 08:30 67 116/71 02/11/20 07:00 97.5 18 96 Room Air 97.5 Weight Weight [ ] Input and Output Intake and Output Intake and Output 02/11/20 07:00 Intake Total 1320 ml Output Total 300 ml Balance 1020 ml Intake Oral 1320 ml Output Urine Total 300 ml # Voids 4 Laboratory Labs Laboratory Tests Test 02/11/20 04:00 White Blood Count 7.3 x10^3/uL (4.0-11.0) Red Blood Count 4.70 x10^6/uL (3.50-5.40) Hemoglobin 14.6 g/dL (12.0-15.5) Hematocrit 42.6 % (36.0-47.0) Mean Corpuscular Volume 91 fL (79-100) Mean Corpuscular Hemoglobin 31 pg (25-35) Mean Corpuscular Hemoglobin Concent 34 g/dL (31-37) Red Cell Distribution Width 12.6 % (11.5-14.5) Platelet Count 224 x10^3/uL (140-400) Neutrophils (%) (Auto) 55 % (31-73) Lymphocytes (%) (Auto) 27 % (24-48) Monocytes (%) (Auto) 12 % (0-9) Eosinophils (%) (Auto) 5 % (0-3) Basophils (%) (Auto) 1 % (0-3) Neutrophils # (Auto) 4.0 x10^3/uL (1.8-7.7) Lymphocytes # (Auto) 2.0 x10^3/uL (1.0-4.8) Monocytes # (Auto) 0.9 x10^3/uL (0.0-1.1) Eosinophils # (Auto) 0.3 x10^3/uL (0.0-0.7) Basophils # (Auto) 0.1 x10^3/uL (0.0-0.2) Sodium Level 143 mmol/L (136-145) Potassium Level 4.1 mmol/L (3.5-5.1) Chloride Level 108 mmol/L (98-107) Carbon Dioxide Level 26 mmol/L (21-32) Anion Gap 9 (6-14) Blood Urea Nitrogen 8 mg/dL (7-20) Creatinine 0.9 mg/dL (0.6-1.0) Estimated GFR (Cockcroft-Gault) 65.2 BUN/Creatinine Ratio 9 (6-20) Glucose Level 112 mg/dL (70-99) Calcium Level 8.9 mg/dL (8.5-10.1) Total Bilirubin 0.3 mg/dL (0.2-1.0) Aspartate Amino Transf (AST/SGOT) 32 U/L (15-37) Alanine Aminotransferase (ALT/SGPT) 61 U/L (14-59) Alkaline Phosphatase 74 U/L (46-116) Total Protein 5.4 g/dL (6.4-8.2) Albumin 2.9 g/dL (3.4-5.0) Albumin/Globulin Ratio 1.2 (1.0-1.7) Microbiology Micro Microbiology 02/08/20 Urine Culture - Final, Complete Physical Exam HEENT: Neck Supple W Full Motion Chest: Symmetric LUNGS: Clear to Auscultation Heart: S1S2, RRR (SR no ectopies) Abdomen: Soft N/T Extremities: No Calf Tenderness Neurology: alert, oriented, follow commands Assessment Assessment 1. NSTEMI: peaked at 4, no significant EKG changes.Possible culprit is diffuse small vessel disease 2. CAD: recent LHC with 3VD 01/31 with no intervenable lesion. EF and WM nml 3. HLP 4. HTN: controlled 5. DM2: takes metformin 6. COPD with continued Tobaccoism 7. Obesity 8. Known polycythemia 9. Hypercalcemia: resolved per PCP Recommendations 1. Continue ASA/plavix 2. Encouraged smoking cessation 3. Continue secondary prevention measures 4. Optimize antianginal agents, tolerating low dose norvasc and ranexa. 5. Increase activity as tolerated 6. Follow up in office as scheduled Justicifation of Admission Dx: Justifications for Admission: Justification of Admission Dx: N/A QUINTIN MILLIGAN MD 02/11/20 1712: CARDIO Progress Notes Plan Plan Pt. seen and examined. Agree with above GOVERNMENT GUARD note. Supportive care. Thanks PIPO GHOTRA APRN Feb 11, 2020 09:13 QUINTIN MILLIGAN MD Feb 11, 2020 17:12
[2020-02-11 11:00] VITALS: BP 107/69
[2020-02-11] MEDS: MORPHINE SULFATE 2 MG/ML VIAL. IV PRN ×2 (11:53→20:42)
--- NOTE | 2020-02-11 12:28 | NUR ---
SS following up with discharge planning. SS reviewed pt chart and discussed with pt RN. Pt is currently on room air. Discharge plan is to home when ready. SS will continue to follow for discharge planning.
[2020-02-11 15:00] VITALS: BP 132/77
[2020-02-11 19:16] VITALS: BP 121/78
[2020-02-11] MEDS: AMITRIPTYLINE HCL 10 MG TABLET. PO SCH (20:36)
[2020-02-11] MEDS: ATORVASTATIN CALCIUM 40 MG TABLET. PO SCH (20:38)
[2020-02-11] MEDS: diphenhydrAMINE HCL 25 MG CAPSULE PO SCH (20:38)
[2020-02-11 22:23] VITALS: BP 119/72
[2020-02-12 02:50] VITALS: BP 93/58
[2020-02-12] MEDS: MORPHINE SULFATE 2 MG/ML VIAL. IV PRN ×2 (02:56→08:49)
[2020-02-12 07:00] VITALS: BP 117/72
[2020-02-12] MEDS ORDERED: AMLO2.5T5 PO (07:58)
[2020-02-12] MEDS ORDERED: CLOP75TA PO (07:58)
[2020-02-12] MEDS ORDERED: ATOR40TA59 PO (07:58)
[2020-02-12] MEDS ORDERED: AMIT10TA PO (07:58)
[2020-02-12] MEDS ORDERED: RANO500T2 PO (07:58)
--- NOTE | 2020-02-12 08:00 | PDOC3 ---
Discharge Summary Date of Admission: Feb 09, 2020 Date of Discharge: Feb 12, 2020 Follow-Up: 3-5 days Admitting Diagnosis comment: NSTEMI CAD Hyperlipidemia Hypertension Type 2 Diabetes COPD Nicotine dependence Obesity GERD FINAL DIAGNOSIS as above Brief Hospital Course Ms. Mueller is a 55 year old female with PMH of CAD, HTN, HLD, COPD, nicotine dependence, GERD, anxiety, who presented to the ED for recurrence of chest pain and shortness of breath, found to have NSTEMI, troponin peaked at 4. Pt was treated with heparin. Pt has had two catheterizations recently which showed multivessel disease without any vessels that could be intervened upon. Patient was started on plavix, amlodipine 2.5mg daily and ranexa 1000mg BID to help with chronic angina. If these measures are not effective enough, patient may ultimately need CABG for a 90% occlusion of the RCA. She was able to tolerate these medications and agreed with plan for outpatient follow up. Patient was previously taking amitriptyline for chronic migraine prophylaxis, but this was stopped as it is contraindicated for use with Ranexa. F/u with cards as recommended and with myself in 3-5 days. CONDITION AT DISCHARGE: Improved, Stable Discharge Medications Active NITROGLYCERIN SubLingual (Nitroglycerin) 0.4 Mg Tab.subl 0.4 Mg SL PRN Q5MIN PRN 30 Days Lovaza ([place]-3 Acid Ethyl Esters) 1 Gm Capsule 2 Cap PO BID 30 Days Reported Children's Aspirin (Aspirin) 81 Mg Tab.chew 81 Mg PO DAILY Spiriva (Tiotropium [place]) 18 Mcg Cap.w.dev 2 Inh IH DAILY Amitriptyline Hcl 10 Mg Tablet 2 Tab PO QHS Metformin Hcl 1,000 Mg Tablet 1,000 Mg PO BIDWMEALS Metoprolol Tartrate 25 Mg Tablet 0.5 Tab PO BID Escitalopram Oxalate 10 Mg Tablet 1 Tab PO DAILY Tylenol (Acetaminophen) 325 Mg Tablet 650 Mg PO PRN Q6HRS PRN Ibuprofen 400 Mg Tablet 400 Mg PO PRN Q6HRS PRN Ranexa 1000mg BID Amlodipine 2.5mg PO daily Vital Signs Vital Signs Date Time Temp Pulse Resp B/P (MAP) Pulse Ox O2 Delivery O2 Flow Rate FiO2 02/12/20 07:00 98.0 68 18 117/72 (87) 96 Room Air 98.0 Labs Laboratory Tests Test 02/11/20 04:00 White Blood Count 7.3 x10^3/uL (4.0-11.0) Red Blood Count 4.70 x10^6/uL (3.50-5.40) Hemoglobin 14.6 g/dL (12.0-15.5) Hematocrit 42.6 % (36.0-47.0) Mean Corpuscular Volume 91 fL (79-100) Mean Corpuscular Hemoglobin 31 pg (25-35) Mean Corpuscular Hemoglobin Concent 34 g/dL (31-37) Red Cell Distribution Width 12.6 % (11.5-14.5) Platelet Count 224 x10^3/uL (140-400) Neutrophils (%) (Auto) 55 % (31-73) Lymphocytes (%) (Auto) 27 % (24-48) Monocytes (%) (Auto) 12 % (0-9) Eosinophils (%) (Auto) 5 % (0-3) Basophils (%) (Auto) 1 % (0-3) Neutrophils # (Auto) 4.0 x10^3/uL (1.8-7.7) Lymphocytes # (Auto) 2.0 x10^3/uL (1.0-4.8) Monocytes # (Auto) 0.9 x10^3/uL (0.0-1.1) Eosinophils # (Auto) 0.3 x10^3/uL (0.0-0.7) Basophils # (Auto) 0.1 x10^3/uL (0.0-0.2) Sodium Level 143 mmol/L (136-145) Potassium Level 4.1 mmol/L (3.5-5.1) Chloride Level 108 mmol/L (98-107) Carbon Dioxide Level 26 mmol/L (21-32) Anion Gap 9 (6-14) Blood Urea Nitrogen 8 mg/dL (7-20) Creatinine 0.9 mg/dL (0.6-1.0) Estimated GFR (Cockcroft-Gault) 65.2 BUN/Creatinine Ratio 9 (6-20) Glucose Level 112 mg/dL (70-99) Calcium Level 8.9 mg/dL (8.5-10.1) Total Bilirubin 0.3 mg/dL (0.2-1.0) Aspartate Amino Transf (AST/SGOT) 32 U/L (15-37) Alanine Aminotransferase (ALT/SGPT) 61 U/L (14-59) Alkaline Phosphatase 74 U/L (46-116) Total Protein 5.4 g/dL (6.4-8.2) Albumin 2.9 g/dL (3.4-5.0) Albumin/Globulin Ratio 1.2 (1.0-1.7) Allergies Allergies Coded Allergies Type Severity Reaction Last Updated Verified Sulfa (Sulfonamide Antibiotics) Allergy Intermediate hives 01/29/20 Yes sumatriptan Allergy Intermediate hives 01/29/20 Yes morphine Adverse Reaction Mild Anxiety 01/29/20 Yes Disposition/Orders: D/C to Home Justicifation of Admission Dx: Justifications for Admission: Justification of Admission Dx: N/A CHERRY RENO MD Feb 12, 2020 08:00
[2020-02-12] MEDS: metFORMIN 500 MG TABLET PO SCH (08:39)
[2020-02-12] MEDS: CITALOPRAM 20 MG TABLET. PO SCH (08:39)
[2020-02-12] MEDS: METOPROLOL TART IMMED RELEASE 25 MG TABLET. PO SCH (08:39)
[2020-02-12] MEDS: OMEGA-3 FATTY ACIDS/FISH OIL 1,000 MG CAPSULE. PO SCH (08:40)
[2020-02-12] MEDS: ASPIRIN ENTERIC COATED 81 MG TABLET.DR. PO SCH (08:40)
[2020-02-12] MEDS: CLOPIDOGREL BISULFATE 75 MG TABLET PO SCH (08:40)
[2020-02-12] MEDS: amLODIPine BESYLATE 5 MG TABLET PO SCH (08:40)
[2020-02-12] MEDS: RANOLAZINE 500 MG TAB.ER.12H PO SCH (08:41)
[2020-02-12 10:43] VITALS: BP 103/62
--- NOTE | 2020-02-12 13:06 | PDOC ---
[employer] WORKER 02/12/20 1305: CARDIO Progress Notes Date and Time Date of Service 02/12/2020 Time of Evaluation 1110 Subjective Subjective: No Chest Pain, No shortness of breath, No Palpitations, Other (still has intermittent chest pain but much improved) Vitals Vitals Vital Signs Date Time Temp Pulse Resp B/P (MAP) Pulse Ox O2 Delivery O2 Flow Rate FiO2 02/12/20 10:43 97.8 89 16 103/62 (76) 99 Room Air 97.8 Weight Weight [ ] Input and Output Intake and Output Intake and Output 02/12/20 07:00 Intake Total 900 ml Balance 900 ml Intake Oral 900 ml # Voids 4 Microbiology Micro Microbiology 02/08/20 Urine Culture - Final, Complete Physical Exam HEENT: Neck Supple W Full Motion Chest: Symmetric LUNGS: Clear to Auscultation Heart: S1S2, RRR (SR no ectopies) Abdomen: Soft N/T, Other (colostomy) Extremities: No Calf Tenderness Neurology: alert, oriented, follow commands Assessment Assessment 1. NSTEMI: peaked at 4, no significant EKG changes.Possible culprit is diffuse small vessel disease. CP better 2. CAD: recent LHC with 3VD 01/31 with no intervenable lesion. EF and WM nml 3. HLP 4. HTN: controlled 5. DM2: takes metformin 6. COPD with continued Tobaccoism 7. Obesity 8. Known polycythemia 9. GERD Recommendations 1. Continue ASA/plavix 2. Encouraged smoking cessation 3. Continue secondary prevention measures 4. Optimize antianginal agents, tolerating low dose norvasc and ranexa. 5. Increase activity as tolerated 6. Follow up in office as scheduled. DC today Justicifation of Admission Dx: Justifications for Admission: Justification of Admission Dx: N/A QUINTIN MILLIGAN MD 02/13/20 1052: CARDIO Progress Notes Plan Plan Late entry for 02/12/2020 Pt. seen and examined. Agree with above SERVICE ELECTRICIAN note. Supportive care. Outpt f/u - thanks [employer]ATION WORKER Feb 12, 2020 13:05 QUINTIN MILLIGAN MD Feb 13, 2020 10:52
[2020-02-12 15:20] VITALS: BP 130/69
--- NOTE | 2020-02-12 17:03 | NUR ---
Discharge Note: TIM HAYES Discharge instructions and discharge home medications reviewed with Patient and a copy given. All questions have been answered and understanding verbalized. The following instructions and handouts were given: atorvastatin, amlodipine, clopidogrel, Ranexa Patient discharged to home with spouse via wheelchair.
[2020-02-12] MEDS ORDERED: FAMOTIDINE 20 MG TABLET. PO SCH (21:00)
== END 2020-02-12 17:06 | disposition home or self-care (01) | DRG 280 ==
LOC: ER 14:54 → ED HOLD 18:00 → 6 SOUTH 19:18 → OBSVTOIN 02-09 12:41 → 2 NORTH 02-10 11:10
PROVIDERS: ADMIT Family Medicine; ATTEND Family Medicine
DX: I21.4 Non-ST elevation (NSTEMI) myocardial infarction (principal); R65.11 Systemic inflammatory response syndrome (SIRS) of non-infectious origin with acute organ dysfunction; K51.90 Ulcerative colitis, unspecified, without complications; D75.1 Secondary polycythemia; E11.65 Type 2 diabetes mellitus with hyperglycemia; E66.9 Obesity, unspecified; E78.00 Pure hypercholesterolemia, unspecified; E78.5 Hyperlipidemia, unspecified; E83.52 Hypercalcemia; F17.210 Nicotine dependence, cigarettes, uncomplicated; G43.709 Chronic migraine without aura, not intractable, without status migrainosus; G47.33 Obstructive sleep apnea (adult) (pediatric); I10 Essential (primary) hypertension; I25.10 Atherosclerotic heart disease of native coronary artery without angina pectoris; J44.9 Chronic obstructive pulmonary disease, unspecified; K21.9 Gastro-esophageal reflux disease without esophagitis; K76.0 Fatty (change of) liver, not elsewhere classified; Z82.49 Family history of ischemic heart disease and other diseases of the circulatory system; F32.9 Major depressive disorder, single episode, unspecified; F41.9 Anxiety disorder, unspecified; G43.909 Migraine, unspecified, not intractable, without status migrainosus; M19.90 Unspecified osteoarthritis, unspecified site; Z20.828 Contact with and (suspected) exposure to other viral communicable diseases
CPT/HCPCS: 36415; 71045; 71275; 76705; 80048; 80053; 81001; 83690; 83735; 83880; 84484; 85025; 85379; 85520; 85610; 85730; 87086; 87426; 93005; 93306; 96361; 96365; 96366; 96375; 99285; G0378; G0379; J1644; J1885; J2270; J3010; J3475; J7030; Q9967; Q0163; U0003-CS

== ENCOUNTER → 2020-02-24 | Outpatient (CLI) | payer BC ==
[2020-02-12 15:20] VITALS: BP 130/69
[~2020-02-24] MED LIST changes: +AMIT10TA PO; +AMLO2.5T5 PO; +ASPI81TA59 PO; +ATOR40TA59 PO; +CLOP75TA PO; +RANO500T2 PO; +TIOT18CA IH
--- NOTE | 2020-02-26 18:17 | RAD ---
DATE: 02/24/2020 10:52 AM EXAM: MAMMO CAM SCREENING BILATERAL HISTORY: Screening COMPARISON: 11/10/2010, 10/21/2009 Bilateral CC and MLO views of the breasts were performed. Bilateral breast tomosynthesis was performed in CC and MLO projections. FINDINGS: Breast Density: SCATTERED The breast parenchyma shows scattered fibroglandular densities. Breast parenchyma level B Waxing and waning pattern of nodularity compatible with benign cystic change No suspicious masses, microcalcifications or architectural distortion is present to suggest malignancy in either breast. The visualized axillae are unremarkable. IMPRESSION: No mammographic evidence of malignancy. BI-RADS CATEGORY: 2 BENIGN FINDING(S) RECOMMENDED FOLLOW-UP: 12M 12 MONTH FOLLOW-UP Annual screening mammography is recommended, unless clinically indicated sooner based on symptoms or change in physical exam. PQRS compliance statement: Patient information was entered into a reminder system with a target due date for the next mammogram. Mammography is a sensitive method for finding small breast cancers, but it does not detect them all and is not a substitute for careful clinical examination. A negative mammogram does not negate a clinically suspicious finding and should not result in delay in biopsying a clinically suspicious abnormality. "Our facility is accredited by the [employer] Mammography Program."
== END | disposition home or self-care (01) ==
LOC: MAMMO 10:46
PROVIDERS: ATTEND Family Medicine
DX: Z12.31 Encounter for screening mammogram for malignant neoplasm of breast (principal); N64.89 Other specified disorders of breast
CPT/HCPCS: 77063; 77067

== ENCOUNTER → 2020-03-09 | Outpatient (CLI) | payer BC ==
[2020-02-12 15:20] VITALS: BP 130/69
[~2020-03-09] MED LIST changes: +OMEP40CA45 PO
[2020-03-09 12:00] LABS: ALBUMIN 3.7 g/dL (3.4-5.0); ALBUMIN/GLOBULIN RATIO 1.2 (1.0-1.7); CALCIUM 10.2 mg/dL (8.5-10.1); GFR 57.8; TOTAL BILIRUBIN 0.6 mg/dL (0.2-1.0); TOTAL PROTEIN 6.9 g/dL (6.4-8.2)
== END | disposition home or self-care (01) ==
LOC: LAB 11:28
PROVIDERS: ATTEND Internal Medicine Cardiovascular Disease
DX: R07.9 Chest pain, unspecified (principal)
CPT/HCPCS: 36415; 80053; 84484

== ENCOUNTER 2020-03-16 13:17 | Inpatient (IN) | payer BC ==
[~2020-03-16] VITALS: Ht 154.9 cm; Wt 89.0 kg
[~2020-03-16 13:17] MED LIST changes: -OMEP40CA45 PO
[2020-03-16] MEDS ORDERED: fentaNYL PF VIAL 100 MCG/2 ML VIAL IVP ONE ×3 (13:45→16:00)
--- NOTE | 2020-03-16 13:51 | PHYS DOC ---
Past Medical History Past Medical History: Anxiety, CAD, Depression, Diabetes-Type II, High Ch olesterol, Migraines, Pancreatitis Additional Past Medical Histor: ulcerative colitis Past Surgical History: Tonsillectomy, Other Additional Past Surgical Histo: colectomy with internal ostomy pouch Smoking Status: Current Every Day Smoker Alcohol Use: Rarely Drug Use: None General Adult EDM: Chief Complaint: CHEST PAIN HPI: HPI: Patient is a 55 year old female who was brought here by EMS from home due to substernal chest pain started at around 2:00 this morning. Patient denies any trouble breathing, no nausea vomiting, no cough, no fever. Patient denies any recent exposure to anybody who tested positive for COVID-19. Patient has been evaluated here several times recently for chest pain, she was found to have NSTEMI. She had 2 cardiac catheterization recently did not find any significant occlusion that needs stent placement. Review of Systems: Review of Systems: Constitutional: Denies fever or chills. [] Eyes: Denies change in visual acuity. [] HENT: Denies nasal congestion or sore throat. [] Respiratory: Denies cough or shortness of breath. [] Cardiovascular: Positive for chest pain GI: Denies abdominal pain, nausea, vomiting, bloody stools or diarrhea. [] : Denies dysuria. [] Musculoskeletal: Denies back pain or joint pain. [] Integument: Denies rash. [] Neurologic: Denies headache, focal weakness or sensory changes. [] Endocrine: Denies polyuria or polydipsia. [] Lymphatic: Denies swollen glands. [] Psychiatric: Denies depression, positive for anxiety Heart Score: Risk Factors: Risk Factors: DM, Current or recent (<one month) smoker, HTN, HLP, family history of CAD, obesity. Risk Scores: Score 0 - 3: 2.5% MACE over next 6 weeks - Discharge Home Score 4 - 6: 20.3% MACE over next 6 weeks - Admit for Clinical Observation Score 7 - 10: 72.7% MACE over next 6 weeks - Early Invasive Strategies Current Medications: Current Medications Medications (Trade) Dose Ordered Sig/Rowdy Start Time Stop Time Status Last Admin Dose Admin Fentanyl Citrate (Fentanyl 2ml Vial) 50 mcg 1X ONCE 03/16/20 13:45 03/16/20 13:47 DC Nitroglycerin (Nitrostat) 0.4 mg PRN Q5MIN PRN 03/16/20 13:45 Allergies: Allergies: Allergies Coded Allergies Type Severity Reaction Last Updated Verified Sulfa (Sulfonamide Antibiotics) Allergy Intermediate hives 01/29/20 Yes sumatriptan Allergy Intermediate hives 01/29/20 Yes morphine Adverse Reaction Mild Anxiety 01/29/20 Yes Physical Exam: PE: Constitutional: Well developed, well nourished, no acute distress, non-toxic appearance. [] HENT: Normocephalic, atraumatic, bilateral external ears normal, oropharynx moist, no oral exudates, nose normal. [] Eyes: PERRLA, EOMI, conjunctiva normal, no discharge. [] Neck: Normal range of motion, no tenderness, supple, no stridor. [] Cardiovascular:Heart rate regular rhythm, no murmur [] Lungs & Thorax: Bilateral breath sounds clear to auscultation [] Abdomen: Bowel sounds normal, soft, no tenderness, no masses, no pulsatile masses. [] Skin: Warm, dry, no erythema, no rash. [] Back: No tenderness, no CVA tenderness. [] Extremities: No tenderness, no cyanosis, no clubbing, ROM intact, no edema. [] Neurologic: Alert and oriented X 3, normal motor function, normal sensory function, no focal deficits noted. [] Psychologic: Affect normal, judgement normal, mood normal. [] Current Patient Data: Labs: Laboratory Tests Test 03/16/20 13:35 03/16/20 14:51 03/16/20 16:36 03/16/20 19:20 White Blood Count 9.1 x10^3/uL Red Blood Count 5.28 x10^6/uL Hemoglobin 16.3 g/dL Hematocrit 47.2 % Mean Corpuscular Volume 89 fL Mean Corpuscular Hemoglobin 31 pg Mean Corpuscular Hemoglobin Concent 35 g/dL Red Cell Distribution Width 13.5 % Platelet Count 337 x10^3/uL Neutrophils (%) (Auto) 69 % Lymphocytes (%) (Auto) 15 % Monocytes (%) (Auto) 11 % Eosinophils (%) (Auto) 3 % Basophils (%) (Auto) 1 % Neutrophils # (Auto) 6.3 x10^3/uL Lymphocytes # (Auto) 1.4 x10^3/uL Monocytes # (Auto) 1.0 x10^3/uL Eosinophils # (Auto) 0.3 x10^3/uL Basophils # (Auto) 0.1 x10^3/uL Prothrombin Time 12.3 SEC Prothromb Time International Ratio 1.0 Sodium Level 137 mmol/L Potassium Level 4.8 mmol/L Chloride Level 105 mmol/L Carbon Dioxide Level 23 mmol/L Anion Gap 9 Blood Urea Nitrogen 10 mg/dL Creatinine 0.9 mg/dL Estimated GFR (Cockcroft-Gault) 65.2 BUN/Creatinine Ratio 11 Glucose Level 166 mg/dL Calcium Level 10.5 mg/dL Magnesium Level 1.9 mg/dL Total Bilirubin 0.4 mg/dL Aspartate Amino Transf (AST/SGOT) 15 U/L Alanine Aminotransferase (ALT/SGPT) 35 U/L Alkaline Phosphatase 82 U/L Troponin I Quantitative < 0.017 ng/mL < 0.017 ng/mL < 0.017 ng/mL CD-Hsb-X-Type Natriuretic Peptide 49 pg/mL Total Protein 7.2 g/dL Albumin 3.5 g/dL Albumin/Globulin Ratio 0.9 Lipase 55 U/L Urine Collection Type Unknown Urine Color Ashwini Urine Clarity Clear Urine pH 6.0 Urine Specific [place] >=1.030 Urine Protein 30 mg/dL Urine Glucose (UA) Negative mg/dL Urine Ketones (Stick) 15 mg/dL Urine Blood Negative Urine Nitrite Negative Urine Bilirubin Moderate Urine Urobilinogen Dipstick 1.0 mg/dL Urine Leukocyte Esterase Small Urine RBC Rare /HPF Urine WBC Rare /HPF Urine Squamous Epithelial Cells Occ /LPF Urine Bacteria Few /HPF Urine Mucus Slight /LPF Test 03/17/20 00:10 Troponin I Quantitative < 0.017 ng/mL Current Medications Medications (Trade) Dose Ordered Sig/Rowdy Route PRN Reason Start Time Stop Time Status Last Admin Dose Admin Nitroglycerin (Nitrostat) 0.4 mg PRN Q5MIN PRN SL CHEST PAIN 03/16/20 13:45 03/16/20 14:23 Fentanyl Citrate (Fentanyl 2ml Vial) 50 mcg 1X ONCE IVP 03/16/20 13:45 03/16/20 13:47 DC 03/16/20 14:07 Ondansetron HCl (Zofran) 4 mg PRN Q8HRS PRN IV NAUSEA/VOMITING 03/16/20 15:00 03/17/20 14:59 EKG: EKG: EKG was done at 1322, heart rate of 86 bpm, no ST segment elevation, normal sinus rhythm, no ectopy. Radiology/Procedures: Radiology/Procedures: [][facility] [address] [place] [address] IMAGING REPORT Signed PATIENT: TIM HAYES LACCOUNT: [id number] : 1965 LOCATION: ER AGE: 55 SEX: F EXAM STATUS: REG ER ORD. PHYSICIAN: NICHOLE BARKER DO REASON: Chest pain PROCEDURE: PORTABLE CHEST 1V Single AP view of the chest. Comparison: 02/08/2020. Indication: Chest pain Findings: The heart is not enlarged. There is no pneumothorax or effusion. No air space or interstitial disease. Impression: 1. No acute cardiopulmonary process. Electronically signed by: Jony Nava MD (03/16/2020 1:58 PM) [id number] DICTATED and SIGNED BY: JONY NAVA MD DATE: 03/16/20 1358 Course & Med Decision Making: Course & Med Decision Making Pertinent Labs and Imaging studies reviewed. (See chart for details) [] Dragon Disclaimer: Dragon Disclaimer: This electronic medical record was generated, in whole or in part, using a voice recognition dictation system. Departure Departure Impression: Primary Impression: Chest pain Disposition: ADMITTED INPATIENT Admitting Physician: Nsaim Gross Referrals: CHERRY RENO MD (PCP) Justicifation of Admission Dx: Justifications for Admission: Justification of Admission Dx: NICHOLE Pcae DO Mar 16, 2020 13:51
[2020-03-16 13:54] LABS: BASO # 0.1 x10^3/uL (0.0-0.2); BASO % 1 % (0-3); EOS # 0.3 x10^3/uL (0.0-0.7); EOS % 3 % (0-3); HEMATOCRIT 47.2 % (36.0-47.0); HEMOGLOBIN 16.3 g/dL (12.0-15.5); LYMPH # 1.4 x10^3/uL (1.0-4.8); LYMPH % 15 % (24-48); MEAN CORPUSCULAR HEMOGLOBIN 31 pg (25-35); MEAN CORPUSCULAR HGB CONC 35 g/dL (31-37); MEAN CORPUSCULAR VOLUME 89 fL (79-100); MONO % 11 % (0-9); NEUT # 6.3 x10^3/uL (1.8-7.7); NEUT % 69 % (31-73); PLATELET COUNT 337 x10^3/uL (140-400); RED BLOOD COUNT 5.28 x10^6/uL (3.50-5.40); RED CELL DISTRIBUTION WIDTH 13.5 % (11.5-14.5); WHITE BLOOD COUNT 9.1 x10^3/uL (4.0-11.0)
[2020-03-16 13:58] LABS: CALCIUM 10.5 mg/dL (8.5-10.1); CREATININE 0.9 mg/dL (0.6-1.0); GFR 65.2; POTASSIUM 4.8 mmol/L (3.5-5.1)
--- NOTE | 2020-03-16 14:01 | RAD ---
Single AP view of the chest. Comparison: 02/08/2020. Indication: Chest pain Findings: The heart is not enlarged. There is no pneumothorax or effusion. No air space or interstitial disease. Impression: 1. No acute cardiopulmonary process. Electronically signed by: Jony Nava MD (03/16/2020 1:58 PM) [id number]
[2020-03-16 14:03] LABS: ALBUMIN 3.5 g/dL (3.4-5.0); ALBUMIN/GLOBULIN RATIO 0.9 (1.0-1.7); MAGNESIUM 1.9 mg/dL (1.8-2.4); PROTHROMBIN TIME PATIENT 12.3 SEC (11.7-14.0); TOTAL BILIRUBIN 0.4 mg/dL (0.2-1.0); TOTAL PROTEIN 7.2 g/dL (6.4-8.2)
[2020-03-16] MEDS: NITROGLYCERIN SUBLINGUAL 0.4 MG BOTTLE OF 25. SL PRN ×3 (14:06→14:23)
[2020-03-16] MEDS ORDERED: ONDANSETRON PF 4 MG/2 ML VIAL. IV PRN (15:00)
[2020-03-16 15:10] LABS: BILIRUBIN,URINE MODERATE (NEG); CLARITY,URINE CLEAR; COLOR,URINE AMBER; NITRITE,URINE NEGATIVE (NEG); PROTEIN,URINE 30 mg/dL (NEG-TRACE)
[2020-03-16 15:19] LABS: BACTERIA,URINE FEW /HPF (0-FEW); RBC,URINE RARE /HPF (0-2); SQUAMOUS EPITHELIAL CELL,UR OCC /LPF; WBC,URINE RARE /HPF (0-4)
[2020-03-16 16:15] VITALS: BP 136/69
--- NOTE | 2020-03-16 17:01 | EKG ---
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 (Measurements might be questionable) RI6.02 Compared to ECG 03/16/2020 13:22:23 Sinus rhythm no longer present Left-axis deviation no longer present Left anterior fascicular block no longer present
[2020-03-16] MEDS ORDERED: LIDO:MAALOX 1:1 20 ML SINGLE DOSE. SWSW ONE (17:45)
[2020-03-16] MEDS ORDERED: OMEP40CA45 PO (18:25)
[2020-03-16] MEDS ORDERED: IPRATRPIUM/ALBUTEROL 0.5/2.5MG 3 ML NEBU. NEB PRN (18:30)
[2020-03-16] MEDS ORDERED: NITROGLYCERIN SUBLINGUAL 0.4 MG BOTTLE OF 25. SL PRN (18:30)
[2020-03-16] MEDS ORDERED: ALBUTEROL SULFATE 2.5 MG/3 ML NEBU. NEB PRN (18:45)
[2020-03-16] MEDS: metFORMIN 500 MG TABLET PO SCH (19:00)
--- NOTE | 2020-03-16 19:00 | NUR ---
Admit prior to shift change. A/O x 4. C/O Chest Pain rated 7/10, described as heavy pressure. Resting in bed with call light at hand.
--- NOTE | 2020-03-16 19:02 | NUR ---
Denies allergy to Morphine.
[2020-03-16 19:31] VITALS: BP 129/65
[2020-03-16] MEDS: MORPHINE SULFATE 2 MG/ML VIAL. IV PRN ×2 (19:40→22:00)
[2020-03-16] MEDS: METOPROLOL TART IMMED RELEASE 25 MG TABLET. PO SCH (21:54)
[2020-03-16] MEDS: ATORVASTATIN CALCIUM 40 MG TABLET. PO SCH (21:54)
[2020-03-16] MEDS: RANOLAZINE 500 MG TAB.ER.12H PO SCH (21:55)
[2020-03-16] MEDS: diphenhydrAMINE HCL 25 MG CAPSULE PO PRN (21:55)
[2020-03-16 22:42] VITALS: BP 114/58
[2020-03-17] MEDS: MORPHINE SULFATE 2 MG/ML VIAL. IV PRN ×10 (00:03→23:39)
[2020-03-17 03:08] VITALS: BP 103/66
--- NOTE | 2020-03-17 06:10 | EKG ---
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
[2020-03-17 07:00] VITALS: BP 113/64
[2020-03-17] MEDS: CLOPIDOGREL BISULFATE 75 MG TABLET PO SCH (07:17)
[2020-03-17] MEDS: METOPROLOL TART IMMED RELEASE 25 MG TABLET. PO SCH ×2 (07:19→21:13)
[2020-03-17] MEDS: OMEGA-3 FATTY ACIDS/FISH OIL 1,000 MG CAPSULE. PO SCH ×2 (07:22→21:12)
[2020-03-17] MEDS: PANTOPRAZOLE 40 MG TABLET.DR. PO SCH (07:22)
[2020-03-17] MEDS: metFORMIN 500 MG TABLET PO SCH ×2 (07:22→16:30)
[2020-03-17] MEDS: CITALOPRAM 20 MG TABLET. PO SCH (07:22)
--- NOTE | 2020-03-17 08:39 | PDOC2 ---
GI CONSULT Date of Service: DATE: 03/17/20 TIME: 08:39 Reason For Consult: chest pain HPI: HPI: 55 y/o female admitted w/ chest pain. H/o NSTEMI in 01/2020. H/o CAD/3VD - no intervenable lesion on recent cardiac caths. On Plavix. Tells me central chest heaviness and discomfort began ~3 weeks ago, constant but worse w/ movement, worse throughout the day, sometimes kept awake at night as a result. GI cocktail helped a little. Also omeprazole QD x 1 week helped chest "soreness."Then left-sided chest stabbing began yesterday. No radiation. Some decreased appetite for the past couple days. No reflux/heartburn, dysphagia, n/v, abd pain, bleeding, weight loss, or change in stomal output w/ cath. Previously d/w cardiology team - referred to our office, was seen in clinic on 03/15/20 and scheduled for outpt EGD on 03/28. No previous EGD. H/o UC s/p colectomy. 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 H/o pancreatitis - last episodes 20 years ago, unclear etiology. No GB, liver, or PUD history. No NSAIDs, tried Tylenol P.M. PMH: PMH: CAD, HTN, DM, UC, pouchitis, pancreatitis, migraines colectomy w/ [facility] Continent Intestinal Solon (in [place] in 1991), tonsillectomy FH: Family History: Cancer (breast), CAD, DM Social History: Smoke: Quit (01/2020) ALCOHOL: rare Drugs: None ROS: GEN: Denies fevers, chills, sweats HEENT: Denies blurred vision, sore throat CV: +CP RESP: +SOA GI: Per HPI : Denies hematuria, dysuria ENDO: Denies weight changes NEURO: Denies confusion, dizziness MSK: Denies weakness, joint pain/swelling SKIN: Denies jaundice, pruritus Vitals: Vitals: Vital Signs Date Time Temp Pulse Resp B/P (MAP) Pulse Ox O2 Delivery O2 Flow Rate FiO2 03/17/20 07:19 71 106/61 03/17/20 05:12 18 96 Room Air 03/17/20 03:08 97.9 97.9 Labs: Labs: Laboratory Tests Test 03/16/20 13:35 03/16/20 14:51 03/16/20 16:36 03/16/20 19:20 White Blood Count 9.1 x10^3/uL (4.0-11.0) Red Blood Count 5.28 x10^6/uL (3.50-5.40) Hemoglobin 16.3 g/dL (12.0-15.5) Hematocrit 47.2 % (36.0-47.0) Mean Corpuscular Volume 89 fL (79-100) Mean Corpuscular Hemoglobin 31 pg (25-35) Mean Corpuscular Hemoglobin Concent 35 g/dL (31-37) Red Cell Distribution Width 13.5 % (11.5-14.5) Platelet Count 337 x10^3/uL (140-400) Neutrophils (%) (Auto) 69 % (31-73) Lymphocytes (%) (Auto) 15 % (24-48) Monocytes (%) (Auto) 11 % (0-9) Eosinophils (%) (Auto) 3 % (0-3) Basophils (%) (Auto) 1 % (0-3) Neutrophils # (Auto) 6.3 x10^3/uL (1.8-7.7) Lymphocytes # (Auto) 1.4 x10^3/uL (1.0-4.8) Monocytes # (Auto) 1.0 x10^3/uL (0.0-1.1) Eosinophils # (Auto) 0.3 x10^3/uL (0.0-0.7) Basophils # (Auto) 0.1 x10^3/uL (0.0-0.2) Prothrombin Time 12.3 SEC (11.7-14.0) Prothromb Time International Ratio 1.0 (0.8-1.1) Sodium Level 137 mmol/L (136-145) Potassium Level 4.8 mmol/L (3.5-5.1) Chloride Level 105 mmol/L (98-107) Carbon Dioxide Level 23 mmol/L (21-32) Anion Gap 9 (6-14) Blood Urea Nitrogen 10 mg/dL (7-20) Creatinine 0.9 mg/dL (0.6-1.0) Estimated GFR (Cockcroft-Gault) 65.2 BUN/Creatinine Ratio 11 (6-20) Glucose Level 166 mg/dL (70-99) Calcium Level 10.5 mg/dL (8.5-10.1) Magnesium Level 1.9 mg/dL (1.8-2.4) Total Bilirubin 0.4 mg/dL (0.2-1.0) Aspartate Amino Transf (AST/SGOT) 15 U/L (15-37) Alanine Aminotransferase (ALT/SGPT) 35 U/L (14-59) Alkaline Phosphatase 82 U/L (46-116) Troponin I Quantitative < 0.017 ng/mL (0.000-0.055) < 0.017 ng/mL (0.000-0.055) < 0.017 ng/mL (0.000-0.055) KV-Zzn-B-Type Natriuretic Peptide 49 pg/mL (0-124) Total Protein 7.2 g/dL (6.4-8.2) Albumin 3.5 g/dL (3.4-5.0) Albumin/Globulin Ratio 0.9 (1.0-1.7) Lipase 55 U/L (73-393) Urine Collection Type Unknown Urine Color Ashwini Urine Clarity Clear Urine pH 6.0 (<5.0-8.0) Urine Specific [place] >=1.030 (1.000-1.030) Urine Protein 30 mg/dL (NEG-TRACE) Urine Glucose (UA) Negative mg/dL (NEG) Urine Ketones (Stick) 15 mg/dL (NEG) Urine Blood Negative (NEG) Urine Nitrite Negative (NEG) Urine Bilirubin Moderate (NEG) Urine Urobilinogen Dipstick 1.0 mg/dL (0.2 mg/dL) Urine Leukocyte Esterase Small (NEG) Urine RBC Rare /HPF (0-2) Urine WBC Rare /HPF (0-4) Urine Squamous Epithelial Cells Occ /LPF Urine Bacteria Few /HPF (0-FEW) Urine Mucus Slight /LPF Test 03/17/20 00:10 Troponin I Quantitative < 0.017 ng/mL (0.000-0.055) Allergies: Coded Allergies: Sulfa (Sulfonamide Antibiotics) (Verified Allergy, Intermediate, hives, 01/29/20) sumatriptan (Verified Allergy, Intermediate, hives, 01/29/20) Medications: Current Medications Medications (Trade) Dose Ordered Sig/Rowdy Route PRN Reason Start Time Stop Time Status Last Admin Dose Admin Nitroglycerin (Nitrostat) 0.4 mg PRN Q5MIN PRN SL CHEST PAIN 03/16/20 13:45 03/17/20 08:30 DC 03/16/20 14:23 Fentanyl Citrate (Fentanyl 2ml Vial) 50 mcg 1X ONCE IVP 03/16/20 13:45 03/16/20 13:47 DC 03/16/20 14:07 Fentanyl Citrate (Fentanyl 2ml Vial) 50 mcg 1X ONCE IVP 03/16/20 16:00 03/16/20 16:01 DC 03/16/20 16:07 Multi-Ingredient Mouthwash/Gargle (Gi Cocktail) 20 ml 1X ONCE SWSW 03/16/20 17:45 03/16/20 17:55 DC 03/16/20 18:01 Atorvastatin Calcium (Lipitor) 40 mg QHS PO 03/16/20 21:00 03/16/20 21:54 Clopidogrel Bisulfate (Plavix) 75 mg DAILYWBKFT PO 03/17/20 08:00 03/17/20 07:17 Metoprolol Tartrate (Lopressor) 12.5 mg BID PO 03/16/20 21:00 03/17/20 07:19 Ranolazine (Ranexa) 1,000 mg BID PO 03/16/20 21:00 03/16/20 21:55 Morphine Sulfate (Morphine Sulfate) 2 mg PRN Q2HR PRN IV PAIN 03/16/20 19:15 03/17/20 07:18 Diphenhydramine HCl (Benadryl) 50 mg PRN QHS PRN PO INSOMNIA 03/16/20 19:15 03/16/20 21:55 Imaging: Imaging: CXR 03/16 Impression: 1. No acute cardiopulmonary process. PE: GEN: NAD HEENT: Atraumatic, PERRL LUNGS: CTAB HEART: RRR ABD: NABS, S/ND/NT EXTREMITY: No edema SKIN: No rashes, no jaundice NEURO/PSYCH: A & O 3 A/P: A/P: Chest pain CAD, recent NSTEMI - on Plavix, recent caths w/o intervention H/o UC s/p colectomy/BCIR H/o pouchitis H/o pancreatitis -- Check COVID, remain NPO, plan for EGD w/ Dr. Ga this afternoon. SADAF HADDAD Mar 17, 2020 08:39
--- NOTE | 2020-03-17 09:00 | PDOC ---
Provider Note Date of Service: DATE: 03/17/20 TIME: 08:59 Provider Note dictated- L upper chest pain but different from recent SC- is already on omeprazole- ? could be [place]- will do esr and echo, no colchicine for now Justifications for Admission Other Justification STEFFEN ORDONEZ MD Mar 17, 2020 09:00
[2020-03-17] MEDS: ASPIRIN CHEWABLE 81 MG TABLET. PO SCH (09:11)
[2020-03-17] MEDS: amLODIPine BESYLATE 5 MG TABLET PO SCH (09:11)
[2020-03-17] MEDS: RANOLAZINE 500 MG TAB.ER.12H PO SCH ×2 (09:12→21:12)
--- NOTE | 2020-03-17 09:27 | HP ---
ADMIT DATE: 03/16/2020 CHIEF COMPLAINT: Chest pain. HISTORY OF PRESENT ILLNESS: A 55-year-old white female diabetic, had acute AZ about 5 weeks ago and cardiac catheterization revealed some diffuse coronary artery disease which including the right coronary that was not amenable to be stenting. She is recovering well, but in the last several days, she has had some recurrent chest pain in the left upper chest that feels "different" than her previous heart attack. The pain is sharp and piercing more, goes into her upper chest and the back of her neck. There is no positional component, cough, fever, chills, sputum production, heartburn, dysphagia or other symptoms. GI cocktail in the ER provided minor relief, but she has been on omeprazole for a week and chest pain has persisted. Cardiac enzymes showed no acute change and she was admitted and cardiac consultation is pending at this time. PAST MEDICAL HISTORY: She is a poorly controlled diabetic, although the addition of Trulicity in the last couple of months has allowed her hemoglobin A1c to drop from 10.4 in November to 8.2 two weeks ago. She is on Ranexa and other cardiac meds for her recent AZ as well as aspirin and Plavix. No other serious known medical problems except for depression for which she takes Lexapro. SOCIAL HISTORY: Quit smoking after the AZ about 6 weeks ago, , employed, nondrinker. FAMILY HISTORY: Unremarkable. REVIEW OF SYSTEMS: No other complaints. OBJECTIVE: ENT: All within normal limits. NECK: No JVD, nodes or thyroid enlargement. LUNGS: Clear. CARDIOVASCULAR: Regular rate. No murmur, rub or S3 is heard. Chest wall is nontender to palpation. ABDOMEN: Benign, soft, nontender. EXTREMITIES: No acute joint or skin lesions. Nail beds are unremarkable. Pulses are good. NEUROLOGIC: Physiologic, nonfocal. ASSESSMENT: Left upper chest pain about a month after acute non-ST elevated myocardial infarction. She has known coronary artery disease, also type 2 diabetes and an ex-smoker. Possibilities must be considered of Martita syndrome, GI causes and others. Acute myocardial infarction has been ruled out. PLAN: Sed rate, echo along with plans for Dr. Chnag's group. We will hold off on the use of colchicine and anti-inflammatories for now pending test results. STEFFEN ORDONEZ MD DR: ASH/danny JOB#: [id number] / [id number]
[2020-03-17 11:00] VITALS: BP 126/84
[2020-03-17 11:48] LABS: BILIRUBIN,URINE SMALL (NEG); CLARITY,URINE CLEAR; COLOR,URINE ORANGE; NITRITE,URINE POSITIVE (NEG); PROTEIN,URINE NEGATIVE (NEG-TRACE)
[2020-03-17] MEDS ORDERED: PROPOFOL 10 MG/ML (20ML) VIAL. IV ONE (12:08)
[2020-03-17] MEDS ORDERED: LIDOCAINE 2% PF 5 ML VIAL. ONE (12:08)
[2020-03-17 12:11] LABS: SQUAMOUS EPITHELIAL CELL,UR MOD /LPF
[2020-03-17 12:13] LABS: BACTERIA,URINE MODERATE /HPF (0-FEW); WBC,URINE OCC /HPF (0-4)
[2020-03-17] MEDS ORDERED: IV RINGERS,LACTATED 1000ML 1,000 ML IV SCH (12:33)
--- NOTE | 2020-03-17 12:41 | NUR ---
SS following for discharge planning. SS reviewed pt chart and discussed with pt RN. Pt is from home and is currently on room air. Pt having EGD today. SS will continue to follow for discharge planning.
[2020-03-17] MEDS ORDERED: IV RINGERS,LACTATED 1000ML 1,000 ML IV ONE (12:45)
--- NOTE | 2020-03-17 13:38 | PDOC4 ---
PROCEDURE Procedure EGD/biopsy Indication: Atypical chest pain Meds: per anesthesia Findings: E--healing grade A-B esophagitis at 38cm. G--Mild striped erythema, antrum, biopsied. D--Normal to second portion. Gerri. well. IMP: GERD. Not clear to me explains all symptoms, though likely contributes. Antral erythema, non-specific, biopsies pending. REC: Continue PPI. [place] stenting RCA? JESSICA ALVAREZ MD Mar 17, 2020 13:38
--- NOTE | 2020-03-17 14:22 | PDOC2 ---
PIPO GHOTRA FLOTATION TENDER 03/17/20 1422: CARDIAC CONSULT DATE OF CONSULT Date of Consult DATE: 03/17/20 TIME: 1030 REASON FOR CONSULT Reason for Consult: Chest pain REFERRING PHYSICIAN Referring Physician: Luis SOURCE Source: Chart review, Patient HISTORY OF PRESENT ILLNESS HISTORY OF PRESENT ILLNESS This is a pleasant 55 yo female admitted for complains of mid chest pain. Describes it as stabbing and pressure sometimes. No SOA, nausea or vomiting. Den ies symptoms of strictures or globus. She is known for CAD with recent LHC revealing 3VD but no critical lesions but does have distal diffuse disease hence was placed on multiple vasodilators. She is due to see GI and potentially have an endoscopy. PAST MEDICAL HISTORY Past Medical History Cardiovascular: CAD, HTN Pulmonary: Other CENTRAL NERVOUS SYSTEM: Migraine GI: Inflam bowel disease Heme/Onc: No pertinent hx Hepatobiliary: No pertinent hx Psych: No pertinent hx Musculoskeletal: Osteoarthritis Rheumatologic: No pertinent hx Infectious disease: No pertinent hx Renal/: No pertinent hx Endocrine: Diabetes PAST SURGICAL HISTORY Past Surgical History Colon Resection, [facility] FAMILY HISTORY Family History: Coronary Artery Disease SOCIAL HISTORY Smoke: <1 pack per day ALCOHOL: none Drugs: None Lives: with Family CURRENT MEDICATIONS CURRENT MEDICATIONS Current Medications Medications (Trade) Dose Ordered Sig/Rowdy Route PRN Reason Start Time Stop Time Status Last Admin Dose Admin Fentanyl Citrate (Fentanyl 2ml Vial) 50 mcg 1X ONCE IVP 03/16/20 16:00 03/16/20 16:01 DC 03/16/20 16:07 Multi-Ingredient Mouthwash/Gargle (Gi Cocktail) 20 ml 1X ONCE SWSW 03/16/20 17:45 03/16/20 17:55 DC 03/16/20 18:01 Aspirin (Aspirin Chewable) 81 mg DAILY PO 03/17/20 09:00 03/17/20 09:11 Atorvastatin Calcium (Lipitor) 40 mg QHS PO 03/16/20 21:00 03/16/20 21:54 Clopidogrel Bisulfate (Plavix) 75 mg DAILYWBKFT PO 03/17/20 08:00 03/17/20 07:17 Metoprolol Tartrate (Lopressor) 12.5 mg BID PO 03/16/20 21:00 03/17/20 07:19 Ranolazine (Ranexa) 1,000 mg BID PO 03/16/20 21:00 03/17/20 09:12 Amlodipine Besylate (Norvasc) 2.5 mg DAILY PO 03/17/20 09:00 03/17/20 09:11 Morphine Sulfate (Morphine Sulfate) 2 mg PRN Q2HR PRN IV PAIN 03/16/20 19:15 03/17/20 09:30 Diphenhydramine HCl (Benadryl) 50 mg PRN QHS PRN PO INSOMNIA 03/16/20 19:15 03/16/20 21:55 Ringer's Solution 1,000 ml @ 50 mls/hr Q20H IV 03/17/20 12:33 03/18/20 00:32 03/17/20 12:47 ALLERGIES ALLERGIES: Coded Allergies: Sulfa (Sulfonamide Antibiotics) (Verified Allergy, Intermediate, hives, 03/17/20) sumatriptan (Verified Allergy, Intermediate, hives, 03/17/20) ROS Review of System 14 point ROS evaluated with pertinent positives noted per HPI PHYSICAL EXAM General: Alert, Oriented X3, Cooperative, No acute distress HEENT: Atraumatic, Mucous membr. moist/pink Lungs: Clear to auscultation, Normal air movement Heart: Regular rate (SR ), Normal S1, Normal S2 Abdomen: Soft, No tenderness, Other (obese) Extremities: No cyanosis, No edema Skin: No breakdown, No significant lesion Neuro: Normal speech, Sensation intact Psych/Mental Status: Mental status NL, Mood NL MUSCULOSKELETAL: Osteoarthritic changes both hands VITALS/I&O VITALS/I&O: Vital Signs Date Time Temp Pulse Resp B/P (MAP) Pulse Ox O2 Delivery O2 Flow Rate FiO2 03/17/20 14:08 70 16 126/71 97 Room Air 03/17/20 13:38 97.1 2 97.1 I & O 03/16/20 03/16/20 03/17/20 15:00 23:00 07:00 Intake Total 360 ml Output Total 650 ml Balance 360 ml -650 ml LABS Lab: Laboratory Tests Test 03/16/20 14:51 03/16/20 16:36 03/16/20 19:20 03/17/20 00:10 Urine Collection Type Unknown Urine Color Ashwini Urine Clarity Clear Urine pH 6.0 (<5.0-8.0) Urine Specific [place] >=1.030 (1.000-1.030) Urine Protein 30 mg/dL (NEG-TRACE) Urine Glucose (UA) Negative mg/dL (NEG) Urine Ketones (Stick) 15 mg/dL (NEG) Urine Blood Negative (NEG) Urine Nitrite Negative (NEG) Urine Bilirubin Moderate (NEG) Urine Urobilinogen Dipstick 1.0 mg/dL (0.2 mg/dL) Urine Leukocyte Esterase Small (NEG) Urine RBC Rare /HPF (0-2) Urine WBC Rare /HPF (0-4) Urine Squamous Epithelial Cells Occ /LPF Urine Bacteria Few /HPF (0-FEW) Urine Mucus Slight /LPF Troponin I Quantitative < 0.017 ng/mL (0.000-0.055) < 0.017 ng/mL (0.000-0.055) < 0.017 ng/mL (0.000-0.055) Test 03/17/20 08:20 03/17/20 08:22 03/17/20 10:05 03/17/20 11:30 C-Reactive Protein, Quantitative 0.6 mg/L (0-3.3) Troponin I Quantitative < 0.017 ng/mL (0.000-0.055) SARS-CoV-2 Antigen (Rapid) Negative (NEGATIVE) Urine Collection Type Unknown Urine Color [place] Urine Clarity Clear Urine pH 6.0 (<5.0-8.0) Urine Specific [place] 1.025 (1.000-1.030) Urine Protein Negative mg/dL (NEG-TRACE) Urine Glucose (UA) Negative mg/dL (NEG) Urine Ketones (Stick) Negative mg/dL (NEG) Urine Blood Negative (NEG) Urine Nitrite Positive (NEG) Urine Bilirubin Small (NEG) Urine Urobilinogen Dipstick 1.0 mg/dL (0.2 mg/dL) Urine Leukocyte Esterase Small (NEG) Urine RBC 3-5 /HPF (0-2) Urine WBC Occ /HPF (0-4) Urine Squamous Epithelial Cells Mod /LPF Urine Bacteria Moderate /HPF (0-FEW) Urine Mucus Mod /LPF HEART CATH HEART CATH Conclusion 1. Three-vessel coronary artery disease 2. Negative IFR of the LAD and ramus vessels. 3. No obvious critical stenosis needing intervention at this time Recommendations Aggressive Medical Therapy DATE: 02/01/20 1535 ASSESSMENT/PLAN ASSESSMENT/PLAN 1. Atypical CP: possibly GI 2. CAD: recent LHC with 3VD 01/31 with no intervenable lesion. EF and WM nml 3. HLP 4. HTN: controlled 5. DM2: takes metformin 6. COPD with continued Tobaccoism 7. Obesity 8. Known polycythemia 9. GERD Recommendations 1. Continue ASA, may hold plavix for endoscopy 2. Encouraged smoking cessation 3. Continue secondary prevention measures 4. Continue antianginal agents 5. GI consult for potential endoscopy QUINTIN MILLIGAN MD 03/17/20 1502: CARDIAC CONSULT ASSESSMENT/PLAN ASSESSMENT/PLAN The patient was seen and interviewed as well as examined at the bedside. The chart was reviewed. The case was discussed. Agree with the plan of care. PIPO GHOTRA APRN Mar 17, 2020 14:22 QUINTIN MILLIGAN MD Mar 17, 2020 15:02
[2020-03-17 15:00] VITALS: BP 134/72
[2020-03-17 19:36] VITALS: BP 147/78
[2020-03-17] MEDS: diphenhydrAMINE HCL 25 MG CAPSULE PO PRN (21:12)
[2020-03-17] MEDS: ATORVASTATIN CALCIUM 40 MG TABLET. PO SCH (21:12)
[2020-03-17 22:36] VITALS: BP 119/63
[2020-03-18] VITALS (7 sets, daily range): BP systolic 92–123; BP diastolic 51–77
[2020-03-18] MEDS: MORPHINE SULFATE 2 MG/ML VIAL. IV PRN ×6 (02:09→20:07)
[2020-03-18] MEDS: CITALOPRAM 20 MG TABLET. PO SCH (08:39)
[2020-03-18] MEDS: ASPIRIN CHEWABLE 81 MG TABLET. PO SCH (08:39)
[2020-03-18] MEDS: amLODIPine BESYLATE 5 MG TABLET PO SCH (08:39)
[2020-03-18] MEDS: CLOPIDOGREL BISULFATE 75 MG TABLET PO SCH (08:39)
[2020-03-18] MEDS: RANOLAZINE 500 MG TAB.ER.12H PO SCH ×2 (08:40→21:01)
[2020-03-18] MEDS: PANTOPRAZOLE 40 MG TABLET.DR. PO SCH (08:40)
[2020-03-18] MEDS: METOPROLOL TART IMMED RELEASE 25 MG TABLET. PO SCH ×2 (08:40→21:01)
--- NOTE | 2020-03-18 08:42 | PDOC ---
PIPO GHOTRA SALES [employer] SERVICE CHANGE LEADER 03/18/20 0842: CARDIO Progress Notes Date and Time Date of Service 03/18/2020 Time of Evaluation 1025 Subjective Subjective: No shortness of breath, No Palpitations, Other (still has some stabbing chest discomfort) Vitals Vitals Vital Signs Date Time Temp Pulse Resp B/P (MAP) Pulse Ox O2 Delivery O2 Flow Rate FiO2 03/18/20 07:00 20 94 Room Air 2.0 03/18/20 02:31 97.9 76 122/69 (86) 97.9 Weight Weight [ ] Input and Output Intake and Output Intake and Output 03/18/20 07:00 Intake Total 650 ml Output Total 1950 ml Balance -1300 ml Intake Oral 250 ml IV Total 400 ml Output Urine Total 1950 ml Laboratory Labs Laboratory Tests Test 03/17/20 09:30 03/17/20 10:05 03/17/20 11:30 Coronavirus (PCR) Not detected (Not Detected) SARS-CoV-2 Antigen (Rapid) Negative (NEGATIVE) Urine Collection Type Unknown Urine Color Jay Urine Clarity Clear Urine pH 6.0 (<5.0-8.0) Urine Specific [place] 1.025 (1.000-1.030) Urine Protein Negative mg/dL (NEG-TRACE) Urine Glucose (UA) Negative mg/dL (NEG) Urine Ketones (Stick) Negative mg/dL (NEG) Urine Blood Negative (NEG) Urine Nitrite Positive (NEG) Urine Bilirubin Small (NEG) Urine Urobilinogen Dipstick 1.0 mg/dL (0.2 mg/dL) Urine Leukocyte Esterase Small (NEG) Urine RBC 3-5 /HPF (0-2) Urine WBC Occ /HPF (0-4) Urine Squamous Epithelial Cells Mod /LPF Urine Bacteria Moderate /HPF (0-FEW) Urine Mucus Mod /LPF Physical Exam HEENT: Neck Supple W Full Motion Chest: Symmetric LUNGS: Clear to Auscultation Heart: S1S2, RRR (SR no ectopies) Abdomen: Soft N/T Extremities: No Calf Tenderness Neurology: alert, oriented, follow commands Assessment Assessment 1. Atypical CP: suspect GI. EGD noted with GERD and antral erythema 2. CAD: recent LHC with 3VD 01/31 with no intervenable lesion. EF and WM nml 3. HLP 4. HTN: controlled 5. DM2: takes metformin 6. COPD with continued Tobaccoism 7. Obesity 8. Known polycythemia 9. Anxiety: defer to PCP Recommendations 1. DC ASA for now. Continue plavix. On PPI 2. Encouraged smoking cessation 3. Continue secondary prevention measures 4. Continue antianginal agents 5. If chest discomfort remains after GI med optimization the will consider reevaluating for possible PCI to her RCA. So far her symptoms has been atypical, trops nml without acute changes to her EKG. Follow up on 04/08, 9:15 AM as scheduled Justicifation of Admission Dx: Justifications for Admission: Justification of Admission Dx: No QUINTIN MILLIGAN MD 03/18/20 1518: CARDIO Progress Notes Plan Plan Pt seen and examined. Plan as follows: I have discussed extensively with the patient and her , the GI team and reviewed again all her diagnostic testing. The patient reports worsening exertional pain, a heavy sensation in her chest and other various typical and atypical symptoms. Her echo is WNL, her EKG is WNL and her recent CTangio of the chest/a/pelvis has not revealed any pathology. The patient does not have severe esophagitis or GERD to help explain her symptoms. She does have small vessel coronary disease noted on two prior caths. She has not had significant improvement with Metoprolol, renexa and imdur. She is still requiring morphine therapy and having significant pain. In this setting I spoke to the patient about continued PPI versus high risk PCI to her small coronary vessels. She wishes to go ahead with PCI. We discussed r/b/a and at this time, patient feels like her symptoms are too extreme to return to normal quality of life. Therefore, will proceed with PCI of the RCA and ramus depending angiography today. Thanks. PIPO GHOTRA APRN Mar 18, 2020 08:42 QUINTIN MILLIGAN MD Mar 18, 2020 15:18
--- NOTE | 2020-03-18 09:04 | PDOC ---
Provider Note Date of Service: DATE: 03/18/20 TIME: 09:02 Provider Note vss, no temp- still having active pain and taking iv ms q 3 h- sed rate not done as ordered re ? pericarditis, will do crp- add ntg patch, consider ibuprofen/colchine if esr/crp high Justifications for Admission Other Justification STEFFEN ORDONEZ MD Mar 18, 2020 09:04
[2020-03-18] MEDS: OMEGA-3 FATTY ACIDS/FISH OIL 1,000 MG CAPSULE. PO SCH ×2 (09:42→21:00)
[2020-03-18] MEDS: NITROGLYCERIN 0.4MG/HR PATCH. TD SCH (09:43)
[2020-03-18] MEDS: metFORMIN 500 MG TABLET PO SCH ×2 (09:43→17:00)
--- NOTE | 2020-03-18 11:27 | PDOC ---
Date of Service: DATE: 03/18/20 TIME: 11:24 Subjective: Subjective: Feels the same. Objective: Vital Signs: Vital Signs Date Time Temp Pulse Resp B/P (MAP) Pulse Ox O2 Delivery O2 Flow Rate FiO2 03/18/20 09:08 20 94 Room Air 2.0 03/18/20 08:40 76 122/69 03/18/20 07:00 97.8 97.8 Labs: Laboratory Tests Test 03/17/20 11:30 03/18/20 09:36 Urine Collection Type Unknown Urine Color Glynn Urine Clarity Clear Urine pH 6.0 Urine Specific [place] 1.025 Urine Protein Negative mg/dL Urine Glucose (UA) Negative mg/dL Urine Ketones (Stick) Negative mg/dL Urine Blood Negative Urine Nitrite Positive Urine Bilirubin Small Urine Urobilinogen Dipstick 1.0 mg/dL Urine Leukocyte Esterase Small Urine RBC 3-5 /HPF Urine WBC Occ /HPF Urine Squamous Epithelial Cells Mod /LPF Urine Bacteria Moderate /HPF Urine Mucus Mod /LPF C-Reactive Protein, Quantitative 4.7 mg/L URINE CULTURE Final Final 20,000 CFU/ML Normal genitourinary pablo, not indicative of infection Imaging: EGD 03/17 E--healing grade A-B esophagitis at 38cm. G--Mild striped erythema, antrum, biopsied. D--Normal to second portion. IMP: GERD. Not clear to me explains all symptoms, though likely contributes. Antral erythema, non-specific, biopsies pending. REC: Continue PPI. [place] stenting RCA? PE: GEN: NAD - eating breakfast when I saw LUNGS: CTAB HEART: RRR ABD: NABS, S/ND/NT NEURO/PSYCH: A & O 3 A/P: Chest pain CAD, GERD H/o UC s/p colectomy/BCIR -- Continue PPI. Justicifation of Admission Dx: Justifications for Admission: Justification of Admission Dx: Jennie GIBSON-ASDAF VIRK Mar 18, 2020 11:27
--- NOTE | 2020-03-18 12:13 | NUR ---
SS following up with discharge planning. SS reviewed pt chart and discussed with pt RN. Pt is currently on room air. Possible discharge to home today. SS will continue to follow for discharge planning.
[2020-03-18] MEDS: ACETAMINOPHEN 325 MG TABLET. PO PRN ×2 (12:29→22:33)
[2020-03-18] MEDS ORDERED: IBUP-1027 PO (13:02)
[2020-03-18] MEDS ORDERED: IODIXANOL 320 MG/ML 100 ML VIAL. ONE (15:16)
[2020-03-18] MEDS ORDERED: HEPARIN for ARTERIAL LINE 1,500 ML ONE (15:17)
[2020-03-18] MEDS ORDERED: LIDOCAINE 1% Multi-Dose 20 ML VIAL. ONE (15:17)
[2020-03-18] MEDS ORDERED: fentaNYL PF VIAL 100 MCG/2 ML VIAL ONE ×2 (15:18→16:42)
[2020-03-18] MEDS ORDERED: HEPARIN for IV BOLUS 10,000 UNIT/10 ML VIAL. ONE (15:18)
[2020-03-18] MEDS ORDERED: MIDAZOLAM HCL/PF 2 MG/2 ML VIAL. ONE ×2 (15:18→16:43)
[2020-03-18] MEDS ORDERED: VERAPAMIL 5 MG/2 ML VIAL. ONE (15:19)
[2020-03-18] MEDS ORDERED: NITROGLYCERIN 200 MCG/2 ML SYRINGE FOR CATH/VASC LAB. ONE ×2 (15:19→16:30)
[2020-03-18] MEDS ORDERED: fentaNYL PF VIAL 100 MCG/2 ML VIAL IV ONE ×2 (15:45→17:00)
[2020-03-18] MEDS ORDERED: VERAPAMIL 5 MG/2 ML VIAL. IART ONE (15:45)
[2020-03-18] MEDS ORDERED: MIDAZOLAM HCL/PF 2 MG/2 ML VIAL. IV ONE ×2 (15:45→17:00)
[2020-03-18] MEDS ORDERED: LIDOCAINE 1% Multi-Dose 20 ML VIAL. INJ ONE (15:45)
[2020-03-18] MEDS ORDERED: HEPARIN for IV BOLUS 10,000 UNIT/10 ML VIAL. IART ONE (15:45)
[2020-03-18] MEDS ORDERED: NITROGLYCERIN 200 MCG/2 ML SYRINGE FOR CATH/VASC LAB. IART ONE ×2 (15:45→16:30)
[2020-03-18] MEDS ORDERED: IODIXANOL 320 MG/ML 100 ML VIAL. IART ONE (15:45)
--- NOTE | 2020-03-18 15:47 | PDOC ---
MODERATE SEDATION ASSESSMENT RISKS/ALTERNATIVES Risks/Alternatives Risks and alternatives of this type of sedation and procedure discussed with: RISK/ALTERNATIVES: Patient H & P ON CHART H & P H & P on chart and reviewed for co-morbid conditions and appropriate labs. H&P ON CHART: Yes STATUS PREG STATUS ASSESSED: N/A MEDS/ALLERGIES REVIEWED Meds/Allergies Reviewed Medications and Allergies including time and route of recently administered narcotics and sedatives. MEDS/ALLERGIES REVIEWED: Yes ASA RATING ASA RATING: II AIRWAY ASSESSMENT Airway Assessment Airway patency, oral function limitations, presence of caps, crowns, dentures, partials, and ability to extend neck assessed. AIRWAY ASSESSMENT: Yes MALLAMPATI SCORE MALLAMPATI SCORE: II PRE-SEDATION ASSESSMENT PRE-SEDATION ASSESSMENT: Yes QUINTIN MILLIGAN MD Mar 18, 2020 15:47
[2020-03-18] MEDS ORDERED: CONTRAST GIVEN. MC PRN (16:00)
[2020-03-18] MEDS ORDERED: HEPARIN for IV BOLUS 10,000 UNIT/10 ML VIAL. IV ONE (16:30)
[2020-03-18] MEDS ORDERED: ADENOSINE 90 MG/30 ML VIAL. IV ONE (16:32)
[2020-03-18] MEDS ORDERED: ADENOSINE 90 MG in IV NORMAL SALINE 50ML 90 ML IV ONE (16:45)
[2020-03-18] MEDS ORDERED: CLOPIDOGREL BISULFATE 75 MG TABLET ONE (16:51)
[2020-03-18] MEDS ORDERED: CLOPIDOGREL BISULFATE 75 MG TABLET PO ONE (17:00)
[2020-03-18] MEDS ORDERED: IV NORMAL SALINE 500ML BAG 500 ML IV ONE (17:15)
--- NOTE | 2020-03-18 17:56 | CARD ---
MR#: [id number] Date of Study: 03/18/2020 Ordering Physician: QUINTIN CHANG, Referring Physician: QUINTIN CHANG, Tech: RT Tong (R) CHANELLE APPROVED REPORT Technologist: Alley Starkey RT (R) CHANELLE Nurse: Procedure(s) performed: YAMIL Langford Fluoro time: 14.5 min Dose: 125 Gycm2 Contrast: 149 ml Moderate Sedation: 70 min LHC, Coronary angiography, PTCA of the RCA, iFR of the LAD followed by PCI of the LAD HISTORY The patient is a 55 year-old female with a history of : coronary artery disease. INDICATION The indication(s) include : unstable angina . CS Clinical Frailty Scale [facility] Clinical Frailty Scale: Mildly Frail Heart Failure Heart Failure: Yes If Yes, Newly Diagnosed: No If Yes, HF Type: Diastolic If Yes, NYHA Class: Class II PROCEDURE NARRATIVE Clinical information: 55-year-old woman with persistent chest pain despite appropriate medical therapy including metoprolol , Ranexa and PPI therapy. She underwent an EGD which did not reveal any significant pathology. A pr evious CT angiography did not reveal any significant pathology. Therefore due to known history of se audrey RCA disease in a nondominant vessel and moderate to severe left-sided disease she was brought ba to the catheterization laboratory for further evaluation and treatment. Procedure details: After appropriate informed consent was obtained the right wrist was prepped and draped in usual steri le fashion. A 6 Malaysian introducer sheath was placed in the right radial artery without any difficult y. Next, heparin was administered for an ACT greater than 200. The patient was previously on aspiri n and Plavix therapy. Through a 6 Malaysian JR4 guide catheter a left ventricular end-diastolic pressur e was obtained. LVEDP was noted to be 8 mmHg. Next the right coronary artery was engaged and diagno stic angiography revealed persistent proximal 90% stenosis followed by a mid 90% stenosis. There was poststenotic dilatation after the proximal segment. A pro-water wire was advanced to the distal RCA . Balloon angioplasty was performed in the mid and proximal segments with a 2 mm balloon at nominal pressures. Post angioplasty angiography revealed improvement in the stenosis from 90% to 50%. No ob vious guide or wire related complications were noted. Of note, during balloon inflation the patient did not experience any specific chest pain that correlated to her initial symptoms. Next, attention was turned to the LAD and left-sided vessels. Through a 6 [place] [address] the left main was engaged. Diagnostic angiography confirmed the proximal 70% LAD stenosis. The patient also had moderate left circumflex disease in the 40 to 50% range. The patient had a 95% sten osis in a small caliber ramus. Next, a IFR study was performed of the LAD which was atypical at 0.9. Therefore intravenous adenosine was then administered and a FFR study revealed a value of 0.72 sugg estive of ischemia in the LAD territory. The mid LAD stenosis was then angioplastied with a 2 mm bal loon and subsequently stented with a 3 mm x 12 mm resolute drug-eluting stent. Final angiography dem onstrated excellent stent expansion with KRISTEN-3 flow and no evidence of guide or wire related complic ations. During the administration of adenosine the patient did have significant chest discomfort whi ch she felt was similar in nature to her prior episodes. At case completion the guide catheter was removed and a radial band was applied to the right wrist. The patient received an additional 300 mg of Plavix. KRITSEN Flow KRISTEN Flow (Pre-Intervention): KRISTEN-3 KRISTEN Flow (Post-Intervention): KRISTEN-3 KRISTEN Flow KRISTEN Flow (Pre-Intervention): KRISTEN-3 KRISTEN Flow (Post-Intervention): KRISTEN-3 Conclusion 1. Normal left-sided filling pressures 2. Three-vessel coronary artery disease 3. Successful balloon angioplasty of the RCA 4. Successful PCI of the LAD with implantation of a 3.0 x 12 mm resolute drug-eluting stent Recommendations 1. Continue aspirin and Plavix. 2. Referral to cardiac rehab 3. Continue PPI 4. If present treatment does not improve any of her symptoms could consider outpatient referral for MRI for evaluation of possible myocarditis. Signed by : Quintin Chang, Electronically Approved : 03/18/2020 17:56:02
[2020-03-18] MEDS: ATORVASTATIN CALCIUM 40 MG TABLET. PO SCH (21:00)
[2020-03-18] MEDS: diphenhydrAMINE HCL 25 MG CAPSULE PO PRN (21:04)
[2020-03-19] MEDS: MORPHINE SULFATE 2 MG/ML VIAL. IV PRN ×3 (00:02→09:07)
[2020-03-19] MEDS: PANTOPRAZOLE 40 MG TABLET.DR. PO SCH (05:44)
[2020-03-19 07:00] VITALS: BP 98/62
[2020-03-19] MEDS: metFORMIN 500 MG TABLET PO SCH (08:00)
[2020-03-19] MEDS: RANOLAZINE 500 MG TAB.ER.12H PO SCH (09:01)
[2020-03-19] MEDS: METOPROLOL TART IMMED RELEASE 25 MG TABLET. PO SCH (09:02)
[2020-03-19] MEDS: amLODIPine BESYLATE 5 MG TABLET PO SCH (09:02)
[2020-03-19] MEDS: CITALOPRAM 20 MG TABLET. PO SCH (09:02)
[2020-03-19] MEDS: CLOPIDOGREL BISULFATE 75 MG TABLET PO SCH (09:02)
[2020-03-19] MEDS: ASPIRIN CHEWABLE 81 MG TABLET. PO SCH (09:02)
[2020-03-19] MEDS: NITROGLYCERIN 0.4MG/HR PATCH. TD SCH (09:05)
[2020-03-19] MEDS: OMEGA-3 FATTY ACIDS/FISH OIL 1,000 MG CAPSULE. PO SCH (09:05)
[2020-03-19 11:00] VITALS: BP 95/55
--- NOTE | 2020-03-19 11:45 | PDOC ---
Provider Note Date of Service: DATE: 03/19/20 TIME: 11:44 Provider Note feels beter ,pain present on admit is now gone after stent- meds are same, vss, labs ok- will defer dc to cv , same meds Justifications for Admission Other Justification STEFFEN ORDONEZ MD Mar 19, 2020 11:45
[2020-03-19 15:00] VITALS: BP 102/58
--- NOTE | 2020-03-19 15:35 | PDOC ---
CARDIOLOGY PROGRESS NOTE SUBJECTIVE: No chest pain today. Reports all chest pain is no longer present. OBJECTIVE: Vital Signs/I&O: Vital Signs Date Time Temp Pulse Resp B/P (MAP) Pulse Ox O2 Delivery O2 Flow Rate FiO2 03/19/20 11:00 97.7 75 20 95/55 (68) 92 Nasal Cannula 2.0 97.7 I & O 03/18/20 03/18/20 03/19/20 15:00 23:00 07:00 Intake Total 0 ml 672 ml 500 ml Output Total 150 ml 1500 ml Balance -150 ml 672 ml -1000 ml Objective: GEN.: No apparent distress. Alert and oriented. HEENT: Head is normocephalic, atraumatic NECK: Supple. LUNGS: Clear to auscultation. HEART: RRR, S1, S2 present. Peripheral pulses intact ABDOMEN: Soft, nontender. Positive bowel sounds. EXTREMITIES: Without any cyanosis. NEUROLOGIC: Normal speech, normal tone PSYCHIATRIC: Normal affect, normal mood. SKIN: No ulcerations CURRENT MEDICATIONS: Current Medications Medications (Trade) Dose Ordered Sig/Rowdy Route PRN Reason Start Time Stop Time Status Last Admin Dose Admin Nitroglycerin (Nitroglycerin) 200 mcg 1X ONCE IART 03/18/20 15:45 03/18/20 15:49 DC 03/18/20 15:45 Verapamil HCl (Verapamil) 2.5 mg 1X ONCE IART 03/18/20 15:45 03/18/20 15:49 DC 03/18/20 15:45 Heparin Sodium (Porcine) (Heparin Sodium) 2,500 unit 1X ONCE IART 03/18/20 15:45 03/18/20 15:49 DC 03/18/20 15:45 Heparin Sodium/ Sodium Chloride (HEPARIN for ARTERIAL LINE FLUSH) 1,000 unit 1X ONCE IART 03/18/20 15:45 03/18/20 15:49 DC 03/18/20 15:45 Heparin Sodium/ Sodium Chloride (HEPARIN for ARTERIAL LINE FLUSH) 1,000 unit 1X ONCE IART 03/18/20 15:45 03/18/20 15:49 DC 03/18/20 15:45 Midazolam HCl (Versed) 2 mg 1X ONCE IV 03/18/20 15:45 03/18/20 15:49 DC 03/18/20 15:45 Fentanyl Citrate (Fentanyl 2ml Vial) 100 mcg 1X ONCE IV 03/18/20 15:45 03/18/20 15:49 DC 03/18/20 15:45 Iodixanol (Visipaque 320) 100 ml 1X ONCE IART 03/18/20 15:45 03/18/20 15:49 DC 03/18/20 15:45 Lidocaine HCl (Lidocaine 1% 20ml Vial) 20 ml 1X ONCE INJ 03/18/20 15:45 03/18/20 15:49 DC 03/18/20 15:45 Heparin Sodium (Porcine) (Heparin Sodium) 3,000 unit 1X ONCE IV 03/18/20 16:30 03/18/20 16:31 DC 03/18/20 16:30 Nitroglycerin (Nitroglycerin) 200 mcg 1X ONCE IART 03/18/20 16:30 03/18/20 16:32 DC 03/18/20 16:30 Adenosine 90 mg/ Sodium Chloride 120 ml @ 200 mls/hr 1X ONCE IV 03/18/20 16:45 03/18/20 17:20 DC 03/18/20 16:45 Midazolam HCl (Versed) 2 mg 1X ONCE IV 03/18/20 17:00 03/18/20 17:01 DC 03/18/20 16:55 Fentanyl Citrate (Fentanyl 2ml Vial) 100 mcg 1X ONCE IV 03/18/20 17:00 03/18/20 17:01 DC 03/18/20 16:54 Clopidogrel Bisulfate (Plavix) 300 mg 1X ONCE PO 03/18/20 17:00 03/18/20 17:02 DC 03/18/20 17:00 Sodium Chloride 500 ml @ 500 mls/hr 1X ONCE IV 03/18/20 17:15 03/18/20 18:14 DC 03/18/20 17:31 ASSESSMENT: 1. UA s/p PCI 2. GERD 3. HTN PLAN: 1. Doing well s/p RCA angioplasty and PCI of the LAD. Doing well. Continue present meds. f/u in the office in 4 weeks and determine if renexa is needed. Thanks Justicifation of Admission Dx: Justifications for Admission: Justification of Admission Dx: QUINTIN Richard MD Mar 19, 2020 15:35
--- NOTE | 2020-03-19 18:10 | NUR ---
Discharge Note: TIM HAYES Discharge instructions and discharge home medications reviewed with Patient and a copy given. All questions have been answered and understanding verbalized. The following instructions and handouts were given: Cardiac rehab, angina Discontinued lines and drains: IV catheter removed intact. Patient discharged to Home with self care via wheelchair.
--- NOTE | 2020-03-22 12:06 | PATHOLOGY ---
[facility] Accession Number: [id number] . 01 Material submitted: . stomach - ANTRAL BIOPSY . 01 Clinical history: . ATYPICAL CHEST PAIN . 02 Diagnosis: Stomach "antral", endoscopic biopsy: - Gastric antral and oxyntic mucosa with chronic gastritis. - Negative for intestinal metaplasia, dysplasia, and malignancy. - NEGATIVE for Helicobacter pylori. (GENESIS:josé luis; 03/18/2020) [facility] 03/18/2020 1557 Local . 02 Electronically signed: . Idalia Charles MD, Pathologist NPI- [id number] . 01 Gross description: . Received in formalin labeled "Nasternak, Kiley, antral BX" is a 0.5 x 0.5 x 0.1 cm aggregate of castro-brown soft tissue fragments. The specimen is submitted entirely in A1. ([facility]; 03/17/2020) [facility] 03/17/2020 1910 Local . 02 Microscopic: . Immunohistochemical stain results (block A1): . Helicobacter pylori - negative for organisms. . (GENESIS:josé luis; 03/18/2020) . 02 Pathologist provided ICD-10: K29.50 . 02 CPT . 756680, [id number] Specimen Comment: A courtesy copy of this report has been sent to [phone], [phone] Specimen Comment: [id number] Specimen Comment: Report sent to , , / Performed at: 01 [facility] [address], [place] [id number] MD Pérez Huang MD Phone: [phone] Performed at: 02 [facility] [address] [place], [place] [id number] MD Joey Curiel MD Phone: [phone]
--- NOTE | 2020-03-22 13:01 | DS ---
DATE OF DISCHARGE: 03/19/2020 HOSPITAL SUMMARY: The patient with known coronary artery disease, came back in with somewhat atypical chest pain, more on the upper left chest. Chest x-ray was clear and no obvious etiology was found for the pain and troponins x 3 were negative as well as lab work. Dr. Chang took her back to the catheterization laboratory technician and found to flow studies that there was some degree of left anterior descending artery stenosis. He placed a stent in that artery, but the patient noted substantial pain relief after that. She was comfortable to be followed as an outpatient at that point. FINAL DIAGNOSES: Chest pain secondary to persistent left anterior descending artery stenosis. OPERATIONS AND PROCEDURES: Cardiac catheterization, left anterior descending artery stent placement. CONSULTATIONS: None. DISPOSITION: All home meds remain the same and follow up with Dr. Chang 1-2 week swith ourselves as needed for any further problems. Prognosis is good and she will continue to use her diabetic meds which including Trulicity which is certainly help her diabetic control. STEFFEN ORDONEZ MD DR: ASH/danny JOB#: [id number] / [id number]
== END 2020-03-19 18:09 | disposition home or self-care (01) | DRG 247 ==
LOC: ER 13:17 → 2 NORTH 15:00 → OBSVTOIN 15:04
PROVIDERS: ADMIT Family Medicine; ATTEND Family Medicine
PROC: 0DB68ZX Excision of Stomach, Via Natural or Artificial Opening Endoscopic, Diagnostic (ICD-10-PCS; principal; 2020-03-17 13:30)
PROC: 027034Z Dilation of Coronary Artery, One Artery with Drug-eluting Intraluminal Device, Percutaneous Approach (ICD-10-PCS; 2020-03-18)
PROC: 02703ZZ Dilation of Coronary Artery, One Artery, Percutaneous Approach (ICD-10-PCS; 2020-03-18)
PROC: 4A023N7 Measurement of Cardiac Sampling and Pressure, Left Heart, Percutaneous Approach (ICD-10-PCS; 2020-03-18)
PROC: B2111ZZ Fluoroscopy of Multiple Coronary Arteries using Low Osmolar Contrast (ICD-10-PCS; 2020-03-18)
PROC: 4A033BC Measurement of Arterial Pressure, Coronary, Percutaneous Approach (ICD-10-PCS; 2020-03-18)
DX: I25.10 Atherosclerotic heart disease of native coronary artery without angina pectoris (principal); K51.90 Ulcerative colitis, unspecified, without complications; K21.0 Gastro-esophageal reflux disease with esophagitis; D75.1 Secondary polycythemia; E11.9 Type 2 diabetes mellitus without complications; E66.9 Obesity, unspecified; E78.00 Pure hypercholesterolemia, unspecified; E78.5 Hyperlipidemia, unspecified; F17.210 Nicotine dependence, cigarettes, uncomplicated; F41.9 Anxiety disorder, unspecified; G43.909 Migraine, unspecified, not intractable, without status migrainosus; J44.9 Chronic obstructive pulmonary disease, unspecified; F32.9 Major depressive disorder, single episode, unspecified; M19.90 Unspecified osteoarthritis, unspecified site; Z20.828 Contact with and (suspected) exposure to other viral communicable diseases; I10 Essential (primary) hypertension; I25.2 Old myocardial infarction; Z80.3 Family history of malignant neoplasm of breast; Z82.49 Family history of ischemic heart disease and other diseases of the circulatory system; Z83.3 Family history of diabetes mellitus; Z98.61 Coronary angioplasty status; Z88.5 Allergy status to narcotic agent; Z88.2 Allergy status to sulfonamides; Z68.31 Body mass index [BMI] 31.0-31.9, adult
CPT/HCPCS: 36415; 43239; 71045; 80053; 81001; 83690; 83735; 83880; 84484; 85025; 85347; 85610; 86140; 87086; 87426; 88305; 88342; 92920; 92928; 93005; 93458; 93571; 96374; 96376; 99152; 99153; C1725; C1769; C1874; C1887; C1892; G0379; J0153; J1644; J2250; J2270; J2704; J3010; J3490; J7040; J7120; Q9967; 99285-25; G0378; Q0163; U0003-CS

== ENCOUNTER → 2021-02-13 | Outpatient (CLI) | payer BC ==
[~2021-02-13] MED LIST changes: +OMEP40CA7 PO
--- NOTE | 2021-02-13 15:55 | KCIC ---
EXAM: Chest CT without intravenous contrast. HISTORY: Pulmonary nodule follow-up. Cigarette smoking. TECHNIQUE: Computed tomographic images of the chest were obtained without contrast. Multiplanar refor matting was performed. *One or more of the following individualized dose reduction techniques were utilized for this examina tion: 1. Automated exposure control. 2. Adjustment of the mA and/or kV according to patient size. 3. Use of iterative reconstruction technique. COMPARISON: 02/08/2020. FINDINGS: There has been near complete resolution of the previously demonstrated 5 mm posterior right upper lobe or nodule. This is now a groundglass 2 mm nodule. There is a stable 2 mm nodule within th e posterior right upper lobe which appears to be a partially calcified granuloma. There is no new nod ule. There is no infiltrate, pleural effusion or pneumothorax. There is right middle lobe and lingula r scarring. There is a calcified lingular granuloma. The heart is normal in size. There is aortic and coronary artery atherosclerosis. No pathologically enlarged mediastinal or hilar lymph node is seen. There is no acute finding involving the visualized upper abdomen. There is no acute or suspicious os seous lesion. IMPRESSION: 1. Near complete resolution of a previously demonstrated right upper lobe pulmonary nodule. This now a benign-appearing 2 mm groundglass nodule. There is also a tiny suspected partially calcified granul bekah right upper lobe measuring 2 mm. There is no new or persistent suspicious pulmonary nodule. 2. No acute pulmonary finding. Electronically signed by: Nohemy Child MD (02/13/2021 3:52 PM) [id number]
== END ==
LOC: KCIC CT 15:05
PROVIDERS: ATTEND Family Medicine
DX: R91.1 Solitary pulmonary nodule (principal); J98.4 Other disorders of lung; I25.10 Atherosclerotic heart disease of native coronary artery without angina pectoris
CPT/HCPCS: 71250

== ENCOUNTER → 2021-03-13 | Outpatient (CLI) | payer BC ==
--- NOTE | 2021-03-13 15:02 | CARD ---
MR#: [id number] Date of Study: 03/13/2021 Ordering Physician: QUINTIN MILLIGAN, Referring Physician: QUINTIN MILLIGAN, Tech: Jeri Jon [facility] APPROVED REPORT EXAM: Two-dimensional and M-mode echocardiogram with Doppler and color Doppler. Other Information Quality : AverageHR: 67bpm Rhythm : NSR INDICATION Dyspnea RISK FACTORS Hypertension Hyperlipidemia 2D DIMENSIONS RVDd3.4 (2.9-3.5cm)Left Atrium(2D)3.4 (1.6-4.0cm) IVSd1.1 (0.7-1.1cm)Aortic Root(2D)3.1 (2.0-3.7cm) LVDd4.8 (3.9-5.9cm)LVOT Diameter1.9 (1.8-2.4cm) PWd0.9 (0.7-1.1cm)LVDs2.4 (2.5-4.0cm) FS (%) 49.4 %SV85.5 ml LVEF(%)80.7 (>50%) Aortic Valve AoV Peak Abdi.168.1cm/sAoV VTI40.4cm AO Peak GR.11.3mmHgLVOT Peak Abdi.108.2cm/s AO Mean GR.5mmHgAVA (VMAX)1.91cm2 Mitral Valve MV E Qenajvwv77.5cm/sMV DECEL HMAF507ax MV A Ietqpejb61.6cm/sE/A Ratio1.5 Pulmonary Valve PV Peak Llgtdgdk55.2cm/s Tricuspid Valve TR P. Bjwmybjy249ty/sTR Peak Gr.32mmHg LEFT VENTRICLE The left ventricle is normal size. There is normal left ventricular wall thickness. The left ventricu lar systolic function is normal. Estimated ejection fraction 60-65%. There is normal LV segmental wa ll motion. The left ventricular diastolic function and filling is normal for age. RIGHT VENTRICLE The right ventricle is normal size. There is normal right ventricular wall thickness. The right ventr icular systolic function is normal. ATRIA The left atrium size is normal. The right atrium size is normal. The interatrial septum is intact wit h no evidence for an atrial septal defect or patent foramen ovale as noted on 2-D or Doppler imaging. AORTIC VALVE The aortic valve is normal in structure and function. Doppler and Color Flow revealed no significant aortic regurgitation. There is no significant aortic valvular stenosis. MITRAL VALVE The mitral valve is normal in structure and function. There is no evidence of mitral valve prolapse. There is no mitral valve stenosis. Doppler and Color-flow revealed trace to mild mitral regurgitation . TRICUSPID VALVE The tricuspid valve is normal in structure and function. Doppler and Color Flow revealed mild tricusp id regurgitation. Estimated PAP 20 mmHg. There is no tricuspid valve stenosis. PULMONIC VALVE The pulmonary valve is normal in structure and function. Doppler and Color Flow revealed mild pulmoni c valvular regurgitation. GREAT VESSELS The aortic root is normal in size. The ascending aorta is normal in size. The IVC is normal in size a nd collapses >50% with inspiration. PERICARDIAL EFFUSION There is no evidence of significant pericardial effusion. Critical Notification Critical Value: No <Conclusion> The left ventricular systolic function is normal. Estimated ejection fraction 60-65%. There is normal LV segmental wall motion. Trace to mild mitral regurgitation. Mild tricuspid regurgitation. Estimated PAP 20 mmHg. There is no evidence of significant pericardial effusion. Signed by : Dony Ferreira, Electronically Approved : 03/13/2021 15:02:01
== END ==
LOC: ECHO 08:39
PROVIDERS: ATTEND Internal Medicine Cardiovascular Disease
DX: I08.8 Other rheumatic multiple valve diseases (principal); I25.10 Atherosclerotic heart disease of native coronary artery without angina pectoris
CPT/HCPCS: 93306